=== PATIENT | male | born 1945 | race Caucasian/White ===

== ENCOUNTER → 2016-05-15 | Outpatient (CLI) | payer MEDICARE, BC ==
[2016-05-15 12:28] LABS: Calcium 9.4 mg/dL (8.4-10.2); Potassium 4.3 mmol/L (3.5-5.1); Total Bilirubin 2.6 mg/dL (0.2-1.3); Total Protein 7.4 g/dL (6.3-8.2)
[2016-05-15 12:36] LABS: CHCM 34.7; HCT 44.1 % (39.0-53.0); HDW 2.76; HGB 14.8 gm/dL (13.0-17.5); MCHC 33.6 g/dL (31.0-37.0); MCV 98.5 fL (80.0-100.0); Mean Platelet Volume 7.6; RBC 4.48 m/uL (4.30-5.90); RDW 14.6 % (11.5-15.5); WBC 3.6 k/uL (3.8-10.6)
== END | disposition home or self-care (01) ==
LOC: LABWHC1 11:05
PROVIDERS: ATTEND Internal Medicine Gastroenterology
DX: K74.69 Other cirrhosis of liver (principal)
CPT/HCPCS: 36415; 80053; 82105; 85027

== ENCOUNTER → 2016-08-14 | Outpatient (CLI) | payer MEDICARE, BC ==
[2016-08-14 12:58] LABS: ALT 39 U/L (21-72); AST 49 U/L (17-59); Alkaline Phosphatase 91 U/L (38-126); Anion Gap 9 mmol/L; Blood Urea Nitrogen 24 mg/dL (9-20); Calcium 9.2 mg/dL (8.4-10.2); Carbon Dioxide 24 mmol/L (22-30); Chloride 108 mmol/L (98-107); Glucose 88 mg/dL (74-99); Non-African American GFR(MDRD) >60 (>60 ml/min/1.73 sqM); Potassium 4.3 mmol/L (3.5-5.1); Sodium 141 mmol/L (137-145); Total Bilirubin 2.1 mg/dL (0.2-1.3); Total Protein 6.9 g/dL (6.3-8.2)
[2016-08-14 13:03] LABS: CH 34.9; CHCM 35.2; HCT 39.2 % (39.0-53.0); HDW 2.92; HGB 13.6 gm/dL (13.0-17.5); MCH 34.6 pg (25.0-35.0); MCHC 34.7 g/dL (31.0-37.0); MCV 99.7 fL (80.0-100.0); Macrocytosis Slight; RBC 3.93 m/uL (4.30-5.90); RDW 14.8 % (11.5-15.5); WBC 3.7 k/uL (3.8-10.6)
== END | disposition home or self-care (01) ==
LOC: LABWHC1 12:20
PROVIDERS: ATTEND Internal Medicine Gastroenterology
DX: K74.69 Other cirrhosis of liver (principal)
CPT/HCPCS: 36415; 80053; 82105; 85027

== ENCOUNTER 2016-09-02 09:46 | Day surgery (SDC) | payer MEDICARE, BC ==
[2016-09-01 10:07] VITALS: BMI 36.5
[~2016-09-02 09:46] MED LIST: LACTATED RINGERS 1,000 ML IV SCH; LIDOCAINE 1% 20 ML VIAL (10MG/ML) FOR IV START INTRADERMA PRN
[2016-09-02 11:29] VITALS: TEMP 97.6
[2016-09-02] MEDS ORDERED: PROPOFOL 10 MG/ML 20 ML VIAL IV ONE (12:00)
[2016-09-02] MEDS ORDERED: LIDOCAINE 1% INJ 10MG/ML (20 ML MDV) ONE (12:00)
--- NOTE | 2016-09-02 12:11 | P.PCN ---
Date of Procedure: 09/02/16 Procedure(s) Performed: BRIEF HISTORY: Patient is a 71-year-old, pleasant, white male, scheduled for an upper endoscopy as a part of screening for esophageal varices has patient was diagnosed with liver cirrhosis 6 months ago.. PROCEDURE PERFORMED: Esophagogastroduodenoscopy with biopsy. PREOPERATIVE DIAGNOSIS: History of liver cirrhosis, screening for esophageal varices. IV sedation per anesthesia. PROCEDURE: After informed consent was obtained, the patient was brought into the endoscopy unit. IV sedation was administered by Anesthesia under continuous monitoring. Initially the Olympus GIF-140 video endoscope was inserted into the mouth. Esophagus intubated without any difficulty. It was gradually advanced into the stomach and duodenum and carefully examined. The bulb and the second part of the duodenum appeared normal. The scope at this time was withdrawn to the stomach, adequately insufflated with air, and upon careful examination, mucosa of the antrum, body, cardia and the fundus had diffuse portal hypertensive gastropathy. No gastric varices identified. The scope was then withdrawn into the esophagus. Small hiatal hernia noted. The GE junction was located at 39 cm from the incisors. There were grade 2 distal esophageal varices identified with no active bleeding. There was a long segment of Pickard 's esophagus extending from 30-39 cm from the incisors and multiple biopsies were done from this area. The~ esophagus appeared normal. There were no erosions or ulcerations seen and the patient tolerated the procedure well. IMPRESSION: 1. Long segment Pickard's esophagus. 2. Grade 1/2 distal esophageal varices. 3. Severe portal hypertensive gastropathy RECOMMENDATIONS: The findings of this examination were discussed with the patient as well as his family. He will be started on Inderal 10 mg by mouth 3 times daily for severe portal hypertensive gastropathy as well as esophageal varices to prevent bleeding. He will also be started on Prilosec 20 mg daily for Pickard's esophagus. The biopsies show Pickard's esophagus she will need to have a repeat upper endoscopy in 2 years..
[2016-09-02 12:39] VITALS: BP 127/76; PULSE 60; RESP 18
== END 2016-09-02 13:01 | disposition home or self-care (01) ==
LOC: ORWHC2ENDO 09:46
PROVIDERS: ATTEND Internal Medicine Gastroenterology
DX: K22.70 Barrett's esophagus without dysplasia (principal); I85.00 Esophageal varices without bleeding; K76.6 Portal hypertension; K31.89 Other diseases of stomach and duodenum; K74.60 Unspecified cirrhosis of liver; Z79.899 Other long term (current) drug therapy; I10 Essential (primary) hypertension
CPT/HCPCS: 88305; 43239; J2001; J2704

== ENCOUNTER → 2017-06-29 | Outpatient (CLI) | payer MEDICARE ==
[2017-06-29 13:08] LABS: ALT 30 U/L (21-72); AST 39 U/L (17-59); Albumin 3.2 g/dL (3.5-5.0); Alkaline Phosphatase 86 U/L (38-126); Anion Gap 8 mmol/L; Blood Urea Nitrogen 15 mg/dL (9-20); Calcium 9.1 mg/dL (8.4-10.2); Carbon Dioxide 25 mmol/L (22-30); Chloride 111 mmol/L (98-107); Glucose 92 mg/dL (74-99); Potassium 4.5 mmol/L (3.5-5.1); Sodium 144 mmol/L (137-145); Total Bilirubin 2.7 mg/dL (0.2-1.3); Total Protein 6.6 g/dL (6.3-8.2)
[2017-06-29 13:16] LABS: HCT 39.7 % (39.0-53.0); HGB 13.3 gm/dL (13.0-17.5); MCH 33.2 pg (25.0-35.0); MCHC 33.5 g/dL (31.0-37.0); MCV 98.8 fL (80.0-100.0); Mean Platelet Volume 7.4; RBC 4.02 m/uL (4.30-5.90); RDW 14.8 % (11.5-15.5); WBC 2.8 k/uL (3.8-10.6)
[2017-06-29 13:20] LABS: Platelet Count 40 k/uL (150-450)
== END | disposition home or self-care (01) ==
LOC: LABWHC1 12:15
PROVIDERS: ATTEND Internal Medicine Gastroenterology
DX: K74.69 Other cirrhosis of liver (principal)
CPT/HCPCS: 36415; 80053; 82105; 85027

== ENCOUNTER → 2018-01-31 | Outpatient (CLI) | payer MEDICARE ==
--- NOTE | 2018-01-31 15:36 | US ---
EXAMINATION TYPE: US liver DATE OF EXAM: 01/31/2018 COMPARISON: CT and US CLINICAL HISTORY: K74.69 CIRRHOSIS OF LIVER. Cirrhosis EXAM MEASUREMENTS: Liver Length: 12.7 cm Gallbladder Wall: 0.2 cm Right Kidney: 11.1 x 6.5 x 4.9 cm Extremely limited exam due to large pt body habitus and overlying bowel gas Pancreas: Obscured by bowel gas Liver: Very limited views, coarse echotexture, small in size Gallbladder: Very limited views, wall did not appear thickened Evidence for sonographic Carson's sign: No CBD: Unable to visualize, obscured by overlying bowel gas Right Kidney: wnl IMPRESSION: 1. Fatty hepatic infiltration.
== END | disposition home or self-care (01) ==
LOC: RADUSWWP 14:40
PROVIDERS: ATTEND Internal Medicine Gastroenterology
DX: K76.0 Fatty (change of) liver, not elsewhere classified (principal)
CPT/HCPCS: 76705

== ENCOUNTER 2021-04-10 16:10 | Inpatient (IN) | payer MEDICARE ==
[2021-04-10] MEDS ORDERED: SODIUM CHLORIDE 0.9% 1,000 ML IV STA (16:27)
[2021-04-10] MEDS ORDERED: ATROPINE SULFATE 0.1 MG/ML 10ML SYRINGE IV STA (16:31)
--- NOTE | 2021-04-10 16:31 | ED ---
General Adult HPI - General Chief complaint: Weakness Stated complaint: Low Blood Pressure Time Seen by Provider: 04/10/21 16:15 Source: patient, EMS Mode of arrival: EMS Limitations: no limitations - History of Present Illness Initial comments: Dictation was produced using [employer] dictation software. please excuse any grammatical, word or spelling errors. Chief Complaint: 75-year-old male presents to emergency department for episode of unresponsiveness. History of Present Illness: Patient is 75-year-old male. He is brought in by EMS. EMS reports the patient was brought to the ER for unresponsiveness. En route to the emergency department EMS noted that patient was bradycardic and hypotensive. Patient was lethargic however to verbal stimuli. He is oriented 4. Patient has no complaints. He states the only complaint he has that his mouth is dry. Has no pain complaints does not feel short of breath. Patient reports that he has past medical history of gout fatty liver. EMS was concerned that patient looked icteric. Patient denies any smoking. Denies any drug use. The ROS documented in this emergency department record has been reviewed and confirmed by me. Those systems with pertinent positive or negative responses have been documented in the HPI. All other systems are other negative and/or noncontributory. PHYSICAL EXAM: General Impression: Alert and oriented x3, not in acute distress HEENT: Normocephalic atraumatic, extra-ocular movements intact, pupils equal and reactive to light bilaterally, dry mucous membranes Cardiovascular: Heart regular rate and rhythm Chest: Able to complete full sentences, no retractions, no tachypnea Abdomen: abdomen soft, non-tender, non-distended, no organomegaly Musculoskeletal: Pulses present and equal in all extremities, no peripheral edema Motor: no focal deficits noted Neurological: CN II-XII grossly intact, no focal motor or sensory deficits noted Skin: Intact with no visualized rashes Psych: Normal affect and mood ED course: 75-year-old male presents to the emergency department for lethargy. EMS was concerned of bradycardia and hypotension. Vital signs upon arrival shows heart rate of 52, blood pressure of 79/52. Patient is dry appearing at t he bedside. He is lethargic but alert to verbal stimuli.. Anicteric to me. Patient given 1 L normal saline bolus. Laboratory evaluation obtained. CBC appears to be at baseline. He has baseline low platelets and pancytopenia. Coag panel is unremarkable. Metabolic panel shows elevated renal markers with creatinine 1.47 BUN of 25. Patient does not have any history of kidney issues. He has however had low renal function similar in the past. Rotavirus negative. Patient given fluids. His reevaluated at the bedside. His heart rate still bradycardic though improved that the mid 50s. Blood pressures improved. Patient reevaluated at bedside at 5:50 PM found to be in stable medical condition. Daughter is at the bedside. They're agreeable with admission for medical monitoring. Cardiology consulted for bradycardia. EKG interpretation: Ventricular rate 50, sinus bradycardia,. Interval to 10, QRS 96, QTC 441. No CO prolongation, no QTC prolongation. T-wave inversion in lead 3 and aVF. There does not appear to be any other abnormalities noted. This is compared to EKG from 08/15/2015 - Related Data Home Medications Medication Instructions Recorded Confirmed Furosemide [Lasix] 40 mg PO MOWEFR 09/01/16 09/02/16 Spironolactone [Aldactone] 100 mg PO MOWEFR 09/01/16 09/02/16 Allergies Allergy/AdvReac Type Severity Reaction Status Date / Time No Known Allergies Allergy Verified 04/10/21 16:24 Review of Systems ROS Statement: Those systems with pertinent positive or pertinent negative responses have been documented in the HPI. ROS Other: All systems not noted in ROS Statement are negative. Past Medical History Past Medical History: Osteoarthritis (OA) Additional Past Medical History / Comment(s): GOUT,. FATTY LIVER-50% DAMAGE History of Any Multi-Drug Resistant Organisms: None Reported Past Surgical History: Adenoidectomy, Hernia Repair, Joint Replacement, Orthopedic Surgery Additional Past Surgical History / Comment(s): right knee replacement, right arm surgery, COLONOSCOPY, EGD Past Anesthesia/Blood Transfusion Reactions: No Reported Reaction Past Psychological History: No Psychological Hx Reported Smoking Status: Former smoker Past Alcohol Use History: None Reported Past Drug Use History: None Reported - Past Family History Mother Family Medical History: Cancer General Exam Limitations: no limitations Course Vital Signs 04/10/21 04/10/21 04/10/21 16:13 16:15 16:36 Temperature 97.7 F Pulse Rate 52 L 44 L Pulse Rate [ 44 L Brief Writer ] Respiratory 14 18 Rate Blood Pressure 79/52 93/56 O2 Sat by Pulse 99 98 Oximetry 04/10/21 04/10/21 16:40 17:13 Temperature Pulse Rate 50 L 77 Pulse Rate [ Brief Writer ] Respiratory 18 20 Rate Blood Pressure 99/57 127/69 O2 Sat by Pulse 94 L Oximetry Medical Decision Making - Lab Data Result diagrams: 04/10/21 16:30 04/10/21 16:30 Lab Results 04/10/21 04/10/21 04/10/21 Range/Units 16:30 16:30 16:30 WBC 3.5 L (3.8-10.6) k/uL RBC 3.57 L (4.30-5.90) m/uL Hgb 13.0 (13.0-17.5) gm/dL Hct 38.0 L (39.0-53.0) % MCV 106.6 H (80.0-100.0) fL MCH 36.5 H (25.0-35.0) pg MCHC 34.3 (31.0-37.0) g/dL RDW 14.3 (11.5-15.5) % Plt Count 41 L (150-450) k/uL MPV 8.6 Neutrophils % 59 % Lymphocytes % 30 % Monocytes % 4 % Eosinophils % 5 % Basophils % 0 % Neutrophils # 2.1 (1.3-7.7) k/uL Lymphocytes # 1.0 (1.0-4.8) k/uL Monocytes # 0.1 (0-1.0) k/uL Eosinophils # 0.2 (0-0.7) k/uL Basophils # 0.0 (0-0.2) k/uL Manual Slide Review Performed Macrocytosis Moderate PT 12.9 H (9.0-12.0) sec INR 1.3 H (<1.2) APTT 26.3 (22.0-30.0) sec Sodium 139 (137-145) mmol/L Potassium 4.6 (3.5-5.1) mmol/L Chloride 110 H (98-107) mmol/L Carbon Dioxide 21 L (22-30) mmol/L Anion Gap 8 mmol/L BUN 25 H (9-20) mg/dL Creatinine 1.47 H (0.66-1.25) mg/dL Est GFR (CKD-EPI)AfAm 54 (>60 ml/min/1.73 sqM) Est GFR (CKD-EPI)NonAf 46 (>60 ml/min/1.73 sqM) Glucose 132 H (74-99) mg/dL Plasma Lactic Acid Jarret (0.7-2.0) mmol/L Calcium 8.6 (8.4-10.2) mg/dL Ionized Calcium Tamika 4.9 (4.5-5.3) mg/dL Magnesium 1.8 (1.6-2.3) mg/dL Total Bilirubin 2.4 H (0.2-1.3) mg/dL AST 31 (17-59) U/L ALT 13 (4-49) U/L Alkaline Phosphatase 76 (38-126) U/L Ammonia (<30) umol/L Troponin I (0.000-0.034) ng/mL Total Protein 6.4 (6.3-8.2) g/dL Albumin 2.8 L (3.5-5.0) g/dL Lipase 191 (23-300) U/L Coronavirus (PCR) (Not Detectd) 04/10/21 04/10/21 04/10/21 Range/Units 16:30 16:30 16:44 WBC (3.8-10.6) k/uL RBC (4.30-5.90) m/uL Hgb (13.0-17.5) gm/dL Hct (39.0-53.0) % MCV (80.0-100.0) fL MCH (25.0-35.0) pg MCHC (31.0-37.0) g/dL RDW (11.5-15.5) % Plt Count (150-450) k/uL MPV Neutrophils % % Lymphocytes % % Monocytes % % Eosinophils % % Basophils % % Neutrophils # (1.3-7.7) k/uL Lymphocytes # (1.0-4.8) k/uL Monocytes # (0-1.0) k/uL Eosinophils # (0-0.7) k/uL Basophils # (0-0.2) k/uL Manual Slide Review Macrocytosis PT (9.0-12.0) sec INR (<1.2) APTT (22.0-30.0) sec Sodium (137-145) mmol/L Potassium (3.5-5.1) mmol/L Chloride (98-107) mmol/L Carbon Dioxide (22-30) mmol/L Anion Gap mmol/L BUN (9-20) mg/dL Creatinine (0.66-1.25) mg/dL Est GFR (CKD-EPI)AfAm (>60 ml/min/1.73 sqM) Est GFR (CKD-EPI)NonAf (>60 ml/min/1.73 sqM) Glucose (74-99) mg/dL Plasma Lactic Acid Jarret 1.4 (0.7-2.0) mmol/L Calcium (8.4-10.2) mg/dL Ionized Calcium Tamika (4.5-5.3) mg/dL Magnesium (1.6-2.3) mg/dL Total Bilirubin (0.2-1.3) mg/dL AST (17-59) U/L ALT (4-49) U/L Alkaline Phosphatase (38-126) U/L Ammonia 60 H (<30) umol/L Troponin I <0.012 (0.000-0.034) ng/mL Total Protein (6.3-8.2) g/dL Albumin (3.5-5.0) g/dL Lipase (23-300) U/L Coronavirus (PCR) Not Detected (Not Detectd) Critical Care Time Critical Care Time: Yes Total Critical Care Time: 33 Disposition Clinical Impression: Bradycardia, Dehydration Disposition: ADMITTED IP TO THIS HOSP Condition: Fair Referrals: Mariana Chu MD [Primary Care Provider] - 1-2 days
[2021-04-10 16:46] LABS: Ionized Calcium 4.9 mg/dL (4.5-5.3)
[2021-04-10 16:48] LABS: Basophils % (A) 0 %; Eosinophils # (A) 0.2 k/uL (0-0.7); Eosinophils % (A) 5 %; Lymphocytes % (A) 30 %; MCH 36.5 pg (25.0-35.0); MCHC 34.3 g/dL (31.0-37.0); MCV 106.6 fL (80.0-100.0); Macrocytosis Moderate; Mean Platelet Volume 8.6; Monocytes # (A) 0.1 k/uL (0-1.0); Monocytes % (A) 4 %; Neutrophils # (A) 2.1 k/uL (1.3-7.7); Neutrophils % (A) 59 %; Platelet Count 41 k/uL (150-450); RBC 3.57 m/uL (4.30-5.90); RDW 14.3 % (11.5-15.5); WBC 3.5 k/uL (3.8-10.6)
[2021-04-10 16:52] LABS: Albumin 2.8 g/dL (3.5-5.0); Calcium 8.6 mg/dL (8.4-10.2); Magnesium 1.8 mg/dL (1.6-2.3); Potassium 4.6 mmol/L (3.5-5.1); Total Bilirubin 2.4 mg/dL (0.2-1.3); Total Protein 6.4 g/dL (6.3-8.2)
[2021-04-10 17:03] LABS: INR 1.3 (<1.2); Partial Thromboplastin Time 26.3 sec (22.0-30.0); Prothrombin Time 12.9 sec (9.0-12.0)
[2021-04-10 17:06] LABS: Lactic Acid, Venous 1.4 mmol/L (0.7-2.0)
[2021-04-10] MEDS ORDERED: NALOXONE 0.4 MG/ML 1 ML VIAL IV PRN (17:46)
[2021-04-10] MEDS: SODIUM CHLORIDE 0.9% 1,000 ML IV SCH (19:24)
[2021-04-11] MEDS: SODIUM CHLORIDE 0.9% 1,000 ML IV SCH ×4 (06:29→23:22)
[2021-04-11 09:01] LABS: Calcium 8.5 mg/dL (8.4-10.2); Potassium 4.5 mmol/L (3.5-5.1)
[2021-04-11 09:18] LABS: T4, Free (Free Thyroxine) 1.19 ng/dL (0.78-2.19)
--- NOTE | 2021-04-11 10:44 | P.CRDCN ---
History of Present Illness Consult date: 04/11/21 History of present illness: HISTORY OF PRESENT ILLNESS: This is a 75-year-old male with a past medical history significant for congestive heart failure. Patient does not follow with a travel services professional. He denies any previous cardiac history. We have been asked to see the patient in consultation for bradycardia. Patient examined at the bedside. According to the ER physician note, the patient was brought to the hospital because he was bradycardic, hypotensive, and unresponsive. He was noted to have a heart rate in the 40s. Patient is a poor historian. There is no family at the bedside. Patient states he was sitting at home on the couch when his noticed he was having some slurred speech. He states he went to lay down for a little while and when he got up he states everything was spinning. He denies having any chest pain or pressure. Denies any shortness of breath. Patient does report he has not been drinking much fluids for the past couple days. EKG reveals sinus bradycardia with first-degree AV block. T-wave inversions inferiorly. Patient had T-wave inversions in lead 3 on previous EKG. Laboratory data: WBC 3.5. Hemoglobin 13.0. Platelet count 41. Sodium 137. Potassium 4.5. BUN 27. Creatinine 1.51. Troponin negative 1. Ammonia 60. TSH 2.260. Current home cardiac medications include propanolol 10 mg 3 times a day, spironolactone 100 mg daily, Lasix 40 mg daily REVIEW OF SYSTEMS: At the time of my exam: CONSTITUTIONAL: Denies fever or chills. HEENT: Denies blurred vision, vision changes, or eye pain. Denies hemoptysis CARDIOVASCULAR: Denies chest pain. Denies orthopnea. Denies PND. Denies palpitations RESPIRATORY: Denies shortness of breath. GASTROINTESTINAL: Denies abdominal pain. Denies nausea or vomiting. HEMATOLOGIC: Denies bleeding disorders. GENITOURINARY: Denies any blood in urine. SKIN: Denies pruitis. Denies rash. PHYSICAL EXAM: VITAL SIGNS: Reviewed. GENERAL: Well-developed in no acute distress. HEENT: Head is normocephalic. Pupils are equal, round. Sclerae anicteric. Mucous membranes of the mouth are moist. Neck supple. No JVD or thyromegaly LUNGS: Respirations even and unlabored. Lungs diminished to auscultation bilate rally. HEART: Regular rate and rhythm. S1 and S2 heard. ABDOMEN: Soft. Nondistended. Nontender. EXTREMITIES: Normal range of motion. No clubbing or cyanosis. Peripheral pulses intact. Trace lower extremity edema NEUROLOGIC: Awake and alert. Oriented x 3. ASSESSMENT: Possible unresponsiveness Bradycardia, improving Hypotension, improving with IV fluids Acute kidney injury, may be secondary to decreased oral intake in addition to oral diuretics and hypotension Elevated ammonia levels PLAN: Obtain 2D echo to assess cardiac structure and function Continue to hold diuretics Continue to hold AV luis blocking agents Continue telemetry monitoring TSH within normal limits Monitor kidney function Continue IV hydration Further recommendations pending patient course Nurse practitioner note has been reviewed by physician. Signing provider agrees with the documented findings, assessment, and plan of care. Past Medical History Past Medical History: Osteoarthritis (OA) Additional Past Medical History / Comment(s): GOUT,. FATTY LIVER-50% DAMAGE History of Any Multi-Drug Resistant Organisms: None Reported Past Surgical History: Adenoidectomy, Hernia Repair, Joint Replacement, Orthopedic Surgery Additional Past Surgical History / Comment(s): right knee replacement, right arm surgery, COLONOSCOPY, EGD Past Anesthesia/Blood Transfusion Reactions: No Reported Reaction Past Psychological History: No Psychological Hx Reported Smoking Status: Former smoker Past Alcohol Use History: None Reported Past Drug Use History: None Reported - Past Family History Mother Family Medical History: Cancer Medications and Allergies Home Medications Medication Instructions Recorded Confirmed Type Furosemide [Lasix] 40 mg PO DAILY 09/01/16 04/10/21 History Propranolol HCl 10 mg PO TID 04/10/21 04/10/21 History Spironolactone [Aldactone] 100 mg PO DAILY 04/10/21 04/10/21 History Allergies Allergy/AdvReac Type Severity Reaction Status Date / Time No Known Allergies Allergy Verified 04/10/21 17:55 Physical Exam Vitals: Vital Signs Temp Pulse Pulse Resp BP BP Pulse Ox 04/11/21 08:16 52 L 04/11/21 08:15 98.2 F 52 L 18 104/51 04/11/21 04:00 98.0 F 50 L 18 118/63 99 04/11/21 02:00 47 L 04/11/21 00:00 47 L 18 93/54 99 04/10/21 20:50 97.1 F L 44 L 18 99/56 96 04/10/21 19:53 43 L 18 92/53 99 04/10/21 19:00 48 L 18 100/58 100 04/10/21 16:40 50 L 18 99/57 04/10/21 16:36 44 L 18 93/56 98 04/10/21 16:15 44 L 04/10/21 16:13 97.7 F 52 L 14 79/52 99 Intake and Output 04/10/21 04/11/21 04/11/21 22:59 06:59 14:59 Intake Total 1540 236 Output Total 850 Balance 690 236 Intake: Intake, IV Titration 1300 Amount Sodium Chloride 0.9% 1, 1300 000 ml @ 130 mls/hr IV . Q7H42M [facility] Rx#:[id number] Oral 240 236 Output: Urine 850 Other: Voiding Method Toilet Urinal Weight 113.398 kg 133 kg Results 04/10/21 16:30 04/11/21 08:33 Cardiac Enzymes 04/10/21 04/10/21 Range/Units 16:30 16:30 AST 31 (17-59) U/L Troponin I <0.012 (0.000-0.034) ng/mL Coagulation 04/10/21 Range/Units 16:30 PT 12.9 H (9.0-12.0) sec APTT 26.3 (22.0-30.0) sec CBC 04/10/21 Range/Units 16:30 WBC 3.5 L (3.8-10.6) k/uL RBC 3.57 L (4.30-5.90) m/uL Hgb 13.0 (13.0-17.5) gm/dL Hct 38.0 L (39.0-53.0) % Plt Count 41 L (150-450) k/uL Comprehensive Metabolic Panel 04/10/21 Range/Units 16:30 Sodium 139 (137-145) mmol/L Potassium 4.6 (3.5-5.1) mmol/L Chloride 110 H (98-107) mmol/L Carbon Dioxide 21 L (22-30) mmol/L BUN 25 H (9-20) mg/dL Creatinine 1.47 H (0.66-1.25) mg/dL Glucose 132 H (74-99) mg/dL Calcium 8.6 (8.4-10.2) mg/dL AST 31 (17-59) U/L ALT 13 (4-49) U/L Alkaline Phosphatase 76 (38-126) U/L Total Protein 6.4 (6.3-8.2) g/dL Albumin 2.8 L (3.5-5.0) g/dL Current Medications Generic Name Dose Route Start Last Admin Trade Name Freq PRN Reason Stop Dose Admin Sodium Chloride 1,000 mls @ 130 mls/hr 04/10/21 18:00 04/11/21 06:29 Saline 0.9% IV 130 mls/hr .Q7H42M YAZ Administration Naloxone HCl 0.2 mg 04/10/21 17:46 Naloxone 0.4 Mg/Ml 1 Ml Vial IV Q2M PRN Opioid Reversal Intake and Output 04/10/21 04/11/21 04/11/21 22:59 06:59 14:59 Intake Total 1540 236 Output Total 850 Balance 690 236 Intake: Intake, IV Titration 1300 Amount Sodium Chloride 0.9% 1, 1300 000 ml @ 130 mls/hr IV . Q7H42M [facility] Rx#:[id number] Oral 240 236 Output: Urine 850 Other: Voiding Method Toilet Urinal Weight 113.398 kg 133 kg 04/10/21 16:30 04/10/21 16:30
--- NOTE | 2021-04-11 12:04 | P.HPIM ---
History of Present Illness This is a pleasant 75 years old male with past medical history of osteoarthritis, gout, fatty liver. Patient presents because of feeling dizzy, generally weak and he had to lay down. He was able to get up by himself but he feels very weak. His dizziness is nonspecific, he denies presyncope feeling or room spinning feeling. No syncope or loss of consciousness. He denies chest pain or dyspnea or coughing. No diarrhea or vomiting or abdominal pain. He states that his pain a lot but no burning. No new medication or change of dosage recently. No loss of appetite but he was not drinking much of 40 over the last 2 weeks, patient does not give any specific reason byrnes that. He ate breakfast well this morning. Denies smoking alcohol or illicit drugs. On admission his heart rate is 40s to 50s, blood pressure was 79/52. This morning his heart rate is 50 bpm and blood pressure 118/63. Patient is afebrile but he had a temperature of 97.1 Labs showing bicytopenia with WBC of 3.5, hemoglobin 13 which is normal and low platelet count at 41 Mildly elevated creatinine at 1.4. Risks of BMP is unremarkable. Glucose 132. Troponin is negative less than 0.012. Lipase normal 191. EKG showing sinus bradycardia with first-degree AV block at 50 BPM In the emergency room received 1 L of normal saline and continued at 1 30 mL/h, he received 1 dose of atropine 0.5 mg. Local Hazmat Driver been consulted Review of Systems CONSTITUTIONAL: No fever, no malaise, no fatigue. HEENT: No recent visual problems or hearing problems. Denied any sore throat. CARDIOVASCULAR: No orthopnea, PND, no palpitations, no syncope. PULMONARY: No shortness of breath, no cough, no hemoptysis. GASTROINTESTINAL: No diarrhea, no nausea, no vomiting, no abdominal pain. Normoactive bowel sounds. NEUROLOGICAL: No headaches, no weakness, no numbness. HEMATOLOGICAL: Denies any bleeding or petechiae. GENITOURINARY: Denies any burning micturition, frequency, or urgency. MUSCULOSKELETAL/RHEUMATOLOGICAL: Denies any joint pain, swelling, or any muscle pain. ENDOCRINE: Denies any polyuria or polydipsia. Past Medical History Past Medical History: Osteoarthritis (OA) Additional Past Medical History / Comment(s): GOUT,. FATTY LIVER-50% DAMAGE History of Any Multi-Drug Resistant Organisms: None Reported Past Surgical History: Adenoidectomy, Hernia Repair, Joint Replacement, Orthopedic Surgery Additional Past Surgical History / Comment(s): right knee replacement, right arm surgery, COLONOSCOPY, EGD Past Anesthesia/Blood Transfusion Reactions: No Reported Reaction Past Psychological History: No Psychological Hx Reported Smoking Status: Former smoker Past Alcohol Use History: None Reported Past Drug Use History: None Reported - Past Family History Mother Family Medical History: Cancer Medications and Allergies Home Medications Medication Instructions Recorded Confirmed Type Furosemide [Lasix] 40 mg PO DAILY 09/01/16 04/10/21 History Propranolol HCl 10 mg PO TID 04/10/21 04/10/21 History Spironolactone [Aldactone] 100 mg PO DAILY 04/10/21 04/10/21 History Allergies Allergy/AdvReac Type Severity Reaction Status Date / Time No Known Allergies Allergy Verified 04/10/21 17:55 Physical Exam Vitals: Vital Signs Temp Pulse Pulse Resp BP BP Pulse Ox 04/11/21 04:00 98.0 F 50 L 18 118/63 99 04/11/21 02:00 47 L 04/11/21 00:00 47 L 18 93/54 99 04/10/21 20:50 97.1 F L 44 L 18 99/56 96 04/10/21 19:53 43 L 18 92/53 99 04/10/21 19:00 48 L 18 100/58 100 04/10/21 16:40 50 L 18 99/57 04/10/21 16:36 44 L 18 93/56 98 04/10/21 16:15 44 L 04/10/21 16:13 97.7 F 52 L 14 79/52 99 Intake and Output 04/10/21 04/11/21 04/11/21 22:59 06:59 14:59 Intake Total 1540 Output Total 850 Balance 690 Intake: Intake, IV Titration 1300 Amount Sodium Chloride 0.9% 1, 1300 000 ml @ 130 mls/hr IV . Q7H42M [facility] Rx#:[id number] Oral 240 Output: Urine 850 Other: Weight 113.398 kg 133 kg GENERAL: The patient is alert and oriented x3, not in any acute distress. Well developed, well nourished. HEENT: Pupils are round and equally reacting to light. EOMI. No scleral icterus. No conjunctival pallor. Normocephalic, atraumatic. No pharyngeal erythema. No thyromegaly. CARDIOVASCULAR: S1 and S2 present. No murmurs, rubs, or gallops. PULMONARY: Chest is clear to auscultation, no wheezing or crackles. ABDOMEN: Soft, nontender, nondistended, normoactive bowel sounds. No palpable organomegaly. MUSCULOSKELETAL: No joint swelling or deformity. EXTREMITIES: No cyanosis, clubbing, or pedal edema. NEUROLOGICAL: Gross neurological examination did not reveal any focal deficits. SKIN: No rashes. No petechiae Results CBC & Chem 7: 04/10/21 16:30 04/11/21 08:33 Labs: Abnormal Lab Results - Last 24 Hours (Table) 04/10/21 04/10/21 04/10/21 Range/Units 16:30 16:30 16:30 WBC 3.5 L (3.8-10.6) k/uL RBC 3.57 L (4.30-5.90) m/uL Hct 38.0 L (39.0-53.0) % MCV 106.6 H (80.0-100.0) fL MCH 36.5 H (25.0-35.0) pg Plt Count 41 L (150-450) k/uL PT 12.9 H (9.0-12.0) sec INR 1.3 H (<1.2) Chloride 110 H (98-107) mmol/L Carbon Dioxide 21 L (22-30) mmol/L BUN 25 H (9-20) mg/dL Creatinine 1.47 H (0.66-1.25) mg/dL Glucose 132 H (74-99) mg/dL Total Bilirubin 2.4 H (0.2-1.3) mg/dL Ammonia (<30) umol/L Albumin 2.8 L (3.5-5.0) g/dL 04/10/21 Range/Units 16:44 WBC (3.8-10.6) k/uL RBC (4.30-5.90) m/uL Hct (39.0-53.0) % MCV (80.0-100.0) fL MCH (25.0-35.0) pg Plt Count (150-450) k/uL PT (9.0-12.0) sec INR (<1.2) Chloride (98-107) mmol/L Carbon Dioxide (22-30) mmol/L BUN (9-20) mg/dL Creatinine (0.66-1.25) mg/dL Glucose (74-99) mg/dL Total Bilirubin (0.2-1.3) mg/dL Ammonia 60 H (<30) umol/L Albumin (3.5-5.0) g/dL Thrombosis Risk Factor Assmnt - Choose All That Apply Each Factor Represents 1 point: Obesity (BMI >25) Each Risk Factor Represents 2 Points: Age 61-74 years Thrombosis Risk Factor Assessment Total Risk Factor Score: 3 Thrombosis Risk Factor Assessment Level: Moderate Risk Assessment and Plan Assessment: Hypotension and sinus bradycardia , with first degree AV block. His beta maureen propranolol and Lasix were stopped upon admission Probable Mild acute kidney injury secondary to hypovolemia, versus chronic kidney disease Chronic bicytopenia with leukopenia and thrombocytopenia History of osteoarthritis History of gout History of fatty liver Plan: This is a pleasant 75 years old male who presents with hypotension and bradycardia Check hemoglobin A1c and TSH. Check cortisol level Check vitamin B12 and folate continue with IV fluids and monitor creatinine Hold Aldactone, Lasix and propranolol Labs and medication were reviewed.. Continue same treatment. Continue with symptomatic treatment. Resume home medication. Monitor lytes and vitals. DVT and GI prophylaxis. Further recommendations depends on the clinical course of the patient DVT prophylaxis: no Subcutaneous heparin due to thrombocytopenia. Continue with mechanical and S CD GI Prophylaxis: Pepcid Prognosis is guarded
--- NOTE | 2021-04-11 13:00 | ECHOF ---
Referral Reason:LV function, bradycardia MEASUREMENTS -------- HEIGHT: 182.9 cm WEIGHT: 132.9 kg BP: 104/51 IVSd: 1.2 cm (0.6 - 1.1) LVIDd: 5.8 cm (3.9 - 5.3) LVPWd: 1.1 cm (0.6 - 1.1) EDV(Teich): 167 ml IVSs: 2.0 cm LVIDs: 3.4 cm LVPWs: 1.5 cm %IVS Thck: 70 % ESV(Teich): 46 ml EF(Teich): 72 % %FS: 42 % SV(Teich): 121 ml LA Diam: 4.1 cm (2.7 - 3.8) RVIDd: 3.9 cm (< 3.3) LALs A4C: 6.8 cm LAAs A4C: 29.6 cm LAESV A-L A4C: 109 ml LAESV MOD A4C: 106 ml LALs A2C: 7.3 cm LAAs A2C: 28.4 cm LAESV A-L A2C: 94 ml LAESV MOD A2C: 91 ml LAESV(A-L): 104 ml LAESV Index (A-L): 41.59 ml/m Ao Diam: 3.8 cm (2.0 - 3.7) AV Cusp: 2.4 cm (1.5 - 2.6) EPSS: 0.7 cm MV E [place]: 1.22 m/s MV DecT: 256 ms MV Dec [place]: 4.8 m/s MV A [place]: 0.97 m/s MV E/A Ratio: 1.26 MV PHT: 74 ms AV Vmax: 1.78 m/s AV maxP.61 mmHg TR Vmax: 2.71 m/s TR maxP.32 mmHg RAP: 5.00 mmHg RVSP: 34.32 mmHg MV EF SLOPE: 67.00 mm/s (70 - 150) MV EXCURSION: 9.89 mm (> 18.000) FINDINGS -------- Resting bradycardia (HR<60bpm). This was a technically adequate study. The left ventricular size is normal. There is borderline concentric left ventricular hypertrophy. Overall left ventricular systolic function is normal with, an EF between 60 - 65 %. The right ventricle is moderately enlarged. The left atrium is mildly dilated. The right atrium is normal in size. The aortic valve is trileaflet, and appears structurally normal. No aortic stenosis or regurgitation. The mitral valve is normal. Mild mitral annular calcification present. Mild tricuspid regurgitation present. There is borderline pulmonary hypertension. The right ventr icular systolic pressure, as measured by Doppler, is 34.32mmHg. Trace/mild (physiologic) pulmonic regurgitation. The aortic root is dilated measuring 3.8cm. IVC Not well visulized. There is no pericardial effusion. CONCLUSIONS -------- 1. The left ventricular size is normal. 2. There is borderline concentric left ventricular hypertrophy. 3. Overall left ventricular systolic function is normal with, an EF between 60 - 65 %. 4. The right ventricle is moderately enlarged. 5. The left atrium is mildly dilated. 6. The aortic valve is trileaflet, and appears structurally normal. No aortic stenosis or regurgitati on. 7. Mild mitral annular calcification present. 8. Mild tricuspid regurgitation present. 9. There is borderline pulmonary hypertension. 10. The right ventricular systolic pressure, as measured by Doppler, is 34.32mmHg. 11. Trace/mild (physiologic) pulmonic regurgitation. 12. The aortic root is dilated measuring 3.8cm. 13. There is no pericardial effusion. MUTTON PUNCHER: Rhina Fuller RDCS
[2021-04-12 00:38] VITALS: RESP 18
--- NOTE | 2021-04-12 08:09 | P.PN ---
Subjective Progress Note Date: 04/12/21 Principal diagnosis: Symptomatic bradycardia The patient is a 75-year-old gentleman who requested to see for symptomatic bradycardia. He was receiving beta maureen which was held. He was seen this morning. He continues to be bradycardic but his heart rate is in the 50s. He did not go lower than that since yesterday. The pressure has been within normal limits. He underwent an echocardiogram which revealed normal left ventricular systolic function without significant valvular abnormalities. TSH and free T4 were checked and came in to be unremarkable. Objective - Vital Signs Vital signs: Vital Signs Temp 97.6 F 04/12/21 04:00 Pulse 61 04/12/21 04:00 Resp 18 04/12/21 04:00 BP 128/60 04/12/21 04:00 Pulse Ox 99 04/12/21 04:00 Intake & Output 04/11/21 04/12/21 04/12/21 18:59 06:59 18:59 Intake Total 2296 Output Total 900 425 Balance 1396 -425 Weight 137.5 kg Intake: Intake, IV Titration 1560 Amount Sodium Chloride 0.9% 1, 1560 000 ml @ 130 mls/hr IV . Q7H42M [facility] Rx#:[id number] Oral 736 Output: Urine 900 425 Other: Voiding Method Urinal - Constitutional General appearance: Present: no acute distress - Respiratory Respiratory: bilateral: diminished - Cardiovascular Rhythm: regular - Labs CBC & Chem 7: 04/10/21 16:30 04/11/21 08:33 Labs: Abnormal Lab Results - Last 24 Hours (Table) 04/11/21 Range/Units 08:33 BUN 27 H (9-20) mg/dL Creatinine 1.51 H (0.66-1.25) mg/dL Glucose 117 H (74-99) mg/dL Assessment and Plan Assessment: Assessment #1 symptomatic bradycardia which has improved #2 hypotension which has improved #3 chronic kidney disease #4 multiple comorbid conditions Plan #1 hypothyroidism disease was ruled out #2 continue holding any AV luis maureen agents #3 possible discharge in the next 12-24 hours
[2021-04-12] MEDS: SODIUM CHLORIDE 0.9% 1,000 ML IV SCH (08:48)
[2021-04-12 09:00] LABS: Calcium 8.2 mg/dL (8.4-10.2); Potassium 4.1 mmol/L (3.5-5.1)
[2021-04-12 11:15] VITALS: BP 118/68; PULSE 60; TEMP 98.2
--- NOTE | 2021-04-13 00:24 | P.DS ---
Providers Date of admission: 04/10/21 17:46 Attending physician: Jie eWlch Consults: 04/10/21 17:47 Consult Physician Routine Consulting Provider: Ronald Bill Consult Reason/Comments: bradycardia Do you want consulting provider notified?: Yes Primary care physician: Mariana Chu Hospital Course: Diagnoses: Hypotension and sinus bradycardia , with first degree AV block. His beta maureen propranolol and Lasix were stopped upon admission Probable Mild acute kidney injury secondary to hypovolemia, versus chronic kidney disease Chronic bicytopenia with leukopenia and thrombocytopenia History of osteoarthritis History of gout History of fatty liver Hospital course: This is a pleasant 75 years old male with past medical history of osteoarthritis, gout, fatty liver. Patient presents because of feeling dizzy, generally weak secondary to hypotension and bradycardia. His medication on admission were held including propranolol, Lasix and Aldactone Patient symptoms improved with IV hydration with normal saline with 130 mL/h His blood pressure this morning was 128/60 and 118/68 and heart rate around 60. His elevated creatinine upon admission 1.5 came back to normal at 1.1. Patient symptoms improved and back is his normal and today he was eager to be discharged. He denies chest pain or dyspnea. No change in urine or bowel habits. No fever. he Was cleared for discharge by second chef. Problems and management plan were discussed with the patient and he verbalized understanding and acceptance Patient was found stable and can be discharged home however he needs follow-up as an outpatient. Patient was instructed to follow up with PCP Dr. Chu within one week and patient agrees Patient was instructed to follow up with his second chef Dr. Bill in one week and he agrees to call and make appointment Physical exam Gen: patient is a AAOx3, no distress CVS: S1-S2, RRR, no murmur Lungs: B/L CTA, no wheezing Abdomen: soft, no distention, no tenderness, positive bowel sounds Extremity: no leg edema or induration Time spent more than 35 minutes Patient Condition at Discharge: Fair Plan - Discharge Summary Discharge Rx Participant: Yes New Discharge Prescriptions: Discontinued Furosemide [Lasix] 40 mg PO DAILY Spironolactone [Aldactone] 100 mg PO DAILY Propranolol HCl 10 mg PO TID Follow up Appointment(s)/Referral(s): Ronald Bill MD [STAFF PHYSICIAN] - 04/18/21 11:45 am Mariana Chu MD [Primary Care Provider] - 1-2 days Patient Instructions/Handouts: Bradycardia (DC) Activity/Diet/Wound Care/Special Instructions: Heart healthy diet Activity as tolerated Discharge Disposition: HOME SELF-CARE
== END 2021-04-12 11:34 | disposition home or self-care (01) | DRG 309 ==
LOC: EC 16:10 → 3SCARD 17:46
PROVIDERS: ADMIT Hospitalist; ATTEND Hospitalist
DX: R00.1 Bradycardia, unspecified (principal); D61.818 Other pancytopenia; N17.9 Acute kidney failure, unspecified; Z68.41 Body mass index [BMI] 40.0-44.9, adult; I44.0 Atrioventricular block, first degree; E86.1 Hypovolemia; E86.0 Dehydration; M19.90 Unspecified osteoarthritis, unspecified site; I50.9 Heart failure, unspecified; I95.9 Hypotension, unspecified; K76.0 Fatty (change of) liver, not elsewhere classified; N18.9 Chronic kidney disease, unspecified; Z79.899 Other long term (current) drug therapy; Z87.891 Personal history of nicotine dependence; Z96.651 Presence of right artificial knee joint; E66.9 Obesity, unspecified; Z71.3 Dietary counseling and surveillance; Z20.822 Contact with and (suspected) exposure to COVID-19; M10.9 Gout, unspecified; Z98.890 Other specified postprocedural states; Z80.9 Family history of malignant neoplasm, unspecified
CPT/HCPCS: 36415; 80048; 80053; 82140; 82330; 82533; 82607; 82746; 83036; 83605; 83690; 83735; 84439; 84443; 84484; 85025; 85610; 85730; 87635; 93005; 93306; 96374; 99291

== ENCOUNTER → 2021-06-12 | Outpatient (CLI) | payer MEDICARE ==
[2021-06-12 15:05] LABS: Magnesium 1.8 mg/dL (1.5-2.4)
[2021-06-12 15:10] LABS: African American GFR (CKD) 87.3 (60.0-200.0); Anion Gap 8.4 mmol/L (10.00-18.00); BUN/Creat Ratio 15.77 Ratio (12.00-20.00); Blood Urea Nitrogen 15.5 mg/dL (9.0-27.0); Calcium 8.7 mg/dL (8.7-10.3); Carbon Dioxide 21.7 mmol/L (20.0-27.5); Non-African American GFR(CKD) 75.4 (60.0-200.0); Potassium 4.2 mmol/L (3.5-5.5)
== END | disposition home or self-care (01) ==
LOC: LABWHC1 09:39
PROVIDERS: ATTEND Nurse Practitioner Adult Health
DX: I10 Essential (primary) hypertension (principal)
CPT/HCPCS: 36415; 80048; 83735

== ENCOUNTER → 2021-06-12 | Outpatient (CLI) | payer MEDICARE ==
--- NOTE | 2021-06-12 11:48 | US ---
EXAMINATION TYPE: US liver DATE OF EXAM: 06/12/2021 COMPARISON: 01/31/2018 CLINICAL HISTORY: 75-year-old male K74.69 CIRRHOSIS OF THE LIVER. TECHNIQUE: Multiple sonographic images of the right upper quadrant are obtained. FINDINGS: EXAM MEASUREMENTS: Liver Length: 12.4 cm Gallbladder wall: Unable to assess due to large body habitus CBD: n/a cm Right Kidney: 11.6 x 6.2 x 5.0 cm Restaurant Host notes:Difficult and limited study due to patient body habitus Pancreas: obscured by overlying midline bowel gas Liver: limited views primarily due to patient large size, coarse echotexture and nodular contour, sm all in size. Detailed assessment is very limited Gallbladder: very limited views Evidence for sonographic Carson's sign: no CBD: obscured by overlying bowel gas Right Kidney: Similar mid pole lobulation. No evident hydronephrosis. The lower pole is obscured by bowel gas or rib shadowing. IMPRESSION: 1. Very limited exam due to patient large body habitus. 2. There is cirrhotic morphology of the liver. Detailed assessment of the parenchyma is very limited. Consider MRI follow-up to exclude any focal lesions. 3. Gallbladder, pancreas, and bile duct are largely obscured.
== END | disposition home or self-care (01) ==
LOC: RADUSWWP 09:10
PROVIDERS: ATTEND Internal Medicine Gastroenterology
DX: K74.69 Other cirrhosis of liver (principal)
CPT/HCPCS: 76705

== ENCOUNTER 2023-01-06 10:57 | Inpatient (IN) | payer MEDICARE ==
[2023-01-06] MEDS ORDERED: SODIUM CHLORIDE 0.9% 500 ML 500 ML IV STA (11:10)
--- NOTE | 2023-01-06 11:50 | XR ---
EXAMINATION TYPE: XR chest 2V DATE OF EXAM: 01/06/2023 COMPARISON: 05/22/2011 TECHNIQUE: PA and lateral views submitted. HISTORY: Vomiting FINDINGS: Heart is prominent diffuse osteopenia with AC joint arthropathy. Hypertrophic degenerative changes sp ine. Hyperinflation suggests COPD. Surgical clips are seen in the abdomen and epigastric region. Ther e are subsegmental changes and tiny effusions noted on the lateral lung bases.. Mildly coarsened inte rstitial IMPRESSION: 1. Basilar atelectasis or infiltrate with tiny bilateral pleural effusions. There is be superimposed on a background of COPD. 2. Coarsened interstitium may reflect mild bronchitis or interstitial pneumonitis
[2023-01-06 11:55] LABS: INR 1.5 (<1.2); Partial Thromboplastin Time 27.7 sec (22.0-30.0); Prothrombin Time 14.9 sec (9.0-12.0)
[2023-01-06 11:56] LABS: Basophils % (A) 0 %; Eosinophils % (A) 0 %; HCT 39.7 % (39.0-53.0); HGB 13.7 gm/dL (13.0-17.5); Lymphocytes # (A) 0.4 k/uL (1.0-4.8); Lymphocytes % (A) 10 %; MCH 34.6 pg (25.0-35.0); MCHC 34.4 g/dL (31.0-37.0); MCV 100.5 fL (80.0-100.0); Macrocytosis Slight; Mean Platelet Volume 9.1; Monocytes # (A) 0.3 k/uL (0-1.0); Monocytes % (A) 6 %; Neutrophils # (A) 3.7 k/uL (1.3-7.7); Neutrophils % (A) 83 %; Poikilocytosis Slight; RBC 3.95 m/uL (4.30-5.90); RDW 15.4 % (11.5-15.5); WBC 4.4 k/uL (3.8-10.6)
[2023-01-06 11:58] LABS: ALT 20 U/L (4-49); AST 42 U/L (17-59); African American GFR (CKD) 70 (>60 ml/min/1.73 sqM); Albumin 2.5 g/dL (3.5-5.0); Alkaline Phosphatase 75 U/L (38-126); Anion Gap 7 mmol/L; Blood Urea Nitrogen 16 mg/dL (9-20); Calcium 8.3 mg/dL (8.4-10.2); Carbon Dioxide 18 mmol/L (22-30); Chloride 113 mmol/L (98-107); Glucose 94 mg/dL (74-99); Magnesium 1.5 mg/dL (1.6-2.3); Non-African American GFR(CKD) 60 (>60 ml/min/1.73 sqM); Potassium 4.1 mmol/L (3.5-5.1); Sodium 138 mmol/L (137-145); Total Bilirubin 4.3 mg/dL (0.2-1.3); Total Protein 6.1 g/dL (6.3-8.2)
--- NOTE | 2023-01-06 12:01 | ED ---
General Adult HPI - General Chief complaint: Weakness Stated complaint: weakness Time Seen by Provider: 01/06/23 10:58 Source: patient, EMS, RN notes reviewed, old records reviewed Mode of arrival: EMS Limitations: no limitations - History of Present Illness Initial comments: 77-year-old male presenting for evaluation generalized weakness, difficulty am bulating and 2 minor falls. Patient denies injury from the falls. He was noted to be in atrial fibrillation which she has no prior history of during transport with paramedics. He's had several days of diarrhea. No fever. No chest pain. No abdominal pain. - Related Data Home Medications Medication Instructions Recorded Confirmed No Known Home Medications 01/06/23 01/06/23 Allergies Allergy/AdvReac Type Severity Reaction Status Date / Time No Known Allergies Allergy Verified 01/06/23 12:02 Review of Systems ROS Statement: Those systems with pertinent positive or pertinent negative responses have been documented in the HPI. ROS Other: All systems not noted in ROS Statement are negative. Past Medical History Past Medical History: Osteoarthritis (OA) Additional Past Medical History / Comment(s): GOUT,. FATTY LIVER-50% DAMAGE History of Any Multi-Drug Resistant Organisms: None Reported Past Surgical History: Adenoidectomy, Hernia Repair, Joint Replacement, Orthopedic Surgery Additional Past Surgical History / Comment(s): right knee replacement, right arm surgery, COLONOSCOPY, EGD Past Anesthesia/Blood Transfusion Reactions: No Reported Reaction Past Psychological History: No Psychological Hx Reported Smoking Status: Former smoker Past Alcohol Use History: None Reported Past Drug Use History: None Reported - Past Family History Mother Family Medical History: Cancer General Exam Limitations: no limitations General appearance: alert, in no apparent distress Head exam: Present: atraumatic, normocephalic Eye exam: Present: normal appearance, PERRL ENT exam: Present: mucous membranes dry Neck exam: Present: normal inspection. Absent: tenderness, meningismus Respiratory exam: Present: normal lung sounds bilaterally. Absent: respiratory distress, wheezes Cardiovascular Exam: Present: tachycardia, irregular rhythm GI/Abdominal exam: Present: soft. Absent: distended, tenderness, guarding Extremities exam: Present: pedal edema Neurological exam: Present: alert, oriented X3, CN II-XII intact. Absent: motor sensory deficit Psychiatric exam: Present: normal affect, normal mood Skin exam: Present: warm, dry, intact. Absent: cyanosis, diaphoretic Course Vital Signs 01/06/23 01/06/23 01/06/23 10:58 12:18 13:00 Temperature 98.2 F Pulse Rate 122 H 140 H 135 H Respiratory 18 18 18 Rate Blood Pressure 116/87 103/71 115/73 O2 Sat by Pulse 97 93 L 99 Oximetry 01/06/23 01/06/23 01/06/23 13:47 14:00 14:08 Temperature Pulse Rate 134 H 134 H Respiratory 18 18 Rate Blood Pressure 119/74 99/77 107/77 O2 Sat by Pulse 96 97 Oximetry 01/06/23 14:25 Temperature Pulse Rate 108 H Respiratory Rate Blood Pressure 106/75 O2 Sat by Pulse Oximetry Medical Decision Making - Medical Decision Making Was pt. sent in by a medical professional or institution (VAUGHN Kelley, PHYSICAL GEOGRAPHER, urgent care, hospital, or custodial...) When possible be specific @ -No Did you speak to anyone other than the patient for history (EMS, parent, family, police, friend...)? What history was obtained from this source @ -No Did you review nursing and triage notes (agree or disagree)? Why? @ -I reviewed and agree with nursing and triage notes Were old charts reviewed (outside hosp., previous admission, EMS record, old EKG, old radiological studies, urgent care reports/EKG's, custodial records)? Report findings @ -No old charts were reviewed Differential Diagnosis (chest pain, altered mental status, abdominal pain women, abdominal pain men, vaginal bleeding, weakness, fever, dyspnea, syncope, headache, dizziness, GI bleed, back pain, seizure, CVA, palpatations, mental health, musculoskeletal)? @ -Differential Weakness: Hypoglycemia, shock, sepsis, hyponatremia, anemia, infection, NM, ETOH, adverse medicine reaction, overdose, stroke, this is not meant to be an all-inclusive list.] EKG interpreted by me (3pts min.). @ Atrial fibrillation with RVR rate of 127, QRS duration 93, QTC [address] segment elevation. X-rays interpreted by me (1pt min.). @ X-ray showing infiltrate versus atelectasis CT interpreted by me (1pt min.). @ -None done U/S interpreted by me (1pt. min.). @ -None done What testing was considered but not performed or refused? (CT, X-rays, U/S, labs)? Why? @ -None What meds were considered but not given or refused? Why? @ -None Did you discuss the management of the patient with other professionals (professionals i.e. , PA, PHYSICAL GEOGRAPHER, lab, RT, psych nurse, social work case manager, blast furnace blower, teacher, cavalry officer, case monitor)? Give summary @ -Case discussed with Dr. Oliveira Was smoking cessation discussed for >3mins.? @ -No Was critical care preformed (if so, how long)? @ -35 min Were there social determinants of health that impacted care today? How? (Homelessness, low income, unemployed, alcoholism, drug addiction, transportation, low edu. Level, literacy, decrease access to med. care, long term, rehab)? @ -No Was there de-escalation of care discussed even if they declined (Discuss DNR or withdrawal of care, Hospice)? DNR status @ -No What co-morbidities impacted this encounter? (DM, HTN, Smoking, COPD, CAD, Cancer, CVA, ARF, Chemo, Hep., AIDS, mental health diagnosis, sleep apnea, morbid obesity)? @ -[Atrial fibrillation Was patient admitted / discharged? Hospital course, mention meds given and route, prescriptions, significant lab abnormalities, going to OR and other pertinent info. @ -77-year-old male presenting with increased weakness, fatigue over the past 2 weeks. Found to be in atrial fibrillation with RVR. He has significant lab abnormalities including thrombocytopenia, mild lactic acidosis of 2.8. Hypomagnesemia at 1.5. His albumin is 2.5. He has signs of urinary tract infection. He is initiated on Cardizem for rate control for his new-onset atrial fibrillation. He is a fall risk and has fallen multiple times. Will hold anticoagulation at this time. Patient additionally has signs of UTI and is started on antibiotics in the emergency department. He will be admitted to internal medicine. Undiagnosed new problem with uncertain prognosis? @ -No Drug Therapy requiring intensive monitoring for toxicity (Heparin, Nitro, I nsulin, Cardizem)? @ -No Were any procedures done? @ -No Diagnosis/symptom? @ -New-onset atrial fibrillation with RVR, hypomagnesemia, UTI Acute, or Chronic, or Acute on Chronic? @ -[Acute Uncomplicated (without systemic symptoms) or Complicated (systemic symptoms)? @ -[Complicated Side effects of treatment? @ -No Exacerbation, Progression, or Severe Exacerbation? @ -No Poses a threat to life or bodily function? How? (Chest pain, USA, NM, pneumonia, PE, COPD, DKA, ARF, appy, cholecystitis, CVA, Diverticulitis, Homicidal, Suicidal, threat to staff... and all critical care pts) @ -[Yes, arrhythmia, sepsis - Lab Data Result diagrams: 01/06/23 11:22 01/06/23 11:22 Lab Results 01/06/23 01/06/23 01/06/23 Range/Units 11:22 11:22 11:22 WBC 4.4 (3.8-10.6) k/uL RBC 3.95 L (4.30-5.90) m/uL Hgb 13.7 (13.0-17.5) gm/dL Hct 39.7 (39.0-53.0) % MCV 100.5 H (80.0-100.0) fL MCH 34.6 (25.0-35.0) pg MCHC 34.4 (31.0-37.0) g/dL RDW 15.4 (11.5-15.5) % Plt Count 30 L (150-450) k/uL MPV 9.1 Neutrophils % 83 % Lymphocytes % 10 % Monocytes % 6 % Eosinophils % 0 % Basophils % 0 % Neutrophils # 3.7 (1.3-7.7) k/uL Lymphocytes # 0.4 L (1.0-4.8) k/uL Monocytes # 0.3 (0-1.0) k/uL Eosinophils # 0.0 (0-0.7) k/uL Basophils # 0.0 (0-0.2) k/uL Manual Slide Review Performed Poikilocytosis Slight Macrocytosis Slight PT 14.9 H (9.0-12.0) sec INR 1.5 H (<1.2) APTT 27.7 (22.0-30.0) sec Sodium (137-145) mmol/L Potassium (3.5-5.1) mmol/L Chloride (98-107) mmol/L Carbon Dioxide (22-30) mmol/L Anion Gap mmol/L BUN (9-20) mg/dL Creatinine (0.66-1.25) mg/dL Est GFR (CKD-EPI)AfAm (>60 ml/min/1.73 sqM) Est GFR (CKD-EPI)NonAf (>60 ml/min/1.73 sqM) Glucose (74-99) mg/dL Lactic Ac Sepsis Rflx Plasma Lactic Acid Jarret (0.7-2.0) mmol/L Calcium (8.4-10.2) mg/dL Magnesium (1.6-2.3) mg/dL Total Bilirubin (0.2-1.3) mg/dL AST (17-59) U/L ALT (4-49) U/L Alkaline Phosphatase (38-126) U/L Troponin I (0.000-0.034) ng/mL NT-Pro-B Natriuret Pep pg/mL Total Protein (6.3-8.2) g/dL Albumin (3.5-5.0) g/dL Urine Color Yellow Urine Appearance Cloudy (Clear) Urine pH 5.5 (5.0-8.0) Ur Specific [place] 1.016 (1.001-1.035) Urine Protein Trace H (Negative) Urine Glucose (UA) Negative (Negative) Urine Ketones Negative (Negative) Urine Blood Small H (Negative) Urine Nitrite Positive (Negative) Urine Bilirubin Negative (Negative) Urine Urobilinogen 2.0 (<2.0) mg/dL Ur Leukocyte Esterase Large H (Negative) Urine RBC 8 H (0-5) /hpf Urine WBC >182 H (0-5) /hpf Urine WBC Clumps Few H (None) /hpf Urine Bacteria Occasional H (None) /hpf Urine Mucus Rare H (None) /hpf 01/06/23 01/06/23 01/06/23 Range/Units 11:22 11:22 11:22 WBC (3.8-10.6) k/uL RBC (4.30-5.90) m/uL Hgb (13.0-17.5) gm/dL Hct (39.0-53.0) % MCV (80.0-100.0) fL MCH (25.0-35.0) pg MCHC (31.0-37.0) g/dL RDW (11.5-15.5) % Plt Count (150-450) k/uL MPV Neutrophils % % Lymphocytes % % Monocytes % % Eosinophils % % Basophils % % Neutrophils # (1.3-7.7) k/uL Lymphocytes # (1.0-4.8) k/uL Monocytes # (0-1.0) k/uL Eosinophils # (0-0.7) k/uL Basophils # (0-0.2) k/uL Manual Slide Review Poikilocytosis Macrocytosis PT (9.0-12.0) sec INR (<1.2) APTT (22.0-30.0) sec Sodium 138 (137-145) mmol/L Potassium 4.1 (3.5-5.1) mmol/L Chloride 113 H (98-107) mmol/L Carbon Dioxide 18 L (22-30) mmol/L Anion Gap 7 mmol/L BUN 16 (9-20) mg/dL Creatinine 1.17 (0.66-1.25) mg/dL Est GFR (CKD-EPI)AfAm 70 (>60 ml/min/1.73 sqM) Est GFR (CKD-EPI)NonAf 60 (>60 ml/min/1.73 sqM) Glucose 94 (74-99) mg/dL Lactic Ac Sepsis Rflx Plasma Lactic Acid Jarret 2.8 H* (0.7-2.0) mmol/L Calcium 8.3 L (8.4-10.2) mg/dL Magnesium 1.5 L (1.6-2.3) mg/dL Total Bilirubin 4.3 H (0.2-1.3) mg/dL AST 42 (17-59) U/L ALT 20 (4-49) U/L Alkaline Phosphatase 75 (38-126) U/L Troponin I <0.012 (0.000-0.034) ng/mL NT-Pro-B Natriuret Pep pg/mL Total Protein 6.1 L (6.3-8.2) g/dL Albumin 2.5 L (3.5-5.0) g/dL Urine Color Urine Appearance (Clear) Urine pH (5.0-8.0) Ur Specific [place] (1.001-1.035) Urine Protein (Negative) Urine Glucose (UA) (Negative) Urine Ketones (Negative) Urine Blood (Negative) Urine Nitrite (Negative) Urine Bilirubin (Negative) Urine Urobilinogen (<2.0) mg/dL Ur Leukocyte Esterase (Negative) Urine RBC (0-5) /hpf Urine WBC (0-5) /hpf Urine WBC Clumps (None) /hpf Urine Bacteria (None) /hpf Urine Mucus (None) /hpf 01/06/23 01/06/23 Range/Units 11:22 12:06 WBC (3.8-10.6) k/uL RBC (4.30-5.90) m/uL Hgb (13.0-17.5) gm/dL Hct (39.0-53.0) % MCV (80.0-100.0) fL MCH (25.0-35.0) pg MCHC (31.0-37.0) g/dL RDW (11.5-15.5) % Plt Count (150-450) k/uL MPV Neutrophils % % Lymphocytes % % Monocytes % % Eosinophils % % Basophils % % Neutrophils # (1.3-7.7) k/uL Lymphocytes # (1.0-4.8) k/uL Monocytes # (0-1.0) k/uL Eosinophils # (0-0.7) k/uL Basophils # (0-0.2) k/uL Manual Slide Review Poikilocytosis Macrocytosis PT (9.0-12.0) sec INR (<1.2) APTT (22.0-30.0) sec Sodium (137-145) mmol/L Potassium (3.5-5.1) mmol/L Chloride (98-107) mmol/L Carbon Dioxide (22-30) mmol/L Anion Gap mmol/L BUN (9-20) mg/dL Creatinine (0.66-1.25) mg/dL Est GFR (CKD-EPI)AfAm (>60 ml/min/1.73 sqM) Est GFR (CKD-EPI)NonAf (>60 ml/min/1.73 sqM) Glucose (74-99) mg/dL Lactic Ac Sepsis Rflx Y Plasma Lactic Acid Jarret (0.7-2.0) mmol/L Calcium (8.4-10.2) mg/dL Magnesium (1.6-2.3) mg/dL Total Bilirubin (0.2-1.3) mg/dL AST (17-59) U/L ALT (4-49) U/L Alkaline Phosphatase (38-126) U/L Troponin I (0.000-0.034) ng/mL NT-Pro-B Natriuret Pep 1740 pg/mL Total Protein (6.3-8.2) g/dL Albumin (3.5-5.0) g/dL Urine Color Urine Appearance (Clear) Urine pH (5.0-8.0) Ur Specific [place] (1.001-1.035) Urine Protein (Negative) Urine Glucose (UA) (Negative) Urine Ketones (Negative) Urine Blood (Negative) Urine Nitrite (Negative) Urine Bilirubin (Negative) Urine Urobilinogen (<2.0) mg/dL Ur Leukocyte Esterase (Negative) Urine RBC (0-5) /hpf Urine WBC (0-5) /hpf Urine WBC Clumps (None) /hpf Urine Bacteria (None) /hpf Urine Mucus (None) /hpf Critical Care Time Critical Care Time: Yes Total Critical Care Time: 35 Disposition Clinical Impression: Thrombocytopenia, Atrial fibrillation, UTI (urinary tract infection) Disposition: ADMITTED IP TO THIS [facility] Condition: Stable Is patient prescribed a controlled substance at d/c from ED?: No Referrals: Mariana Chu MD [Primary Care Provider] - 1-2 days Time of Disposition: 14:35
[2023-01-06] MEDS ORDERED: DILTIAZEM DRIP BOLUS FROM BAG 1 MG SOLN IV ONE (13:06)
[2023-01-06] MEDS ORDERED: MAGNESIUM SULFATE-D5W PMX 1 GM in DEXTROSE/WATER 1 100ML.BAG IVPB ONE (13:07)
[2023-01-06] MEDS ORDERED: DILTIAZEM 125 MG in SODIUM CHLORIDE 0.9% 100 ML IV SCH (13:15)
[2023-01-06 13:21] LABS: Appearance,Urine Cloudy (Clear); Bacteria,Urine Occasional /hpf; Bilirubin,Urine Negative (Negative); Blood,Urine Small (Negative); Color,Urine Yellow; Glucose,Urine (UA) Negative (Negative); Ketones,Urine Negative (Negative); Leukocyte Esterase,Urine Large (Negative); Mucus,Urine Rare /hpf; Nitrite,Urine Positive (Negative); PH, Urine 5.5 (5.0-8.0); Protein,Urine Trace (Negative); RBC,Urine 8 /hpf (0-5); Specific Gravity,Urine 1.016 (1.001-1.035); WBC,Urine >182 /hpf (0-5)
[2023-01-06 13:33] LABS: Platelet Count 30 k/uL (150-450)
[2023-01-06] MEDS ORDERED: ACETAMINOPHEN TAB 325 MG TAB PO PRN (14:31)
[2023-01-06] MEDS ORDERED: cefTRIAXone IN SWFI 1,000 MG/10 ML SYRINGE IVP STA (14:31)
[2023-01-06] MEDS ORDERED: NALOXONE 0.4 MG/ML 1 ML VIAL IV PRN (14:31)
--- NOTE | 2023-01-06 18:22 | HP ---
HISTORY AND PHYSICAL CHIEF COMPLAINT: Weakness. HISTORY OF PRESENT ILLNESS: This is a 77-year-old gentleman with a past medical history of gout and history of fatty liver, was complaining of weakness and difficulty walking for the past couple of days. The patient was found to be in atrial fibrillation with fast ventricular rate. The patient came to the ER. The patient was started on Cardizem drip. The patient was admitted for further evaluation and treatment. There is some mild weakness noted. The patient also has some speech issues. Apparently, there is no history of any fever, rigor, or chills. PAST MEDICAL HISTORY: Reviewed includes DJD and history of gout. Rest of the history and rest of the chart are also reviewed. HOME MEDICATIONS: Reviewed. FAMILY HISTORY: No history of heart disease or strokes in the family. SOCIAL HISTORY: No history of smoking or alcohol. REVIEW OF SYSTEMS: Fourteen-point review is negative except as mentioned earlier. PHYSICAL EXAMINATION: VITAL SIGNS: Pulse is 140, irregularly irregular. The blood pressure is 106/75. Respirations noted. HEENT: Conjunctivae are normal. NECK: No jugular venous distention. CARDIOVASCULAR: S1 and S2. Irregularly irregular. RESPIRATORY: Clear to auscultation. ABDOMEN: Soft. LEGS: No edema. NERVOUS SYSTEM: Diffusely weak. SKIN: No ulcers or rashes. JOINTS: No active deforming arthropathy. LABORATORY DATA: Reviewed. ASSESSMENT: 1. Atrial fibrillation with fast ventricular rate. 2. Generalized weakness. Rule out acute stroke. 3. History of degenerative joint disease. 4. History of gout. 5. History of fatty liver. 6. History of hernia repair. RECOMMENDATIONS AND DISCUSSION: In this 77-year-old gentleman presented with multiple complex medical issues, we will monitor the patient closely. Cardizem drip was initiated. I would recommend full cardiac workup including 2D echo with Doppler and Cardiology consultation. Otherwise, I would also recommend workup for stroke, neuro checks, Neurology consultation, and 2D echo and carotid Doppler. Prognosis is guarded because of multiple complex medical issues. Further recommendations to follow. Discussed with the patient. MMODL / IJN: [id number] /
--- NOTE | 2023-01-06 19:53 | CT ---
EXAM: CT Head Without Intravenous Contrast CLINICAL HISTORY: altered, possible stroke. was not called as code stroke. TECHNIQUE: Axial computed tomography images of the head/brain without intravenous contrast. CTDI is 49.1 mGy and DLP is 1190.8 mGy-cm. This CT exam was performed using one or more of the following dose reduction techniques: automated exposure control, adjustment of the mA and/or kV according to patient size, and/or use of iterative reconstruction technique. COMPARISON: None FINDINGS: Brain: No acute infarct or hemorrhage identified. No extra-axial fluid collection. No mass effect or midline shift. Scattered areas of hypoattenuation in the supratentorial white matter likely represent chronic small vessel ischemic changes. Ventricles and sulci: Prominence of the ventricles and sulci is likely secondary to cerebral volume loss. Bones: Normal. No bony lesion or acute fracture. Subcutaneous tissues: Normal. Sinuses: Mild mucosal thickening and polyps versus mucous retention cysts in the left maxillary sinus. Mastoid air cells: Normal. Orbits: Grossly unremarkable. Other: Atherosclerotic calcifications in the intracranial vasculature. IMPRESSION: 1. No acute intracranial abnormality. 2. Mild chronic small vessel ischemic changes and cerebral volume loss.
--- NOTE | 2023-01-06 20:11 | US ---
EXAM: US Duplex Bilateral Extracranial Arteries CLINICAL HISTORY: Hx of Stroke TECHNIQUE: Real-time duplex ultrasound scan of the extracranial arteries integrating B-mode two-dimensional vascular structure, Doppler spectral analysis and color flow Doppler imaging. COMPARISON: None FINDINGS: Right common carotid artery: Unremarkable. No occlusion or significant stenosis on color flow and spectral Doppler imaging. Right internal carotid artery: Peak systolic velocity in the right ICA measures 78.1 cm/s. No occlusion or significant stenosis on color flow and spectral Doppler imaging. Right external carotid artery: Unremarkable. No occlusion or significant stenosis on color flow and spectral Doppler imaging. Right vertebral artery: Unremarkable. Antegrade flow. Right ICA/CCA ratio: Unremarkable. Within normal limits. Left common carotid artery: Unremarkable. No occlusion or significant stenosis on color flow and spectral Doppler imaging. Left internal carotid artery: Peak systolic velocity in the left ICA measures 65.8 cm/s. No occlusion or significant stenosis on color flow and spectral Doppler imaging. Left external carotid artery: Unremarkable. No occlusion or significant stenosis on color flow and spectral Doppler imaging. Left vertebral artery: Unremarkable. Antegrade flow. Left ICA/CCA ratio: Unremarkable. Within normal limits. Lymph nodes: Unremarkable. No lymphadenopathy. Other: Irregular heart rhythm noted. CAROTID STENOSIS REFERENCE USING SRU CRITERIA: Mild - <50% stenosis. ICA PSV is less than 125 cm/second and plaque or intimal thickening is visible. Moderate - 50-69% stenosis. ICA PSV is 125 to 230 cm/second and plaque is visible. Severe - 70-94% stenosis. ICA PSV is more than 230 cm/second and visible plaque with lumen narrowing is seen. Near occlusion - 95-99% stenosis. ICA PSV is variable and significant plaque with luminal narrowing is seen. Occluded - 100% stenosis. No flow identified. IMPRESSION: 1. No hemodynamically significant stenosis in either ICA. 2. Normal antegrade flow in bilateral vertebral arteries. MTDD
[2023-01-07] MEDS ORDERED: METOPROLOL TARTRATE 25 MG TAB PO SCH (09:00)
--- NOTE | 2023-01-07 10:06 | P.CRDCN ---
History of Present Illness History of present illness: HISTORY OF PRESENT ILLNESS: This is a 77-year-old male with a past medical history significant for thrombocytopenia, osteoarthritis, gout, and fatty liver disease. Patient follows in the office with Dr. Bill. We have been asked to see the patient in consultation for new onset atrial fibrillation. Patient examined at the bedside. Patient presented to the hospital with a chief complaint of generalized weakness and difficulty ambulating. The patient also recently suffered 2 minor falls without injury. He denies any syncopal episodes. The patient was found to be in atrial fibrillation with RVR. The patient denies a history of atrial fibrillation. At the time of examination, patient remains in atrial fibrillation with a heart rate ranging between [id number]. He currently denies any chest pain or pressure. Denies SOB. Blood pressure stable. * EKG reveals atrial fibrillation with RVR * Chest xray basilar atelectasis or infiltrate with tiny bilateral pleural e ffusions. This may be superimposed on a background of COPD. Coarsened interstitium may reflect mild bronchitis or interstitial pneumonitis. * Laboratory data: WBC 4.4. Hemoglobin 13.7. Platelet count 30. Sodium 138. Potassium 4.1. BUN 16. Creatinine 1.17. Lactic acid 2.8. Magnesium 1.5. Troponin negative 1. ProBNP 1740. * Current home cardiac medications include none * Most recent echocardiogram obtained in April 2021 revealed ejection fraction 60-65%, borderline pulmonary hypertension, mild tricuspid regurgitation * Patient underwent stress testing in July 2021 which was nondiagnostic secondary to inadequate chronotropic response REVIEW OF SYSTEMS: At the time of my exam: CONSTITUTIONAL: Denies fever or chills. HEENT: Denies blurred vision, vision changes, or eye pain. Denies hemoptysis CARDIOVASCULAR: Denies chest pain. Denies orthopnea. Denies PND. Denies palpitations RESPIRATORY: Denies shortness of breath. GASTROINTESTINAL: Denies abdominal pain. Denies nausea or vomiting. HEMATOLOGIC: Denies bleeding disorders. GENITOURINARY: Denies any blood in urine. SKIN: Denies pruitis. Denies rash. PHYSICAL EXAM: VITAL SIGNS: Reviewed. GENERAL: Well-developed in no acute distress. HEENT: Head is normocephalic. Pupils are equal, round. Sclerae anicteric. Mucous membranes of the mouth are moist. Neck supple. No JVD or thyromegaly LUNGS: Respirations even and unlabored. Lungs essentially clear to auscultation bilaterally. HEART: Irregular rate and rhythm. S1 and S2 heard. ABDOMEN: Soft. Nondistended. Nontender. EXTREMITIES: Normal range of motion. No clubbing or cyanosis. Peripheral pulses intact. No lower extremity edema NEUROLOGIC: Awake and alert. Oriented x 3. ASSESSMENT: Generalized weakness and difficulty ambulating Possible urinary tract infection Elevated lactic acid New-onset atrial fibrillation with RVR Thrombocytopenia, platelet count 30 History of osteoarthritis History of gout History of fatty liver disease PLAN: Obtain 2-D echo to assess cardiac structure and function Discontinue IV Cardizem Add metoprolol tartrate 25 mg twice a day No anticoagulation secondary to thrombocytopenia and recent falls Check TSH Continue telemetry monitoring Further recommendations pending patient course Nurse practitioner note has been reviewed by physician. Signing provider agrees with the documented findings, assessment, and plan of care. Past Medical History Past Medical History: Osteoarthritis (OA) Additional Past Medical History / Comment(s): GOUT,. FATTY LIVER-50% DAMAGE History of Any Multi-Drug Resistant Organisms: None Reported Past Surgical History: Appendectomy, Hernia Repair, Joint Replacement, Orthopedic Surgery Additional Past Surgical History / Comment(s): right knee replacement, right arm surgery, COLONOSCOPY, EGD Past Anesthesia/Blood Transfusion Reactions: No Reported Reaction Past Psychological History: No Psychological Hx Reported Smoking Status: Never smoker Past Alcohol Use History: None Reported Past Drug Use History: None Reported - Past Family History Mother Family Medical History: Cancer Medications and Allergies Home Medications Medication Instructions Recorded Confirmed Type No Known Home Medications 01/06/23 01/06/23 History Allergies Allergy/AdvReac Type Severity Reaction Status Date / Time No Known Allergies Allergy Verified 01/06/23 12:02 Physical Exam Vitals: Vital Signs Temp Pulse Pulse Resp BP BP Pulse Ox 01/07/23 04:00 97.7 F 126 H 18 96/57 97 01/07/23 01:20 92 18 01/07/23 00:00 92 18 109/62 97 01/06/23 20:00 97.8 F 95 18 115/69 99 01/06/23 16:00 97.9 F 113 H 18 113/71 99 01/06/23 15:47 98.3 F 126 H 18 119/88 97 01/06/23 14:59 97.7 F 101 H 15 108/75 97 01/06/23 14:45 96 106 H 01/06/23 14:25 108 H 106/75 01/06/23 14:08 107/77 01/06/23 14:00 134 H 18 99/77 97 01/06/23 13:47 134 H 18 119/74 96 01/06/23 13:00 135 H 18 115/73 99 01/06/23 12:18 140 H 18 103/71 93 L 01/06/23 10:58 98.2 F 122 H 18 116/87 97 Intake and Output 01/06/23 01/07/23 01/07/23 22:59 06:59 14:59 Output Total 100 Balance -100 Output: Urine 100 Other: Voiding Method External Catheter External Catheter # Voids 2 1 Weight 106.594 kg Results 01/06/23 11:22 01/06/23 11:22 Cardiac Enzymes 01/06/23 01/06/23 Range/Units 11:22 11:22 AST 42 (17-59) U/L Troponin I <0.012 (0.000-0.034) ng/mL Coagulation 01/06/23 Range/Units 11:22 PT 14.9 H (9.0-12.0) sec APTT 27.7 (22.0-30.0) sec CBC 01/06/23 Range/Units 11:22 WBC 4.4 (3.8-10.6) k/uL RBC 3.95 L (4.30-5.90) m/uL Hgb 13.7 (13.0-17.5) gm/dL Hct 39.7 (39.0-53.0) % Plt Count 30 L (150-450) k/uL Comprehensive Metabolic Panel 01/06/23 Range/Units 11:22 Sodium 138 (137-145) mmol/L Potassium 4.1 (3.5-5.1) mmol/L Chloride 113 H (98-107) mmol/L Carbon Dioxide 18 L (22-30) mmol/L BUN 16 (9-20) mg/dL Creatinine 1.17 (0.66-1.25) mg/dL Glucose 94 (74-99) mg/dL Calcium 8.3 L (8.4-10.2) mg/dL AST 42 (17-59) U/L ALT 20 (4-49) U/L Alkaline Phosphatase 75 (38-126) U/L Total Protein 6.1 L (6.3-8.2) g/dL Albumin 2.5 L (3.5-5.0) g/dL Current Medications Generic Name Dose Route Start Last Admin Trade Name Freq PRN Reason Stop Dose Admin Acetaminophen 650 mg 01/06/23 14:31 Acetaminophen Tab 325 Mg Tab PO Q6HR PRN Mild Pain or Fever > 100.5 Diltiazem HCl 125 mg/ Sodium 125 mls @ 5 mls/hr 01/06/23 13:15 01/06/23 13:42 Chloride IV 5 mg/hr .Q24H YAZ 5 mls/hr Administration 5 MG/HR Naloxone HCl 0.2 mg 01/06/23 14:31 Naloxone 0.4 Mg/Ml 1 Ml Vial IV Q2M PRN Opioid Reversal Intake and Output 01/06/23 01/07/23 01/07/23 22:59 06:59 14:59 Output Total 100 Balance -100 Output: Urine 100 Other: Voiding Method External Catheter External Catheter # Voids 2 1 Weight 106.594 kg 01/06/23 11:22 01/06/23 11:22
--- NOTE | 2023-01-07 12:13 | PN ---
PROGRESS NOTE DATE OF SERVICE: 01/07/2023 SUBJECTIVE: This is a 77-year-old gentleman who was admitted with atrial fibrillation, fast ventricular rate, also had some weakness. No chest pain, no palpitations, no fever. Neurovascular workup is also underway. The carotid Doppler showed no significant stenosis. OBJECTIVE: VITAL SIGNS: Pulse is 126, irregular; blood pressure 96/50, respirations 18. CHEST: Clear to auscultation. CARDIOVASCULAR: S1, S2 irregular. ABDOMEN: Soft. NERVOUS SYSTEM: No focal deficits. LABORATORY DATA: Reviewed. UA is abnormal. ASSESSMENT: 1. Atrial ablation with fast ventricular rate. 2. Generalized weakness, rule out acute stroke. 3. Rule out acute urinary tract infection. 4. History of DJD. 5. History of gout. 6. History of fatty liver. 7. History of hernia repair. 8. Thrombocytopenia. RECOMMENDATIONS AND DISCUSSION: This 77-year-old gentleman presented with multiple complex medical issues, we will monitor the patient closely, continue the current management, continue symptomatic treatment, otherwise I recommend empiric antibiotics for UTI. Obtain cultures, procalcitonin. Infectious Disease evaluation. Otherwise, prognosis guarded. Further recommendations to follow. See orders for details. Repeat labs in the morning. MMODL / IJN: [id number] /
[2023-01-07] MEDS: FOLIC ACID 1 MG TAB PO SCH (12:25)
[2023-01-07] MEDS: MULTIVITAMINS, THERA 1 EACH TAB PO SCH (12:25)
[2023-01-07 13:14] LABS: Lactic Acid, Venous 1.8 mmol/L (0.7-2.0)
--- NOTE | 2023-01-07 14:04 | P.CNNES ---
History of Present Illness Consult date: 01/07/23 Requesting physician: Jie Welch Reason for Consult: Possible stroke History of Present Illness: Patient is a 77-year-old right-handed male came to the hospital by ambulance yesterday at 10:57 AM came to the hospital because of a fall. Patient says that he went to the bathroom for a bowel movement. He had a mild diarrhea, although once prior, he had a big diarrhea. When he was coming back, his both legs gave out and he fell on the floor. He did not pass out, did not lose consciousness. He was able to get up, sat on the couch. His called the ambulance and he was brought to the hospital. Patient denies any slurred speech, facial droop, any visual symptoms, any paralysis, focal numbness or tingling or any strokelike symptoms. No headache, lightheadedness or dizziness. EMS flow sheet not available in the chart. Vital signs on arrival blood pressure 116/87, pulse rate 122, temperature 98.2. Blood tests with normal CBC with elevated MCV 100.5. INR 1.5, PTT normal, electrolytes are normal, renal functions normal. Lactate 2.8. Hepatic panel is normal, troponin negative. UA shows large amount of leukocyte esterase, more than 182 WBCs and few WBC clumps and occasional bacteria. CT head showed no acute intracranial abnormality. Mild chronic small vessel ischemic changes and cerebral volume loss. I personally reviewed CT head, agree with the findings. EKG shows atrial fibrillation with rapid ventricular rate. Chest x-ray revealed basilar atelectasis or infiltrate with tiny bilateral pleural effusion. There is superimposed on a background of COPD. Coarsened interstitium may reflect mild bronchitis or interstitial pneumonitis. Patient denies diabetes hypertension, is a nonsmoker, does not drink alcohol. No drug use. Patient states that he suffered from a fall out of bed while sleeping about a year ago and broke top of his left foot. 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 Patient lives with his , does not use any cane or walker or any assistive device. Review of Systems Constitutional: Reports chills, Denies fever Eyes: denies blurred vision, denies diplopia, denies pain Ears: deny: decreased hearing, ear discharge Ears, nose, mouth and throat: Denies headache, Denies sore throat, Denies vertigo Cardiovascular: Denies chest pain, Denies lightheadedness, Denies shortness of breath Respiratory: Reports as per HPI, Denies cough, Denies excessive sputum Gastrointestinal: Reports diarrhea, Denies abdominal pain, Denies nausea, Denies vomiting Genitourinary: Denies flank pain, Denies incontinence Musculoskeletal: Reports low back pain, Denies myalgias, Denies neck pain Integumentary: Denies pruritus, Denies rash Neurological: Reports as per HPI, Denies numbness, Denies weakness Psychiatric: Denies anxiety, Denies depression Hematologic/Lymphatic: Reports easy bruising, Denies easy bleeding Past Medical History Past Medical History: Osteoarthritis (OA) Additional Past Medical History / Comment(s): GOUT,. FATTY LIVER-50% DAMAGE History of Any Multi-Drug Resistant Organisms: None Reported Past Surgical History: Appendectomy, Hernia Repair, Joint Replacement, Orthopedic Surgery Additional Past Surgical History / Comment(s): right knee replacement, right arm surgery, COLONOSCOPY, EGD Past Anesthesia/Blood Transfusion Reactions: No Reported Reaction Past Psychological History: No Psychological Hx Reported Smoking Status: Never smoker Past Alcohol Use History: None Reported Past Drug Use History: None Reported - Past Family History Mother Family Medical History: Cancer Medications and Allergies Home Medications Medication Instructions Recorded Confirmed Type No Known Home Medications 01/06/23 01/06/23 History Allergies Allergy/AdvReac Type Severity Reaction Status Date / Time No Known Allergies Allergy Verified 01/06/23 12:02 Physical Examination - Vital Signs Vital Signs: Vital Signs Temp Pulse Pulse Resp BP BP Pulse Ox 01/07/23 04:00 97.7 F 126 H 18 96/57 97 01/07/23 01:20 92 18 01/07/23 00:00 92 18 109/62 97 01/06/23 20:00 97.8 F 95 18 115/69 99 01/06/23 16:00 97.9 F 113 H 18 113/71 99 01/06/23 15:47 98.3 F 126 H 18 119/88 97 01/06/23 14:59 97.7 F 101 H 15 108/75 97 01/06/23 14:45 96 106 H 01/06/23 14:25 108 H 106/75 01/06/23 14:08 107/77 01/06/23 14:00 134 H 18 99/77 97 01/06/23 13:47 134 H 18 119/74 96 01/06/23 13:00 135 H 18 115/73 99 01/06/23 12:18 140 H 18 103/71 93 L 01/06/23 10:58 98.2 F 122 H 18 116/87 97 Intake and Output 01/06/23 01/07/23 01/07/23 22:59 06:59 14:59 Intake Total 180 Output Total 100 Balance -100 180 Intake: Oral 180 Output: Urine 100 Other: Voiding Method External Catheter External Catheter # Voids 2 1 Weight 106.594 kg Patient is an elderly male, in no acute distress. Patient is alert awake. Patient states it is January and the year is 2019. At the end of the interview I asked again and patient said it is generally in the year is 2002. He knows that he is in [facility]. He also knows name of the current president. Speech and language functions are normal. Patient can name and repeat very well. No aphasia or dysarthria. Attention, concentration and fund of knowledge is adequate. On cranial nerve examination, pupils are equal, round and reacting to light, visual vail are full on confrontation, with no neglect on double simultaneous stimulation. Extraocular muscles are intact with no nystagmus. Face is symmetric, tongue protrudes to the midline. Palatal elevation and sensation normal, hearing and shoulder shrug normal, facial sensation normal. On muscle strength testing, there is no pronator drift and the strength is normal in arms and legs distally and proximally. Deep tendon reflexes are symmetric 1 in the upper limbs, trace in the lower extremities plantars are downgoing. Sensory to touch is equal with no neglect on double simultaneous stimulation. Cerebellar function showed no ataxia for [id number] testing. No dysdiadochokinesia. No ataxia for [id number] testing on either side. Tone and bulk of muscles normal. Gait deferred.. On general examination, there is no carotid bruit or murmur, S1-S2 audible. Chest is clear on consultation. Abdomen is soft nontender. No organomegaly, bowel sounds present. Peripheral pulses are present. Patient has moderate peripheral edema. Patient does have bruises on his arms. He had his knee surg marley in the past. Results - Laboratory Findings CBC and BMP: 01/06/23 11:22 01/06/23 11:22 Abnormal Lab Findings: Abnormal Labs 01/06/23 01/06/23 01/06/23 11:22 11:22 11:22 RBC 3.95 L MCV 100.5 H Plt Count 30 L Lymphocytes # 0.4 L PT 14.9 H INR 1.5 H Chloride Carbon Dioxide Plasma Lactic Acid Jarret Calcium Magnesium Total Bilirubin Total Protein Albumin Urine Protein Trace H Urine Blood Small H Ur Leukocyte Esterase Large H Urine RBC 8 H Urine WBC >182 H Urine WBC Clumps Few H Urine Bacteria Occasional H Urine Mucus Rare H 01/06/23 01/06/23 01/07/23 11:22 11:22 08:18 RBC MCV Plt Count Lymphocytes # PT INR Chloride 113 H Carbon Dioxide 18 L Plasma Lactic Acid Jarret 2.8 H* 2.6 H* Calcium 8.3 L Magnesium 1.5 L Total Bilirubin 4.3 H Total Protein 6.1 L Albumin 2.5 L Urine Protein Urine Blood Ur Leukocyte Esterase Urine RBC Urine WBC Urine WBC Clumps Urine Bacteria Urine Mucus Assessment and Plan Assessment: * Status post fall, due to legs giving out, without loss of consciousness. Exact cause is uncertain. Possibly related to arrhythmia versus orthostasis due to reasons mentioned below. * New onset atrial fibrillation * Acute UTI * Thrombocytopenia * Elevated lactate * Macrocytosis Plan: * Patient came with a fall. He denies any focal symptoms otherwise whatsoever. His current neurological examination is normal with NIH stroke scale 0. * Patient has acute UTI, currently being treated with ceftriaxone. * Regarding new onset atrial fibrillation, cardiology on board. Patient not a c andidate for anticoagulation because of thrombocytopenia. * Check orthostasis. * Agree with hematology consultation for evaluation of thrombocytopenia. * Carotid Doppler revealed no hemodynamically significant stenosis in either ICA. Normal antegrade flow in both vertebral arteries. * Patient has macrocytosis. Patient denies alcoholism. We will check B12, folate. * PT OT evaluate gait. * Neurology will follow. Thank you for the consult.
[2023-01-07 15:01] LABS: Bilirubin, Delta 0.5 mg/dL (0.0-0.2); Total Bilirubin 3.5 mg/dL (0.2-1.3)
[2023-01-07] MEDS: LACTULOSE 20 GM/30 ML CUP PO SCH ×2 (17:57→19:55)
[2023-01-07] MEDS: THIAMINE 100 MG TAB PO SCH (17:57)
--- NOTE | 2023-01-07 21:57 | P.CONS ---
History of Present Illness - Reason for Consult Consult date: 01/07/23 - History of Present Illness Patient is a 77-year-old male with a past medical history significant for osteoarthritis without fatty liver presenting to the hospital for evaluation generalized weakness difficulty ambulating and did have 2 falls patient denies any injury to the head or any loss of consciousness patient denies any headache or URI symptoms no chest pain shortness with cough no abdominal pain no diarrhea he did have some difficulty urination considered urine but no suprapubic or flank pain no nausea vomiting on presentation to hospital patient was afebrile and no fever has been recorded subsequently patient did have a normal white count kidney function was normal lactic acid was elevated with sepsis normal did have a positive UA with large leukocyte esterase more than 182 WBC blood cultures obtained currently pending patient did have a chest x-ray there was reported bibasilar atelectasis and infiltrate and tiny effusion CT of the brain negative for any bleed patient was started on Rocephin infectious disease was consulted for further management of antibiotic therapy Past Medical History Past Medical History: Osteoarthritis (OA) Additional Past Medical History / Comment(s): GOUT,. FATTY LIVER-50% DAMAGE History of Any Multi-Drug Resistant Organisms: None Reported Past Surgical History: Appendectomy, Hernia Repair, Joint Replacement, Orthopedic Surgery Additional Past Surgical History / Comment(s): right knee replacement, right arm surgery, COLONOSCOPY, EGD Past Anesthesia/Blood Transfusion Reactions: No Reported Reaction Past Psychological History: No Psychological Hx Reported Smoking Status: Never smoker Past Alcohol Use History: None Reported Past Drug Use History: None Reported - Past Family History Mother Family Medical History: Cancer Medications and Allergies Home Medications Medication Instructions Recorded Confirmed Type No Known Home Medications 01/06/23 01/06/23 History Allergies Allergy/AdvReac Type Severity Reaction Status Date / Time No Known Allergies Allergy Verified 01/06/23 12:02 Physical Exam Vitals: Vital Signs Temp Pulse Pulse Resp BP BP Pulse Ox 01/07/23 04:00 97.7 F 126 H 18 96/57 97 01/07/23 01:20 92 18 01/07/23 00:00 92 18 109/62 97 01/06/23 20:00 97.8 F 95 18 115/69 99 01/06/23 16:00 97.9 F 113 H 18 113/71 99 01/06/23 15:47 98.3 F 126 H 18 119/88 97 01/06/23 14:59 97.7 F 101 H 15 108/75 97 01/06/23 14:45 96 106 H 01/06/23 14:25 108 H 106/75 01/06/23 14:08 107/77 01/06/23 14:00 134 H 18 99/77 97 01/06/23 13:47 134 H 18 119/74 96 01/06/23 13:00 135 H 18 115/73 99 Intake and Output 01/06/23 01/07/23 01/07/23 22:59 06:59 14:59 Intake Total 180 Output Total 100 Balance -100 180 Intake: Oral 180 Output: Urine 100 Other: Voiding Method External Catheter External Catheter # Voids 2 1 Weight 106.594 kg Results CBC & Chem 7: 01/06/23 11:22 01/06/23 11:22 Labs: Abnormal Lab Results - Last 24 Hours (Table) 01/06/23 01/06/23 01/07/23 Range/Units 11:22 11:22 08:18 Plt Count 30 L (150-450) k/uL Lymphocytes # 0.4 L (1.0-4.8) k/uL D-Dimer (<0.60) mg/L FEU Plasma Lactic Acid Jarret 2.6 H* (0.7-2.0) mmol/L Urine Protein Trace H (Negative) Urine Blood Small H (Negative) Ur Leukocyte Esterase Large H (Negative) Urine RBC 8 H (0-5) /hpf Urine WBC >182 H (0-5) /hpf Urine WBC Clumps Few H (None) /hpf Urine Bacteria Occasional H (None) /hpf Urine Mucus Rare H (None) /hpf 01/07/23 Range/Units 10:35 Plt Count (150-450) k/uL Lymphocytes # (1.0-4.8) k/uL D-Dimer 2.94 H (<0.60) mg/L FEU Plasma Lactic Acid Jarret (0.7-2.0) mmol/L Urine Protein (Negative) Urine Blood (Negative) Ur Leukocyte Esterase (Negative) Urine RBC (0-5) /hpf Urine WBC (0-5) /hpf Urine WBC Clumps (None) /hpf Urine Bacteria (None) /hpf Urine Mucus (None) /hpf Assessment and Plan Plan: 1patient presented to hospital with weakness falls which is likely multifactorial patient did have a urinary symptoms but difficult urination dark urine did have a significantly positive UA with concern for a component of UTI- like inflammatory gram-negative pathogen. 2Rocephin 1 g daily continue while waiting for the culture to finalize. We will follow on clinical condition and cultures to further adjust medication if needed Thank you for this consultation we will follow the patient along with you Dictation was produced using Dox[employer]ity dictation software. please excuse any grammatical, word or spelling errors. Time with Patient: Greater than 30
[2023-01-08] MEDS: THIAMINE 100 MG TAB PO SCH ×2 (06:02→17:13)
[2023-01-08] MEDS: LACTULOSE 20 GM/30 ML CUP PO SCH ×3 (08:29→19:10)
[2023-01-08 10:48] LABS: ALT 19 U/L (4-49); AST 40 U/L (17-59); African American GFR (CKD) >90 (>60 ml/min/1.73 sqM); Albumin 2.4 g/dL (3.5-5.0); Alkaline Phosphatase 69 U/L (38-126); Anion Gap 6 mmol/L; Blood Urea Nitrogen 15 mg/dL (9-20); Carbon Dioxide 18 mmol/L (22-30); Chloride 114 mmol/L (98-107); Glucose 76 mg/dL (74-99); Non-African American GFR(CKD) 79 (>60 ml/min/1.73 sqM); Potassium 3.9 mmol/L (3.5-5.1); Sodium 138 mmol/L (137-145); Total Protein 5.9 g/dL (6.3-8.2)
[2023-01-08 11:44] LABS: HCT 36.4 % (39.0-53.0); HGB 12.2 gm/dL (13.0-17.5); MCH 34.3 pg (25.0-35.0); MCHC 33.6 g/dL (31.0-37.0); Macrocytosis Slight; Mean Platelet Volume 8.7; Poikilocytosis Slight; RBC 3.57 m/uL (4.30-5.90); RDW 15.4 % (11.5-15.5); WBC 3.5 k/uL (3.8-10.6)
[2023-01-08] MEDS: FOLIC ACID 1 MG TAB PO SCH (12:25)
[2023-01-08] MEDS: MULTIVITAMINS, THERA 1 EACH TAB PO SCH (12:25)
--- NOTE | 2023-01-08 13:18 | CA ---
Transthoracic Echo Report Name: Juan Phelps Age: 77 Gender: M : 1945 Exam Date: 01/08/2023 08:01 Exam Location: [facility] Ht (in): 72 Wt (lb): 235 Ordering Physician: Maren Mulligan Attending/Referring Phys: [id number], Ese [employer] Giovanna Montemayor [facility] Procedure CPT: Indications: afib,LV function Cardiac Hx: Technical Quality: Fair Contrast 1: Total Dose (mL): Contrast 2: Total Dose (mL): MEASUREMENTS (Male / Female) Normal Values 2D ECHO LV Diastolic Diameter PLAX 4.1 cm 4.2 - 5.9 / 3.9 - 5.3 cm LV Systolic Diameter PLAX 2.7 cm IVS Diastolic Thickness 1.2 cm 0.6 - 1.0 / 0.6 - 0.9 cm LVPW Diastolic Thickness 1.3 cm 0.6 - 1.0 / 0.6 - 0.9 cm LV Relative Wall Thickness 0.6 LVOT Diameter 2.0 cm Ascending Aorta Diameter 3.5 cm M-MODE Aortic Root Diameter MM 3.0 cm LA Systolic Diameter MM 6.3 cm LA Ao Ratio MM 2.1 AV Cusp Separation MM 1.1 cm DOPPLER AV Peak Velocity 183.7 cm/s AV Peak Gradient 13.5 mmHg AV Mean Velocity 126.2 cm/s AV Mean Gradient 7.4 mmHg AV Velocity Time Integral 40.6 cm LVOT Peak Velocity 139.8 cm/s LVOT Peak Gradient 7.8 mmHg LVOT Velocity Time Integral 30.4 cm LVOT Stroke Volume 94.5 cm??? LVOT Stroke Volume Index 41.4 ml/m??? LVOT Cardiac Index 4133.0 cm???/min???m??? AV Area Cont Eq vti 2.3 cm??? AV Area Cont Eq pk 2.4 cm??? Mitral E Point Velocity 118.6 cm/s MV Deceleration Time 221.8 ms LV E' Lateral Velocity 13.0 cm/s Mitral E to LV E' Lateral Ratio 9.1 LV E' Septal Velocity 8.3 cm/s Mitral E to LV E' Septal Ratio 14.3 TR Peak Velocity 225.0 cm/s TR Peak Gradient 20.3 mmHg Right Atrial Pressure 8.0 mmHg Pulmonary Artery Systolic Pressu 28.3 mmHg Right Ventricular Systolic Press 28.3 mmHg FINDINGS Left Ventricle Mild concentric left ventricular hypertrophy. Left ventricular cavity size normal. Normal left ventricular systolic function with no obvious regional wall motion abnormalities. Left ventricular ejection fraction is estimated at 55- 60%. Right Ventricle Mild right ventricular dilatation. Right Atrium Mild right atrial dilatation. Left Atrium Severe left atrial dilatation. Mitral Valve Structurally normal mitral valve. Mitral valve thickened. Aortic Valve Trileaflet aortic valve. Thickening of the aortic valve cusps. Aortic valve sclerosis. Trace-mild aortic regurgitation. Tricuspid Valve Structurally normal tricuspid valve. Mild tricuspid regurgitation. Pulmonic Valve Pulmonic valve not well visualized. No pulmonic regurgitation. Pericardium Minimal pericardial effusion (normal variant). Aorta Normal size aortic root and proximal ascending aorta. CONCLUSIONS Mild concentric left ventricular hypertrophy. Left ventricular ejection fraction is estimated at 55%. Severe left atrial dilatation. Aortic valve sclerosis Previewed by: Dr Joey Lira (Electronically Signed) Final Date: 08 January 2023 13:17
[2023-01-08 13:40] LABS: Eosinophils # (M) 0.14 k/uL (0-0.7); Lymphocytes # (M) 0.77 k/uL (1.0-4.8); Monocytes # (M) 0.32 k/uL (0-1.0); Neutrophils # (M) 2.28 k/uL (1.3-7.7); Neutrophils % (M) 65 %; Nucleated Red Blood Cells 0 /100 WBC (0-0); Platelet Count 33 k/uL (150-450); Total Cells Counted 100
[2023-01-08 13:41] LABS: Toxic Granulation Present
--- NOTE | 2023-01-08 13:44 | P.PN ---
Subjective HISTORY OF PRESENT ILLNESS: This is a 77-year-old male with a past medical history significant for thrombocytopenia, osteoarthritis, gout, and fatty liver disease. Patient follows in the office with Dr. Bill. We have been asked to see the patient in consultation for new onset atrial fibrillation. Patient examined at the bedside. Patient presented to the hospital with a chief complaint of generalized weakness and difficulty ambulating. The patient also recently suffered 2 minor falls without injury. He denies any syncopal episodes. The patient was found to be in atrial fibrillation with RVR. The patient denies a history of atrial fibr illation. At the time of examination, patient remains in atrial fibrillation with a heart rate ranging between [id number]. He currently denies any chest pain or pressure. Denies SOB. Blood pressure stable. * EKG reveals atrial fibrillation with RVR * Chest xray basilar atelectasis or infiltrate with tiny bilateral pleural effusions. This may be superimposed on a background of COPD. Coarsened interstitium may reflect mild bronchitis or interstitial pneumonitis. * Laboratory data: WBC 4.4. Hemoglobin 13.7. Platelet count 30. Sodium 138. Potassium 4.1. BUN 16. Creatinine 1.17. Lactic acid 2.8. Magnesium 1.5. Troponin negative 1. ProBNP 1740. * Current home cardiac medications include none * Most recent echocardiogram obtained in April 2021 revealed ejection fraction 60-65%, borderline pulmonary hypertension, mild tricuspid regurgitation * Patient underwent stress testing in July 2021 which was nondiagnostic secondary to inadequate chronotropic response 01/08 Tinea examined. Patient overall states he feels well. Denies any chest pain or pressure. Remains in A. fib with heart rates mainly in the 80s to 90s. He was given 1 dose of metoprolol yesterday however borderline blood pressures and therefore this has been discontinued PHYSICAL EXAM: VITAL SIGNS: Reviewed. GENERAL: Well-developed in no acute distress. HEENT: Head is normocephalic. Pupils are equal, round. Sclerae anicteric. Mucous membranes of the mouth are moist. Neck supple. No JVD or thyromegaly LUNGS: Respirations even and unlabored. Lungs essentially clear to auscultation bilaterally. HEART: Irregular rate and rhythm. S1 and S2 heard. ABDOMEN: Soft. Nondistended. Nontender. EXTREMITIES: Normal range of motion. No clubbing or cyanosis. Peripheral pulses intact. No lower extremity edema NEUROLOGIC: Awake and alert. Oriented x 3. ASSESSMENT: Generalized weakness and difficulty ambulating Possible urinary tract infection Elevated lactic acid New-onset atrial fibrillation with RVR Thrombocytopenia, platelet count 30 History of osteoarthritis History of gout History of fatty liver disease PLAN: Patient with borderline blood pressures and we will hold the metoprolol for now with heart rates relatively well controlled. No anticoagulation secondary to thrombocytopenia and recent falls Echo showing preserved EF with dilated left atrium. Appears relatively stable from an A. fib standpoint and would continue off of anticoagulation and off of rate controlling medication. Continue with further neurologic workup and increase activity as able. No further recommendations from a cardiology standpoint, please call with any questions. Objective - Vital Signs Vital signs: Vital Signs Temp 98.1 F 01/08/23 08:20 Pulse 63 01/08/23 11:28 Resp 16 01/08/23 11:28 BP 116/72 01/08/23 11:28 Pulse Ox 98 01/08/23 11:28 FiO2 Intake & Output 01/07/23 01/08/23 01/08/23 18:59 06:59 18:59 Intake Total 180 180 Output Total 350 125 Balance -170 55 Intake: Oral 180 180 Output: Urine 350 125 Other: Voiding Method Urinal Urinal # Voids 1 1 # Bowel Movements 1 - Labs CBC & Chem 7: 01/08/23 11:23 01/08/23 09:21 Labs: Abnormal Lab Results - Last 24 Hours (Table) 01/07/23 01/08/23 01/08/23 Range/Units 08:00 09:21 09:21 WBC (3.8-10.6) k/uL RBC (4.30-5.90) m/uL Hgb (13.0-17.5) gm/dL Hct (39.0-53.0) % MCV (80.0-100.0) fL Plt Count (150-450) k/uL Chloride 114 H (98-107) mmol/L Carbon Dioxide 18 L (22-30) mmol/L Calcium 8.0 L (8.4-10.2) mg/dL Total Bilirubin 3.5 H 3.0 H (0.2-1.3) mg/dL Unconjugated Bilirubin 3.0 H (0.0-1.1) mg/dL Delta Bilirubin 0.5 H (0.0-0.2) mg/dL Ammonia 73 H (<30) umol/L Total Protein 5.9 L (6.3-8.2) g/dL Albumin 2.4 L (3.5-5.0) g/dL 01/08/23 Range/Units 11:23 WBC 3.5 L (3.8-10.6) k/uL RBC 3.57 L (4.30-5.90) m/uL Hgb 12.2 L (13.0-17.5) gm/dL Hct 36.4 L (39.0-53.0) % MCV 102.0 H (80.0-100.0) fL Plt Count 33 L (150-450) k/uL Chloride (98-107) mmol/L Carbon Dioxide (22-30) mmol/L Calcium (8.4-10.2) mg/dL Total Bilirubin (0.2-1.3) mg/dL Unconjugated Bilirubin (0.0-1.1) mg/dL Delta Bilirubin (0.0-0.2) mg/dL Ammonia (<30) umol/L Total Protein (6.3-8.2) g/dL Albumin (3.5-5.0) g/dL Microbiology - Last 24 Hours (Table) 01/06/23 14:40 Blood Culture - Preliminary Blood 01/06/23 14:15 Blood Culture - Preliminary Blood
--- NOTE | 2023-01-08 16:15 | PN ---
PROGRESS NOTE DATE OF SERVICE: 01/08/2023 SUBJECTIVE: This is a 77-year-old gentleman, who was admitted with atrial fibrillation with fast ventricular rate and also had generalized weakness and confusion. The patient had hyperammonemia indicating chronic hepatic encephalopathy. The patient is being closely monitored, and multiple consultants are following the patient closely. 2D echo showed significant left atrial dilatation. Empiric antibiotics have been initiated. PAST MEDICAL HISTORY: Reviewed. REVIEW OF SYSTEMS: Fourteen-point review is negative except as mentioned earlier. CURRENT MEDICATIONS: Rocephin. Rest of the medications and doses are noted. PHYSICAL EXAMINATION: VITAL SIGNS: Pulse 80, blood pressure n, respirations 16. CHEST: Clear to auscultation. CARDIOVASCULAR: S1 and S2. ABDOMEN: Soft. NERVOUS SYSTEM: Diffusely weak. LABORATORY DATA: WBC 3.5. Rest of the labs are noted. ASSESSMENT: 1. Atrial fibrillation with fast ventricular rate present on admission. 2. Change in mental status, possible acute hepatic encephalopathy with hyperammonemia. 3. Acute urinary tract infection, possibly. 4. Degenerative joint disease. 5. History of possible alcohol intake. 6. History of gout. 7. History of fatty liver. 8. Thrombocytopenia. 9. History of hernia repair. RECOMMENDATIONS: Recommend to continue current medications. Continue symptomatic treatment. Otherwise, at this time, I recommend to continue the lactulose. Continue the empiric antibiotics. Follow the cultures. Repeat labs. Closely follow with multiple consultants. Prognosis is guarded. Further recommendations to follow. MMODL / IJN: [id number] / MTDD
--- NOTE | 2023-01-08 16:16 | P.PN ---
Subjective Progress Note Date: 01/08/23 Principal diagnosis: Urinary tract infection Patient is a 77-year-old male with a past medical history significant for osteoarthritis without fatty liver presenting to the hospital for evaluation generalized weakness difficulty ambulating and did have 2 falls , patient also have a positive concerning for symptomatic daily. On today's evaluation that is 01/08/2023, the patient denies having any fever or any chills, the patient is breathing comfortably, the patient denies having any chest pain, no nausea no vomiting no abdominal pain and no diarrhea has been reported. Patient did have white count of 3.5 creatinine 0.94, cultures pending Objective - Vital Signs Vital signs: Vital Signs Temp 98.1 F 01/08/23 08:20 Pulse 63 01/08/23 11:28 Resp 16 01/08/23 11:28 BP 116/72 01/08/23 11:28 Pulse Ox 98 01/08/23 11:28 FiO2 Intake & Output 01/07/23 01/08/23 01/08/23 18:59 06:59 18:59 Intake Total 180 180 Output Total 350 125 Balance -170 55 Intake: Oral 180 180 Output: Urine 350 125 Other: Voiding Method Urinal Urinal # Voids 1 1 # Bowel Movements 1 - Exam GENERAL DESCRIPTION: An elderly male lying in bed in no distress RESPIRATORY SYSTEM: Unlabored breathing , decreased breath sounds at bases HEART: S1 S2 regular rate and rhythm , ABDOMEN: Soft , no tenderness EXTREMITIES: No edema feet - Labs CBC & Chem 7: 01/08/23 11:23 01/08/23 09:21 Labs: Abnormal Lab Results - Last 24 Hours (Table) 01/07/23 01/07/23 01/08/23 Range/Units 08:00 12:32 09:21 WBC (3.8-10.6) k/uL RBC (4.30-5.90) m/uL Hgb (13.0-17.5) gm/dL Hct (39.0-53.0) % MCV (80.0-100.0) fL Plt Count (150-450) k/uL Chloride 114 H (98-107) mmol/L Carbon Dioxide 18 L (22-30) mmol/L Calcium 8.0 L (8.4-10.2) mg/dL Total Bilirubin 3.5 H 3.0 H (0.2-1.3) mg/dL Unconjugated Bilirubin 3.0 H (0.0-1.1) mg/dL Delta Bilirubin 0.5 H (0.0-0.2) mg/dL Ammonia 112 H (<30) umol/L Total Protein 5.9 L (6.3-8.2) g/dL Albumin 2.4 L (3.5-5.0) g/dL 01/08/23 01/08/23 Range/Units 09:21 11:23 WBC 3.5 L (3.8-10.6) k/uL RBC 3.57 L (4.30-5.90) m/uL Hgb 12.2 L (13.0-17.5) gm/dL Hct 36.4 L (39.0-53.0) % MCV 102.0 H (80.0-100.0) fL Plt Count 33 L (150-450) k/uL Chloride (98-107) mmol/L Carbon Dioxide (22-30) mmol/L Calcium (8.4-10.2) mg/dL Total Bilirubin (0.2-1.3) mg/dL Unconjugated Bilirubin (0.0-1.1) mg/dL Delta Bilirubin (0.0-0.2) mg/dL Ammonia 73 H (<30) umol/L Total Protein (6.3-8.2) g/dL Albumin (3.5-5.0) g/dL Microbiology - Last 24 Hours (Table) 01/06/23 14:40 Blood Culture - Preliminary Blood 01/06/23 14:15 Blood Culture - Preliminary Blood Assessment and Plan (1) UTI (urinary tract infection) Current Visit: Yes Status: Acute Priority: Medium Code(s): N39.0 - URINARY TRACT INFECTION, SITE NOT SPECIFIED SNOMED Code(s): 70926181 Plan: 1patient presented to hospital with weakness falls which is likely multifactorial patient did have a urinary symptoms but difficult urination dark urine did have a significantly positive UA with concern for a component of UTI- like inflammatory gram-negative pathogen. 2patient to continue with Rocephin 1 g daily while waiting for the culture to finalize. Dictation was produced using [employer] software. please excuse any grammatical, word or spelling errors. Time with Patient: Less than 30
--- NOTE | 2023-01-08 17:07 | P.PN ---
Subjective Progress Note Date: 01/08/23 Patient was seen for a follow-up. Patient is laying comfortably in the bed. Patient's was also present today. She mentions that patient is feeling generalized weak. No focal weakness, no strokelike symptoms. Telemetry monitoring showing atrial fibrillation in controlled rate, occasional 2 second pause. PVCs and couplets. Objective - Vital Signs Vital signs: Vital Signs Temp 98.1 F 01/08/23 08:20 Pulse 63 01/08/23 11:28 Resp 16 01/08/23 11:28 BP 116/72 01/08/23 11:28 Pulse Ox 98 01/08/23 11:28 FiO2 Intake & Output 01/07/23 01/08/23 01/08/23 18:59 06:59 18:59 Intake Total 180 360 Output Total 350 125 Balance -170 235 Intake: Oral 180 360 Output: Urine 350 125 Other: Voiding Method Urinal Urinal # Voids 1 1 # Bowel Movements 1 - Exam Patient's mental status, speech and language pulses are normal. Examination is essentially unchanged. - Labs CBC & Chem 7: 01/08/23 11:23 01/08/23 09:21 Labs: Abnormal Lab Results - Last 24 Hours (Table) 01/08/23 01/08/23 01/08/23 Range/Units 09:21 09:21 11:23 WBC 3.5 L (3.8-10.6) k/uL RBC 3.57 L (4.30-5.90) m/uL Hgb 12.2 L (13.0-17.5) gm/dL Hct 36.4 L (39.0-53.0) % MCV 102.0 H (80.0-100.0) fL Plt Count 33 L (150-450) k/uL Lymphocytes # (Manual) 0.77 L (1.0-4.8) k/uL Fibrinogen (200-500) mg/dL Chloride 114 H (98-107) mmol/L Carbon Dioxide 18 L (22-30) mmol/L Calcium 8.0 L (8.4-10.2) mg/dL Total Bilirubin 3.0 H (0.2-1.3) mg/dL Ammonia 73 H (<30) umol/L Total Protein 5.9 L (6.3-8.2) g/dL Albumin 2.4 L (3.5-5.0) g/dL 01/08/23 Range/Units 12:05 WBC (3.8-10.6) k/uL RBC (4.30-5.90) m/uL Hgb (13.0-17.5) gm/dL Hct (39.0-53.0) % MCV (80.0-100.0) fL Plt Count (150-450) k/uL Lymphocytes # (Manual) (1.0-4.8) k/uL Fibrinogen 110 L (200-500) mg/dL Chloride (98-107) mmol/L Carbon Dioxide (22-30) mmol/L Calcium (8.4-10.2) mg/dL Total Bilirubin (0.2-1.3) mg/dL Ammonia (<30) umol/L Total Protein (6.3-8.2) g/dL Albumin (3.5-5.0) g/dL Microbiology - Last 24 Hours (Table) 01/06/23 14:40 Blood Culture - Preliminary Blood 01/06/23 14:15 Blood Culture - Preliminary Blood Assessment and Plan Assessment: * Status post fall, due to legs giving out, without loss of consciousness. Exact cause is uncertain. Possibly related to arrhythmia versus orthostasis due to reasons mentioned below. * New onset atrial fibrillation * Acute UTI * Thrombocytopenia * Elevated lactate * Macrocytosis Plan: * Patient came with a fall. He denies any focal symptoms otherwise whatsoever. His current neurological examination is normal with NIH stroke scale 0. * Patient has acute UTI, currently being treated with ceftriaxone. * Regarding new onset atrial fibrillation, cardiology on board. Patient not a candidate for anticoagulation because of thrombocytopenia. * Check orthostasis. * Appreciate hematology input for thrombocytopenia. Patient needs anticoagulants for atrial fibrillation. However patient's platelets are running 30 and 33. He does have chronic thrombocytopenia related to chronic liver disease. Worsening of thrombocytopenia likely related to acute UTI. Spoke to Dr. Yates, who preferred holding anticoagulants and antiplatelets. Once the platelets are consistently above 30, then patient can be placed on aspirin. Regarding anticoagulants, preferred to have platelets above 50. Please refer to Dr. Yates note for details. * Internal medicine to follow platelets and start aspirin-medically cleared. * Carotid Doppler revealed no hemodynamically significant stenosis in either ICA. Normal antegrade flow in both vertebral arteries. * Patient has macrocytosis. Patient denies alcoholism. B12 653, folate 7.0. Folic acid is borderline. We'll start folic acid replacement. TSH is normal 2.75. * PT OT evaluate gait. * Neurology will sign off. Please reconsult neurology if any concerns. Dr. Yang covering weekend starting from tomorrow.
--- NOTE | 2023-01-08 20:40 | US ---
EXAMINATION TYPE: US abdomen complete DATE OF EXAM: 01/08/2023 COMPARISON: CLINICAL INDICATION: Male, 77 years old with history of distention, concerns for liver damage, high a mmon; GB removed per patient. Hx liver bx = cirrhosis per patient. TECHNIQUE: Multiple sonographic images of the abdomen are obtained. FINDINGS: EXAM MEASUREMENTS: Liver Length: 11.5 cm Spleen: 15.5 cm. Normal less than 12.5 cm. Right Kidney: 11.7 x 5.1 x 6.8 cm Left Kidney: 12.7 x 4.1 x 5.2 cm MACHINED [employer]AYER NOTES: Extremely limited/suboptimal exam due to patient body habitus and overlying bow el gas Pancreas: Obscured by bowel gas Liver: Limited, unable to visualize left lobe Gallbladder: Surgically absent Evidence for sonographic Carson's sign: neg CBD: Obscured by overlying bowel gas Spleen: Enlarged in size Right Kidney: No prominent hydronephrosis or masses seen, limited Left Kidney: Medial anechoic lesion at hilum - 1.7 x 1.1 cm, may be a cyst Upper IVC: Obscured by overlying bowel gas Abd Aorta: Proximal obscured by overlying bowel gas. No AAA seen at mid or distal. IMPRESSION: 1. Moderate fatty infiltration of the liver. 2. Splenomegaly
[2023-01-09 02:12] LABS: % Iron Saturation 48.81 (15.00-50.00)
[2023-01-09] MEDS: THIAMINE 100 MG TAB PO SCH ×2 (06:10→17:17)
[2023-01-09] MEDS: LACTULOSE 20 GM/30 ML CUP PO SCH ×3 (09:10→19:43)
--- NOTE | 2023-01-09 09:28 | P.CONS ---
History of Present Illness - Reason for Consult Consult date: 01/08/23 THROMBOCYTOPENIA Requesting physician: Jie Welch - Chief Complaint weakness - History of Present Illness Patient is a 77-year-old male with multiple comorbidities. We were consulted for thrombocytopenia. He is a patient of Dr. Yates. However patient has not been seen in clinic since 04/2017. He was first referred to our clinic in 2015 for thrombocytopenia. He was noted to have a platelet count of 54 on routine CBC, with a Hgb of 13.5. His bilirubin at that time was 3.2, with hepatitis profile negative in 06/18. Subsequent CBCs in 06/18, and 08/16 revealed stable plt in the 50-60 range. His workup at that time was overall negative. His US did show a heterogenous liver with ascites. Thus the low plt were felt to be due to CLD. He f/u with Dr Sharri Appiah, and was diagnosed with cirrhosis, apparently due to fatty liver. His labs on 01/17 showed a plt count of 37. He was referred back to our clinic for further evaluation. Workup for other etiologies were negative. This was felt to be due to progression of his CLD. Patient presented to the ER for generalized weakness and falls. Patient denies hitting head and loss of consciousness. Patient also reports associated diarrhea. Patient reports diarrhea was mild with only 2 episodes of loose stools. Upon admission UA revealed likely UTI, patient started on Rocephin. CBC revealed WBC 4.4, hemoglobin 13.7, platelets 30,000. Bilirubin elevated at 3.5. PT/INR elevated. Blood cultures negative thus far. C. difficile studies ordered. CT head negative for acute intracranial abnormalities. Carotid Doppler negative for significant stenosis. At today's visit patient reports generalized weakness. Diarrhea has subsided. Denies any episodes of acute bleeding. Denies petechiae. Denies urinary complaints. Denies shortness of breath and dizziness. Patient does have history of atrial fibrillation but due to previous thrombocytopenia he is not on any anticoagulation. Upon trending labs patient's thrombocytopenia has been noted since 2015 and typically runs in the 40-50K range. Review of Systems 10 point ROS is negative except as stated in the HPI Past Medical History Past Medical History: Osteoarthritis (OA) Additional Past Medical History / Comment(s): GOUT,. FATTY LIVER-50% DAMAGE History of Any Multi-Drug Resistant Organisms: None Reported Past Surgical History: Appendectomy, Hernia Repair, Joint Replacement, Orthopedic Surgery Additional Past Surgical History / Comment(s): right knee replacement, right arm surgery, COLONOSCOPY, EGD Past Anesthesia/Blood Transfusion Reactions: No Reported Reaction Past Psychological History: No Psychological Hx Reported Smoking Status: Never smoker Past Alcohol Use History: None Reported Past Drug Use History: None Reported - Past Family History Mother Family Medical History: Cancer Medications and Allergies Home Medications Medication Instructions Recorded Confirmed Type No Known Home Medications 01/06/23 01/06/23 History Allergies Allergy/AdvReac Type Severity Reaction Status Date / Time No Known Allergies Allergy Verified 01/06/23 12:02 Physical Exam Vitals: Vital Signs Temp Pulse Resp BP Pulse Ox 01/08/23 11:28 63 16 116/72 98 01/08/23 08:20 98.1 F 80 16 121/69 98 01/08/23 03:32 98.4 F 96 18 116/75 97 01/07/23 23:58 98.4 F 95 18 118/70 96 01/07/23 19:44 97.8 F 81 16 118/74 100 01/07/23 16:20 98.2 F 73 16 115/62 99 Intake and Output 01/08/23 01/08/23 01/08/23 06:59 14:59 22:59 Intake Total 360 Output Total 125 Balance 235 Intake: Oral 360 Output: Urine 125 Other: Voiding Method Urinal # Voids 1 - Constitutional General appearance: average body habitus, no acute distress - EENT Eyes: anicteric sclerae, EOMI ENT: hearing grossly normal - Respiratory Respiratory: bilateral: CTA - Cardiovascular Rhythm: irregularly irregular Heart sounds: normal: S1, S2 Abnormal Heart Sounds: no systolic murmur, no diastolic murmur, no rub, no S3 Gallop, no S4 Gallop, no click, no other leg Peripheral Edema: bilateral: 2+ - Gastrointestinal General gastrointestinal: soft, no tenderness - Integumentary bruising to BUE, no petechiae - Musculoskeletal Musculoskeletal: generalized weakness - Psychiatric Psychiatric: A&O x's 3, appropriate affect, intact judgment & insight Results CBC & Chem 7: 01/08/23 11:23 01/08/23 09:21 Labs: Abnormal Lab Results - Last 24 Hours (Table) 01/08/23 01/08/23 01/08/23 Range/Units 09:21 09:21 11:23 WBC 3.5 L (3.8-10.6) k/uL RBC 3.57 L (4.30-5.90) m/uL Hgb 12.2 L (13.0-17.5) gm/dL Hct 36.4 L (39.0-53.0) % MCV 102.0 H (80.0-100.0) fL Plt Count 33 L (150-450) k/uL Lymphocytes # (Manual) 0.77 L (1.0-4.8) k/uL Fibrinogen (200-500) mg/dL Chloride 114 H (98-107) mmol/L Carbon Dioxide 18 L (22-30) mmol/L Calcium 8.0 L (8.4-10.2) mg/dL Total Bilirubin 3.0 H (0.2-1.3) mg/dL Ammonia 73 H (<30) umol/L Total Protein 5.9 L (6.3-8.2) g/dL Albumin 2.4 L (3.5-5.0) g/dL 01/08/23 Range/Units 12:05 WBC (3.8-10.6) k/uL RBC (4.30-5.90) m/uL Hgb (13.0-17.5) gm/dL Hct (39.0-53.0) % MCV (80.0-100.0) fL Plt Count (150-450) k/uL Lymphocytes # (Manual) (1.0-4.8) k/uL Fibrinogen 110 L (200-500) mg/dL Chloride (98-107) mmol/L Carbon Dioxide (22-30) mmol/L Calcium (8.4-10.2) mg/dL Total Bilirubin (0.2-1.3) mg/dL Ammonia (<30) umol/L Total Protein (6.3-8.2) g/dL Albumin (3.5-5.0) g/dL Microbiology - Last 24 Hours (Table) 01/06/23 14:40 Blood Culture - Preliminary Blood 01/06/23 14:15 Blood Culture - Preliminary Blood Comments: carotid doppler reviewed CT Scan - head: report reviewed Assessment and Plan (1) Thrombocytopenia Current Visit: Yes Status: Acute Priority: Medium Code(s): D69.6 - THROMBOCYTOPENIA, UNSPECIFIED SNOMED Code(s): 035034160 (2) UTI (urinary tract infection) Current Visit: Yes Status: Acute Priority: Medium Code(s): N39.0 - URINARY TRACT INFECTION, SITE NOT SPECIFIED SNOMED Code(s): 84331986 (3) Cirrhosis Current Visit: Yes Status: Acute Priority: Medium Code(s): K74.60 - UNSPECIFIED CIRRHOSIS OF LIVER SNOMED Code(s): 40776501 Plan: Thrombocytopenia: -Has been worked up in clinic in 2016 and 2017. Workup for other etiologies were negative. This was felt to be due to progression of his CLD. -Platelets typically in the 40-50K range. Today platelets 33,000. No acute episode of bleeding/petechiae -INR/PT elevated. Fibrinogen ordered, 110. No need for cryoprecipitate unless fibrinogen less than 100 -Anemia workup ordered, no nutritional deficiencies noted -Thrombocyopenia likely r/t CLD superimposed by acute infection and use of cephalosporin antibiotics -Neuro following for possible stroke. Spoke with team in regards to anticoagulation/antiplatelet tx. ASA can typically be started safely in the 30k- 50K range, but use of other therapies would require platelets to be greater than 50K. If this is urgent platelets can be given. Would expect counts to recover to normal baseline once patient acutely recovers, and at that time can be rechecked so patient can be started on antithrombotic therapy Chronic liver disease: -Known CLD. Has f/u with GI in the past. Diagnosed with cirrhosis, apparently due to fatty liver. -Bilirubin elevated at 3.5. LFTs normal. Ammonia 73 -IM managing Dr. Haiderests: I have seen and examined pt, performed H&P, developed impression and plan of care. Discussed with dictator. Agree with documentation, dictated as a scribe
[2023-01-09 10:11] LABS: HCT 37.5 % (39.0-53.0); HGB 12.4 gm/dL (13.0-17.5); MCH 33.8 pg (25.0-35.0); MCV 102.4 fL (80.0-100.0); Macrocytosis Moderate; Mean Platelet Volume 9.2; Poikilocytosis Slight; RBC 3.67 m/uL (4.30-5.90); WBC 2.8 k/uL (3.8-10.6)
[2023-01-09 10:45] LABS: ALT 18 U/L (4-49); AST 38 U/L (17-59); African American GFR (CKD) >90 (>60 ml/min/1.73 sqM); Alkaline Phosphatase 62 U/L (38-126); Anion Gap 5 mmol/L; Blood Urea Nitrogen 15 mg/dL (9-20); Calcium 7.8 mg/dL (8.4-10.2); Carbon Dioxide 20 mmol/L (22-30); Chloride 113 mmol/L (98-107); Glucose 131 mg/dL (74-99); Non-African American GFR(CKD) 79 (>60 ml/min/1.73 sqM); Potassium 3.7 mmol/L (3.5-5.1); Sodium 138 mmol/L (137-145); Total Bilirubin 2.8 mg/dL (0.2-1.3); Total Protein 5.3 g/dL (6.3-8.2)
[2023-01-09 11:29] LABS: Platelet Count 30 k/uL (150-450)
[2023-01-09] MEDS: MULTIVITAMINS, THERA 1 EACH TAB PO SCH (12:22)
[2023-01-09] MEDS: FOLIC ACID 1 MG TAB PO SCH (12:22)
[2023-01-09 15:22] LABS: Eosinophils # (M) 0.03 k/uL (0-0.7); Neutrophils # (M) 1.68 k/uL (1.3-7.7); Neutrophils % (M) 60 %; Nucleated Red Blood Cells 0 /100 WBC (0-0); Total Cells Counted 100
--- NOTE | 2023-01-09 15:33 | PN ---
PROGRESS NOTE DATE OF SERVICE: 01/09/2023 SUBJECTIVE: This 77-year-old gentleman admitted with atrial fibrillation, also had possible hepatic encephalopathy, and the patient also has multiple hematologic abnormalities. The patient continues to be confused. Ultrasound of abdomen showed fatty infiltration and splenomegaly. PHYSICAL EXAMINATION: VITAL SIGNS: Pulse is 70, blood pressure is 115/80, respirations 18. CHEST: Clear to auscultation. CARDIOVASCULAR: S1 and S2, normal. ABDOMEN: Soft. LABORATORY DATA: WBC 2.8. Rest of the labs are noted. ASSESSMENT: 1. Atrial fibrillation with fast ventricular rate present on admission. 2. Change in mental status, possible acute hepatic encephalopathy with hyperammonemia. 3. Splenomegaly 4. Acute urinary tract infection, possibly present on admission. 5. Degenerative joint disease. 6. History of possible alcohol intake. 7. History of gout. 8. History of fatty liver. 9. Thrombocytopenia. 10.History of hernia repair. RECOMMENDATIONS: Recommend to continue current medications. Continue symptomatic treatment. Otherwise, recommend repeat labs. Ammonia is 127. The patient has refused lactulose. Prognosis is guarded. Further recommendations to follow. MMODL / IJN: [id number] / MTDTiffanie
--- NOTE | 2023-01-09 17:28 | P.PN ---
Subjective Progress Note Date: 01/09/23 Principal diagnosis: Urinary tract infection Patient is a 77-year-old male with a past medical history significant for osteoarthritis without fatty liver presenting to the hospital for evaluation generalized weakness difficulty ambulating and did have 2 falls , patient also have a positive concerning for symptomatic daily. On today's evaluation that is 01/09/2023, the patient remains to be afebrile, the patient is breathing comfortably, the patient denies chest pain, no cough, no nausea no vomiting no abdominal pain and no diarrhea has been reported. Patient did have white count of 2.8 creatinine 0.94, blood cultures pending, urine culture not done Objective - Vital Signs Vital signs: Vital Signs Temp 98 F 01/09/23 12:00 Pulse 70 01/09/23 12:00 Resp 18 01/09/23 12:00 BP 115/84 01/09/23 12:00 Pulse Ox 98 01/09/23 12:00 FiO2 Intake & Output 01/08/23 01/09/23 01/09/23 18:59 06:59 18:59 Intake Total 360 Output Total 600 700 250 Balance -240 -700 -250 Intake: Oral 360 Output: Urine 600 700 250 Other: Voiding Method Urinal # Voids 1 - Exam GENERAL DESCRIPTION: An elderly male lying in bed in no distress RESPIRATORY SYSTEM: Unlabored breathing , decreased breath sounds at bases HEART: S1 S2 regular rate and rhythm , ABDOMEN: Soft , no tenderness EXTREMITIES: No edema feet - Labs CBC & Chem 7: 01/09/23 09:51 01/09/23 09:51 Labs: Abnormal Lab Results - Last 24 Hours (Table) 01/08/23 01/09/23 01/09/23 Range/Units 16:48 09:51 09:51 WBC 2.8 L (3.8-10.6) k/uL RBC 3.67 L (4.30-5.90) m/uL Hgb 12.4 L (13.0-17.5) gm/dL Hct 37.5 L (39.0-53.0) % MCV 102.4 H (80.0-100.0) fL RDW 16.0 H (11.5-15.5) % Plt Count 30 L (150-450) k/uL Chloride 113 H (98-107) mmol/L Carbon Dioxide 20 L (22-30) mmol/L Glucose 131 H (74-99) mg/dL Calcium 7.8 L (8.4-10.2) mg/dL TIBC 168 L (228-460) UG/DL Transferrin 120.0 L (204.0-354.0) mg/dL Total Bilirubin 2.8 H (0.2-1.3) mg/dL Ammonia (<30) umol/L Total Protein 5.3 L (6.3-8.2) g/dL Albumin 2.0 L (3.5-5.0) g/dL 01/09/23 Range/Units 09:51 WBC (3.8-10.6) k/uL RBC (4.30-5.90) m/uL Hgb (13.0-17.5) gm/dL Hct (39.0-53.0) % MCV (80.0-100.0) fL RDW (11.5-15.5) % Plt Count (150-450) k/uL Chloride (98-107) mmol/L Carbon Dioxide (22-30) mmol/L Glucose (74-99) mg/dL Calcium (8.4-10.2) mg/dL TIBC (228-460) UG/DL Transferrin (204.0-354.0) mg/dL Total Bilirubin (0.2-1.3) mg/dL Ammonia 127 H (<30) umol/L Total Protein (6.3-8.2) g/dL Albumin (3.5-5.0) g/dL Microbiology - Last 24 Hours (Table) 01/06/23 14:40 Blood Culture - Preliminary Blood 01/06/23 14:15 Blood Culture - Preliminary Blood Assessment and Plan (1) UTI (urinary tract infection) Current Visit: Yes Status: Acute Priority: Medium Code(s): N39.0 - URINARY TRACT INFECTION, SITE NOT SPECIFIED SNOMED Code(s): 27961214 Plan: 1patient presented to hospital with weakness falls which is likely multifactorial patient did have a urinary symptoms but difficult urination dark urine did have a significantly positive UA with concern for a component of UTI-like inflammatory gram-negative pathogen. 2patient seemed to have shown clinical improvement and will continue with Rocephin 1 g daily and monitor glucose closely Dictation was produced using dragon dictation software. please excuse any grammatical, word or spelling errors. Time with Patient: Less than 30
[2023-01-10 06:01] LABS: HCT 37.6 % (39.0-53.0); HGB 12.7 gm/dL (13.0-17.5); MCHC 33.8 g/dL (31.0-37.0); MCV 100.4 fL (80.0-100.0); Macrocytosis Slight; Mean Platelet Volume 9.5; Poikilocytosis Slight; RBC 3.74 m/uL (4.30-5.90); RDW 15.9 % (11.5-15.5); WBC 3.4 k/uL (3.8-10.6)
[2023-01-10 06:20] LABS: Platelet Count 36 k/uL (150-450)
[2023-01-10 06:22] LABS: INR 1.5 (<1.2); Partial Thromboplastin Time 30.5 sec (22.0-30.0); Prothrombin Time 15.3 sec (9.0-12.0)
[2023-01-10 06:25] LABS: ALT 18 U/L (4-49); AST 40 U/L (17-59); African American GFR (CKD) >90 (>60 ml/min/1.73 sqM); Albumin 2.2 g/dL (3.5-5.0); Alkaline Phosphatase 64 U/L (38-126); Anion Gap 3 mmol/L; Blood Urea Nitrogen 15 mg/dL (9-20); Calcium 7.9 mg/dL (8.4-10.2); Carbon Dioxide 19 mmol/L (22-30); Chloride 115 mmol/L (98-107); Glucose 79 mg/dL (74-99); Non-African American GFR(CKD) 86 (>60 ml/min/1.73 sqM); Potassium 4.2 mmol/L (3.5-5.1); Sodium 137 mmol/L (137-145); Total Bilirubin 3.1 mg/dL (0.2-1.3); Total Protein 5.5 g/dL (6.3-8.2)
[2023-01-10] MEDS: THIAMINE 100 MG TAB PO SCH ×2 (06:27→17:13)
[2023-01-10 06:35] LABS: Eosinophils # (M) 0.27 k/uL (0-0.7); Lymphocytes # (M) 0.88 k/uL (1.0-4.8); Monocytes # (M) 0.37 k/uL (0-1.0); Neutrophils # (M) 1.87 k/uL (1.3-7.7); Neutrophils % (M) 55 %; Nucleated Red Blood Cells 0 /100 WBC (0-0); Total Cells Counted 100
[2023-01-10] MEDS: LACTULOSE 20 GM/30 ML CUP PO SCH ×3 (08:45→23:51)
[2023-01-10] MEDS: MULTIVITAMINS, THERA 1 EACH TAB PO SCH (13:04)
[2023-01-10] MEDS: FOLIC ACID 1 MG TAB PO SCH (13:04)
--- NOTE | 2023-01-10 16:45 | P.PN ---
Subjective Progress Note Date: 01/10/23 Principal diagnosis: Urinary tract infection Patient is a 77-year-old male with a past medical history significant for osteoarthritis without fatty liver presenting to the hospital for evaluation generalized weakness difficulty ambulating and did have 2 falls , patient also have a positive concerning for symptomatic daily. On today's evaluation that is 01/10/2023, the patient continues to be afebrile, the patient is breathing comfortably and denies any shortness of breath no chest pain or cough, the patient denies having any nausea and vomiting no abdominal pain and no diarrhea Patient did have white count of 3.4 creatinine 0.83, blood cultures pending, urine culture not done Objective - Vital Signs Vital signs: Vital Signs Temp 97.6 F 01/10/23 08:00 Pulse 80 01/10/23 12:00 Resp 18 01/10/23 08:00 BP 93/70 01/10/23 08:00 Pulse Ox 94 L 01/10/23 08:00 FiO2 Intake & Output 01/09/23 01/10/23 01/10/23 18:59 06:59 18:59 Intake Total 50 Output Total 800 750 550 Balance -800 -750 -500 Intake: Intake, IV Titration 50 Amount cefTRIAXone 1 gm In 50 Sodium Chloride 0.9% 50 ml @ 100 mls/hr IVPB Q24HR [facility] Rx#:[id number] Oral 0 Output: Urine 800 750 550 Other: Voiding Method Urinal Urinal - Exam GENERAL DESCRIPTION: An elderly male lying in bed in no distress RESPIRATORY SYSTEM: Unlabored breathing , decreased breath sounds at bases HEART: S1 S2 regular rate and rhythm , ABDOMEN: Soft , no tenderness EXTREMITIES: No edema feet - Labs CBC & Chem 7: 01/10/23 05:27 01/10/23 05:27 Labs: Abnormal Lab Results - Last 24 Hours (Table) 01/10/23 01/10/23 01/10/23 Range/Units 05:27 05:27 05:27 WBC 3.4 L (3.8-10.6) k/uL RBC 3.74 L (4.30-5.90) m/uL Hgb 12.7 L (13.0-17.5) gm/dL Hct 37.6 L (39.0-53.0) % MCV 100.4 H (80.0-100.0) fL RDW 15.9 H (11.5-15.5) % Plt Count 36 L (150-450) k/uL Lymphocytes # (Manual) 0.88 L (1.0-4.8) k/uL PT 15.3 H (9.0-12.0) sec INR 1.5 H (<1.2) APTT 30.5 H (22.0-30.0) sec Fibrinogen 107 L (200-500) mg/dL Chloride 115 H (98-107) mmol/L Carbon Dioxide 19 L (22-30) mmol/L Calcium 7.9 L (8.4-10.2) mg/dL Total Bilirubin 3.1 H (0.2-1.3) mg/dL Ammonia (<30) umol/L Total Protein 5.5 L (6.3-8.2) g/dL Albumin 2.2 L (3.5-5.0) g/dL 01/10/23 Range/Units 05:27 WBC (3.8-10.6) k/uL RBC (4.30-5.90) m/uL Hgb (13.0-17.5) gm/dL Hct (39.0-53.0) % MCV (80.0-100.0) fL RDW (11.5-15.5) % Plt Count (150-450) k/uL Lymphocytes # (Manual) (1.0-4.8) k/uL PT (9.0-12.0) sec INR (<1.2) APTT (22.0-30.0) sec Fibrinogen (200-500) mg/dL Chloride (98-107) mmol/L Carbon Dioxide (22-30) mmol/L Calcium (8.4-10.2) mg/dL Total Bilirubin (0.2-1.3) mg/dL Ammonia 67 H (<30) umol/L Total Protein (6.3-8.2) g/dL Albumin (3.5-5.0) g/dL Microbiology - Last 24 Hours (Table) 01/06/23 14:40 Blood Culture - Preliminary Blood 01/06/23 14:15 Blood Culture - Preliminary Blood Assessment and Plan (1) UTI (urinary tract infection) Current Visit: Yes Status: Acute Priority: Medium Code(s): N39.0 - URINARY TRACT INFECTION, SITE NOT SPECIFIED SNOMED Code(s): 63379705 Plan: 1patient presented to hospital with weakness falls which is likely multifactorial patient did have a urinary symptoms but difficult urination dark urine did have a significantly positive UA with concern for a component of UTI-like inflammatory gram-negative pathogen. 2patient seemed to have shown clinical improvement and will continue with Rocephin 1 g daily which can be discontinued on discharge Dictation was produced using [employer] dictation software. please excuse any grammatical, word or spelling errors. Time with Patient: Less than 30
--- NOTE | 2023-01-11 04:04 | PN ---
PROGRESS NOTE DATE OF SERVICE: 01/10/2023 SUBJECTIVE: This is a 77-year-old gentleman, who was admitted after atrial fibrillation, also had change in mental status, possible hepatic encephalopathy. No chest pain. No palpitations. No fever. PHYSICAL EXAMINATION: VITAL SIGNS: Pulse 98, blood pressure 93/70, respirations 18. CHEST: Clear to auscultation. ABDOMEN: Soft. NERVOUS SYSTEM: Nonfocal. LABORATORY DATA: Reviewed. ASSESSMENT: 1. Atrial fibrillation with fast ventricular rate present on admission. 2. Change in mental status, acute hepatic encephalopathy and hyperammonemia. 3. Splenomegaly. 4. Possibly cirrhosis liver. 5. Acute urinary tract infection, present on admission. 6. Degenerative joint disease. 7. History of gout. 8. Multiple complex medical issues. RECOMMENDATIONS: I recommend to continue current management and treatment otherwise at this time I would recommend continue the current medications and symptomatic treatment. Prognosis guarded. Further recommendations to follow. MMODL / LOUISEN: [id number] /
[2023-01-11] MEDS: THIAMINE 100 MG TAB PO SCH ×2 (06:17→17:41)
[2023-01-11 09:01] LABS: ALT 18 U/L (4-49); AST 36 U/L (17-59); African American GFR (CKD) >90 (>60 ml/min/1.73 sqM); Albumin 2.3 g/dL (3.5-5.0); Alkaline Phosphatase 66 U/L (38-126); Anion Gap 3 mmol/L; Blood Urea Nitrogen 13 mg/dL (9-20); Calcium 8.1 mg/dL (8.4-10.2); Carbon Dioxide 21 mmol/L (22-30); Chloride 113 mmol/L (98-107); Glucose 76 mg/dL (74-99); Non-African American GFR(CKD) 85 (>60 ml/min/1.73 sqM); Sodium 137 mmol/L (137-145); Total Bilirubin 3.1 mg/dL (0.2-1.3); Total Protein 5.6 g/dL (6.3-8.2)
[2023-01-11] MEDS: FOLIC ACID 1 MG TAB PO SCH (09:33)
[2023-01-11] MEDS: LACTULOSE 20 GM/30 ML CUP PO SCH ×4 (09:33→20:32)
[2023-01-11] MEDS: MULTIVITAMINS, THERA 1 EACH TAB PO SCH (09:33)
--- NOTE | 2023-01-11 13:53 | P.PN ---
Subjective Progress Note Date: 01/11/23 Principal diagnosis: Thrombocytopenia, anemia In follow-up patient reports increase in bruising. Denies overt bleeding. Fibrinogen continues to be monitored as well as CBC. Ultrasound of the abdomen showed fatty liver and splenomegaly. Objective - Vital Signs Vital signs: Vital Signs Temp 97.9 F 01/11/23 08:00 Pulse 68 01/11/23 08:00 Resp 18 01/11/23 08:00 BP 115/60 01/11/23 08:00 Pulse Ox 97 01/11/23 08:00 FiO2 Intake & Output 01/10/23 01/11/23 01/11/23 18:59 06:59 18:59 Intake Total 170 0 Output Total 850 800 350 Balance -680 -800 -350 Intake: Intake, IV Titration 50 Amount cefTRIAXone 1 gm In 50 Sodium Chloride 0.9% 50 ml @ 100 mls/hr IVPB Q24HR [facility] Rx#:[id number] Oral 120 0 Output: Urine 850 800 350 Other: Voiding Method Urinal Urinal Urinal # Bowel Movements 1 - Constitutional General appearance: Present: cooperative, no acute distress, obese - EENT Eyes: Present: anicteric sclerae, EOMI ENT: Present: hearing grossly normal - Respiratory Respiratory: bilateral: CTA - Cardiovascular Rhythm: irregularly irregular - Peripheral edema leg Peripheral Edema: bilateral: None - Gastrointestinal General gastrointestinal: Present: normal bowel sounds - Integumentary Integumentary Comment(s): Ecchymoses on the forearms - Neurologic Neurologic: Present: CNII-XII intact (Grossly) - Psychiatric Psychiatric: Present: A&O x's 3, appropriate affect, intact judgment & insight - Labs CBC & Chem 7: 01/10/23 05:27 01/11/23 07:10 Labs: Abnormal Lab Results - Last 24 Hours (Table) 01/11/23 Range/Units 07:10 Chloride 113 H (98-107) mmol/L Carbon Dioxide 21 L (22-30) mmol/L Calcium 8.1 L (8.4-10.2) mg/dL Total Bilirubin 3.1 H (0.2-1.3) mg/dL Total Protein 5.6 L (6.3-8.2) g/dL Albumin 2.3 L (3.5-5.0) g/dL - Imaging and Cardiology US - abdomen: report reviewed Assessment and Plan (1) Atrial fibrillation Current Visit: Yes Status: Acute Priority: High Code(s): I48.91 - UNSPECIFIED ATRIAL FIBRILLATION SNOMED Code(s): 90252293 (2) Thrombocytopenia Current Visit: Yes Status: Chronic Priority: Medium Code(s): D69.6 - THROMBOCYTOPENIA, UNSPECIFIED SNOMED Code(s): 400752042 (3) Anemia Current Visit: Yes Status: Chronic Priority: Medium Code(s): D64.9 - ANEMIA, UNSPECIFIED SNOMED Code(s): 611082696 Plan: Thrombocytopenia: -Secondary to chronic liver disease and platelet destruction from splenic sequestration. -Platelets typically in the 40-50K range. Further decrease in platelets from baseline from additional stress on the body and infection. Anticipate platelet counts to recover to baseline as he recovers from acute infection. -Neuro Has signed off, no evidence of stroke. No anticoagulation or antiplatelet recommendations from Neurology -From a Hematology standpoint, aspirin can be used when platelets are in the 30-50,000 range. Anticoagulation recommendations for platelets be greater than 50,000. -Reviewed bleeding precautions with pt. -Cardiology will be following with the patient and making the final determi nation as to if pt needs to be on anticoagulation for arrhythmia or if arrhythmia can be medically managed. Coagulopathy -INR/PT chronically elevated, secondary to liver disease. Slightly worse during this admission. Most likely related to infection. Continue to monitor. -Fibrinogen was 107 yesterday. Decreased in part because of chronic liver disease. Fibrinogen ordered for the a.m. Recommend cryoprecipitate if fibrinogen less than 100 -Reviewed with patient bleeding precautions. Mild anemia -Anemia workup ordered, no nutritional deficiencies noted Chronic liver disease: -Known cirrhosis, fatty liver. Confirmed on ultrasound of the abdomen. Underlying cause of thrombocytopenia and coagulopathy -IM mgmt
[2023-01-11] MEDS ORDERED: RX INFO: IV CONTRAST WAS GIVEN 1 EACH MISC MISCELLANE PRN (13:57)
[2023-01-11] MEDS: SODIUM CHLORIDE 0.9% 1,000 ML IV SCH (17:20)
--- NOTE | 2023-01-11 17:25 | CT ---
EXAMINATION TYPE: CT angio chest CT DLP: 842.6 mGycm, Automated exposure control for dose reduction was used. DATE OF EXAM: 01/11/2023 5:06 PM COMPARISON: 06/27/2010 CLINICAL INDICATION:Male, 77 years old with history of r/o PE; chest pain r/o P E TECHNIQUE/CONTRAST: CTA scan of the thorax is performed with IV Contrast, patient injected with 95ml mL of Isovue 370, [place] P images are created and reviewed these are created on a separate workstation.. FINDINGS: Pulmonary Artery: There is no evidence for a filling defect within the pulmonary vasculature to sugge st acute pulmonary embolism. The pulmonary artery is of normal size. Lungs/Pleura: Small bilateral pleural effusions with associated atelectasis. No airspace consolidatio n or pneumothorax. Airway: Large airways are patent. Heart: Heart is within normal limits for size. Vasculature: No evidence of aortic aneurysm. Mediastinum: No gross evidence of adenopathy. Musculoskeletal: No acute osseous abnormalities Soft Tissues: Bilateral gynecomastia changes are present. Lower neck: No significant findings. Upper Abdomen: Spleen is enlarged measuring up to 17.1 cm. Nodular contour to liver compatible with c irrhosis. Moderate hiatal hernia. IMPRESSION: 1. No evidence of pulmonary embolism. 2. Small bilateral pleural effusions with associated atelectasis. There is pulmonary vascular conges tion also present correlate with serum BNP. 3. Moderate hiatal hernia. 4. Hepatic cirrhosis with evidence of portal hypertension including paraesophageal varices and splen omegaly.
--- NOTE | 2023-01-11 17:36 | P.PN ---
Subjective Progress Note Date: 01/11/23 Principal diagnosis: Urinary tract infection Patient is a 77-year-old male with a past medical history significant for osteoarthritis without fatty liver presenting to the hospital for evaluation generalized weakness difficulty ambulating and did have 2 falls , patient also have a positive concerning for symptomatic daily. On today's evaluation that is 01/11/2023, the patient remains to be afebrile, the patient is breathing comfortably , the patient denies having any chest pain or cough, the patient denies nausea and vomiting no abdominal pain and no diarrhea Patient did have white count of 3.4 as of yesterday no CBC was done today creatinine 0.85, blood cultures so far negative, urine culture not done Objective - Vital Signs Vital signs: Vital Signs Temp 97.9 F 01/11/23 08:00 Pulse 68 01/11/23 08:00 Resp 18 01/11/23 08:00 BP 115/60 01/11/23 08:00 Pulse Ox 97 01/11/23 08:00 FiO2 Intake & Output 01/10/23 01/11/23 01/11/23 18:59 06:59 18:59 Intake Total 170 0 Output Total 850 800 350 Balance -680 -800 -350 Intake: Intake, IV Titration 50 Amount cefTRIAXone 1 gm In 50 Sodium Chloride 0.9% 50 ml @ 100 mls/hr IVPB Q24HR [facility] Rx#:[id number] Oral 120 0 Output: Urine 850 800 350 Other: Voiding Method Urinal Urinal Urinal # Bowel Movements 1 - Exam GENERAL DESCRIPTION: An elderly male lying in bed in no distress RESPIRATORY SYSTEM: Unlabored breathing , decreased breath sounds at bases HEART: S1 S2 regular rate and rhythm , ABDOMEN: Soft , no tenderness EXTREMITIES: No edema feet - Labs CBC & Chem 7: 01/10/23 05:27 01/11/23 07:10 Labs: Abnormal Lab Results - Last 24 Hours (Table) 01/11/23 Range/Units 07:10 Chloride 113 H (98-107) mmol/L Carbon Dioxide 21 L (22-30) mmol/L Calcium 8.1 L (8.4-10.2) mg/dL Total Bilirubin 3.1 H (0.2-1.3) mg/dL Total Protein 5.6 L (6.3-8.2) g/dL Albumin 2.3 L (3.5-5.0) g/dL Assessment and Plan (1) UTI (urinary tract infection) Current Visit: Yes Status: Acute Priority: Medium Code(s): N39.0 - URINARY TRACT INFECTION, SITE NOT SPECIFIED SNOMED Code(s): 36417023 Plan: 1patient presented to hospital with weakness falls which is likely multifactorial patient did have a urinary symptoms but difficult urination dark urine did have a significantly positive UA with concern for a component of UTI- like inflammatory gram-negative pathogen. 2patient has shown clinical improvement and received adequate antibiotic therapy we'll go ahead and discontinue Rocephin and monitor the patient closely off antibiotic therapy Dictation was produced using [employer] dictation software. please excuse any grammatical, word or spelling errors. Time with Patient: Less than 30
[2023-01-12] MEDS: SODIUM CHLORIDE 0.9% 1,000 ML IV SCH (02:14)
[2023-01-12] MEDS: THIAMINE 100 MG TAB PO SCH (06:34)
[2023-01-12 07:27] VITALS: BMI 31.8
[2023-01-12 07:50] LABS: Basophils % (A) 0 %; Eosinophils # (A) 0.1 k/uL (0-0.7); Eosinophils % (A) 4 %; HCT 38.2 % (39.0-53.0); HGB 12.8 gm/dL (13.0-17.5); Lymphocytes # (A) 0.9 k/uL (1.0-4.8); Lymphocytes % (A) 31 %; MCHC 33.7 g/dL (31.0-37.0); MCV 100.9 fL (80.0-100.0); Macrocytosis Slight; Mean Platelet Volume 8.2; Monocytes # (A) 0.2 k/uL (0-1.0); Monocytes % (A) 8 %; Neutrophils # (A) 1.6 k/uL (1.3-7.7); Neutrophils % (A) 53 %; Poikilocytosis Slight; RBC 3.78 m/uL (4.30-5.90); RDW 15.5 % (11.5-15.5); WBC 2.9 k/uL (3.8-10.6)
[2023-01-12 08:00] LABS: INR 1.6 (<1.2); Partial Thromboplastin Time 32.1 sec (22.0-30.0); Prothrombin Time 16.1 sec (9.0-12.0)
[2023-01-12 08:09] LABS: Platelet Count 40 k/uL (150-450)
[2023-01-12 08:13] LABS: African American GFR (CKD) >90 (>60 ml/min/1.73 sqM); Anion Gap 3 mmol/L; Blood Urea Nitrogen 12 mg/dL (9-20); Carbon Dioxide 21 mmol/L (22-30); Chloride 114 mmol/L (98-107); Glucose 80 mg/dL (74-99); Non-African American GFR(CKD) 86 (>60 ml/min/1.73 sqM); Potassium 3.9 mmol/L (3.5-5.1); Sodium 138 mmol/L (137-145)
[2023-01-12 09:30] VITALS: RESP 18
[2023-01-12] MEDS: LACTULOSE 20 GM/30 ML CUP PO SCH (09:35)
[2023-01-12 10:06] LABS: Methylmalonic Acid 0.15 umol/L (<0.40)
--- NOTE | 2023-01-12 10:23 | P.PN ---
Subjective Progress Note Date: 01/11/23 Patient is a 77-year-old male was admitted to the hospital due to atrial fibrillation with controlled heart rate. Patient had altered mental status due to hepatic encephalopathy which is improving. No complaints of chest pain or shortness of breath. No fever no chills. 01/11/2023 Patient is currently resting in bed. Awake alert and oriented 3. Patient is slightly tachycardic. Not hypoxic.. No complaints of chest pain or shortness of breath. Patient is currently underway. No nausea vomiting abdominal pain or diarrhea. Denied any complaints of abdominal pain. Platelet count is improving to 36,000 today. Other laboratory data showed WBC 3.4 hemoglobin 12.7 and MCV 100.4, INR 1.5 and fibrinogen level is 107. D-dimer was 2.94. CTA chest was ordered to rule out PE. Sodium 137 potassium 4.0 chloride 113 bicarb is 21 BUN 13 and creatinine 0.85 and total bilirubin is 3.1., Albumin 2.3. Current medications reviewed. Objective - Vital Signs Vital signs: Vital Signs Temp 97.9 F 01/11/23 08:00 Pulse 68 01/11/23 08:00 Resp 18 01/11/23 08:00 BP 115/60 01/11/23 08:00 Pulse Ox 97 01/11/23 08:00 FiO2 Intake & Output 01/10/23 01/11/23 01/11/23 18:59 06:59 18:59 Intake Total 170 0 Output Total 850 800 350 Balance -680 -800 -350 Intake: Intake, IV Titration 50 Amount cefTRIAXone 1 gm In 50 Sodium Chloride 0.9% 50 ml @ 100 mls/hr IVPB Q24HR [facility] Rx#:[id number] Oral 120 0 Output: Urine 850 800 350 Other: Voiding Method Urinal Urinal Urinal # Bowel Movements 1 - Exam PHYSICAL EXAMINATION: Patient is lying in the bed comfortably, no acute distress, awake alert and oriented.. HEENT: Normocephalic. Neck is supple. Pupils reactive. Nostrils clear. Oral cavity is moist. Neck reveals no JVD, carotid bruits, or thyromegaly. CHEST EXAMINATION: Trachea is central. Symmetrical expansion. Bibasilar diminished sounds. No wheezing or rhonchi.. CARDIAC: Normal S1, S2 with no gallops. No murmurs ABDOMEN: Soft. Bowel sounds normal. No organomegaly. No abdominal bruits. Extremities: reveal no edema. No clubbing or cyanosis Neurologically awake, alert, oriented x3 with well-coordinated movements. No focal deficits noted Skin: No rash or skin lesions. Psychiatric: Coperative. Nonsuicidal Musculoskeletal: No joint swelling or deformity. Normal range of motion. - Labs CBC & Chem 7: 01/12/23 07:22 01/12/23 07:22 Labs: Abnormal Lab Results - Last 24 Hours (Table) 01/11/23 Range/Units 07:10 Chloride 113 H (98-107) mmol/L Carbon Dioxide 21 L (22-30) mmol/L Calcium 8.1 L (8.4-10.2) mg/dL Total Bilirubin 3.1 H (0.2-1.3) mg/dL Total Protein 5.6 L (6.3-8.2) g/dL Albumin 2.3 L (3.5-5.0) g/dL Assessment and Plan Assessment: Atrial fibrillation with controlled ventricular response. Abdomen his status secondary to hepatic encephalopathy and hyperammonemia. Improving now. Elevated d-dimer level. Rule out PE Chronic thrombocytopenia likely due to liver disease. Chronic liver disease Coagulopathy due to chronic liver disease. INR 1.5 Splenomegaly Acute urinary tract infection present on admission History of gout Degenerate joint disease Plan: Patient will be continued on telemetry monitoring. Currently heart rate is fairly controlled. Not on anticoagulation due to recent fall, history of EtOH and also patient is also coagulopathy due to chronic liver disease. Cardiology has seen the patient. Hematology and ID is on board. Currently being monitored off antibiotics. Ceftriaxone has been discontinued today. Anticipate discharge next 24 hours with marked clinical improvement. Time with Patient: Greater than 30
[2023-01-12 13:16] VITALS: TEMP 98.1
[2023-01-12] MEDS: FOLIC ACID 1 MG TAB PO SCH (13:17)
[2023-01-12] MEDS: MULTIVITAMINS, THERA 1 EACH TAB PO SCH (13:17)
[2023-01-12 16:20] VITALS: BP 101/68; PULSE 98
--- NOTE | 2023-01-12 16:39 | P.PN ---
Subjective Progress Note Date: 01/12/23 Principal diagnosis: Urinary tract infection Patient is a 77-year-old male with a past medical history significant for osteoarthritis without fatty liver presenting to the hospital for evaluation generalized weakness difficulty ambulating and did have 2 falls , patient also have a positive concerning for symptomatic daily. On today's evaluation that is 01/12/2023, the patient denies any fever or any chills, the patient is breathing comfortably , the patient denies chest pain or cough, the patient denies nausea and vomiting no abdominal pain and no diarrhea has been reported Patient did have white count of 2.9, the patient creatinine 0.82, blood cultures so far negative, urine culture not done Objective - Vital Signs Vital signs: Vital Signs Temp 98.1 F 01/12/23 12:00 Pulse 111 H 01/12/23 12:00 Resp 18 01/12/23 12:00 BP 109/66 01/12/23 12:00 Pulse Ox 97 01/12/23 12:00 FiO2 Intake & Output 01/11/23 01/12/23 01/12/23 18:59 06:59 18:59 Intake Total 240 308 Output Total 350 800 200 Balance -110 -800 108 Weight 106.594 kg Intake: IV 10 Invasive Line 2 10 Oral 240 298 Output: Urine 350 800 200 Other: Voiding Method Urinal Urinal Urinal - Exam GENERAL DESCRIPTION: An elderly male lying in bed in no distress RESPIRATORY SYSTEM: Unlabored breathing , decreased breath sounds at bases HEART: S1 S2 regular rate and rhythm , ABDOMEN: Soft , no tenderness EXTREMITIES: No edema feet - Labs CBC & Chem 7: 01/12/23 07:22 01/12/23 07:22 Labs: Abnormal Lab Results - Last 24 Hours (Table) 01/12/23 01/12/23 01/12/23 Range/Units 07:22 07:22 07:22 WBC 2.9 L (3.8-10.6) k/uL RBC 3.78 L (4.30-5.90) m/uL Hgb 12.8 L (13.0-17.5) gm/dL Hct 38.2 L (39.0-53.0) % MCV 100.9 H (80.0-100.0) fL Plt Count 40 L (150-450) k/uL Lymphocytes # 0.9 L (1.0-4.8) k/uL PT 16.1 H (9.0-12.0) sec INR 1.6 H (<1.2) APTT 32.1 H (22.0-30.0) sec Chloride 114 H (98-107) mmol/L Carbon Dioxide 21 L (22-30) mmol/L Calcium 8.0 L (8.4-10.2) mg/dL Microbiology - Last 24 Hours (Table) 01/06/23 14:40 Blood Culture - Final Blood 01/06/23 14:15 Blood Culture - Final Blood Assessment and Plan (1) UTI (urinary tract infection) Status: Acute Priority: Medium Code(s): N39.0 - URINARY TRACT INFECTION, SITE NOT SPECIFIED SNOMED Code(s): 79468704 Plan: 1patient presented to hospital with weakness falls which is likely multifac torial patient did have a urinary symptoms but difficult urination dark urine did have a significantly positive UA with concern for a component of UTI-like inflammatory gram-negative pathogen. 2patient has shown clinical improvement and received adequate antibiotic therapy, currently being monitor closely off antibiotic Dictation was produced using [employer] dictation software. please excuse any gr ammatical, word or spelling errors. Time with Patient: Less than 30
== END 2023-01-12 16:19 | disposition home health service (06) | DRG 690 ==
LOC: EC 10:57 → 3SCARD 14:31
PROVIDERS: ADMIT Hospitalist; ATTEND Hospitalist
DX: N39.0 Urinary tract infection, site not specified (principal); D68.4 Acquired coagulation factor deficiency; E87.20 Acidosis, unspecified; R18.8 Other ascites; I48.91 Unspecified atrial fibrillation; K76.82 Hepatic encephalopathy; D69.6 Thrombocytopenia, unspecified; K74.69 Other cirrhosis of liver; K76.0 Fatty (change of) liver, not elsewhere classified; I11.9 Hypertensive heart disease without heart failure; M19.90 Unspecified osteoarthritis, unspecified site; M10.9 Gout, unspecified; F10.90 Alcohol use, unspecified, uncomplicated; D75.89 Other specified diseases of blood and blood-forming organs; I49.3 Ventricular premature depolarization; B96.89 Other specified bacterial agents as the cause of diseases classified elsewhere; E83.42 Hypomagnesemia; R16.1 Splenomegaly, not elsewhere classified; R79.89 Other specified abnormal findings of blood chemistry; R29.6 Repeated falls; Z96.651 Presence of right artificial knee joint; Z87.891 Personal history of nicotine dependence; Z91.81 History of falling
CPT/HCPCS: 36415; 70450; 71046; 71275; 76700; 80048; 80053; 81001; 82140; 82248; 82525; 82607; 82728; 82746; 83540; 83550; 83605; 83735; 83880; 83921; 84443; 84484; 85025; 85379; 85384; 85610; 85730; 87040; 93005; 93306; 93880; 94760; 96365; 96366; 96368; 96375; 99291

== ENCOUNTER 2023-06-02 01:39 | Inpatient (IN) | payer MEDICARE ==
--- NOTE | 2023-06-02 02:24 | ED ---
Fall HPI - General Chief Complaint: Fall Stated Complaint: Fall,Weakness Time Seen by Provider: 06/02/23 01:56 Source: EMS Mode of arrival: EMS - History of Present Illness Initial Comments: 77-year-old male with history of atrial fibrillation, chronic liver disease, CHF presenting for evaluation post fall. Patient states that he was walking from the bathroom to the bedroom when he felt so weak that he could not keep himself up and fell. He denies any head injury. It is unclear if patient is on anticoagulation at this time. Patient states that he is having pain in the ri ght fifth toe that ascends up the foot. This pain has been ongoing for a week, today the pain got so bad that he could not put weight on it causing him to fall. He denies any other extremity pain, chest pain, difficulty breathing, abdominal pain, headache, neck pain, vision or hearing changes, numbness, tingling, dizziness. - Related Data Home Medications Medication Instructions Recorded Confirmed Furosemide [Lasix] 20 mg PO W/SUPPER 06/02/23 06/02/23 Furosemide [Lasix] 40 mg PO DAILY 06/02/23 06/02/23 Lactulose [Cephulac] 20 gm PO DAILY 06/02/23 06/02/23 Metoprolol Tartrate 25 mg PO BID 06/02/23 06/02/23 Potassium Chloride ER [K-Dur 20] 20 meq PO DAILY 06/02/23 06/02/23 Allergies Allergy/AdvReac Type Severity Reaction Status Date / Time No Known Allergies Allergy Verified 06/02/23 07:25 Review of Systems ROS Statement: Those systems with pertinent positive or pertinent negative responses have been documented in the HPI. ROS Other: All systems not noted in ROS Statement are negative. Past Medical History Past Medical History: Atrial Fibrillation, Osteoarthritis (OA) Additional Past Medical History / Comment(s): GOUT,. FATTY LIVER-50% DAMAGE History of Any Multi-Drug Resistant Organisms: None Reported Past Surgical History: Appendectomy, Hernia Repair, Joint Replacement, Orthopedic Surgery Additional Past Surgical History / Comment(s): right knee replacement, right arm surgery, COLONOSCOPY, EGD Past Anesthesia/Blood Transfusion Reactions: No Reported Reaction Past Psychological History: No Psychological Hx Reported Smoking Status: Never smoker Past Alcohol Use History: None Reported Past Drug Use History: None Reported - Past Family History Mother Family Medical History: Cancer General Exam General appearance: alert, in no apparent distress Head exam: Present: atraumatic, normocephalic Eye exam: Present: PERRL, EOMI, scleral icterus Neck exam: Present: normal inspection Respiratory exam: Present: normal lung sounds bilaterally. Absent: respiratory distress, wheezes, rales, rhonchi, stridor Cardiovascular Exam: Present: normal rhythm, tachycardia, normal heart sounds. Absent: systolic murmur, diastolic murmur, rubs, gallop, clicks Right Foot/Toe exam: Present: tenderness, swelling, erythema (Erythema that starts at the fifth digit and ascends up the foot). Absent: normal inspection, full ROM Neurological exam: Present: alert, oriented X3 Psychiatric exam: Present: normal affect, normal mood Skin exam: Present: warm Course Vital Signs 06/02/23 06/02/23 06/02/23 01:46 03:34 04:00 Temperature 98.3 F 98.2 F Pulse Rate 118 H 117 H Respiratory 20 16 Rate Blood Pressure 118/85 94/52 O2 Sat by Pulse 97 98 Oximetry 06/02/23 06/02/23 06/02/23 04:33 06:30 07:59 Temperature 97.6 F Pulse Rate 106 H 101 H 81 Respiratory 16 16 22 Rate Blood Pressure 105/84 113/75 106/57 O2 Sat by Pulse 100 98 95 Oximetry 06/02/23 06/02/23 06/02/23 08:03 13:14 15:04 Temperature Pulse Rate 77 85 91 Respiratory 22 22 20 Rate Blood Pressure 94/57 101/73 97/48 O2 Sat by Pulse 99 97 97 Oximetry 06/02/23 19:16 Temperature 97.6 F Pulse Rate 110 H Respiratory 16 Rate Blood Pressure 99/78 O2 Sat by Pulse 97 Oximetry Medical Decision Making - Medical Decision Making 77-year-old male presenting for evaluation post fall. Patient states that he could not bear weight on his right foot any longer. On physical exam there is significant erythema and swelling to the fifth digit which extends up the foot. There was copious debris removed from the crease of the fifth digit which exposed moist tissue. Notable cellulitis of the right foot. Patient has history of A-fib, he is found to be in A-fib RVR. According to previous documentation he has not been started on anticoagulation due to recurrent falls and chronic liver disease resulting in coagulopathies. He is started on Cardizem drip at 5 mg an hour and fluid resuscitation BUN 43 and creatinine 1.74, this is a significant increase from the patient's baseline. It is likely this may be due to dehydration. He is started on fluid resuscitation, will consult nephrology. Negative CT of the brain and cervical spine. Foot x-ray shows acute displaced comminuted intra-articular fracture through the distal portion of the fifth proximal phalanx. It is difficult to determine if this is due to the patient's fall or may be a pathologic fracture in the setting of osteomyelitis. Patient is started on vancomycin and Zosyn. Was pt. sent in by a medical professional or institution (, PA, ARRANGER ASSEMBLER, urgent care, hospital, or intermediate...) When possible be specific @ -No Did you speak to anyone other than the patient for history (EMS, parent, family, police, friend...)? What history was obtained from this source @ -No Did you review nursing and triage notes (agree or disagree)? Why? @ -I reviewed and agree with nursing and triage notes Were old charts reviewed (outside hosp., previous admission, EMS record, old EKG, old radiological studies, urgent care reports/EKG's, intermediate records)? Report findings @ -Previous admissions reviewed for further medical history Differential Diagnosis (chest pain, altered mental status, abdominal pain women, abdominal pain men, vaginal bleeding, weakness, fever, dyspnea, syncope, headache, dizziness, GI bleed, back pain, seizure, CVA, palpatations, mental health, musculoskeletal)? @ -[facility] Differential Weakness: Hypoglycemia, shock, sepsis, hyponatremia, anemia, infection, LA, ETOH, adverse medicine reaction, overdose, stroke. ... This is not meant to be an all- inclusive list EKG interpreted by me (3pts min.). @ -EKG shows atrial fibrillation with rapid ventricular response ventricular rate 127. CT interval indeterminable. QRS 91. QT 315. QTc 390. X-rays interpreted by me (1pt min.). @ -X-ray shows acute displaced comminuted intra-articular fracture through the distal portion of the fifth proximal phalanx. CT interpreted by me (1pt min.). @ -CT shows no acute fracture or dislocation evident in the cervical spine. No acute intracranial hemorrhage or midline shift is seen. U/S interpreted by me (1pt. min.). @ -None done What testing was considered but not performed or refused? (CT, X-rays, U/S, labs)? Why? @ -None What meds were considered but not given or refused? Why? @ -None Did you discuss the management of the patient with other professionals (professionals i.e. Dr., PA, ARRANGER ASSEMBLER, lab, RT, psych nurse, social media assistant, steward/stewardess tourist class, teacher, sustainability officer, welfare case worker)? Give summary @ -My attending spoke with the [facility] provider on-call who accepted admission Was smoking cessation discussed for >3mins.? @ -No Was critical care preformed (if so, how long)? @ -No Were there social determinants of health that impacted care today? How? (Homelessness, low income, unemployed, alcoholism, drug addiction, transportation, low edu. Level, literacy, decrease access to med. care, long-term, rehab)? @ -No Was there de-escalation of care discussed even if they declined (Discuss DNR or withdrawal of care, Hospice)? DNR status @ -No What co-morbidities impacted this encounter? (DM, HTN, Smoking, COPD, CAD, Cancer, CVA, ARF, Chemo, Hep., AIDS, mental health diagnosis, sleep apnea, morbid obesity)? @ -Atrial fibrillation, hypertension, chronic liver disease Was patient admitted / discharged? Hospital course, mention meds given and route, prescriptions, significant lab abnormalities, going to OR and other pertinent info. @ -Admitted, see above for details Undiagnosed new problem with uncertain prognosis? @ -No Drug Therapy requiring intensive monitoring for toxicity (Heparin, Nitro, Ins ulin, Cardizem)? @ -No Were any procedures done? @ -No Diagnosis/symptom? @ -Cellulitis, acute kidney injury, dehydration Acute, or Chronic, or Acute on Chronic? @ -Acute Uncomplicated (without systemic symptoms) or Complicated (systemic symptoms)? @ -Complicated Side effects of treatment? @ -No Exacerbation, Progression, or Severe Exacerbation? @ -No Poses a threat to life or bodily function? How? (Chest pain, USA, LA, pneumonia, PE, COPD, DKA, ARF, appy, cholecystitis, CVA, Diverticulitis, Homicidal, Suicidal, threat to staff... and all critical care pts) @ -Yes Diagnosis/symptom? @A-fib with RVR Acute, or Chronic, or Acute on Chronic? @Acute on chronic Uncomplicated (without systemic symptoms) or Complicated (systemic symptoms)? @Complicated Side effects of treatment? @None Exacerbation, Progression, or Severe Exacerbation] @No Poses a threat to life or bodily function? @Yes - Lab Data Result diagrams: 06/02/23 02:20 06/02/23 11:30 Lab Results 06/02/23 06/02/23 06/02/23 Range/Units 02:20 02:20 02:20 WBC 8.9 (3.8-10.6) k/uL RBC 3.93 L (4.30-5.90) m/uL Hgb 14.0 (13.0-17.5) gm/dL Hct 40.2 (39.0-53.0) % MCV 102.3 H (80.0-100.0) fL MCH 35.5 H (25.0-35.0) pg MCHC 34.7 (31.0-37.0) g/dL RDW 16.5 H (11.5-15.5) % Plt Count 51 L (150-450) k/uL MPV 9.5 Neutrophils % 79 % Lymphocytes % 7 % Monocytes % 9 % Eosinophils % 1 % Basophils % 0 % Neutrophils # 7.1 (1.3-7.7) k/uL Lymphocytes # 0.7 L (1.0-4.8) k/uL Monocytes # 0.8 (0-1.0) k/uL Eosinophils # 0.1 (0-0.7) k/uL Basophils # 0.0 (0-0.2) k/uL Manual Slide Review Performed Anisocytosis Slight Macrocytosis Moderate ESR 10 (0-20) mm/Hr Sodium 140 (137-145) mmol/L Potassium 4.2 (3.5-5.1) mmol/L Chloride 106 (98-107) mmol/L Carbon Dioxide 28 (22-30) mmol/L Anion Gap 6 mmol/L BUN 43 H (9-20) mg/dL Creatinine 1.74 H (0.66-1.25) mg/dL Est GFR (CKD-EPI)AfAm 43 (>60 ml/min/1.73 sqM) Est GFR (CKD-EPI)NonAf 37 (>60 ml/min/1.73 sqM) Glucose 105 H (74-99) mg/dL Lactic Ac Sepsis Rflx Plasma Lactic Acid Jarret 2.2 H* (0.7-2.0) mmol/L Calcium 8.4 (8.4-10.2) mg/dL Total Bilirubin 5.3 H (0.2-1.3) mg/dL AST 53 (17-59) U/L ALT 20 (4-49) U/L Alkaline Phosphatase 102 (38-126) U/L Ammonia (<30) umol/L C-Reactive Protein 6.9 H (<1.0) mg/dL Total Protein 6.3 (6.3-8.2) g/dL Albumin 2.7 L (3.5-5.0) g/dL Urine Color Urine Appearance (Clear) Urine pH (5.0-8.0) Ur Specific [place] (1.001-1.035) Urine Protein (Negative) Urine Glucose (UA) (Negative) Urine Ketones (Negative) Urine Blood (Negative) Urine Nitrite (Negative) Urine Bilirubin (Negative) Urine Urobilinogen (<2.0) mg/dL Ur Leukocyte Esterase (Negative) 06/02/23 06/02/23 06/02/23 Range/Units 02:48 03:15 04:33 WBC (3.8-10.6) k/uL RBC (4.30-5.90) m/uL Hgb (13.0-17.5) gm/dL Hct (39.0-53.0) % MCV (80.0-100.0) fL MCH (25.0-35.0) pg MCHC (31.0-37.0) g/dL RDW (11.5-15.5) % Plt Count (150-450) k/uL MPV Neutrophils % % Lymphocytes % % Monocytes % % Eosinophils % % Basophils % % Neutrophils # (1.3-7.7) k/uL Lymphocytes # (1.0-4.8) k/uL Monocytes # (0-1.0) k/uL Eosinophils # (0-0.7) k/uL Basophils # (0-0.2) k/uL Manual Slide Review Anisocytosis Macrocytosis ESR (0-20) mm/Hr Sodium (137-145) mmol/L Potassium (3.5-5.1) mmol/L Chloride (98-107) mmol/L Carbon Dioxide (22-30) mmol/L Anion Gap mmol/L BUN (9-20) mg/dL Creatinine (0.66-1.25) mg/dL Est GFR (CKD-EPI)AfAm (>60 ml/min/1.73 sqM) Est GFR (CKD-EPI)NonAf (>60 ml/min/1.73 sqM) Glucose (74-99) mg/dL Lactic Ac Sepsis Rflx Y Plasma Lactic Acid Jarret (0.7-2.0) mmol/L Calcium (8.4-10.2) mg/dL Total Bilirubin (0.2-1.3) mg/dL AST (17-59) U/L ALT (4-49) U/L Alkaline Phosphatase (38-126) U/L Ammonia 18 (<30) umol/L C-Reactive Protein (<1.0) mg/dL Total Protein (6.3-8.2) g/dL Albumin (3.5-5.0) g/dL Urine Color Yellow Urine Appearance Clear (Clear) Urine pH 5.0 (5.0-8.0) Ur Specific [place] 1.011 (1.001-1.035) Urine Protein Negative (Negative) Urine Glucose (UA) Negative (Negative) Urine Ketones Negative (Negative) Urine Blood Negative (Negative) Urine Nitrite Negative (Negative) Urine Bilirubin Negative (Negative) Urine Urobilinogen 4.0 (<2.0) mg/dL Ur Leukocyte Esterase Negative (Negative) Disposition Clinical Impression: Cellulitis, Atrial fibrillation with RVR, CHASE (acute kidney injury), Dehydration Disposition: ADMITTED IP TO THIS HOSP Condition: Poor Time of Disposition: 04:51
[2023-06-02 02:53] LABS: ALT 20 U/L (4-49); AST 53 U/L (17-59); African American GFR (CKD) 43 (>60 ml/min/1.73 sqM); Albumin 2.7 g/dL (3.5-5.0); Alkaline Phosphatase 102 U/L (38-126); Anion Gap 6 mmol/L; Blood Urea Nitrogen 43 mg/dL (9-20); Calcium 8.4 mg/dL (8.4-10.2); Carbon Dioxide 28 mmol/L (22-30); Chloride 106 mmol/L (98-107); Glucose 105 mg/dL (74-99); Non-African American GFR(CKD) 37 (>60 ml/min/1.73 sqM); Potassium 4.2 mmol/L (3.5-5.1); Sodium 140 mmol/L (137-145); Total Bilirubin 5.3 mg/dL (0.2-1.3); Total Protein 6.3 g/dL (6.3-8.2)
[2023-06-02] MEDS: MORPHINE SULFATE 2 MG/ML SYRINGE IVP STA (03:10)
[2023-06-02] MEDS: SODIUM CHLORIDE 0.9% 500 ML 500 ML IV ONE (03:10)
[2023-06-02 03:26] LABS: C Reactive Protein 6.9 mg/dL (<1.0)
[2023-06-02] MEDS ORDERED: VANCOMYCIN IV PER PHARMACY 1 EACH MISC MISCELLANE PRN (03:30)
--- NOTE | 2023-06-02 03:37 | XR ---
EXAMINATION TYPE: XR foot limited RT DATE OF EXAM: 06/02/2023 CLINICAL HISTORY: Infection. Digit TECHNIQUE: Frontal and lateral images of the right foot are obtained. COMPARISON: Prior right foot x-ray June 29, 2010 FINDINGS: There is acute displaced comminuted intra-articular fracture through the distal one fourth of the fifth proximal phalanx. No additional acute displaced fracture. Mild to moderate diffuse subcu taneous edema is seen. Mild to moderate spurring dorsal midfoot is noted. IMPRESSION: There is acute displaced comminuted intra-articular fracture through the distal portion of the fifth proximal phalanx.
--- NOTE | 2023-06-02 03:42 | CT ---
EXAMINATION TYPE: CT brain julee adair DATE OF EXAM: 06/02/2023 COMPARISON: CT brain January 06, 2023 HISTORY: Patient is brought to facility after a fall. Patient denies hitting his head. Patients only complaint is left leg and toe pain. Patient was recently treated at [facility] and diagnosed with CHF . poor historian. CT DLP: 1719.7 mGycm. Automated Exposure Control for Dose Reduction was Utilized. TECHNIQUE: CT scan of the head and cervical spine are performed without contrast. FINDINGS: There is no acute intracranial hemorrhage or midline shift identified. Mild to moderate v entricular and sulcal prominence is redemonstrated. Mild low-attenuation in the periventricular white matter is redemonstrated. The calvarium is intact. Some cerumen in the deep left extra auditory little l is redemonstrated. Nasal septum is deviated to the left of midline. The globes are intact and the v isualized sinuses are clear. Cervical spine is visualized in its entirety from C1 through upper thoracic levels and demonstrates s coliotic curvature or positioning without evidence of acute fracture or dislocation. Evaluation sligh tly suboptimal due to artifact from metallic chain. Prevertebral soft tissue appears within normal limits. The C1-C2 articulation is within normal limit s on the coronal images. Vertebral body heights are maintained. There is moderate disc space narrowi ng at C5-C6 and C6-C7 levels noted. Review of axial images shows partial visualization of at least mo derate size right-sided pleural effusion. Correlate clinically. IMPRESSION: 1. There is no acute fracture or dislocation evident in the cervical spine. 2. No acute intracranial hemorrhage or midline shift is seen.
[2023-06-02 04:01] LABS: Anisocytosis Slight; Basophils % (A) 0 %; Eosinophils # (A) 0.1 k/uL (0-0.7); Eosinophils % (A) 1 %; HCT 40.2 % (39.0-53.0); Lymphocytes # (A) 0.7 k/uL (1.0-4.8); Lymphocytes % (A) 7 %; MCH 35.5 pg (25.0-35.0); MCHC 34.7 g/dL (31.0-37.0); MCV 102.3 fL (80.0-100.0); Macrocytosis Moderate; Mean Platelet Volume 9.5; Monocytes # (A) 0.8 k/uL (0-1.0); Monocytes % (A) 9 %; Neutrophils # (A) 7.1 k/uL (1.3-7.7); Neutrophils % (A) 79 %; RBC 3.93 m/uL (4.30-5.90); RDW 16.5 % (11.5-15.5); WBC 8.9 k/uL (3.8-10.6)
[2023-06-02] MEDS: VANCOMYCIN 2,000 MG in SODIUM CHLORIDE 0.9% 500 ML 500 ML IVPB ONE (04:06)
[2023-06-02] MEDS: SODIUM CHLORIDE 0.9% 1,000 ML IV SCH (04:07)
[2023-06-02 04:26] LABS: Platelet Count 51 k/uL (150-450)
[2023-06-02] MEDS ORDERED: NALOXONE 0.4 MG/ML 1 ML VIAL IV PRN (04:48)
[2023-06-02 04:49] LABS: Appearance,Urine Clear (Clear); Bilirubin,Urine Negative (Negative); Blood,Urine Negative (Negative); Color,Urine Yellow; Glucose,Urine (UA) Negative (Negative); Ketones,Urine Negative (Negative); Leukocyte Esterase,Urine Negative (Negative); Nitrite,Urine Negative (Negative); Protein,Urine Negative (Negative); Specific Gravity,Urine 1.011 (1.001-1.035)
[2023-06-02] MEDS: DILTIAZEM 125 MG in SODIUM CHLORIDE 0.9% 100 ML IV SCH (04:56)
[2023-06-02] MEDS: PIPERACILLIN-TAZOBACTAM 3.375 GM in SODIUM CHLORIDE 0.9% 100 ML IVPB STA (05:02)
[2023-06-02] MEDS: PIPERACILLIN-TAZOBACTAM 3.375 GM in SODIUM CHLORIDE 0.9% 100 ML IVPB ONE (05:38)
[2023-06-02] MEDS: METOPROLOL TARTRATE 25 MG TAB PO SCH (08:00)
[2023-06-02 08:55] LABS: Erythrocyte Sedimentation Rate 10 mm/Hr (0-20)
--- NOTE | 2023-06-02 09:05 | P.HPIM ---
History of Present Illness This is a pleasant 77 years old male with past medical history of osteoarthritis, gout, fatty liver. 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 He denies chest pain or dyspnea. No change in urine or bowel habits. No fever. He denies smoking alcohol or illicit drugs History of fatty liver. Baseline blood pressure systolic BP 110-120. Currently blood pressure is 94/57, his mildly tachycardic at 77-110 but afebrile. WBC, hemoglobin are within the reference range. Platelet count is 51k (baseline is 30-40 K) Creatinine is elevated 1.7, compared to baseline 0.8-1.1. LFT, urinalysis were unremarkable CT of the brain and the cervical spine is negative for acute process Right foot x-rays show a displaced and comminuted fracture of the fifth proximal phalanx EKG showing atrial fibrillation with a rate of 127 Echocardiogram from 01/2023 showing ejection fraction of 55-60% Patient was started on Cardizem drip, IV vancomycin normal saline with 30 mL/h he was admitted with nephrology and cardiology consult Review of Systems Review of systems CONSTITUTIONAL: No fever, no malaise, no fatigue. HEENT: No recent visual problems or hearing problems. Denied any sore throat. CARDIOVASCULAR: No orthopnea, PND, no palpitations, no syncope. PULMONARY: No shortness of breath, no cough, no hemoptysis. GASTROINTESTINAL: No diarrhea, no nausea, no vomiting, no abdominal pain. Normoactive bowel sounds. NEUROLOGICAL: No headaches, no weakness, no numbness. HEMATOLOGICAL: Denies any bleeding or petechiae. GENITOURINARY: Denies any burning micturition, frequency, or urgency. MUSCULOSKELETAL/RHEUMATOLOGICAL: Denies any joint pain, swelling, or any muscle pain. ENDOCRINE: Denies any polyuria or polydipsia. Past Medical History Past Medical History: Atrial Fibrillation, Osteoarthritis (OA) Additional Past Medical History / Comment(s): GOUT,. FATTY LIVER-50% DAMAGE History of Any Multi-Drug Resistant Organisms: None Reported Past Surgical History: Appendectomy, Hernia Repair, Joint Replacement, Orthoped ic Surgery Additional Past Surgical History / Comment(s): right knee replacement, right arm surgery, COLONOSCOPY, EGD Past Anesthesia/Blood Transfusion Reactions: No Reported Reaction Past Psychological History: No Psychological Hx Reported Smoking Status: Never smoker Past Alcohol Use History: None Reported Past Drug Use History: None Reported - Past Family History Mother Family Medical History: Cancer Medications and Allergies Home Medications Medication Instructions Recorded Confirmed Type Furosemide [Lasix] 20 mg PO W/SUPPER 06/02/23 06/02/23 History Furosemide [Lasix] 40 mg PO DAILY 06/02/23 06/02/23 History Lactulose [Cephulac] 20 gm PO DAILY 06/02/23 06/02/23 History Metoprolol Tartrate 25 mg PO BID 06/02/23 06/02/23 History Potassium Chloride ER [K-Dur 20] 20 meq PO DAILY 06/02/23 06/02/23 History Allergies Allergy/AdvReac Type Severity Reaction Status Date / Time No Known Allergies Allergy Verified 06/02/23 07:25 Physical Exam Vitals: Vital Signs Temp Pulse Resp BP Pulse Ox 06/02/23 08:03 77 22 94/57 99 06/02/23 07:59 97.6 F 81 22 106/57 95 06/02/23 06:30 101 H 16 113/75 98 06/02/23 04:33 106 H 16 105/84 100 06/02/23 04:00 98.2 F 06/02/23 03:34 117 H 16 94/52 98 06/02/23 01:46 98.3 F 118 H 20 118/85 97 Intake and Output 06/01/23 06/02/23 06/02/23 22:59 06:59 14:59 Intake Total 17.417 Output Total 300 Balance -300 17.417 Intake: Intake, IV Titration 17.417 Amount Diltiazem 125 mg In 17.417 Sodium Chloride 0.9% 100 ml @ 5 MG/HR 5 mls/hr IV .Q24H [facility] Rx#:[id number] Output: Urine 300 Straight 300 Other: Weight 134.717 kg GENERAL: The patient is alert and oriented x3, not in any acute distress. Well developed, well nourished. HEENT: Pupils are round and equally reacting to light. EOMI. No scleral icterus. No conjunctival pallor. Normocephalic, atraumatic. No pharyngeal erythema. No thyromegaly. CARDIOVASCULAR: S1 and S2 present. No murmurs, rubs, or gallops. PULMONARY: Chest is clear to auscultation, no wheezing , no crackles. ABDOMEN: Soft, nontender, nondistended, normoactive bowel sounds. No palpable organomegaly. MUSCULOSKELETAL: No joint swelling or deformity. -EXTREMITIES: No cyanosis, clubbing, or pedal edema. Right foot and leg swelling right and tender, more tenderness in the right small to especially with movemente. right proximal forearm NEUROLOGICAL: Gross neurological examination did not reveal any focal deficits. SKIN: No rashes. no petechiae. Results CBC & Chem 7: 06/02/23 02:20 06/02/23 02:20 Labs: Abnormal Lab Results - Last 24 Hours (Table) 06/02/23 06/02/23 06/02/23 Range/Units 02:20 02:20 02:20 RBC 3.93 L (4.30-5.90) m/uL MCV 102.3 H (80.0-100.0) fL MCH 35.5 H (25.0-35.0) pg RDW 16.5 H (11.5-15.5) % Plt Count 51 L (150-450) k/uL Lymphocytes # 0.7 L (1.0-4.8) k/uL BUN 43 H (9-20) mg/dL Creatinine 1.74 H (0.66-1.25) mg/dL Glucose 105 H (74-99) mg/dL Plasma Lactic Acid Jarret 2.2 H* (0.7-2.0) mmol/L Total Bilirubin 5.3 H (0.2-1.3) mg/dL C-Reactive Protein 6.9 H (<1.0) mg/dL Albumin 2.7 L (3.5-5.0) g/dL Assessment and Plan Assessment: right foot cellulitis Bilateral leg swelling Atrial fibrillation and RVR. 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 fib and other cardiac problems Check ultrasound of the leg Labs and medication were reviewed.. Continue same treatment. Continue with symptomatic treatment. Resume home medication. Monitor labs and vitals. DVT and GI prophylaxis. Further recommendations as per clinical course of the patient DVT prophylaxis:no Subcutaneous heparin for thrombocytopenia GI Prophylaxis: Pepcid PT/OT: Pending Prognosis is guarded
--- NOTE | 2023-06-02 10:32 | US ---
EXAMINATION TYPE: US venous doppler duplex LE DATE OF EXAM: 06/02/2023 9:26 AM COMPARISON: NONE CLINICAL INDICATION: Male, 77 years old with history of leg swelling; bilateral leg swelling, CHF SIDE PERFORMED: Bilateral TECHNIQUE: The lower extremity deep venous system is examined utilizing real time linear array sonog miguel ángel with graded compression, doppler sonography and color-flow sonography. VESSELS IMAGED: Common Femoral Vein Deep Femoral Vein Greater Saphenous Vein * Femoral Vein Popliteal Vein Small Saphenous Vein * Proximal Calf Veins (* superficial vessels) Right Leg: No evidence of DVT Left Leg: No evidence of DVT IMPRESSION: No evidence for DVT within the bilateral lower extremities imaged from the groin to the upper calves.
--- NOTE | 2023-06-02 11:43 | P.NPCON ---
History of Present Illness - Reason for Consult acute renal failure - History of Present Illness Reason for consultation: Acute kidney injury History of present illness: Patient is a 77-year-old male seen in renal consultation for acute kidney injury. Patient's baseline creatinine is near 0.8 from January 2023. This admission it was elevated at 1.74. Patient came to the hospital after he sustained a fall at home. Patient states he is felt weak and fell. States he uses a walker. He denies losing consciousness. He denies tripping. Patient noted to be in A-fib with RVR and was started on Cardizem drip but is is currently maintained on Lopressor. He is receiving IV fluids. Echocardiogram f rom January 2023 showed preserved ejection fraction. He denies chest pain or shortness of breath. No vomiting or diarrhea. No fever or chills. No gross hematuria or dysuria. Denies use of nonsteroidals. Denies history of diabetes. Denies history of coronary artery disease. Vital signs are stable. General: No acute distress. HEENT: Head exam is unremarkable. LUNGS: No audible rhonchi or wheezes. HEART: Rate and Rhythm are regular. ABDOMEN: Nontender, obese. EXTREMITITES: 1+ edema. Past Medical History Past Medical History: Atrial Fibrillation, Osteoarthritis (OA) Additional Past Medical History / Comment(s): GOUT,. FATTY LIVER-50% DAMAGE History of Any Multi-Drug Resistant Organisms: None Reported Past Surgical History: Appendectomy, Hernia Repair, Joint Replacement, Orthopedic Surgery Additional Past Surgical History / Comment(s): right knee replacement, right arm surgery, COLONOSCOPY, EGD Past Anesthesia/Blood Transfusion Reactions: No Reported Reaction Past Psychological History: No Psychological Hx Reported Smoking Status: Never smoker Past Alcohol Use History: None Reported Past Drug Use History: None Reported - Past Family History Mother Family Medical History: Cancer Medications and Allergies Home Medications Medication Instructions Recorded Confirmed Type Furosemide [Lasix] 20 mg PO W/SUPPER 06/02/23 06/02/23 History Furosemide [Lasix] 40 mg PO DAILY 06/02/23 06/02/23 History Potassium Chloride ER [K-Dur 20] 20 meq PO DAILY 06/02/23 06/02/23 History RX: Lactulose [Cephulac] 20 gm PO DAILY 06/02/23 06/02/23 History RX: Metoprolol Tartrate 25 mg PO BID 06/02/23 06/02/23 History Allergies Allergy/AdvReac Type Severity Reaction Status Date / Time No Known Allergies Allergy Verified 06/02/23 07:25 Physical Exam Vitals: Vital Signs Temp Pulse Resp BP Pulse Ox 06/02/23 08:03 77 22 94/57 99 06/02/23 07:59 97.6 F 81 22 106/57 95 06/02/23 06:30 101 H 16 113/75 98 06/02/23 04:33 106 H 16 105/84 100 06/02/23 04:00 98.2 F 06/02/23 03:34 117 H 16 94/52 98 06/02/23 01:46 98.3 F 118 H 20 118/85 97 Intake and Output 06/01/23 06/02/23 06/02/23 22:59 06:59 14:59 Intake Total 17.417 Output Total 300 Balance -300 17.417 Intake: Intake, IV Titration 17.417 Amount Diltiazem 125 mg In 17.417 Sodium Chloride 0.9% 100 ml @ 5 MG/HR 5 mls/hr IV .Q24H [facility] Rx#:[id number] Output: Urine 300 Straight 300 Other: Weight 134.717 kg Results - Lab Results Most recent lab results Calcium 8.4 mg/dL (8.4-10.2) 06/02/23 02:20 06/02/23 02:20 06/02/23 02:20 Assessment and Plan Plan: Assessment: 1. Acute kidney injury secondary to ATN secondary to hemodynamic instability/hypotension. Creatinine 1.74 on admission. Baseline creatinine is 0.8 from January 2023. UA benign. 2. A-fib with RVR maintained on Lopressor. Status post Cardizem drip. 3. Right foot cellulitis on antibiotics. No evidence of DVT. 4. Lactic acidosis. Improved with IV fluids. Plan: Decrease due to normal saline to 75 cc an hour. Check renal ultrasound. Monitor vancomycin levels. Dose to be adjusted for renal function. Check bladder scan to rule out urinary retention. Avoid nephrotoxins. Thank you for the consultation. I will continue to follow the patient with you during his hospital stay.
[2023-06-02 12:14] LABS: African American GFR (CKD) 53 (>60 ml/min/1.73 sqM); Anion Gap 3 mmol/L; Blood Urea Nitrogen 41 mg/dL (9-20); Calcium 8.1 mg/dL (8.4-10.2); Carbon Dioxide 28 mmol/L (22-30); Chloride 109 mmol/L (98-107); Glucose 104 mg/dL (74-99); Non-African American GFR(CKD) 45 (>60 ml/min/1.73 sqM); Sodium 140 mmol/L (137-145)
[2023-06-02] MEDS ORDERED: AMPICILLIN-SULBACTAM 3 GM in SODIUM CHLORIDE 0.9% 100 ML IVPB SCH (13:00)
[2023-06-02] MEDS: AMPICILLIN-SULBACTAM 3 GM in SODIUM CHLORIDE 0.9% 100 ML IVPB SCH (13:11)
--- NOTE | 2023-06-02 13:23 | P.CRDCN ---
History of Present Illness Consult date: 06/02/23 Consult reason: atrial fibrillation (With RVR) History of present illness: History of present illness: This is a 77-year-old male patient of Dr. Bill with past medical history significant for thrombocytopenia, osteoarthritis, gout, fatty liver disease, paroxysmal atrial fibrillation not on anticoagulation due to thrombocytopenia and falls. We have been asked to evaluate the patient for A-fib. Patient is seen today in the emergency center waiting for bed on the cardiac stepdown unit. Patient states that he presented to hospital because he fell down in his house walking to the bathroom. He states weakness started all of a sudden. He was using his walker at the time. Patient saw his PCP yesterday and lab work was done but no new medications at that time. Patient has lower extremity edema off and on. He states he is eating okay with no loss of appetite. He has increased lower extremity edema to the right leg and also redness to the right lower extremity. Patient required straight cath this morning. He denies having any fever or chills. He was most recently hospitalized in January 2023 and seen by cardiology at that time for new onset of A-fib with RVR. Patient has not had a follow-up appointment with Dr. Bill. EKG atrial fibrillation with RVR at 127 bpm Ultrasound bilateral lower extremities negative for DVT CT of the brain and cervical spine showed no acute fracture or dislocation. No acute intracranial hemorrhage or midline shift. WBC 8.9, hemoglobin 14, platelet count 51. Sodium 140, potassium 4, chloride 109, CO2 28, BUN 41 creatinine 1.48. Liver function test within normal limits except for total bilirubin of 5.3. C-reactive protein 6.9. proBNP 3000. TSH 1.78. Urinalysis negative. Home cardiac medications: Lasix 40 mg in the morning and 20 mg with supper, metoprolol 25 mg twice daily, potassium chloride 20 mEq daily. Echocardiogram performed 01/07/2023 revealed EF of 55 to 60%, severe left atrial dilatation, aortic valve sclerosis, mild concentric left hypertrophy. Patient underwent stress testing in July 2021 which was nondiagnostic secondary to inadequate chronotropic response. Review Of Systems: At the time of my evaluation: Constitutional: No fever, no chills. + weakness, + fatigue . EENT: No headache. No dizziness. Lungs: No shortness of breath, cough, no sputum production. No wheezing. Cardiovascular: No chest pain, + lower extremity edema. No palpitations. No paroxysmal nocturnal dyspnea. No orthopnea. No lightheadedness or dizziness. No syncopal episodes. Abdominal: No abdominal pain. No nausea, vomiting. No diarrhea. No constipati on. No bloody or tarry stools. Genitourinary: No dysuria.. No urinary retention. Musculoskeletal: No myalgias. No muscle weakness, no frequent falls. Integumentary: + Erythema right lower extremity/wounds. No rash. No unusual bruising. Neurologic: No aphasia. No facial droop. No change in mentation. Physical examination: Gen: This is a 77-year-old male appears to be in no acute distress VS: reviewed HEENT: Head is atraumatic, normocephalic. Pupils equal, round. Sclerae is anicteric. NECK: Supple. No JVD. LUNGS: Clear to auscultation. No wheezes or rhonchi. No intercostal retractio ns. HEART: irregular rate and rhythm. ABDOMEN: Soft No tenderness. EXTREMITIES: 1+ lower extremity edema, erythema to the right lower extremity. NEUROLOGICAL: Patient is awake, alert and oriented x3. Assessment: Atrial fibrillation with RVR Acute kidney injury Lactic acidosis Cellulitis Chronic thrombocytopenia History of gout History of fatty liver disease Plan: Continue treatment for cellulitis Discontinue Cardizem drip Patient was started on Lopressor 25 mg twice daily No need to repeat echocardiogram Patient is not on anticoagulation due to thrombocytopenia and falls Further recommendations to follow based upon clinical course Thank you kindly for this consultation. Nurse practitioner note has been reviewed, I agree with documented findings and plan of care. Patient was seen and examined. Past Medical History Past Medical History: Atrial Fibrillation, Osteoarthritis (OA) Additional Past Medical History / Comment(s): GOUT,. FATTY LIVER-50% DAMAGE History of Any Multi-Drug Resistant Organisms: None Reported Past Surgical History: Appendectomy, Hernia Repair, Joint Replacement, Orthopedic Surgery Additional Past Surgical History / Comment(s): right knee replacement, right arm surgery, COLONOSCOPY, EGD Past Anesthesia/Blood Transfusion Reactions: No Reported Reaction Past Psychological History: No Psychological Hx Reported Smoking Status: Never smoker Past Alcohol Use History: None Reported Past Drug Use History: None Reported - Past Family History Mother Family Medical History: Cancer Medications and Allergies Home Medications Medication Instructions Recorded Confirmed Type Furosemide [Lasix] 20 mg PO W/SUPPER 06/02/23 06/02/23 History Furosemide [Lasix] 40 mg PO DAILY 06/02/23 06/02/23 History Lactulose [Cephulac] 20 gm PO DAILY 06/02/23 06/02/23 History Metoprolol Tartrate 25 mg PO BID 06/02/23 06/02/23 History Potassium Chloride ER [K-Dur 20] 20 meq PO DAILY 06/02/23 06/02/23 History Allergies Allergy/AdvReac Type Severity Reaction Status Date / Time No Known Allergies Allergy Verified 06/02/23 07:25 Physical Exam Vitals: Vital Signs Temp Pulse Resp BP Pulse Ox 06/02/23 08:03 77 22 94/57 99 06/02/23 07:59 97.6 F 81 22 106/57 95 06/02/23 06:30 101 H 16 113/75 98 06/02/23 04:33 106 H 16 105/84 100 06/02/23 04:00 98.2 F 06/02/23 03:34 117 H 16 94/52 98 06/02/23 01:46 98.3 F 118 H 20 118/85 97 Intake and Output 06/01/23 06/02/23 06/02/23 22:59 06:59 14:59 Output Total 300 Balance -300 Output: Urine 300 Straight 300 Other: Weight 134.717 kg Results 06/02/23 02:20 06/02/23 11:30 Cardiac Enzymes 06/02/23 Range/Units 02:20 AST 53 (17-59) U/L CBC 06/02/23 Range/Units 02:20 WBC 8.9 (3.8-10.6) k/uL RBC 3.93 L (4.30-5.90) m/uL Hgb 14.0 (13.0-17.5) gm/dL Hct 40.2 (39.0-53.0) % Plt Count 51 L (150-450) k/uL Comprehensive Metabolic Panel 06/02/23 Range/Units 02:20 Sodium 140 (137-145) mmol/L Potassium 4.2 (3.5-5.1) mmol/L Chloride 106 (98-107) mmol/L Carbon Dioxide 28 (22-30) mmol/L BUN 43 H (9-20) mg/dL Creatinine 1.74 H (0.66-1.25) mg/dL Glucose 105 H (74-99) mg/dL Calcium 8.4 (8.4-10.2) mg/dL AST 53 (17-59) U/L ALT 20 (4-49) U/L Alkaline Phosphatase 102 (38-126) U/L Total Protein 6.3 (6.3-8.2) g/dL Albumin 2.7 L (3.5-5.0) g/dL Current Medications Generic Name Dose Route Start Last Admin Trade Name Freq PRN Reason Stop Dose Admin Sodium Chloride 1,000 mls @ 130 mls/hr 06/02/23 03:30 06/02/23 04:07 Saline 0.9% IV 130 mls/hr .[id number] AYZ Administration Diltiazem HCl 125 mg/ Sodium 125 mls @ 5 mls/hr 06/02/23 05:00 06/02/23 04:56 Chloride IV 5 mg/hr .Q24H YAZ 5 mls/hr Administration 5 MG/HR Vancomycin HCl 2,000 mg/ 500 mls @ 167 mls/hr 06/03/23 04:00 Sodium Chloride IVPB Q24H YAZ Metoprolol Tartrate 25 mg 06/02/23 07:07 06/02/23 08:00 Metoprolol Tartrate 25 Mg Tab PO Not Given BID YAZ Miscellaneous Information 1 each 06/02/23 03:30 Vancomycin Iv Per Pharmacy 1 Each Misc MISCELLANE DIRECTED PRN Per Protocol Protocol Naloxone HCl 0.2 mg 06/02/23 04:48 Naloxone 0.4 Mg/Ml 1 Ml Vial IV Q2M PRN Opioid Reversal Intake and Output 06/01/23 06/02/23 06/02/23 22:59 06:59 14:59 Output Total 300 Balance -300 Output: Urine 300 Straight 300 Other: Weight 134.717 kg 06/02/23 02:20 06/02/23 02:20
--- NOTE | 2023-06-02 18:38 | US ---
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 Right Kidney: No hydronephrosis or masses seen Left Kidney: *Prominent vessels seen adjacent to upper pole left kidney. This seems to correspond to large collateral vessels relating to underlying cirrhosis when correlated with CT of 01/11/2023. Suspe ct a nonobstructive 5 mm upper pole renal stone. A small 2 cm centrally located parapelvic cyst sugge sted. Bladder: Partial distention limits evaluation. Bilateral Jets seen: Yes IMPRESSION: 1. No hydronephrosis. 2. There may be a nonobstructive 5 mm left renal calculus. 3. Large intra-abdominal varices/collateral vessels located above the left kidney suggesting underlyi ng portal venous hypertension. Clinically correlate.
[2023-06-02] MEDS: ACETAMINOPHEN TAB 325 MG TAB PO STA (20:09)
[2023-06-03] MEDS ORDERED: VANCOMYCIN 2,000 MG in SODIUM CHLORIDE 0.9% 500 ML 500 ML IVPB SCH (04:00)
--- NOTE | 2023-06-03 10:24 | P.CONS ---
History of Present Illness - Reason for Consult Consult date: 06/02/23 - History of Present Illness Patient is a 77-year-old male with a past medical history significant for atrial fibrillation osteoarthritis, chronic liver disease and CHF patient presenting to the hospital after the patient did have a fall patient was walking from the bathroom to the bedroom when he felt so weak that he could not keep himself up and fell patient denies passing out or any injury to the head patient mention he may have hit his right foot but did not remember patient subsequently was brought into the ER for further evaluation patient denies having any headache or URI symptoms no chest pain shortness of breath or cough no abdominal pain patient noticed to having swelling and redness to the right foot with an ulceration between the fourth and fifth toe patient did have some dull aching pain mild to moderate intensity without radiation and no drainage on presentation to the hospital the patient was afebrile and no fever has been called subsequently patient was not tachycardic hypotensive or hypoxic and no need for supplemental oxygen patient did have a white count of 8.9 BUN/creatinine has been mildly elevated at 1.74 lactic acid was 2.2 elevated liver enzymes are normal urine has been negative patient did have a foot x-ray acute displaced intra-articular fracture through the distal portion of the fifth proximal phalanx with concern for cellulitis the patient was started on vancomy elis infectious disease was consulted for further management of antibiotic therapy lower extremity Doppler was negative for DVT Past Medical History Past Medical History: Atrial Fibrillation, Osteoarthritis (OA) Additional Past Medical History / Comment(s): GOUT,. FATTY LIVER-50% DAMAGE History of Any Multi-Drug Resistant Organisms: None Reported Past Surgical History: Appendectomy, Hernia Repair, Joint Replacement, Orthopedic Surgery Additional Past Surgical History / Comment(s): right knee replacement, right arm surgery, COLONOSCOPY, EGD Past Anesthesia/Blood Transfusion Reactions: No Reported Reaction Past Psychological History: No Psychological Hx Reported Smoking Status: Never smoker Past Alcohol Use History: None Reported Past Drug Use History: None Reported - Past Family History Mother Family Medical History: Cancer Medications and Allergies Home Medications Medication Instructions Recorded Confirmed Type Furosemide [Lasix] 20 mg PO W/SUPPER 06/02/23 06/02/23 History Furosemide [Lasix] 40 mg PO DAILY 06/02/23 06/02/23 History Lactulose [Cephulac] 20 gm PO DAILY 06/02/23 06/02/23 History Metoprolol Tartrate 25 mg PO BID 06/02/23 06/02/23 History Potassium Chloride ER [K-Dur 20] 20 meq PO DAILY 06/02/23 06/02/23 History Allergies Allergy/AdvReac Type Severity Reaction Status Date / Time No Known Allergies Allergy Verified 06/02/23 07:25 Physical Exam Vitals: Vital Signs Temp Pulse Resp BP Pulse Ox 06/02/23 08:03 77 22 94/57 99 06/02/23 07:59 97.6 F 81 22 106/57 95 06/02/23 06:30 101 H 16 113/75 98 06/02/23 04:33 106 H 16 105/84 100 06/02/23 04:00 98.2 F 06/02/23 03:34 117 H 16 94/52 98 06/02/23 01:46 98.3 F 118 H 20 118/85 97 Intake and Output 06/01/23 06/02/23 06/02/23 22:59 06:59 14:59 Intake Total 17.417 Output Total 300 Balance -300 17.417 Intake: Intake, IV Titration 17.417 Amount Diltiazem 125 mg In 17.417 Sodium Chloride 0.9% 100 ml @ 5 MG/HR 5 mls/hr IV .Q24H [facility] Rx#:[id number] Output: Urine 300 Straight 300 Other: Weight 134.717 kg Results CBC & Chem 7: 06/03/23 09:35 06/03/23 09:30 Labs: Abnormal Lab Results - Last 24 Hours (Table) 06/02/23 06/02/23 06/02/23 Range/Units 02:20 02:20 02:20 RBC 3.93 L (4.30-5.90) m/uL MCV 102.3 H (80.0-100.0) fL MCH 35.5 H (25.0-35.0) pg RDW 16.5 H (11.5-15.5) % Plt Count 51 L (150-450) k/uL Lymphocytes # 0.7 L (1.0-4.8) k/uL BUN 43 H (9-20) mg/dL Creatinine 1.74 H (0.66-1.25) mg/dL Glucose 105 H (74-99) mg/dL Plasma Lactic Acid Jarret 2.2 H* (0.7-2.0) mmol/L Total Bilirubin 5.3 H (0.2-1.3) mg/dL C-Reactive Protein 6.9 H (<1.0) mg/dL Albumin 2.7 L (3.5-5.0) g/dL Assessment and Plan Plan: 1patient presented to hospital with a fall patient did have injury to the right fifth finger with evidence of fracture on the x-ray and evidence of cellulitis involving the dorsum aspect of the right foot which is warm and tender to touch likely from gram-positive skin ethan, patient has not been on antibiotic in the recent past less risk for MRSA infection 2patient with renal insufficiency and high risk of nephrotoxicity from vancomycin 3local culture to guide further antibiotic therapy 4we will start patient on Unasyn We will follow on clinical condition and cultures to further adjust medication if needed Thank you for this consultation we will follow the patient along with you Dictation was produced using [email or web address] dictation software. please excuse any grammatical, word or spelling errors. Time with Patient: Greater than 30
[2023-06-03 10:57] LABS: Anisocytosis Slight; HCT 36.8 % (39.0-53.0); HGB 12.7 gm/dL (13.0-17.5); MCHC 34.4 g/dL (31.0-37.0); MCV 104.8 fL (80.0-100.0); Macrocytosis Moderate; Mean Platelet Volume 9.7; RBC 3.51 m/uL (4.30-5.90); RDW 16.3 % (11.5-15.5); WBC 6.3 k/uL (3.8-10.6)
[2023-06-03 11:06] LABS: African American GFR (CKD) 65 (>60 ml/min/1.73 sqM); Anion Gap 3 mmol/L; Blood Urea Nitrogen 33 mg/dL (9-20); Carbon Dioxide 30 mmol/L (22-30); Chloride 107 mmol/L (98-107); Glucose 98 mg/dL (74-99); Magnesium 1.8 mg/dL (1.6-2.3); Non-African American GFR(CKD) 57 (>60 ml/min/1.73 sqM); Potassium 4.1 mmol/L (3.5-5.1); Sodium 140 mmol/L (137-145)
[2023-06-03 11:07] LABS: NT-Pro-B-Type Natriuretic Pept 3260 pg/mL
--- NOTE | 2023-06-03 11:35 | P.PN ---
Subjective Patient is seen in follow-up for acute kidney injury. Renal function improving. On IV fluids. Denies chest pain or shortness of breath. Vital signs are stable. General: No acute distress. HEENT: Head exam is unremarkable. LUNGS: No audible rhonchi or wheezes. HEART: Rate and Rhythm are regular. ABDOMEN: Obese, nontender. EXTREMITITES: 1+ edema. Chronic changes noted. Objective - Vital Signs Vital signs: Vital Signs Temp 98.3 F 06/03/23 08:20 Pulse 67 06/03/23 08:20 Resp 18 06/03/23 08:20 BP 112/55 06/03/23 08:20 Pulse Ox 95 06/03/23 08:20 FiO2 Intake & Output 06/02/23 06/03/23 06/03/23 18:59 06:59 18:59 Intake Total 17.417 0 Output Total 1120 Balance 17.417 -1120 0 Weight 133 kg Intake: Intake, IV Titration 17.417 Amount Diltiazem 125 mg In 17.417 Sodium Chloride 0.9% 100 ml @ 5 MG/HR 5 mls/hr IV .Q24H [facility] Rx#:[id number] Oral 0 Output: Urine 1120 Other: Voiding Method Indwelling Catheter Indwelling Catheter - Labs CBC & Chem 7: 06/03/23 09:35 06/03/23 09:30 Labs: Abnormal Lab Results - Last 24 Hours (Table) 06/02/23 06/02/23 06/03/23 Range/Units 02:20 11:30 09:30 RBC (4.30-5.90) m/uL Hgb (13.0-17.5) gm/dL Hct (39.0-53.0) % MCV (80.0-100.0) fL MCH (25.0-35.0) pg RDW (11.5-15.5) % Plt Count (150-450) k/uL Chloride 109 H (98-107) mmol/L BUN 41 H 33 H (9-20) mg/dL Creatinine 1.48 H (0.66-1.25) mg/dL Glucose 104 H (74-99) mg/dL Calcium 8.1 L 8.0 L (8.4-10.2) mg/dL Procalcitonin 0.40 H (0.02-0.09) ng/mL 02/01/24 Range/Units 09:35 RBC 3.51 L (4.30-5.90) m/uL Hgb 12.7 L (13.0-17.5) gm/dL Hct 36.8 L (39.0-53.0) % MCV 104.8 H (80.0-100.0) fL MCH 36.0 H (25.0-35.0) pg RDW 16.3 H (11.5-15.5) % Plt Count 39 L (150-450) k/uL Chloride (98-107) mmol/L BUN (9-20) mg/dL Creatinine (0.66-1.25) mg/dL Glucose (74-99) mg/dL Calcium (8.4-10.2) mg/dL Procalcitonin (0.02-0.09) ng/mL Microbiology - Last 24 Hours (Table) 06/02/23 13:20 Gram Stain - Preliminary Toe - Right First Wound Culture - Preliminary Presumptive Staph aureus Assessment and Plan Plan: Assessment: 1. Acute kidney injury secondary to ATN secondary to hemodynamic instability/hypotension. Creatinine 1.74 on admission -1.24 today. Baseline creatinine is 0.8 from January 2023. UA benign. No hydronephrosis noted on kidney ultrasound. Nonobstructive left renal stone noted. 2. A-fib with RVR maintained on Lopressor. Status post Cardizem drip. 3. Right foot cellulitis on antibiotics. No evidence of DVT. Wound culture positive for Staph aureus. 4. Lactic acidosis. Improved with IV fluids. Plan: Maintain normal saline - decrease rate to 50 cc an hour. Avoid nephrotoxins. Encouraged oral intake.
[2023-06-03 12:59] LABS: Eosinophils # (M) 0.19 k/uL (0-0.7); Lymphocytes # (M) 0.95 k/uL (1.0-4.8); Monocytes # (M) 0.88 k/uL (0-1.0); Neutrophils # (M) 4.28 k/uL (1.3-7.7); Neutrophils % (M) 68 %; Nucleated Red Blood Cells 0 /100 WBC (0-0); Total Cells Counted 100
[2023-06-03 13:02] LABS: Platelet Count 39 k/uL (150-450)
--- NOTE | 2023-06-03 15:13 | P.PN ---
Subjective Progress Note Date: 06/03/23 Principal diagnosis: Reason for follow-up is right foot cellulitis Patient is a 77-year-old male with a past medical history significant for atrial fibrillation osteoarthritis, chronic liver disease and CHF patient presenting to the hospital after the patient did have a fall Patient noticed to have a fracture to the right fifth toe and did have evidence of right foot cellulitis. On today's evaluation that is 06/03/2023, patient remains to be afebrile, the patient is breathing comfortably on room air denies any chest pain shortness of breath or cough no nausea vomiting no abdominal pain no diarrhea has been reported denies any worsening pain to the right foot area. Patient white count is 6.3, creatinine is 1.24 local culture growing presumptive Staph aureus Objective - Vital Signs Vital signs: Vital Signs Temp 97.5 F L 06/03/23 04:00 Pulse 81 06/03/23 04:00 Resp 20 06/03/23 04:00 BP 108/78 06/03/23 04:00 Pulse Ox 94 L 06/03/23 04:00 FiO2 Intake & Output 06/02/23 06/03/23 06/03/23 18:59 06:59 18:59 Intake Total 17.417 0 Output Total 1120 Balance 17.417 -1120 0 Weight 133 kg Intake: Intake, IV Titration 17.417 Amount Diltiazem 125 mg In 17.417 Sodium Chloride 0.9% 100 ml @ 5 MG/HR 5 mls/hr IV .Q24H [facility] Rx#:[id number] Oral 0 Output: Urine 1120 Other: Voiding Method Indwelling Catheter - Exam GENERAL DESCRIPTION: An elderly male lying in bed in no distress RESPIRATORY SYSTEM: Unlabored breathing , decreased breath sounds at bases HEART: S1 S2 regular rate and rhythm , ABDOMEN: Soft , no tenderness EXTREMITIES: Right foot swelling redness slightly decreased no drainage - Labs CBC & Chem 7: 06/03/23 09:35 06/03/23 09:30 Labs: Abnormal Lab Results - Last 24 Hours (Table) 06/02/23 06/02/23 Range/Units 02:20 11:30 Chloride 109 H (98-107) mmol/L BUN 41 H (9-20) mg/dL Creatinine 1.48 H (0.66-1.25) mg/dL Glucose 104 H (74-99) mg/dL Calcium 8.1 L (8.4-10.2) mg/dL Procalcitonin 0.40 H (0.02-0.09) ng/mL Microbiology - Last 24 Hours (Table) 06/02/23 13:20 Gram Stain - Preliminary Toe - Right First Assessment and Plan (1) Cellulitis of right foot Current Visit: Yes Status: Acute Code(s): L03.115 - CELLULITIS OF RIGHT LOWER LIMB SNOMED Code(s): 22023002167094722 Plan: 1patient presented to hospital with a fall patient did have injury to the right fifth finger with evidence of fracture on the x-ray and evidence of cellulitis involving the dorsum aspect of the right foot which is warm and tender to touch likely from gram-positive skin ethan, patient has not been on antibiotic in the recent past less risk for MRSA infection 2patient with renal insufficiency and high risk of nephrotoxicity from vancomycin 3local culture growing presumptive Staph aureus possible MSSA 4patient to continue with Unasyn in view of clinical improvement while waiting for the culture Dictation was produced using [employer] dictation software. please excuse any grammatical, word or spelling errors. Time with Patient: Less than 30
--- NOTE | 2023-06-03 15:48 | P.PN ---
Subjective This is a pleasant 77 years old male with past medical history of osteoarthritis, gout, fatty liver. 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 He denies chest pain or dyspnea. No change in urine or bowel habits. No fever. He denies smoking alcohol or illicit drugs History of fatty liver. Baseline blood pressure systolic BP 110-120. Currently blood pressure is 94/57, his mildly tachycardic at 77-110 but afebrile. WBC, hemoglobin are within the reference range. Platelet count is 51k (baseline is 30-40 K) Creatinine is elevated 1.7, compared to baseline 0.8-1.1. LFT, urinalysis were unremarkable CT of the brain and the cervical spine is negative for acute process Right foot x-rays show a displaced and comminuted fracture of the fifth proximal phalanx EKG showing atrial fibrillation with a rate of 127 Echocardiogram from 01/2023 showing ejection fraction of 55-60% Patient was started on Cardizem drip, IV vancomycin normal saline with 30 mL/h he was admitted with nephrology and cardiology consult to 06/03/2023 Patient with known new complaints He is awake and alert His right foot cellulitis is only minimally better Isabel culture is growing presumptive staph. Antibiotics currently is on Unasyn. Patients with no signs or symptoms of sepsis. Creatinine trended down to 1.2, platelet significantly low at 39K, patient currently not on aspirin on anticoagulation or subcu heparin Patient is a known case of liver cirrhosis and renal ultrasound was negative for acute process and there is small nonobstructing renal calculus but there is evidence of dilated veins from portal hypertension which is expected and liver cirrhosis patient. Discontinue IV normal saline at 50 mL and resume home dose of Lasix His heart rate controlled for his A. fib and currently ranging between 60-90 Objective - Vital Signs Vital signs: Vital Signs Temp 97.3 F L 06/03/23 12:59 Pulse 95 06/03/23 12:59 Resp 16 06/03/23 12:59 BP 109/56 06/03/23 12:59 Pulse Ox 96 06/03/23 12:59 FiO2 Intake & Output 06/02/23 06/03/23 06/03/23 18:59 06:59 18:59 Intake Total 17.417 500 Output Total 1120 Balance 17.417 -1120 500 Weight 133 kg Intake: Intake, IV Titration 17.417 500 Amount Ampicillin-Sulbactam 3 gm 100 In Sodium Chloride 0.9% 100 ml @ 200 mls/hr IVPB Q8H YAZ Rx#:[id number] Diltiazem 125 mg In 17.417 Sodium Chloride 0.9% 100 ml @ 5 MG/HR 5 mls/hr IV .Q24H YAZ Rx#:[id number] Sodium Chloride 0.9% 1, 400 000 ml @ 50 mls/hr IV . Q20H YAZ Rx#:[id number] Oral 0 Output: Urine 1120 Other: Voiding Method Indwelling Catheter Indwelling Catheter - Exam GENERAL: The patient is alert and oriented x3, not in any acute distress. Well developed, well nourished. HEENT: Pupils are round and equally reacting to light. EOMI. No scleral icterus. No conjunctival pallor. Normocephalic, atraumatic. No pharyngeal erythema. No t hyromegaly. CARDIOVASCULAR: S1 and S2 present. No murmurs, rubs, or gallops. PULMONARY: Chest is clear to auscultation, no wheezing , no crackles. ABDOMEN: Soft, nontender, nondistended, normoactive bowel sounds. No palpable organomegaly. MUSCULOSKELETAL: No joint swelling or deformity. -EXTREMITIES: No cyanosis, clubbing, or pedal edema. Right foot and leg swelling right and tender, more tenderness in the right small to especially with movemente. right proximal forearm NEUROLOGICAL: Gross neurological examination did not reveal any focal deficits. SKIN: No rashes. no petechiae. - Labs CBC & Chem 7: 06/03/23 09:35 06/03/23 09:30 Labs: Abnormal Lab Results - Last 24 Hours (Table) 06/02/23 06/03/23 06/03/23 Range/Units 02:20 09:30 09:35 RBC 3.51 L (4.30-5.90) m/uL Hgb 12.7 L (13.0-17.5) gm/dL Hct 36.8 L (39.0-53.0) % MCV 104.8 H (80.0-100.0) fL MCH 36.0 H (25.0-35.0) pg RDW 16.3 H (11.5-15.5) % Plt Count 39 L (150-450) k/uL Lymphocytes # (Manual) 0.95 L (1.0-4.8) k/uL BUN 33 H (9-20) mg/dL Calcium 8.0 L (8.4-10.2) mg/dL Procalcitonin 0.40 H (0.02-0.09) ng/mL Microbiology - Last 24 Hours (Table) 06/02/23 02:45 Blood Culture - Preliminary Blood 06/02/23 02:30 Blood Culture - Preliminary Blood 06/02/23 13:20 Gram Stain - Preliminary Toe - Right First Wound Culture - Preliminary Presumptive Staph aureus Assessment and Plan Assessment: right foot cellulitis Bilateral leg swelling Atrial fibrillation and RVR. 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 Continue same treatment. Continue with symptomatic treatment. Resume home medication. Monitor labs and vitals. DVT and GI prophylaxis. Further recommendations as per clinical course of the patient DVT prophylaxis:no Subcutaneous heparin for thrombocytopenia GI Prophylaxis: Pepcid PT/OT: Pending Prognosis is guarded
[2023-06-03] MEDS: FUROSEMIDE 20 MG TAB PO SCH (16:59)
--- NOTE | 2023-06-03 19:44 | P.PN ---
Subjective Progress Note Date: 06/03/23 History of present illness: This is a 77-year-old male patient of Dr. Bill with past medical history signi ficant for thrombocytopenia, osteoarthritis, gout, fatty liver disease, paroxysmal atrial fibrillation not on anticoagulation due to thrombocytopenia and falls. We have been asked to evaluate the patient for A-fib. Patient is seen today in the emergency center waiting for bed on the cardiac stepdown unit. Patient states that he presented to hospital because he fell down in his house walking to the bathroom. He states weakness started all of a sudden. He was using his walker at the time. Patient saw his PCP yesterday and lab work was done but no new medications at that time. Patient has lower extremity edema off and on. He states he is eating okay with no loss of appetite. He has increased lower extremity edema to the right leg and also redness to the right lower extremity. Patient required straight cath this morning. He denies having any fever or chills. He was most recently hospitalized in January 2023 and seen by cardiology at that time for new onset of A-fib with RVR. Patient has not had a follow-up appointment with Dr. Bill. EKG atrial fibrillation with RVR at 127 bpm Ultrasound bilateral lower extremities negative for DVT CT of the brain and cervical spine showed no acute fracture or dislocation. No acute intracranial hemorrhage or midline shift. WBC 8.9, hemoglobin 14, platelet count 51. Sodium 140, potassium 4, chloride 109, CO2 28, BUN 41 creatinine 1.48. Liver function test within normal limits except for total bilirubin of 5.3. C-reactive protein 6.9. proBNP 3000. TSH 1.78. Urinalysis negative. Home cardiac medications: Lasix 40 mg in the morning and 20 mg with supper, metoprolol 25 mg twice daily, potassium chloride 20 mEq daily. Echocardiogram performed 01/07/2023 revealed EF of 55 to 60%, severe left atrial dilatation, aortic valve sclerosis, mild concentric left hypertrophy. Patient underwent stress testing in July 2021 which was nondiagnostic secondary to inadequate chronotropic response. 06/03/2023 Patient reports feeling tired. Her heart rate is better in the 80's. No chest pain or pressure. Creat is stable. Nephro following. Physical examination: Gen: This is a 77-year-old male appears to be in no acute distress VS: reviewed HEENT: Head is atraumatic, normocephalic. Pupils equal, round. Sclerae is anicteric. NECK: Supple. No JVD. LUNGS: Clear to auscultation. No wheezes or rhonchi. No intercostal retractions. HEART: irregular rate and rhythm. ABDOMEN: Soft No tenderness. EXTREMITIES: 1+ lower extremity edema, erythema to the right lower extremity. NEUROLOGICAL: Patient is awake, alert and oriented x3. Assessment: Atrial fibrillation, paroxsymal Acute kidney injury Lactic acidosis Cellulitis Chronic thrombocytopenia History of gout History of fatty liver disease Plan: Continue treatment for cellulitis Continue current regimen Patient is not on anticoagulation due to thrombocytopenia and falls No further work up from cardiac standpoint Cardiology to sign off, please call with any questions or concerns. Follow up in 1 week. Nurse practitioner note has been reviewed, I agree with documented findings and plan of care. Patient was seen and examined. Objective - Vital Signs Vital signs: Vital Signs Temp 97.9 F 06/03/23 19:30 Pulse 94 06/03/23 19:30 Resp 20 06/03/23 19:30 BP 128/90 06/03/23 19:30 Pulse Ox 98 06/03/23 19:30 FiO2 Intake & Output 06/03/23 06/03/23 06/04/23 06:59 18:59 06:59 Intake Total 944 Output Total 1120 Balance -1120 944 Weight 133 kg Intake: Intake, IV Titration 500 Amount Ampicillin-Sulbactam 3 gm 100 In Sodium Chloride 0.9% 100 ml @ 200 mls/hr IVPB Q8H YAZ Rx#:[id number] Sodium Chloride 0.9% 1, 400 000 ml @ 50 mls/hr IV . Q20H YAZ Rx#:[id number] Oral 444 Output: Urine 1120 Other: Voiding Method Indwelling Catheter Indwelling Catheter - Labs CBC & Chem 7: 06/03/23 09:35 06/03/23 09:30 Labs: Abnormal Lab Results - Last 24 Hours (Table) 06/02/23 06/03/23 06/03/23 Range/Units 02:20 09:30 09:35 RBC 3.51 L (4.30-5.90) m/uL Hgb 12.7 L (13.0-17.5) gm/dL Hct 36.8 L (39.0-53.0) % MCV 104.8 H (80.0-100.0) fL MCH 36.0 H (25.0-35.0) pg RDW 16.3 H (11.5-15.5) % Plt Count 39 L (150-450) k/uL Lymphocytes # (Manual) 0.95 L (1.0-4.8) k/uL BUN 33 H (9-20) mg/dL Calcium 8.0 L (8.4-10.2) mg/dL Procalcitonin 0.40 H (0.02-0.09) ng/mL Microbiology - Last 24 Hours (Table) 06/02/23 02:45 Blood Culture - Preliminary Blood 06/02/23 02:30 Blood Culture - Preliminary Blood 06/02/23 13:20 Gram Stain - Preliminary Toe - Right First Wound Culture - Preliminary Presumptive Staph aureus
[2023-06-04] MEDS: FUROSEMIDE 40 MG TAB PO SCH (08:52)
[2023-06-04] MEDS: LACTULOSE 20 GM/30 ML CUP PO SCH (08:52)
[2023-06-04 09:35] LABS: African American GFR (CKD) 74 (>60 ml/min/1.73 sqM); Anion Gap 1 mmol/L; Blood Urea Nitrogen 28 mg/dL (9-20); Calcium 7.7 mg/dL (8.4-10.2); Carbon Dioxide 28 mmol/L (22-30); Chloride 109 mmol/L (98-107); Glucose 118 mg/dL (74-99); Magnesium 1.7 mg/dL (1.6-2.3); Non-African American GFR(CKD) 64 (>60 ml/min/1.73 sqM); Potassium 3.8 mmol/L (3.5-5.1); Sodium 138 mmol/L (137-145)
--- NOTE | 2023-06-04 10:09 | P.PN ---
Subjective Patient is seen in follow-up for acute kidney injury. Renal function improving. Denies chest pain or shortness of breath. Nonoliguric. On oral Lasix. Vital signs are stable. General: No acute distress. HEENT: Head exam is unremarkable. LUNGS: No audible rhonchi or wheezes. HEART: Rate and Rhythm are regular. ABDOMEN: Obese, nontender. EXTREMITITES: 1+ edema. Chronic changes noted. Objective - Vital Signs Vital signs: Vital Signs Temp 97.9 F 06/04/23 08:00 Pulse 87 06/04/23 08:00 Resp 18 06/04/23 08:00 BP 113/77 06/04/23 08:00 Pulse Ox 97 06/04/23 08:00 FiO2 Intake & Output 06/03/23 06/04/23 06/04/23 18:59 06:59 18:59 Intake Total 944 222 Output Total 1400 Balance 944 -1400 222 Intake: Intake, IV Titration 500 Amount Ampicillin-Sulbactam 3 gm 100 In Sodium Chloride 0.9% 100 ml @ 200 mls/hr IVPB Q8H YAZ Rx#:[id number] Sodium Chloride 0.9% 1, 400 000 ml @ 50 mls/hr IV . Q20H YAZ Rx#:[id number] Oral 444 222 Output: Urine 1400 Other: Voiding Method Indwelling Catheter Indwelling Catheter Indwelling Catheter - Labs CBC & Chem 7: 06/03/23 09:35 06/04/23 08:21 Labs: Abnormal Lab Results - Last 24 Hours (Table) 06/03/23 06/03/23 06/04/23 Range/Units 09:30 09:35 08:21 RBC 3.51 L (4.30-5.90) m/uL Hgb 12.7 L (13.0-17.5) gm/dL Hct 36.8 L (39.0-53.0) % MCV 104.8 H (80.0-100.0) fL MCH 36.0 H (25.0-35.0) pg RDW 16.3 H (11.5-15.5) % Plt Count 39 L (150-450) k/uL Lymphocytes # (Manual) 0.95 L (1.0-4.8) k/uL Chloride 109 H (98-107) mmol/L BUN 33 H 28 H (9-20) mg/dL Glucose 118 H (74-99) mg/dL Calcium 8.0 L 7.7 L (8.4-10.2) mg/dL Microbiology - Last 24 Hours (Table) 06/02/23 13:20 Gram Stain - Preliminary Toe - Right First Wound Culture - Preliminary Staphylococcus aureus Gram Neg Bacilli 06/02/23 02:45 Blood Culture - Preliminary Blood 06/02/23 02:30 Blood Culture - Preliminary Blood Assessment and Plan Plan: Assessment: 1. Acute kidney injury secondary to ATN secondary to hemodynamic instability/hypotension. Creatinine 1.74 on admission -1.11 today. Baseline creatinine is 0.8 from January 2023. UA benign. No hydronephrosis noted on kidney ultrasound. Nonobstructive left renal stone noted. 2. A-fib with RVR maintained on Lopressor. Status post Cardizem drip. 3. Right foot cellulitis on antibiotics. No evidence of DVT. Wound culture positive for Staph aureus. 4. Lactic acidosis. Improved with IV fluids. 5. Lower extremity edema. Plan: Maintain oral Lasix. Avoid nephrotoxins. Encouraged oral intake. Add oral magnesium oxide. Also replace potassium. DC Siegel catheter and monitor bladder scan to make sure no retention.
[2023-06-04] MEDS: POTASSIUM CHLORIDE ER 20 MEQ TAB.ER PO STA (11:30)
[2023-06-04] MEDS: MAGNESIUM OXIDE 400 MG TAB PO SCH (11:30)
--- NOTE | 2023-06-04 15:18 | P.PN ---
Subjective Progress Note Date: 06/04/23 Principal diagnosis: Reason for follow-up is right foot cellulitis Patient is a 77-year-old male with a past medical history significant for atrial fibrillation osteoarthritis, chronic liver disease and CHF patient presenting to the hospital after the patient did have a fall Patient noticed to have a fracture to the right fifth toe and did have evidence of right foot cellulitis. On today's evaluation that is 06/04/2023, the patient continues to be afebrile patient is currently breathing comfortably on room air not requiring any oxygen, the patient denies having any chest pain shortness of breath did have occasional dry r cough, the patient denies nausea vomiting no abdominal pain no diarrhea. Denies pain to the right foot wound mention there was some drainage. Patient white count of 6.3, creatinine is 1.11 local culture growing MSSA and gram-negative bacilli blood culture negative so far Objective - Vital Signs Vital signs: Vital Signs Temp 97.9 F 06/04/23 08:00 Pulse 87 06/04/23 08:00 Resp 18 06/04/23 08:00 BP 113/77 06/04/23 08:00 Pulse Ox 97 06/04/23 08:00 FiO2 Intake & Output 06/03/23 06/04/23 06/04/23 18:59 06:59 18:59 Intake Total 944 222 Output Total 1400 Balance 944 -1400 222 Intake: Intake, IV Titration 500 Amount Ampicillin-Sulbactam 3 gm 100 In Sodium Chloride 0.9% 100 ml @ 200 mls/hr IVPB Q8H YAZ Rx#:[id number] Sodium Chloride 0.9% 1, 400 000 ml @ 50 mls/hr IV . Q20H YAZ Rx#:[id number] Oral 444 222 Output: Urine 1400 Other: Voiding Method Indwelling Catheter Indwelling Catheter Indwelling Catheter - Exam GENERAL DESCRIPTION: An elderly male lying in bed in no distress RESPIRATORY SYSTEM: Unlabored breathing , decreased breath sounds at bases HEART: S1 S2 regular rate and rhythm , ABDOMEN: Soft , no tenderness EXTREMITIES: Right foot currently dressed no drainage on the dressing - Labs CBC & Chem 7: 06/03/23 09:35 06/04/23 08:21 Labs: Abnormal Lab Results - Last 24 Hours (Table) 06/03/23 06/03/23 06/04/23 Range/Units 09:30 09:35 08:21 RBC 3.51 L (4.30-5.90) m/uL Hgb 12.7 L (13.0-17.5) gm/dL Hct 36.8 L (39.0-53.0) % MCV 104.8 H (80.0-100.0) fL MCH 36.0 H (25.0-35.0) pg RDW 16.3 H (11.5-15.5) % Plt Count 39 L (150-450) k/uL Lymphocytes # (Manual) 0.95 L (1.0-4.8) k/uL Chloride 109 H (98-107) mmol/L BUN 33 H 28 H (9-20) mg/dL Glucose 118 H (74-99) mg/dL Calcium 8.0 L 7.7 L (8.4-10.2) mg/dL Microbiology - Last 24 Hours (Table) 06/02/23 13:20 Gram Stain - Preliminary Toe - Right First Wound Culture - Preliminary Staphylococcus aureus Gram Neg Bacilli 06/02/23 02:45 Blood Culture - Preliminary Blood 06/02/23 02:30 Blood Culture - Preliminary Blood Assessment and Plan (1) Cellulitis of right foot Current Visit: Yes Status: Acute Code(s): L03.115 - CELLULITIS OF RIGHT LOWER LIMB SNOMED Code(s): 54087191954047692 Plan: 1patient presented to hospital with a fall patient did have injury to the right fifth finger with evidence of fracture on the x-ray and evidence of cellulitis involving the dorsum aspect of the right foot which is warm and tender to touch likely from gram-positive skin ethan, patient has not been on antibiotic in the recent past less risk for MRSA infection 2patient with renal insufficiency and high risk of nephrotoxicity from vancomycin 3local culture growing MSSA and gram-negative bacilli with ID sensitivities pending 4patient to continue with Unasyn while waiting for the culture and monitor clinical course closely Dictation was produced using [employer] dictation software. please excuse any grammatical, word or spelling errors. Time with Patient: Less than 30
[2023-06-05 09:32] LABS: African American GFR (CKD) 80 (>60 ml/min/1.73 sqM); Anion Gap 4 mmol/L; Blood Urea Nitrogen 24 mg/dL (9-20); Calcium 7.9 mg/dL (8.4-10.2); Carbon Dioxide 27 mmol/L (22-30); Chloride 107 mmol/L (98-107); Glucose 101 mg/dL (74-99); Magnesium 1.8 mg/dL (1.6-2.3); Non-African American GFR(CKD) 69 (>60 ml/min/1.73 sqM); Potassium 3.8 mmol/L (3.5-5.1); Sodium 138 mmol/L (137-145)
--- NOTE | 2023-06-05 10:23 | P.PN ---
Subjective Progress Note Date: 06/05/23 Patient is seen in follow-up for acute kidney injury. Renal function improving and denies any new complaints. Hoping to go home in next few days. Vital signs are stable. General: No acute distress. HEENT: Head exam is unremarkable. LUNGS: No audible rhonchi or wheezes. HEART: Rate and Rhythm are regular. ABDOMEN: Obese, nontender. EXTREMITITES: 1+ edema. Chronic changes noted. Objective - Vital Signs Vital signs: Vital Signs Temp 98.3 F 06/05/23 08:30 Pulse 100 06/05/23 08:30 Resp 22 06/05/23 08:30 BP 115/63 06/05/23 08:30 Pulse Ox 98 06/05/23 08:30 FiO2 Intake & Output 06/04/23 06/05/23 06/05/23 18:59 06:59 18:59 Intake Total 222 118 Output Total 500 1400 Balance -278 -1400 118 Intake: Oral 222 118 Output: Urine 500 1400 Other: Voiding Method Indwelling Catheter Indwelling Catheter - Labs CBC & Chem 7: 06/03/23 09:35 06/05/23 07:27 Labs: Abnormal Lab Results - Last 24 Hours (Table) 06/05/23 Range/Units 07:27 BUN 24 H (9-20) mg/dL Glucose 101 H (74-99) mg/dL Calcium 7.9 L (8.4-10.2) mg/dL Microbiology - Last 24 Hours (Table) 06/02/23 02:45 Blood Culture - Preliminary Blood 06/02/23 02:30 Blood Culture - Preliminary Blood 06/02/23 13:20 Gram Stain - Preliminary Toe - Right First Wound Culture - Preliminary Staphylococcus aureus Gram Neg Bacilli Assessment and Plan Plan: Assessment: 1. Acute kidney injury secondary to ATN secondary to hemodynamic instability/hypotension. Creatinine 1.74 on admission -1.0 today. Baseline creatinine is 0.8 from January 2023. UA benign. No hydronephrosis noted on kidney ultrasound. Nonobstructive left renal stone noted. 2. A-fib with RVR maintained on Lopressor. Status post Cardizem drip. 3. Right foot cellulitis on antibiotics. No evidence of DVT. Wound culture positive for Staph aureus. 4. Lactic acidosis. Improved with IV fluids. Plan: Maintain normal saline rate to 50 cc an hour. Avoid nephrotoxins. Encouraged oral intake. Renal function back to baseline. Clear for discharge from nephrology standpoint
[2023-06-05] MEDS: CEFEPIME 2 GM in SODIUM CHLORIDE 0.9% 100 ML IVPB SCH (16:49)
[2023-06-05] MEDS ORDERED: IPRATROPIUM-ALBUTEROL 3 ML NEB INHALATION PRN (17:03)
--- NOTE | 2023-06-05 17:08 | P.PN ---
Subjective Progress Note Date: 06/04/23 77 years old male with past medical history of osteoarthritis, gout, fatty liver. 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 He denies chest pain or dyspnea. No change in urine or bowel habits. No fever. He denies smoking alcohol or illicit drugs History of fatty liver. Baseline blood pressure systolic BP 110-120. Currently blood pressure is 94/57, his mildly tachycardic at 77-110 but afebrile. WBC, hemoglobin are within the reference range. Platelet count is 51k (baseline is 30-40 K) Creatinine is elevated 1.7, compared to baseline 0.8-1.1. LFT, urinalysis were unremarkable CT of the brain and the cervical spine is negative for acute process Right foot x-rays show a displaced and comminuted fracture of the fifth proximal phalanx EKG showing atrial fibrillation with a rate of 127 Echocardiogram from 01/2023 showing ejection fraction of 55-60% Patient was started on Cardizem drip, IV vancomycin normal saline with 30 mL/h he was admitted with nephrology and cardiology consult Objective - Vital Signs Vital signs: Vital Signs Temp 97.9 F 06/04/23 08:00 Pulse 87 06/04/23 08:00 Resp 18 06/04/23 08:00 BP 113/77 06/04/23 08:00 Pulse Ox 97 06/04/23 08:00 FiO2 Intake & Output 06/03/23 06/04/23 06/04/23 18:59 06:59 18:59 Intake Total 944 222 Output Total 1400 Balance 944 -1400 222 Intake: Intake, IV Titration 500 Amount Ampicillin-Sulbactam 3 gm 100 In Sodium Chloride 0.9% 100 ml @ 200 mls/hr IVPB Q8H YAZ Rx#:[id number] Sodium Chloride 0.9% 1, 400 000 ml @ 50 mls/hr IV . Q20H YAZ Rx#:[id number] Oral 444 222 Output: Urine 1400 Other: Voiding Method Indwelling Catheter Indwelling Catheter Indwelling Catheter - Exam GENERAL: The patient is alert and oriented x3, not in any acute distress. Well d eveloped, well nourished. HEENT: Pupils are round and equally reacting to light. EOMI. No scleral icterus. No conjunctival pallor. Normocephalic, atraumatic. No pharyngeal erythema. No thyromegaly. CARDIOVASCULAR: S1 and S2 present. No murmurs, rubs, or gallops. PULMONARY: Chest is clear to auscultation, no wheezing , no crackles. ABDOMEN: Soft, nontender, nondistended, normoactive bowel sounds. No palpable organomegaly. MUSCULOSKELETAL: No joint swelling or deformity. -EXTREMITIES: No cyanosis, clubbing, or pedal edema. Right foot and leg swelling right and tender, more tenderness in the right small to especially with movemente. right proximal forearm NEUROLOGICAL: Gross neurological examination did not reveal any focal deficits. SKIN: No rashes. no petechiae. - Labs CBC & Chem 7: 06/03/23 09:35 06/05/23 07:27 Labs: Abnormal Lab Results - Last 24 Hours (Table) 06/03/23 06/03/23 06/04/23 Range/Units 09:30 09:35 08:21 RBC 3.51 L (4.30-5.90) m/uL Hgb 12.7 L (13.0-17.5) gm/dL Hct 36.8 L (39.0-53.0) % MCV 104.8 H (80.0-100.0) fL MCH 36.0 H (25.0-35.0) pg RDW 16.3 H (11.5-15.5) % Plt Count 39 L (150-450) k/uL Lymphocytes # (Manual) 0.95 L (1.0-4.8) k/uL Chloride 109 H (98-107) mmol/L BUN 33 H 28 H (9-20) mg/dL Glucose 118 H (74-99) mg/dL Calcium 8.0 L 7.7 L (8.4-10.2) mg/dL Microbiology - Last 24 Hours (Table) 06/02/23 13:20 Gram Stain - Preliminary Toe - Right First Wound Culture - Preliminary Staphylococcus aureus Gram Neg Bacilli 06/02/23 02:45 Blood Culture - Preliminary Blood 06/02/23 02:30 Blood Culture - Preliminary Blood Assessment and Plan Assessment: right foot cellulitis Bilateral leg swelling Atrial fibrillation and RVR. 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 Continue same treatment. Continue with symptomatic treatment. Resume home medication. Monitor labs and vitals. DVT and GI prophylaxis. Further recommendations as per clinical course of the patient DVT prophylaxis:no Subcutaneous heparin for thrombocytopenia GI Prophylaxis: Pepcid PT/OT: Pending Prognosis is guarded
--- NOTE | 2023-06-05 17:11 | P.PN ---
Subjective Progress Note Date: 06/05/23 77 years old male with past medical history of osteoarthritis, gout, fatty liver. 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 He denies chest pain or dyspnea. No change in urine or bowel habits. No fever. He denies smoking alcohol or illicit drugs History of fatty liver. Baseline blood pressure systolic BP 110-120. Currently blood pressure is 94/57, his mildly tachycardic at 77-110 but afebrile. WBC, hemoglobin are within the reference range. Platelet count is 51k (baseline is 30-40 K) Creatinine is elevated 1.7, compared to baseline 0.8-1.1. LFT, urinalysis were unremarkable CT of the brain and the cervical spine is negative for acute process Right foot x-rays show a displaced and comminuted fracture of the fifth proximal phalanx EKG showing atrial fibrillation with a rate of 127 Echocardiogram from 01/2023 showing ejection fraction of 55-60% Patient was started on Cardizem drip, IV vancomycin normal saline with 30 mL/h he was admitted with nephrology and cardiology consult 06/05/2023 patient presented to hospital with a fall patient did have injury to the right fifth finger with evidence of fracture on the x-ray and evidence of cellulitis involving the dorsum aspect of the right foot which is warm and tender to touch likely from gram-positive skin ethan, patient has not been on antibiotic in the recent past less risk for MRSA infection patient with renal insufficiency and high risk of nephrotoxicity from v ancomycin local culture growing MSSA and gram-negative bacilli with ID sensitivities pending patient to continue with Unasyn while waiting for the culture and monitor clinical course closely Objective - Vital Signs Vital signs: Vital Signs Temp 98.3 F 06/05/23 08:30 Pulse 100 06/05/23 08:30 Resp 22 06/05/23 08:30 BP 115/63 06/05/23 08:30 Pulse Ox 98 06/05/23 08:30 FiO2 Intake & Output 06/04/23 06/05/23 06/05/23 18:59 06:59 18:59 Intake Total 222 Output Total 500 1400 Balance -278 -1400 Intake: Oral 222 Output: Urine 500 1400 Other: Voiding Method Indwelling Catheter Indwelling Catheter - Exam GENERAL: The patient is alert and oriented x3, not in any acute distress. Well developed, well nourished. HEENT: Pupils are round and equally reacting to light. EOMI. No scleral icterus. No conjunctival pallor. Normocephalic, atraumatic. No pharyngeal erythema. No thyromegaly. CARDIOVASCULAR: S1 and S2 present. No murmurs, rubs, or gallops. PULMONARY: Chest is clear to auscultation, no wheezing , no crackles. ABDOMEN: Soft, nontender, nondistended, normoactive bowel sounds. No palpable organomegaly. MUSCULOSKELETAL: No joint swelling or deformity. -EXTREMITIES: No cyanosis, clubbing, or pedal edema. Right foot and leg swelling right and tender, more tenderness in the right small to especially with movemente. right proximal forearm NEUROLOGICAL: Gross neurological examination did not reveal any focal deficits. SKIN: No rashes. no petechiae. - Labs CBC & Chem 7: 06/03/23 09:35 06/05/23 07:27 Labs: Abnormal Lab Results - Last 24 Hours (Table) 06/05/23 Range/Units 07:27 BUN 24 H (9-20) mg/dL Glucose 101 H (74-99) mg/dL Calcium 7.9 L (8.4-10.2) mg/dL Microbiology - Last 24 Hours (Table) 06/02/23 02:45 Blood Culture - Preliminary Blood 06/02/23 02:30 Blood Culture - Preliminary Blood 06/02/23 13:20 Gram Stain - Preliminary Toe - Right First Wound Culture - Preliminary Staphylococcus aureus Gram Neg Bacilli Assessment and Plan Assessment: right foot cellulitis Bilateral leg swelling Atrial fibrillation and RVR. 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 Continue same treatment. Continue with symptomatic treatment. Resume home medication. Monitor labs and vitals. DVT and GI prophylaxis. Further recommendations as per clinical course of the patient DVT prophylaxis:no Subcutaneous heparin for thrombocytopenia GI Prophylaxis: Pepcid PT/OT: Pending Prognosis is guarded
--- NOTE | 2023-06-05 17:40 | XR ---
EXAMINATION TYPE: XR chest 1V portable DATE OF EXAM: 06/05/2023 COMPARISON: 01/06/2023 HISTORY: Shortness of breath TECHNIQUE: Single frontal view of the chest is obtained. FINDINGS: There is an ill-defined partially consolidative opacity in the left lung base/retrocardiac region trinity picious for pneumonia. The heart is normal in size for this technique and the pulmonary vasculature is not congested. There is a suggestion of a small effusion on the right. There is no pneumothorax. The osseous structures are intact. IMPRESSION: 1. Left retrocardiac opacity suspicious for pneumonia. 2. Probable small right pleural effusion.
[2023-06-05] MEDS: IPRATROPIUM-ALBUTEROL 3 ML NEB INHALATION SCH (21:03)
--- NOTE | 2023-06-05 23:01 | P.PN ---
Subjective Progress Note Date: 06/05/23 Principal diagnosis: Reason for follow-up is right foot cellulitis Patient is a 77-year-old male with a past medical history significant for atrial fibrillation osteoarthritis, chronic liver disease and CHF patient presenting to the hospital after the patient did have a fall Patient noticed to have a fracture to the right fifth toe and did have evidence of right foot cellulitis. On today's evaluation that is 06/05/2023, the patient denies having any fever or any chills, patient is breathing comfortably on room air, the patient denies having any chest pain shortness of breath did have occasional cough patient denies having any nausea vomiting diarrhea and abdominal pain. Patient denies any pain to the right foot. Patient did have a creatinine 1.05 no CBC was done today cultures have been finalized with MSSA and Proteus with intermediate sensitivity to Unasyn Objective - Vital Signs Vital signs: Vital Signs Temp 98.3 F 06/05/23 08:30 Pulse 100 06/05/23 08:30 Resp 22 06/05/23 08:30 BP 115/63 06/05/23 08:30 Pulse Ox 98 06/05/23 08:30 FiO2 Intake & Output 06/04/23 06/05/23 06/05/23 18:59 06:59 18:59 Intake Total 222 118 Output Total 500 1400 Balance -278 -1400 118 Intake: Oral 222 118 Output: Urine 500 1400 Other: Voiding Method Indwelling Catheter Indwelling Catheter - Exam GENERAL DESCRIPTION: An elderly male lying in bed in no distress RESPIRATORY SYSTEM: Unlabored breathing , decreased breath sounds at bases HEART: S1 S2 regular rate and rhythm , ABDOMEN: Soft , no tenderness EXTREMITIES: Right foot currently dressed no drainage on the dressing - Labs CBC & Chem 7: 06/03/23 09:35 06/05/23 07:27 Labs: Abnormal Lab Results - Last 24 Hours (Table) 06/05/23 Range/Units 07:27 BUN 24 H (9-20) mg/dL Glucose 101 H (74-99) mg/dL Calcium 7.9 L (8.4-10.2) mg/dL Microbiology - Last 24 Hours (Table) 06/02/23 13:20 Gram Stain - Final Toe - Right First Wound Culture - Final Proteus vulgaris Staphylococcus aureus 06/02/23 02:45 Blood Culture - Preliminary Blood 06/02/23 02:30 Blood Culture - Preliminary Blood Assessment and Plan (1) Cellulitis of right foot Current Visit: Yes Status: Acute Code(s): L03.115 - CELLULITIS OF RIGHT LOWER LIMB SNOMED Code(s): 65820584583653371 Plan: 1patient presented to hospital with a fall patient did have injury to the right fifth finger with evidence of fracture on the x-ray and evidence of cellulitis involving the dorsum aspect of the right foot which is warm and tender to touch likely from gram-positive skin ethan, patient has not been on antibiotic in the recent past less risk for MRSA infection 2patient with renal insufficiency and high risk of nephrotoxicity from vancomycin 3local culture growing MSSA and Proteus with intermediate sensitivities to Unasyn 4we will discontinue the Unasyn and start the patient cefepime hopefully transition to oral antibiotics on discharge Dictation was produced using [employer] dictation software. please excuse any grammatical, word or spelling errors. Time with Patient: Less than 30
--- NOTE | 2023-06-06 09:02 | P.PN ---
Subjective Progress Note Date: 06/06/23 Patient is seen in follow-up for acute kidney injury. No new complaints, wants to go home. Vital signs are stable. General: No acute distress. HEENT: Head exam is unremarkable. LUNGS: No audible rhonchi or wheezes. HEART: Rate and Rhythm are regular. ABDOMEN: Obese, nontender. EXTREMITITES: 1+ edema. Chronic changes noted. Objective - Vital Signs Vital signs: Vital Signs Temp 97.4 F L 06/05/23 20:00 Pulse 126 H 06/06/23 03:51 Resp 20 06/06/23 03:51 BP 119/62 06/06/23 03:51 Pulse Ox 96 06/06/23 03:51 FiO2 Intake & Output 06/05/23 06/06/23 06/06/23 18:59 06:59 18:59 Intake Total 898 240 118 Output Total 1000 850 100 Balance -102 -610 18 Intake: Oral 898 240 118 Output: Urine 1000 850 100 Other: Voiding Method Indwelling Catheter Toilet Incontinent # Voids 1 - Labs CBC & Chem 7: 06/03/23 09:35 06/05/23 07:27 Labs: Abnormal Lab Results - Last 24 Hours (Table) 06/05/23 Range/Units 07:27 BUN 24 H (9-20) mg/dL Glucose 101 H (74-99) mg/dL Calcium 7.9 L (8.4-10.2) mg/dL Microbiology - Last 24 Hours (Table) 06/02/23 02:45 Blood Culture - Preliminary Blood 06/02/23 02:30 Blood Culture - Preliminary Blood 06/02/23 13:20 Gram Stain - Final Toe - Right First Wound Culture - Final Proteus vulgaris Staphylococcus aureus Assessment and Plan Plan: Assessment: 1. Acute kidney injury secondary to ATN secondary to hemodynamic instability/hypotension. Creatinine 1.74 on admission -now 1.0 Baseline creatinine is 0.8 from January 2023. UA benign. No hydronephrosis noted on kidney ultrasound. Nonobstructive left renal stone noted. 2. A-fib with RVR maintained on Lopressor. Status post Cardizem drip. 3. Right foot cellulitis on antibiotics. No evidence of DVT. Wound culture positive for Staph aureus. 4. Lactic acidosis. Improved with IV fluids. Plan: Maintain normal saline rate to 50 cc an hour. Avoid nephrotoxins. Encouraged oral intake. Renal function back to baseline. Clear for discharge from nephrology standpoint
[2023-06-06 11:13] LABS: African American GFR (CKD) 84 (>60 ml/min/1.73 sqM); Anion Gap 1 mmol/L; Blood Urea Nitrogen 24 mg/dL (9-20); Calcium 7.8 mg/dL (8.4-10.2); Carbon Dioxide 28 mmol/L (22-30); Chloride 108 mmol/L (98-107); Glucose 102 mg/dL (74-99); Non-African American GFR(CKD) 73 (>60 ml/min/1.73 sqM); Sodium 137 mmol/L (137-145)
[2023-06-06 11:35] LABS: Anisocytosis Slight; Basophils % (A) 1 %; Eosinophils # (A) 0.2 k/uL (0-0.7); Eosinophils % (A) 5 %; HCT 37.5 % (39.0-53.0); HGB 12.8 gm/dL (13.0-17.5); Lymphocytes # (A) 0.9 k/uL (1.0-4.8); Lymphocytes % (A) 22 %; MCH 35.8 pg (25.0-35.0); MCHC 34.1 g/dL (31.0-37.0); MCV 105.1 fL (80.0-100.0); Macrocytosis Moderate; Monocytes # (A) 0.5 k/uL (0-1.0); Monocytes % (A) 12 %; Neutrophils # (A) 2.4 k/uL (1.3-7.7); Neutrophils % (A) 58 %; RBC 3.57 m/uL (4.30-5.90); WBC 4.2 k/uL (3.8-10.6)
[2023-06-06 11:37] LABS: Platelet Count 56 k/uL (150-450)
[2023-06-06 12:24] LABS: C Reactive Protein 5.2 mg/dL (<1.0)
--- NOTE | 2023-06-06 15:27 | P.PN ---
Subjective Progress Note Date: 06/06/23 77 years old male with past medical history of osteoarthritis, gout, fatty liver. 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 He denies chest pain or dyspnea. No change in urine or bowel habits. No fever. He denies smoking alcohol or illicit drugs History of fatty liver. Baseline blood pressure systolic BP 110-120. Currently blood pressure is 94/57, his mildly tachycardic at 77-110 but afebrile. WBC, hemoglobin are within the reference range. Platelet count is 51k (baseline is 30-40 K) Creatinine is elevated 1.7, compared to baseline 0.8-1.1. LFT, urinalysis were unremarkable CT of the brain and the cervical spine is negative for acute process Right foot x-rays show a displaced and comminuted fracture of the fifth proximal phalanx EKG showing atrial fibrillation with a rate of 127 Echocardiogram from 01/2023 showing ejection fraction of 55-60% Patient was started on Cardizem drip, IV vancomycin normal saline with 30 mL/h he was admitted with nephrology and cardiology consult 06/05/2023 patient presented to hospital with a fall patient did have injury to the right fifth finger with evidence of fracture on the x-ray and evidence of cellulitis involving the dorsum aspect of the right foot which is warm and tender to touch likely from gram-positive skin ethan, patient has not been on antibiotic in the recent past less risk for MRSA infection patient with renal insufficiency and high risk of nephrotoxicity from v ancomycin local culture growing MSSA and gram-negative bacilli with ID sensitivities pending patient to continue with Unasyn while waiting for the culture and monitor clinical course closely 06/06/2023 --patient seen and evaluated in room at bedside; denies having any fever or any chills, patient is breathing comfortably on room air, the patient denies having any chest pain shortness of breath did have occasional cough patient denies having any nausea vomiting diarrhea and abdominal pain. Patient denies any pain to the right foot. Labs reviewed reveal a WBC of 4.2, hemoglobin of 12.8 and platelet count of 56, sodium 137, potassium 4.2, BUN/creatinine of 24/1.0; D-dimer is elevated at 6.03; patient is saturating 98% on room air; reports no trouble breathing; we will order Doppler both lower extremities; further recommendations pending clinical course local culture growing MSSA and Proteus with intermediate sensitivities to Unasyn we will discontinue the Unasyn and start the patient cefepime hopefully transition to oral antibiotics on discharge Objective - Vital Signs Vital signs: Vital Signs Temp 97.7 F 06/06/23 08:45 Pulse 116 H 06/06/23 08:45 Resp 22 06/06/23 08:45 BP 91/60 06/06/23 08:45 Pulse Ox 95 06/06/23 08:45 FiO2 Intake & Output 06/05/23 06/06/23 06/06/23 18:59 06:59 18:59 Intake Total 898 240 118 Output Total 1000 850 100 Balance -102 -610 18 Intake: Oral 898 240 118 Output: Urine 1000 850 100 Other: Voiding Method Indwelling Catheter Toilet Incontinent # Voids 1 - Exam GENERAL: The patient is alert and oriented x3, not in any acute distress. Well d eveloped, well nourished. HEENT: Pupils are round and equally reacting to light. EOMI. No scleral icterus. No conjunctival pallor. Normocephalic, atraumatic. No pharyngeal erythema. No thyromegaly. CARDIOVASCULAR: S1 and S2 present. No murmurs, rubs, or gallops. PULMONARY: Chest is clear to auscultation, no wheezing , no crackles. ABDOMEN: Soft, nontender, nondistended, normoactive bowel sounds. No palpable organomegaly. MUSCULOSKELETAL: No joint swelling or deformity. -EXTREMITIES: No cyanosis, clubbing, or pedal edema. Right foot and leg swelling right and tender, more tenderness in the right small to especially with movemente. right proximal forearm NEUROLOGICAL: Gross neurological examination did not reveal any focal deficits. SKIN: No rashes. no petechiae. - Labs CBC & Chem 7: 06/06/23 09:12 06/06/23 09:48 Labs: Microbiology - Last 24 Hours (Table) 06/02/23 02:45 Blood Culture - Preliminary Blood 06/02/23 02:30 Blood Culture - Preliminary Blood 06/02/23 13:20 Gram Stain - Final Toe - Right First Wound Culture - Final Proteus vulgaris Staphylococcus aureus Assessment and Plan Assessment: right foot cellulitis Bilateral leg swelling Atrial fibrillation and RVR. 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 Continue same treatment. Continue with symptomatic treatment. Resume home medication. Monitor labs and vitals. DVT and GI prophylaxis. Further recommendations as per clinical course of the gavin hussein DVT prophylaxis:no Subcutaneous heparin for thrombocytopenia GI Prophylaxis: Pepcid PT/OT: Pending Prognosis is guarded
--- NOTE | 2023-06-06 15:44 | P.PN ---
Subjective Progress Note Date: 06/06/23 Principal diagnosis: Reason for follow-up is right foot cellulitis Patient is a 77-year-old male with a past medical history significant for atrial fibrillation osteoarthritis, chronic liver disease and CHF patient presenting to the hospital after the patient did have a fall Patient noticed to have a fracture to the right fifth toe and did have evidence of right foot cellulitis. On today's evaluation that is 06/06/2023, the patient remains to be afebrile, patient is breathing comfortably on room air and no need for supplemental oxygen, the patient denies chest pain shortness of breath or cough, patient denies abdominal pain and no nausea vomiting or diarrhea, denies any worsening pain to the right foot. Patient white count of 4.2, creatinine is 1.0 Objective - Vital Signs Vital signs: Vital Signs Temp 97.7 F 06/06/23 08:45 Pulse 100 06/06/23 11:30 Resp 20 06/06/23 11:30 BP 131/84 06/06/23 11:30 Pulse Ox 98 06/06/23 11:30 FiO2 Intake & Output 06/05/23 06/06/23 06/06/23 18:59 06:59 18:59 Intake Total 898 240 118 Output Total 1000 850 101 Balance -102 -610 17 Intake: Oral 898 240 118 Output: Urine 1000 850 101 Other: Voiding Method Indwelling Catheter Toilet Toilet Incontinent Incontinent # Voids 1 - Exam GENERAL DESCRIPTION: An elderly male lying in bed in no distress RESPIRATORY SYSTEM: Unlabored breathing , decreased breath sounds at bases HEART: S1 S2 regular rate and rhythm , ABDOMEN: Soft , no tenderness EXTREMITIES: Right foot currently dressed no drainage on the dressing - Labs CBC & Chem 7: 06/06/23 09:12 06/06/23 09:48 Labs: Abnormal Lab Results - Last 24 Hours (Table) 06/06/23 06/06/23 06/06/23 Range/Units 09:12 09:48 09:57 RBC 3.57 L (4.30-5.90) m/uL Hgb 12.8 L (13.0-17.5) gm/dL Hct 37.5 L (39.0-53.0) % MCV 105.1 H (80.0-100.0) fL MCH 35.8 H (25.0-35.0) pg RDW 16.0 H (11.5-15.5) % Plt Count 56 L (150-450) k/uL Lymphocytes # 0.9 L (1.0-4.8) k/uL D-Dimer 6.03 H (<0.60) mg/L FEU Chloride 108 H (98-107) mmol/L BUN 24 H (9-20) mg/dL Glucose 102 H (74-99) mg/dL Calcium 7.8 L (8.4-10.2) mg/dL C-Reactive Protein 5.2 H (<1.0) mg/dL Microbiology - Last 24 Hours (Table) 06/02/23 02:45 Blood Culture - Preliminary Blood 06/02/23 02:30 Blood Culture - Preliminary Blood Assessment and Plan (1) Cellulitis of right foot Current Visit: Yes Status: Acute Code(s): L03.115 - CELLULITIS OF RIGHT LOWER LIMB SNOMED Code(s): 95784227045235667 Plan: 1patient presented to hospital with a fall patient did have injury to the right fifth finger with evidence of fracture on the x-ray and evidence of cellulitis involving the dorsum aspect of the right foot which is warm and tender to touch likely from gram-positive skin ethan, patient has not been on antibiotic in the recent past less risk for MRSA infection 2patient with renal insufficiency and high risk of nephrotoxicity from vancomycin 3local culture growing MSSA and Proteus with intermediate sensitivities to Unasyn 4patient to continue with cefepime while inpatient hopefully transition to oral antibiotics on discharge Dictation was produced using [employer] dictation software. please excuse any grammatical, word or spelling errors. Time with Patient: Less than 30
[2023-06-07 07:34] LABS: Anisocytosis Slight; Basophils % (A) 1 %; Eosinophils # (A) 0.2 k/uL (0-0.7); Eosinophils % (A) 6 %; HCT 39.7 % (39.0-53.0); HGB 13.4 gm/dL (13.0-17.5); Lymphocytes # (A) 0.9 k/uL (1.0-4.8); Lymphocytes % (A) 24 %; MCH 35.2 pg (25.0-35.0); MCHC 33.6 g/dL (31.0-37.0); MCV 104.7 fL (80.0-100.0); Macrocytosis Moderate; Mean Platelet Volume 9.2; Monocytes # (A) 0.4 k/uL (0-1.0); Monocytes % (A) 10 %; Neutrophils # (A) 2.2 k/uL (1.3-7.7); Neutrophils % (A) 57 %; RBC 3.79 m/uL (4.30-5.90); RDW 16.1 % (11.5-15.5); WBC 3.8 k/uL (3.8-10.6)
[2023-06-07 07:57] LABS: Platelet Count 51 k/uL (150-450)
[2023-06-07 08:22] LABS: African American GFR (CKD) 84 (>60 ml/min/1.73 sqM); Anion Gap 2 mmol/L; Blood Urea Nitrogen 23 mg/dL (9-20); Calcium 8.1 mg/dL (8.4-10.2); Carbon Dioxide 28 mmol/L (22-30); Chloride 108 mmol/L (98-107); Glucose 88 mg/dL (74-99); Non-African American GFR(CKD) 73 (>60 ml/min/1.73 sqM); Potassium 4.5 mmol/L (3.5-5.1); Sodium 138 mmol/L (137-145)
--- NOTE | 2023-06-07 08:45 | P.PN ---
Subjective This is a pleasant 77 years old male with past medical history of osteoarthritis, gout, fatty liver. 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 He denies chest pain or dyspnea. No change in urine or bowel habits. No fever. He denies smoking alcohol or illicit drugs History of fatty liver. Baseline blood pressure systolic BP 110-120. Currently blood pressure is 94/57, his mildly tachycardic at 77-110 but afebrile. WBC, hemoglobin are within the reference range. Platelet count is 51k (baseline is 30-40 K) Creatinine is elevated 1.7, compared to baseline 0.8-1.1. LFT, urinalysis were unremarkable CT of the brain and the cervical spine is negative for acute process Right foot x-rays show a displaced and comminuted fracture of the fifth proximal phalanx EKG showing atrial fibrillation with a rate of 127 Echocardiogram from 01/2023 showing ejection fraction of 55-60% Patient was started on Cardizem drip, IV vancomycin normal saline with 30 mL/h he was admitted with nephrology and cardiology consult to 06/03/2023 Patient with known new complaints He is awake and alert His right foot cellulitis is only minimally better Isabel culture is growing presumptive staph. Antibiotics currently is on Unasyn. Patients with no signs or symptoms of sepsis. Creatinine trended down to 1.2, platelet significantly low at 39K, patient currently not on aspirin on anticoagulation or subcu heparin Patient is a known case of liver cirrhosis and renal ultrasound was negative for acute process and there is small nonobstructing renal calculus but there is evidence of dilated veins from portal hypertension which is expected and liver cirrhosis patient. Discontinue IV normal saline at 50 mL and resume home dose of Lasix His heart rate controlled for his A. fib and currently ranging between 60-90 06/07/2023 Patient still being treated for right foot cellulitis, now with also some purulent discharge. Once culture is growing MSSA and Proteus both sensitive to cephalosporin Patient is currently covered with cefepime per ID team Patient is still moderately tachycardic and tachypneic most likely secondary to his infection and sepsis However d-dimer is elevated, we need to rule out PE/DVT. Ultrasound of the leg is pending I discussed with the patient risks and benefits of PE and the test. Patient declines CTA of the chest for risk of nephrotoxicity but agrees to the barrel stave inspector scan which is ordered Creatinine is back to reference range 1.0. Platelet count still on the low side 51 therefore patient not on anticoagulation as risk is more than benefits. No subcutaneous heparin if her patient does not need. PT/OT recommended subacute rehab but patient declined Review of systems CONSTITUTIONAL: No fever, no malaise, no fatigue. HEENT: No recent visual problems or hearing problems. Denied any sore throat. CARDIOVASCULAR: No orthopnea, PND, no palpitations, no syncope. PULMONARY: No shortness of breath, no cough, no hemoptysis. Active Medications Generic Name Dose Route Start Last Admin Trade Name Freq PRN Reason Stop Dose Admin Albuterol/Ipratropium 3 ml 06/05/23 17:03 Ipratropium-Albuterol 3 Ml Neb INHALATION RT-QID PRN Shortness Of Breath Or Wheezing Albuterol/Ipratropium 3 ml 06/05/23 17:03 06/07/23 07:56 Ipratropium-Albuterol 3 Ml Neb INHALATION Not Given RT-QID YAZ Furosemide 20 mg 06/03/23 17:30 06/06/23 15:46 Furosemide 20 Mg Tab PO 20 mg W/SUPPER YAZ Administration Furosemide 40 mg 06/04/23 09:00 06/07/23 08:04 Furosemide 40 Mg Tab PO 40 mg DAILY YAZ Administration Cefepime HCl 2 gm/ Sodium 100 mls @ 25 mls/hr 06/05/23 16:00 06/07/23 08:04 Chloride IVPB 25 mls/hr Q8HR YAZ Administration Protocol Lactulose 20 gm 06/04/23 09:00 06/07/23 08:03 Lactulose 20 Gm/30 Ml Cup PO 20 gm DAILY YAZ Administration Magnesium Oxide 400 mg 06/04/23 10:15 06/07/23 08:04 Magnesium Oxide 400 Mg Tab PO 400 mg DAILY YAZ Administration Metoprolol Tartrate 25 mg 06/02/23 07:07 06/07/23 08:04 Metoprolol Tartrate 25 Mg Tab PO 25 mg BID YAZ Administration Naloxone HCl 0.2 mg 06/02/23 04:48 Naloxone 0.4 Mg/Ml 1 Ml Vial IV Q2M PRN Opioid Reversal Objective - Vital Signs Vital signs: Vital Signs Temp 98.1 F 06/07/23 08:00 Pulse 101 H 06/07/23 08:00 Resp 20 06/07/23 08:00 BP 101/64 06/07/23 08:00 Pulse Ox 99 06/07/23 08:00 FiO2 Intake & Output 06/06/23 06/07/23 06/07/23 18:59 06:59 18:59 Intake Total 236 Output Total 101 1000 Balance 135 -1000 Intake: Oral 236 Output: Urine 101 1000 Other: Voiding Method Toilet External Catheter Incontinent # Voids 1 # Bowel Movements 1 - Exam GENERAL: The patient is alert and oriented x3, not in any acute distress. Well d eveloped, well nourished. HEENT: Pupils are round and equally reacting to light. EOMI. No scleral icterus. No conjunctival pallor. Normocephalic, atraumatic. No pharyngeal erythema. No thyromegaly. CARDIOVASCULAR: S1 and S2 present. No murmurs, rubs, or gallops. PULMONARY: Chest is clear to auscultation, no wheezing , no crackles. ABDOMEN: Soft, nontender, nondistended, normoactive bowel sounds. No palpable organomegaly. MUSCULOSKELETAL: No joint swelling or deformity. -EXTREMITIES: No cyanosis, clubbing, or pedal edema. Right foot and leg swelling right and tender, more tenderness in the right small to especially with movemente. right proximal forearm NEUROLOGICAL: Gross neurological examination did not reveal any focal deficits. SKIN: No rashes. no petechiae. - Labs CBC & Chem 7: 06/07/23 07:09 06/07/23 07:09 Labs: Abnormal Lab Results - Last 24 Hours (Table) 06/06/23 06/06/23 06/06/23 Range/Units 09:12 09:48 09:57 RBC 3.57 L (4.30-5.90) m/uL Hgb 12.8 L (13.0-17.5) gm/dL Hct 37.5 L (39.0-53.0) % MCV 105.1 H (80.0-100.0) fL MCH 35.8 H (25.0-35.0) pg RDW 16.0 H (11.5-15.5) % Plt Count 56 L (150-450) k/uL Lymphocytes # 0.9 L (1.0-4.8) k/uL D-Dimer 6.03 H (<0.60) mg/L FEU Chloride 108 H (98-107) mmol/L BUN 24 H (9-20) mg/dL Glucose 102 H (74-99) mg/dL Calcium 7.8 L (8.4-10.2) mg/dL C-Reactive Protein 5.2 H (<1.0) mg/dL Procalcitonin (0.02-0.09) ng/mL 06/06/23 06/07/23 06/07/23 Range/Units 10:01 07:09 07:09 RBC 3.79 L (4.30-5.90) m/uL Hgb (13.0-17.5) gm/dL Hct (39.0-53.0) % MCV 104.7 H (80.0-100.0) fL MCH 35.2 H (25.0-35.0) pg RDW 16.1 H (11.5-15.5) % Plt Count 51 L (150-450) k/uL Lymphocytes # 0.9 L (1.0-4.8) k/uL D-Dimer (<0.60) mg/L FEU Chloride 108 H (98-107) mmol/L BUN 23 H (9-20) mg/dL Glucose (74-99) mg/dL Calcium 8.1 L (8.4-10.2) mg/dL C-Reactive Protein (<1.0) mg/dL Procalcitonin 0.15 H (0.02-0.09) ng/mL Assessment and Plan Assessment: right foot cellulitis Bilateral leg swelling mild tachycardia and tachypnea, most likely secondary to sepsis from cellulitis. Rule out clotting disease Atrial fibrillation and RVR. 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 Continue same treatment. Continue with symptomatic treatment. Resume home medication. Monitor labs and vitals. DVT and GI prophylaxis. Further recommendations as per clinical course of the patient DVT prophylaxis:no Subcutaneous heparin for thrombocytopenia GI Prophylaxis: Pepcid PT/OT: Pending Prognosis is guarded
--- NOTE | 2023-06-07 11:25 | P.PN ---
Subjective Patient is seen for follow-up for acute kidney injury. Renal function has improved. Serum creatinine staying at 1.0. No significant complaints. Objective - Vital Signs Vital signs: Vital Signs Temp 98.1 F 06/07/23 08:00 Pulse 120 H 06/07/23 08:00 Resp 20 06/07/23 08:00 BP 101/64 06/07/23 08:00 Pulse Ox 99 06/07/23 08:00 FiO2 Intake & Output 06/06/23 06/07/23 06/07/23 18:59 06:59 18:59 Intake Total 236 118 Output Total 101 1000 Balance 135 -1000 118 Intake: Oral 236 118 Output: Urine 101 1000 Other: Voiding Method Toilet External Catheter External Catheter Incontinent # Voids 1 # Bowel Movements 1 - Exam Patient is awake, comfortable, no acute distress Examination of the heart Examination of the lungs bilateral breath sounds are heard Abdomen is soft nontender Examination of lower extremity shows edema 2+ bilaterally with chronic skin changes 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 exam grossly intact - Labs CBC & Chem 7: 06/07/23 07:09 06/07/23 07:09 Labs: Abnormal Lab Results - Last 24 Hours (Table) 06/06/23 06/06/23 06/06/23 Range/Units 09:12 09:48 10:01 RBC 3.57 L (4.30-5.90) m/uL Hgb 12.8 L (13.0-17.5) gm/dL Hct 37.5 L (39.0-53.0) % MCV 105.1 H (80.0-100.0) fL MCH 35.8 H (25.0-35.0) pg RDW 16.0 H (11.5-15.5) % Plt Count 56 L (150-450) k/uL Lymphocytes # 0.9 L (1.0-4.8) k/uL Chloride (98-107) mmol/L BUN (9-20) mg/dL Calcium (8.4-10.2) mg/dL C-Reactive Protein 5.2 H (<1.0) mg/dL Procalcitonin 0.15 H (0.02-0.09) ng/mL 06/07/23 06/07/23 Range/Units 07:09 07:09 RBC 3.79 L (4.30-5.90) m/uL Hgb (13.0-17.5) gm/dL Hct (39.0-53.0) % MCV 104.7 H (80.0-100.0) fL MCH 35.2 H (25.0-35.0) pg RDW 16.1 H (11.5-15.5) % Plt Count 51 L (150-450) k/uL Lymphocytes # 0.9 L (1.0-4.8) k/uL Chloride 108 H (98-107) mmol/L BUN 23 H (9-20) mg/dL Calcium 8.1 L (8.4-10.2) mg/dL C-Reactive Protein (<1.0) mg/dL Procalcitonin (0.02-0.09) ng/mL Assessment and Plan Assessment: 1. Acute kidney injury secondary to ATN secondary to hemodynamic instability/hypotension. Creatinine 1.74 on admission -now 1.0 Baseline creatinine is 0.8 from January 2023. UA benign. No hydronephrosis noted on kidney ultrasound. Nonobstructive left renal stone noted. 2. A-fib with RVR maintained on Lopressor. Status post Cardizem drip. 3. Right foot cellulitis on antibiotics. No evidence of DVT. Wound culture positive for Staph aureus. 4. Lactic acidosis. Improved with IV fluids. Plan: Increase Lasix to 40 mg twice daily
--- NOTE | 2023-06-07 15:45 | US ---
EXAMINATION TYPE: US venous doppler duplex LE BI DATE OF EXAM: 06/07/2023 3:35 PM COMPARISON: 06/02/2019 CLINICAL INDICATION: Male, 77 years old with history of Elevated D-dimer; Elevated D Dimer. No hx of DVT. SIDE PERFORMED: Bilateral TECHNIQUE: The lower extremity deep venous system is examined utilizing real time linear array sonog miguel ángel with graded compression, doppler sonography and color-flow sonography. VESSELS IMAGED: Common Femoral Vein Deep Femoral Vein Greater Saphenous Vein * Femoral Vein Popliteal Vein Small Saphenous Vein * Proximal Calf Veins (* superficial vessels) Exam is limited due to patient body habitus and edema. Right Leg: No evidence of DVT. Left Leg: No evidence of DVT. Incidental note made of a right inguinal adenopathy IMPRESSION:
--- NOTE | 2023-06-07 17:33 | NM ---
EXAMINATION TYPE: NM pul vent and perfuse DATE OF EXAM: 06/07/2023 CLINICAL INDICATION: Male, 77 years old with history of high ddimer; Comparisons: 06/05/2023. TECHNIQUE: Utilizing inhalation of 68.8 mCi Tc 99m DTPA aerosol and intravenous injection of 5.3 mCi of Tc 99m MAA, ventilation and perfusion images are acquired post injection in multiple projections. FINDINGS: Normal radiotracer distribution is noted in the lungs. There is no evidence of mismatched defects. Cl umping of radiotracer. No wedge-shaped mismatched defects identified. Pulmonary hilum bilaterally possibly secondary to mixing technique. IMPRESSION: No evidence for pulmonary embolus.
[2023-06-07] MEDS: FUROSEMIDE 40 MG TAB PO SCH (18:19)
[2023-06-08 08:36] VITALS: BMI 39.7
[2023-06-08 09:37] VITALS: TEMP 97.4
--- NOTE | 2023-06-08 11:07 | P.PN ---
Subjective Patient is seen for follow-up for acute kidney injury. Renal function has improved. Serum creatinine staying at 1.0. No significant complaints. Objective - Vital Signs Vital signs: Vital Signs Temp 97.4 F L 06/08/23 08:00 Pulse 110 H 06/08/23 08:00 Resp 20 06/08/23 08:00 BP 104/69 06/08/23 08:00 Pulse Ox 95 06/08/23 08:00 FiO2 Intake & Output 06/07/23 06/08/23 06/08/23 18:59 06:59 18:59 Intake Total 476 360 Output Total 1000 250 Balance 476 -1000 110 Weight 133 kg Intake: Oral 476 360 Output: Urine 1000 250 Other: Voiding Method External Catheter External Catheter External Catheter # Voids 1 - Exam Patient is sleeping comfortable, no acute distress Examination of lower extremity shows edema 2+ bilaterally with chronic skin changes - Labs CBC & Chem 7: 06/07/23 07:09 06/07/23 07:09 Labs: Microbiology - Last 24 Hours (Table) 06/02/23 02:45 Blood Culture - Final Blood 06/02/23 02:30 Blood Culture - Final Blood Assessment and Plan Assessment: 1. Acute kidney injury secondary to ATN secondary to hemodynamic instability/h ypotension. Creatinine 1.74 on admission -now 1.0 Baseline creatinine is 0.8 from January 2023. UA benign. No hydronephrosis noted on kidney ultrasound. Nonobstructive left renal stone noted. 2. A-fib with RVR maintained on Lopressor. Status post Cardizem drip. 3. Right foot cellulitis on antibiotics. No evidence of DVT. Wound culture positive for Staph aureus. 4. Lactic acidosis. Improved with IV fluids. Plan: Continue with increased dose of Lasix.
[2023-06-08 12:05] VITALS: BP 106/63; PULSE 91; RESP 18
--- NOTE | 2023-06-08 13:13 | P.PN ---
Subjective Progress Note Date: 06/07/23 Principal diagnosis: Reason for follow-up is right foot cellulitis Patient is a 77-year-old male with a past medical history significant for atrial fibrillation osteoarthritis, chronic liver disease and CHF patient presenting to the hospital after the patient did have a fall Patient noticed to have a fracture to the right fifth toe and did have evidence of right foot cellulitis. On today's evaluation that is 06/07/2023, the patient continues to be afebrile, patient is breathing comfortably on room air, the patient denies chest pain shortness of breath and no significant cough, patient denies nausea no vomiting, no abdominal pain and no diarrhea. Denies pain to the right foot. The patient did have a white count of 3.8 and a creatinine 1.0 Objective - Vital Signs Vital signs: Vital Signs Temp 98.1 F 06/07/23 08:00 Pulse 120 H 06/07/23 08:00 Resp 20 06/07/23 08:00 BP 101/64 06/07/23 08:00 Pulse Ox 99 06/07/23 08:00 FiO2 Intake & Output 06/06/23 06/07/23 06/07/23 18:59 06:59 18:59 Intake Total 236 118 Output Total 101 1000 Balance 135 -1000 118 Intake: Oral 236 118 Output: Urine 101 1000 Other: Voiding Method Toilet External Catheter External Catheter Incontinent # Voids 1 # Bowel Movements 1 - Exam GENERAL DESCRIPTION: An elderly male lying in bed in no distress RESPIRATORY SYSTEM: Unlabored breathing , decreased breath sounds at bases HEART: S1 S2 regular rate and rhythm , ABDOMEN: Soft , no tenderness EXTREMITIES: Right foot currently dressed no drainage on the dressing - Labs CBC & Chem 7: 06/07/23 07:09 06/07/23 07:09 Labs: Abnormal Lab Results - Last 24 Hours (Table) 06/06/23 06/06/23 06/07/23 Range/Units 09:48 10:01 07:09 RBC 3.79 L (4.30-5.90) m/uL MCV 104.7 H (80.0-100.0) fL MCH 35.2 H (25.0-35.0) pg RDW 16.1 H (11.5-15.5) % Plt Count 51 L (150-450) k/uL Lymphocytes # 0.9 L (1.0-4.8) k/uL Chloride (98-107) mmol/L BUN (9-20) mg/dL Calcium (8.4-10.2) mg/dL C-Reactive Protein 5.2 H (<1.0) mg/dL Procalcitonin 0.15 H (0.02-0.09) ng/mL 06/07/23 Range/Units 07:09 RBC (4.30-5.90) m/uL MCV (80.0-100.0) fL MCH (25.0-35.0) pg RDW (11.5-15.5) % Plt Count (150-450) k/uL Lymphocytes # (1.0-4.8) k/uL Chloride 108 H (98-107) mmol/L BUN 23 H (9-20) mg/dL Calcium 8.1 L (8.4-10.2) mg/dL C-Reactive Protein (<1.0) mg/dL Procalcitonin (0.02-0.09) ng/mL Assessment and Plan (1) Cellulitis of right foot Current Visit: Yes Status: Acute Code(s): L03.115 - CELLULITIS OF RIGHT LOWER LIMB SNOMED Code(s): 48243232684781112 Plan: 1patient presented to hospital with a fall patient did have injury to the right fifth finger with evidence of fracture on the x-ray and evidence of cellulitis involving the dorsum aspect of the right foot which is warm and tender to touch likely from gram-positive skin ethan, patient has not been on antibiotic in the recent past less risk for MRSA infection 2patient with renal insufficiency and high risk of nephrotoxicity from vancomycin 3local culture growing MSSA and Proteus with intermediate sensitivities to Unasyn 4patient seem to have shown clinical improvement as far as right foot cellulitis is concerned and we will continue with cefepime while inpatient hopefully transition to oral antibiotics on discharge Dictation was produced using [employer] dictation software. please excuse any grammatical, word or spelling errors. Time with Patient: Less than 30
--- NOTE | 2023-06-08 13:14 | P.PN ---
Subjective Progress Note Date: 06/08/23 Principal diagnosis: Reason for follow-up is right foot cellulitis Patient is a 77-year-old male with a past medical history significant for atrial fibrillation osteoarthritis, chronic liver disease and CHF patient presenting to the hospital after the patient did have a fall Patient noticed to have a fracture to the right fifth toe and did have evidence of right foot cellulitis. On today's evaluation that is 06/08/2023, the patient remains to be afebrile, patient is currently breathing comfortably on room air, the patient denies chest pain or cough, patient denies abdominal pain, no nausea no vomiting or any diarrhea.Patient mention feeling better and insisting on going home. No lab draw today Objective - Vital Signs Vital signs: Vital Signs Temp 97.4 F L 06/08/23 08:00 Pulse 91 06/08/23 11:41 Resp 18 06/08/23 11:41 BP 106/63 06/08/23 11:41 Pulse Ox 94 L 06/08/23 11:41 FiO2 Intake & Output 06/07/23 06/08/23 06/08/23 18:59 06:59 18:59 Intake Total 476 360 Output Total 1000 250 Balance 476 -1000 110 Weight 133 kg Intake: Oral 476 360 Output: Urine 1000 250 Other: Voiding Method External Catheter External Catheter External Catheter # Voids 1 - Exam GENERAL DESCRIPTION: An elderly male lying in bed in no distress RESPIRATORY SYSTEM: Unlabored breathing , decreased breath sounds at bases HEART: S1 S2 regular rate and rhythm , ABDOMEN: Soft , no tenderness EXTREMITIES: Right foot swelling has significantly improved no drainage - Labs CBC & Chem 7: 06/07/23 07:09 06/07/23 07:09 Labs: Microbiology - Last 24 Hours (Table) 06/02/23 02:45 Blood Culture - Final Blood 06/02/23 02:30 Blood Culture - Final Blood Assessment and Plan (1) Cellulitis of right foot Current Visit: Yes Status: Acute Code(s): L03.115 - CELLULITIS OF RIGHT LOWER LIMB SNOMED Code(s): 06441339856833538 Plan: 1patient presented to hospital with a fall patient did have injury to the right fifth finger with evidence of fracture on the x-ray and evidence of cellulitis involving the dorsum aspect of the right foot which is warm and tender to touch likely from gram-positive skin ethan, patient has not been on antibiotic in the recent past less risk for MRSA infection 2patient with renal insufficiency and high risk of nephrotoxicity from vancomycin 3local culture growing MSSA and Proteus with intermediate sensitivities to Unasyn 4patient seem to have shown clinical improvement as far as right foot cellulitis is concerned 5-we will continue with cefepime while inpatient hopefully transition to oral oral Cipro and Keflex x 7 days on discharge Dictation was produced using [employer] dictation software. please excuse any grammatical, word or spelling errors. Time with Patient: Less than 30
--- NOTE | 2023-06-08 19:27 | P.DS ---
Providers Date of admission: 06/02/23 04:50 Attending physician: Jie Welch Consults: 06/02/23 04:48 Consult Physician Urgent Consulting Provider: Marco A Ascencio Consult Reason/Comments: CHASE Do you want consulting provider notified?: Yes, Notify in am 06/02/23 09:00 Consult Physician Routine Consulting Provider: Maura Jacinto Consult Reason/Comments: Right foot cellulitis Do you want consulting provider notified?: Yes Primary care physician: Mariana Chu Hospital Course: Diagnoses: right foot cellulitis, improved Bilateral leg swelling, improved mild tachycardia and tachypnea, most likely secondary to sepsis from cellulitis. clotting disease DVT/PE has been ruled out Atrial fibrillation and RVR. 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 Patient presents to the hospital because he fell on his way to the bathroom without feeling dizzy or lose consciousness. Patient was found to have sepsis secondary to right foot cellulitis and he was treated with IV antibiotic, infectious diseases disease steam hammer operator and mobility developer evaluated the patient for acute kidney injury with creatinine back to reference range upon discharge at 1.0. Patient also with A. fib and RVR, rate controlled, steam hammer operator has cleared the patient for discharge. Patient is chronic thrombocytopenia with platelet counts an average at 51k On the day of discharge patient denies chest pain or dyspnea. Denies any new symptom. Patient feels ready to be discharged today. Physical therapist recommended subacute rehab, patient was adamant to go home, risks benefits and alternatives are explained. Patient is high-risk for more infection and/or fall and complications. Patient will be discharged with home health care but patient declined. Patient was cleared for discharge by all consultants including steam hammer operator, mobility developer, infectious disease teams. Patient will be discharged on oral Keflex and Cipro 7 days per ID team recommendation and oral Lasix 40 mg twice daily Problems and management plan were discussed with the patient and he verbalized understanding and acceptance Patient was found stable and can be discharged home in guarded prognosis however he needs follow-up as an outpatient. Patient was instructed to follow up with PCP Dr. Chu within one week and patient agrees Patient was instructed to follow up with IV clinic in 1 week after discharge and steam hammer operator in 2 weeks after discharge and mobility developer in 2 weeks after discharge Physical exam Gen: patient is a AAOx3, no distress CVS: S1-S2, RRR, no murmur Lungs: B/L CTA, no wheezing Abdomen: soft, no distention, no tenderness, positive bowel sounds -Extremity: no leg edema or induration. Right foot cellulitis significantly improved with Time spent more than 35 minutes Patient Condition at Discharge: Poor Plan - Discharge Summary Discharge Rx Participant: No New Discharge Prescriptions: New Furosemide [Lasix] 40 mg PO BID@0900,1600 #60 tab Magnesium Oxide [Mag-Ox] 400 mg PO DAILY 10 Days #10 tab Cephalexin [Keflex] 500 mg PO Q8HR 7 Days #21 cap Ciprofloxacin HCl [Cipro] 500 mg PO Q12HR 7 Days #14 tab Continue Metoprolol Tartrate 25 mg PO BID Potassium Chloride ER [K-Dur 20] 20 meq PO DAILY Lactulose [Cephulac] 20 gm PO DAILY Discontinued Furosemide [Lasix] 40 mg PO DAILY Furosemide [Lasix] 20 mg PO W/SUPPER Discharge Medication List Lactulose [Cephulac] 20 gm PO DAILY 06/02/23 [History] Metoprolol Tartrate 25 mg PO BID 06/02/23 [History] Potassium Chloride ER [K-Dur 20] 20 meq PO DAILY 06/02/23 [History] Cephalexin [Keflex] 500 mg PO Q8HR 7 Days #21 cap 06/08/23 [Rx] Ciprofloxacin HCl [Cipro] 500 mg PO Q12HR 7 Days #14 tab 06/08/23 [Rx] Furosemide [Lasix] 40 mg PO BID@0900,1600 #60 tab 06/08/23 [Rx] Magnesium Oxide [Mag-Ox] 400 mg PO DAILY 10 Days #10 tab 06/08/23 [Rx] Follow up Appointment(s)/Referral(s): Mariana Chu MD [Primary Care Provider] - 1-2 days (Call and make daniel) Maura Jacinto MD [STAFF PHYSICIAN] - 1 Week (Call and make daniel) [facility] Visiting Nurse, [NON-STAFF] - (Visiting nurse, will follow up with you) Patient Instructions/Handouts: A-fib (Atrial Fibrillation) (DC), Acute Kidney Injury (DC), Cellulitis (GEN) Activity/Diet/Wound Care/Special Instructions: heart healthy diet activity is restricted till you see your doctor Discharge Disposition: HOME WITH HOME HEALTH SERVICES
== END 2023-06-08 14:45 | disposition home health service (06) | DRG 871 ==
LOC: EC 01:39 → 3SCARD 04:50
PROVIDERS: ADMIT Hospitalist; ATTEND Hospitalist
DX: A41.59 Other Gram-negative sepsis (principal); N17.0 Acute kidney failure with tubular necrosis; L03.115 Cellulitis of right lower limb; E87.20 Acidosis, unspecified; D68.9 Coagulation defect, unspecified; A41.01 Sepsis due to Methicillin susceptible Staphylococcus aureus; B95.61 Methicillin susceptible Staphylococcus aureus infection as the cause of diseases classified elsewhere; Z28.21 Immunization not carried out because of patient refusal; K74.60 Unspecified cirrhosis of liver; I50.9 Heart failure, unspecified; E86.1 Hypovolemia; D72.819 Decreased white blood cell count, unspecified; D69.6 Thrombocytopenia, unspecified; K76.0 Fatty (change of) liver, not elsewhere classified; R65.20 Severe sepsis without septic shock; M10.9 Gout, unspecified; S92.531A Displaced fracture of distal phalanx of right lesser toe(s), initial encounter for closed fracture; W19.XXXA Unspecified fall, initial encounter; M19.90 Unspecified osteoarthritis, unspecified site; R29.6 Repeated falls; I95.9 Hypotension, unspecified; I44.0 Atrioventricular block, first degree; I48.91 Unspecified atrial fibrillation; Z79.899 Other long term (current) drug therapy
CPT/HCPCS: 36415; 51702; 70450; 71045; 72125; 76770; 78582; 80048; 80053; 81003; 82140; 83605; 83735; 83880; 84145; 84443; 85025; 85379; 85652; 86140; 87040; 87070; 87077; 87186; 87205; 93005; 93970; 96361; 96365; 96366; 96367; 96368; 96375; 99285

== ENCOUNTER 2023-07-03 02:59 | Inpatient (IN) | payer MEDICARE ==
[2023-07-03 03:25] LABS: Glucose,Whole Blood 86 mg/dL (70-110)
[2023-07-03 03:42] LABS: INR 1.9 (<1.2); Partial Thromboplastin Time 36.7 sec (22.0-30.0); Prothrombin Time 18.9 sec (10.0-12.5)
[2023-07-03 03:45] LABS: ALT 23 U/L (4-49); AST 55 U/L (17-59); African American GFR (CKD) 26 (>60 ml/min/1.73 sqM); Albumin 2.5 g/dL (3.5-5.0); Alcohol <10 mg/dL; Alkaline Phosphatase 144 U/L (38-126); Anion Gap 4 mmol/L; Blood Urea Nitrogen 66 mg/dL (9-20); Calcium 8.8 mg/dL (8.4-10.2); Carbon Dioxide 26 mmol/L (22-30); Chloride 114 mmol/L (98-107); Glucose 100 mg/dL (74-99); HCT 42.7 % (39.0-53.0); HGB 13.9 gm/dL (13.0-17.5); Hypochromasia Slight; MCH 34.6 pg (25.0-35.0); MCHC 32.5 g/dL (31.0-37.0); MCV 106.7 fL (80.0-100.0); Macrocytosis Marked; Magnesium 2.1 mg/dL (1.6-2.3); Mean Platelet Volume 10.3; Non-African American GFR(CKD) 22 (>60 ml/min/1.73 sqM); Potassium 4.4 mmol/L (3.5-5.1); RDW 15.3 % (11.5-15.5); Sodium 144 mmol/L (137-145); Total Bilirubin 4.5 mg/dL (0.2-1.3); Total Protein 6.5 g/dL (6.3-8.2); WBC 4.4 k/uL (3.8-10.6)
[2023-07-03 03:54] LABS: NT-Pro-B-Type Natriuretic Pept 4270 pg/mL
[2023-07-03 04:02] LABS: Lactic Acid, Venous 2.1 mmol/L (0.7-2.0)
[2023-07-03 04:03] LABS: Eosinophils # (M) 0.13 k/uL (0-0.7); Lymphocytes # (M) 1.14 k/uL (1.0-4.8); Monocytes # (M) 0.75 k/uL (0-1.0); Neutrophils # (M) 2.38 k/uL (1.3-7.7); Neutrophils % (M) 54 %; Nucleated Red Blood Cells 0 /100 WBC (0-0); Total Cells Counted 100
[2023-07-03 04:04] LABS: Platelet Count 29 k/uL (150-450)
[2023-07-03 04:40] LABS: Appearance,Urine Clear (Clear); Bilirubin,Urine Negative (Negative); Blood,Urine Moderate (Negative); Color,Urine Yellow; Glucose,Urine (UA) Negative (Negative); Hyaline Casts,Urine 17 /lpf (0-2); Ketones,Urine Negative (Negative); Leukocyte Esterase,Urine Negative (Negative); Mucus,Urine Rare /hpf; Nitrite,Urine Negative (Negative); Protein,Urine Negative (Negative); RBC,Urine 30 /hpf (0-5); Specific Gravity,Urine 1.009 (1.001-1.035); Squamous Epithelial Cell,Urine <1 /hpf (0-4); Urobilinogen,Urine <2.0 mg/dL (<2.0); WBC,Urine 1 /hpf (0-5)
[2023-07-03] MEDS: SODIUM CHLORIDE 0.9% 500 ML 500 ML IV STA (04:58)
--- NOTE | 2023-07-03 05:32 | XR ---
EXAMINATION TYPE: XR chest 1V portable DATE OF EXAM: 07/03/2023 COMPARISON: Chest x-ray June 05, 2023 HISTORY: Weakness TECHNIQUE: Single frontal view of the chest is obtained. FINDINGS: Increased opacity throughout the right lung is seen. And there is central vascular congest ion and worsening left basilar opacity. Silhouetting of both hemidiaphragms now seen. Cardiac silhou ette size remains within normal limits. The osseous structures are intact. Surgical clips near and ju st below diaphragm are partially imaged. IMPRESSION: More prominent at least small bilateral pleural effusions and [id number] central v ascular congestion. Findings consistent with fluid overload state. Areas of underlying acute infiltra te cannot be excluded.
--- NOTE | 2023-07-03 05:33 | CT ---
EXAMINATION TYPE: CT brain wo con DATE OF EXAM: 07/03/2023 HISTORY: Increased weakness x24 hours CT DLP: 1242.4 mGycm. Automated Exposure Control for Dose Reduction was Utilized. TECHNIQUE: CT scan of the head is performed without contrast. COMPARISON: CT brain June 02, 2023. FINDINGS: There is no acute intracranial hemorrhage or midline shift identified. There is mild to m oderate diffuse ventricular and sulcal prominence redemonstrated. There is moderate low-attenuation in the deep and periventricular white matter redemonstrated. The globes are intact and the visualize d sinuses are clear. Nasal septum remains deviated to left of midline. IMPRESSION: No acute intracranial hemorrhage or midline shift. There is mild to moderate diffuse ag e-related cerebral atrophy and moderate chronic small vessel ischemic change redemonstrated. No sign ificant change from prior.
[2023-07-03] MEDS: FUROSEMIDE 10 MG/ML 10 ML VIAL IV STA (05:36)
[2023-07-03] MEDS: LACTULOSE 20 GM/30 ML CUP PO SCH (05:40)
[2023-07-03] MEDS ORDERED: NALOXONE 0.4 MG/ML 1 ML VIAL IV PRN (05:44)
--- NOTE | 2023-07-03 05:59 | ED ---
General Adult HPI - General Chief complaint: Weakness Stated complaint: Weakness Time Seen by Provider: 07/03/23 03:20 Source: patient, EMS, RN notes reviewed, old records reviewed Mode of arrival: EMS - History of Present Illness Initial comments: Patient presents for altered mental status as well as weakness. Has been ongoing for few days. Apparently patient also fell. Is currently alert and oriented x 2. Denies any acute complaints at this time. Unknown if he is takin g his medications. Is chronically on lactulose as well as Lasix. Appears volume overloaded. Presents for further evaluation. Denies fevers, chills, cough, chest pain, shortness of breath, abdominal pain, nausea, vomiting, extremity pain. - Related Data Home Medications Medication Instructions Recorded Confirmed Lactulose [Cephulac] 20 gm PO DAILY 06/02/23 06/02/23 Metoprolol Tartrate 25 mg PO BID 06/02/23 06/02/23 Potassium Chloride ER [K-Dur 20] 20 meq PO DAILY 06/02/23 06/02/23 Previous Rx's Medication Instructions Recorded Cephalexin [Keflex] 500 mg PO Q8HR 7 Days #21 cap 06/08/23 Ciprofloxacin HCl [Cipro] 500 mg PO Q12HR 7 Days #14 tab 06/08/23 Furosemide [Lasix] 40 mg PO BID@0900,1600 #60 tab 06/08/23 Magnesium Oxide [Mag-Ox] 400 mg PO DAILY 10 Days #10 tab 06/08/23 Allergies Allergy/AdvReac Type Severity Reaction Status Date / Time No Known Allergies Allergy Verified 06/02/23 07:25 Review of Systems ROS Statement: Those systems with pertinent positive or pertinent negative responses have been documented in the HPI. Review of Systems: CONST: Denies fever EYES: Denies blurry vision ENT: Denies nasal congestion C/V: Denies Chest pain RESP: Denies shortness of breath GI: Denies abdominal pain : Denies dysuria SKIN: Denies rash. MSK: Denies joint pain. NEURO: Denies headache ROS Other: All systems not noted in ROS Statement are negative. Past Medical History Past Medical History: Atrial Fibrillation, Osteoarthritis (OA) Additional Past Medical History / Comment(s): GOUT,. FATTY LIVER-50% DAMAGE History of Any Multi-Drug Resistant Organisms: None Reported Past Surgical History: Appendectomy, Hernia Repair, Joint Replacement, Orthopedic Surgery Additional Past Surgical History / Comment(s): right knee replacement, right arm surgery, COLONOSCOPY, EGD Past Anesthesia/Blood Transfusion Reactions: No Reported Reaction Past Psychological History: No Psychological Hx Reported Smoking Status: Never smoker Past Alcohol Use History: None Reported Past Drug Use History: None Reported - Past Family History Mother Family Medical History: Cancer General Exam - General Exam Comments Initial Comments: General: Appears in no acute distress. HEAD: Normal with no signs of head trauma. EYES: PERRLA, EOMI, conjunctiva normal, no discharge. ENT: Hearing grossly intact, normal oropharynx. RESPIRATORY: Mildly coarse breath sounds bilaterally with no significant wheeze or rhonchi. No hypoxia. C/V: Regular rate and rhythm. S1 and S2 auscultated, significant bilateral lower extremity edema veronika, peripheral pulses 2+ and intact throughout ABD: Abd is soft, nontender, nondistended EXT: Normal range of motion, no obvious deformity SKIN: No rashes or lesions observed on exposed skin. NEURO: Alert and oriented x 2. No obvious focal deficits. Course Vital Signs 07/03/23 07/03/23 07/03/23 03:00 03:56 04:59 Temperature 97.1 F L Pulse Rate 111 H 109 H 120 H Respiratory 20 17 20 Rate Blood Pressure 118/87 95/78 123/90 O2 Sat by Pulse 95 95 94 L Oximetry 07/03/23 07/03/23 05:00 06:00 Temperature Pulse Rate 128 H 114 H Respiratory 19 20 Rate Blood Pressure 114/94 111/81 O2 Sat by Pulse 95 95 Oximetry Medical Decision Making - Medical Decision Making Was pt. sent in by a medical professional or institution (, PA, REST RO[employer], urgent care, hospital, or detention...) When possible be specific @ -No Did you speak to anyone other than the patient for history (EMS, parent, family, police, friend...)? What history was obtained from this source @ -No Did you review nursing and triage notes (agree or disagree)? Why? @ -I reviewed and agree with nursing and triage notes Were old charts reviewed (outside hosp., previous admission, EMS record, old EKG, old radiological studies, urgent care reports/EKG's, detention records)? Report findings @ -Old charts reviewed Differential Diagnosis (chest pain, altered mental status, abdominal pain women, abdominal pain men, vaginal bleeding, weakness, fever, dyspnea, syncope, headache, dizziness, GI bleed, back pain, seizure, CVA, palpatations, mental health, musculoskeletal)? @ -Differential Weakness: Hypoglycemia, shock, sepsis, hyponatremia, anemia, infection, SD, ETOH, adverse medicine reaction, overdose, stroke, this is not meant to be an all-inclusive list. EKG interpreted by me (3pts min.). @ -As above X-rays interpreted by me (1pt min.). @ -Chest x-ray reveals pleural effusions and bilateral pulmonary vascular congestion CT interpreted by me (1pt min.). @ -CT brain reveals no obvious acute intracranial process. U/S interpreted by me (1pt. min.). @ -None done What testing was considered but not performed or refused? (CT, X-rays, U/S, labs)? Why? @ -None What meds were considered but not given or refused? Why? @ -None Did you discuss the management of the patient with other professionals (professionals i.e. , PA, [employer], lab, RT, psych nurse, outreach and education social worker, netezza developer, teacher, project control officer, horse stud manager)? Give summary @ -Discussed with admitting physician, Dr. Jasso who accepted the admission. Was smoking cessation discussed for >3mins.? @ -No Was critical care preformed (if so, how long)? @ -No Were there social determinants of health that impacted care today? How? (Homelessness, low income, unemployed, alcoholism, drug addiction, transportation, low edu. Level, literacy, decrease access to med. care, care home, rehab)? @ -No Was there de-escalation of care discussed even if they declined (Discuss DNR or withdrawal of care, Hospice)? DNR status @ -No What co-morbidities impacted this encounter? (DM, HTN, Smoking, COPD, CAD, Cancer, CVA, ARF, Chemo, Hep., AIDS, mental health diagnosis, sleep apnea, morbid obesity)? @ -CHF, chronic elevated ammonia Was patient admitted / discharged? Hospital course, mention meds given and route, prescriptions, significant lab abnormalities, going to OR and other pertinent info. @ -Based on patient's presentation and physical exam, we will obtain altered mental status and weakness with workup. Vital signs are currently within acceptable limits. EKG showed no signs of acute ischemia. Imaging remarkable for findings consistent with CHF exacerbation. Patient's laboratory studies remarkable for a slightly elevated troponin of 0.068. BNP is also elevated to 4200. Ammonia is elevated to 146. Lactic acid slightly elevated to 2.1. Patient also has an CHASE with a creatinine of 2.68. I do suspect possible cardiorenal syndrome. On reevaluation, I discussed results with the patient. Exam is unchanged. I do have my suspicions as to whether or not he is actually taking his home medications of lactulose as well as Lasix. We will start the patient on IV Lasix as well as start 4 times daily dosing of lactulose. Patient in agreement with this plan. Will continue to monitor his current presentation and symptoms. He will be admitted for cardiology evaluation. Troponin elevation that is slight is likely secondary to CHF. He will be given a dose of aspirin. I spoke with the admitting team, Dr. Jasso of [facility] who accepted the admission. Patient's A-fib intermittently will become elevated. Unknown if he was compliant with his medications. I will give him an early dose of his metoprolol at this time. At rest, patient's heart rate is typically around 100 bpm. Undiagnosed new problem with uncertain prognosis? @ -No Drug Therapy requiring intensive monitoring for toxicity (Heparin, Nitro, Insulin, Cardizem)? @ -No Were any procedures done? @ -No Diagnosis/symptom? @ -Weakness, confusion, hyperammonemia, CHF exacerbation, elevated troponin Acute, or Chronic, or Acute on Chronic? @ -Acute Uncomplicated (without systemic symptoms) or Complicated (systemic symptoms)? @ -Comp Side effects of treatment? @ -No Exacerbation, Progression, or Severe Exacerbation? @ -No Poses a threat to life or bodily function? How? (Chest pain, USA, SD, pneumonia, PE, COPD, DKA, ARF, appy, cholecystitis, CVA, Diverticulitis, Homicidal, Suicidal, threat to staff... and all critical care pts) @ -Yes - Lab Data Result diagrams: 07/03/23 03:26 07/03/23 03:26 Lab Results 07/03/23 07/03/23 07/03/23 Range/Units 03:23 03:26 03:26 WBC 4.4 (3.8-10.6) k/uL RBC 4.00 L (4.30-5.90) m/uL Hgb 13.9 (13.0-17.5) gm/dL Hct 42.7 (39.0-53.0) % MCV 106.7 H (80.0-100.0) fL MCH 34.6 (25.0-35.0) pg MCHC 32.5 (31.0-37.0) g/dL RDW 15.3 (11.5-15.5) % Plt Count 29 L (150-450) k/uL MPV 10.3 Neutrophils % (Manual) 54 % Lymphocytes % (Manual) 26 % Monocytes % (Manual) 17 % Eosinophils % (Manual) 3 % Neutrophils # (Manual) 2.38 (1.3-7.7) k/uL Lymphocytes # (Manual) 1.14 (1.0-4.8) k/uL Monocytes # (Manual) 0.75 (0-1.0) k/uL Eosinophils # (Manual) 0.13 (0-0.7) k/uL Nucleated RBCs 0 (0-0) /100 WBC Manual Slide Review Performed Hypochromasia Slight Macrocytosis Marked A PT 18.9 H (10.0-12.5) sec INR 1.9 H (<1.2) APTT 36.7 H (22.0-30.0) sec Sodium (137-145) mmol/L Potassium (3.5-5.1) mmol/L Chloride (98-107) mmol/L Carbon Dioxide (22-30) mmol/L Anion Gap mmol/L BUN (9-20) mg/dL Creatinine (0.66-1.25) mg/dL Est GFR (CKD-EPI)AfAm (>60 ml/min/1.73 sqM) Est GFR (CKD-EPI)NonAf (>60 ml/min/1.73 sqM) Glucose (74-99) mg/dL POC Glucose (mg/dL) 86 (70-110) mg/dL POC Glu Oral Hygienist ID Osmel Silva Lactic Ac Sepsis Rflx Plasma Lactic Acid Jarret (0.7-2.0) mmol/L Calcium (8.4-10.2) mg/dL Magnesium (1.6-2.3) mg/dL Total Bilirubin (0.2-1.3) mg/dL AST (17-59) U/L ALT (4-49) U/L Alkaline Phosphatase (38-126) U/L Ammonia (<30) umol/L Troponin I (0.000-0.034) ng/mL NT-Pro-B Natriuret Pep pg/mL Total Protein (6.3-8.2) g/dL Albumin (3.5-5.0) g/dL Urine Color Urine Appearance (Clear) Urine pH (5.0-8.0) Ur Specific Kimball (1.001-1.035) Urine Protein (Negative) Urine Glucose (UA) (Negative) Urine Ketones (Negative) Urine Blood (Negative) Urine Nitrite (Negative) Urine Bilirubin (Negative) Urine Urobilinogen (<2.0) mg/dL Ur Leukocyte Esterase (Negative) Urine RBC (0-5) /hpf Urine WBC (0-5) /hpf Ur Squamous Epith Cells (0-4) /hpf Hyaline Casts (0-2) /lpf Urine Mucus (None) /hpf Serum Alcohol mg/dL Influenza Type A (PCR) (Not Detectd) Influenza Type B (PCR) (Not Detectd) RSV (PCR) (Not Detectd) SARS-CoV-2 (PCR) (Not Detectd) 07/03/23 07/03/23 07/03/23 Range/Units 03:26 03:26 03:26 WBC (3.8-10.6) k/uL RBC (4.30-5.90) m/uL Hgb (13.0-17.5) gm/dL Hct (39.0-53.0) % MCV (80.0-100.0) fL MCH (25.0-35.0) pg MCHC (31.0-37.0) g/dL RDW (11.5-15.5) % Plt Count (150-450) k/uL MPV Neutrophils % (Manual) % Lymphocytes % (Manual) % Monocytes % (Manual) % Eosinophils % (Manual) % Neutrophils # (Manual) (1.3-7.7) k/uL Lymphocytes # (Manual) (1.0-4.8) k/uL Monocytes # (Manual) (0-1.0) k/uL Eosinophils # (Manual) (0-0.7) k/uL Nucleated RBCs (0-0) /100 WBC Manual Slide Review Hypochromasia Macrocytosis PT (10.0-12.5) sec INR (<1.2) APTT (22.0-30.0) sec Sodium 144 (137-145) mmol/L Potassium 4.4 (3.5-5.1) mmol/L Chloride 114 H (98-107) mmol/L Carbon Dioxide 26 (22-30) mmol/L Anion Gap 4 mmol/L BUN 66 H (9-20) mg/dL Creatinine 2.68 H (0.66-1.25) mg/dL Est GFR (CKD-EPI)AfAm 26 (>60 ml/min/1.73 sqM) Est GFR (CKD-EPI)NonAf 22 (>60 ml/min/1.73 sqM) Glucose 100 H (74-99) mg/dL POC Glucose (mg/dL) (70-110) mg/dL POC Glu Oral Hygienist ID Lactic Ac Sepsis Rflx Plasma Lactic Acid Jarret 2.1 H* (0.7-2.0) mmol/L Calcium 8.8 (8.4-10.2) mg/dL Magnesium 2.1 (1.6-2.3) mg/dL Total Bilirubin 4.5 H (0.2-1.3) mg/dL AST 55 (17-59) U/L ALT 23 (4-49) U/L Alkaline Phosphatase 144 H (38-126) U/L Ammonia 162 H (<30) umol/L Troponin I 0.068 H* (0.000-0.034) ng/mL NT-Pro-B Natriuret Pep 4270 pg/mL Total Protein 6.5 (6.3-8.2) g/dL Albumin 2.5 L (3.5-5.0) g/dL Urine Color Urine Appearance (Clear) Urine pH (5.0-8.0) Ur Specific Kimball (1.001-1.035) Urine Protein (Negative) Urine Glucose (UA) (Negative) Urine Ketones (Negative) Urine Blood (Negative) Urine Nitrite (Negative) Urine Bilirubin (Negative) Urine Urobilinogen (<2.0) mg/dL Ur Leukocyte Esterase (Negative) Urine RBC (0-5) /hpf Urine WBC (0-5) /hpf Ur Squamous Epith Cells (0-4) /hpf Hyaline Casts (0-2) /lpf Urine Mucus (None) /hpf Serum Alcohol <10 mg/dL Influenza Type A (PCR) (Not Detectd) Influenza Type B (PCR) (Not Detectd) RSV (PCR) (Not Detectd) SARS-CoV-2 (PCR) (Not Detectd) 07/03/23 07/03/23 07/03/23 Range/Units 03:26 04:03 04:31 WBC (3.8-10.6) k/uL RBC (4.30-5.90) m/uL Hgb (13.0-17.5) gm/dL Hct (39.0-53.0) % MCV (80.0-100.0) fL MCH (25.0-35.0) pg MCHC (31.0-37.0) g/dL RDW (11.5-15.5) % Plt Count (150-450) k/uL MPV Neutrophils % (Manual) % Lymphocytes % (Manual) % Monocytes % (Manual) % Eosinophils % (Manual) % Neutrophils # (Manual) (1.3-7.7) k/uL Lymphocytes # (Manual) (1.0-4.8) k/uL Monocytes # (Manual) (0-1.0) k/uL Eosinophils # (Manual) (0-0.7) k/uL Nucleated RBCs (0-0) /100 WBC Manual Slide Review Hypochromasia Macrocytosis PT (10.0-12.5) sec INR (<1.2) APTT (22.0-30.0) sec Sodium (137-145) mmol/L Potassium (3.5-5.1) mmol/L Chloride (98-107) mmol/L Carbon Dioxide (22-30) mmol/L Anion Gap mmol/L BUN (9-20) mg/dL Creatinine (0.66-1.25) mg/dL Est GFR (CKD-EPI)AfAm (>60 ml/min/1.73 sqM) Est GFR (CKD-EPI)NonAf (>60 ml/min/1.73 sqM) Glucose (74-99) mg/dL POC Glucose (mg/dL) (70-110) mg/dL POC Glu Oral Hygienist ID Lactic Ac Sepsis Rflx Y Plasma Lactic Acid Jarret (0.7-2.0) mmol/L Calcium (8.4-10.2) mg/dL Magnesium (1.6-2.3) mg/dL Total Bilirubin (0.2-1.3) mg/dL AST (17-59) U/L ALT (4-49) U/L Alkaline Phosphatase (38-126) U/L Ammonia (<30) umol/L Troponin I (0.000-0.034) ng/mL NT-Pro-B Natriuret Pep pg/mL Total Protein (6.3-8.2) g/dL Albumin (3.5-5.0) g/dL Urine Color Yellow Urine Appearance Clear (Clear) Urine pH 5.0 (5.0-8.0) Ur Specific Kimball 1.009 (1.001-1.035) Urine Protein Negative (Negative) Urine Glucose (UA) Negative (Negative) Urine Ketones Negative (Negative) Urine Blood Moderate H (Negative) Urine Nitrite Negative (Negative) Urine Bilirubin Negative (Negative) Urine Urobilinogen <2.0 (<2.0) mg/dL Ur Leukocyte Esterase Negative (Negative) Urine RBC 30 H (0-5) /hpf Urine WBC 1 (0-5) /hpf Ur Squamous Epith Cells <1 (0-4) /hpf Hyaline Casts 17 H (0-2) /lpf Urine Mucus Rare H (None) /hpf Serum Alcohol mg/dL Influenza Type A (PCR) Not Detected (Not Detectd) Influenza Type B (PCR) Not Detected (Not Detectd) RSV (PCR) Not Detected (Not Detectd) SARS-CoV-2 (PCR) Not Detected (Not Detectd) 07/03/23 Range/Units 04:57 WBC (3.8-10.6) k/uL RBC (4.30-5.90) m/uL Hgb (13.0-17.5) gm/dL Hct (39.0-53.0) % MCV (80.0-100.0) fL MCH (25.0-35.0) pg MCHC (31.0-37.0) g/dL RDW (11.5-15.5) % Plt Count (150-450) k/uL MPV Neutrophils % (Manual) % Lymphocytes % (Manual) % Monocytes % (Manual) % Eosinophils % (Manual) % Neutrophils # (Manual) (1.3-7.7) k/uL Lymphocytes # (Manual) (1.0-4.8) k/uL Monocytes # (Manual) (0-1.0) k/uL Eosinophils # (Manual) (0-0.7) k/uL Nucleated RBCs (0-0) /100 WBC Manual Slide Review Hypochromasia Macrocytosis PT (10.0-12.5) sec INR (<1.2) APTT (22.0-30.0) sec Sodium (137-145) mmol/L Potassium (3.5-5.1) mmol/L Chloride (98-107) mmol/L Carbon Dioxide (22-30) mmol/L Anion Gap mmol/L BUN (9-20) mg/dL Creatinine (0.66-1.25) mg/dL Est GFR (CKD-EPI)AfAm (>60 ml/min/1.73 sqM) Est GFR (CKD-EPI)NonAf (>60 ml/min/1.73 sqM) Glucose (74-99) mg/dL POC Glucose (mg/dL) (70-110) mg/dL POC Glu Oral Hygienist ID Lactic Ac Sepsis Rflx Plasma Lactic Acid Jarret (0.7-2.0) mmol/L Calcium (8.4-10.2) mg/dL Magnesium (1.6-2.3) mg/dL Total Bilirubin (0.2-1.3) mg/dL AST (17-59) U/L ALT (4-49) U/L Alkaline Phosphatase (38-126) U/L Ammonia 146 H (<30) umol/L Troponin I (0.000-0.034) ng/mL NT-Pro-B Natriuret Pep pg/mL Total Protein (6.3-8.2) g/dL Albumin (3.5-5.0) g/dL Urine Color Urine Appearance (Clear) Urine pH (5.0-8.0) Ur Specific Kimball (1.001-1.035) Urine Protein (Negative) Urine Glucose (UA) (Negative) Urine Ketones (Negative) Urine Blood (Negative) Urine Nitrite (Negative) Urine Bilirubin (Negative) Urine Urobilinogen (<2.0) mg/dL Ur Leukocyte Esterase (Negative) Urine RBC (0-5) /hpf Urine WBC (0-5) /hpf Ur Squamous Epith Cells (0-4) /hpf Hyaline Casts (0-2) /lpf Urine Mucus (None) /hpf Serum Alcohol mg/dL Influenza Type A (PCR) (Not Detectd) Influenza Type B (PCR) (Not Detectd) RSV (PCR) (Not Detectd) SARS-CoV-2 (PCR) (Not Detectd) - EKG Data -: EKG Interpreted by Me EKG Comments: 12-lead Electrocardiogram Interpretation Note EKG was reviewed and interpreted by myself. 12-lead ECG performed at 0306 is interpreted by me as revealing A-fib with RVR at a rate of 111 beats per minute. Aiken is normal. QRS duration is 86, QTc is 400.. There were no ST or T wave abnormalities to suggest myocardial ischemia or injury. R wave progression across the precordium was delayed. By my interpretation this EKG is non- diagnostic for acute ischemia. Disposition Clinical Impression: Confusion, Hyperammonemia, Volume overload, CHF (congestive heart failure), Elevated troponin Disposition: ADMITTED IP TO THIS HOSP Condition: Stable Referrals: Mariana Chu MD [Primary Care Provider] - 1-2 days Time of Disposition: 05:55
[2023-07-03] MEDS: METOPROLOL TARTRATE 25 MG TAB PO STA (06:20)
[2023-07-03] MEDS: ASPIRIN 81 MG PO STA (06:21)
[2023-07-03] MEDS ORDERED: FUROSEMIDE 10 MG/ML 4 ML VIAL IV SCH (09:00)
[2023-07-03] MEDS ORDERED: METOPROLOL TARTRATE 25 MG TAB PO SCH (09:00)
[2023-07-03] MEDS: HEPARIN SODIUM,PORCINE 5,000 UNIT/ML 1 ML VIAL SQ SCH (10:35)
--- NOTE | 2023-07-03 14:50 | P.CRDCN ---
History of Present Illness Consult date: 07/03/23 Chief complaint: Generalized weakness and fatigue History of present illness: This is a 77-year-old gentleman with a past medical history significant for atrial fibrillation as well as history of chronic liver disease who was brought to the emergency department because of weakness and frequent falling at home. The patient is extremely poor historian and the history was taken from the chart as well as from the nurse taking care of the patient. No family member available to provide any more details. Apparently the patient has been falling at home and there was significant change in mental status. No indication that he was experiencing any symptoms of chest pain or chest discomfort or shortness of breath or any feeling of heart racing or fluttering. He underwent further workup including BMP and that showed acute renal failure and his ammonia level also was elevated. Beside that he underwent CBC and that showed thrombocytopenia which has been chronic. The patient does have history of atrial fibrillation and he was not receiving any anticoagulation likely because of frequent falling and possible bleeding and also because of thrombocytopenia. The EKG showed atrial fibrillation with diffuse nonspecific ST and T wave abnormality rate and echocardiogram from 2022 showed a preserved LV systolic function with no significant valvular abnormalities. The patient is extremely confused with lethargy. The troponin is mildly elevated. The examination revealed irregular rhythm with clear breathing sounds bilaterally and bilateral lower extremities edema Assessment Change in mental status likely to be metabolic Acute renal failure Atrial fibrillation with controlled heart rate Thrombocytopenia Chronic liver disease Multiple comorbid conditions Plan Consider medical treatment for the mildly abnormal troponin Obtain an echocardiogram for further risk stratification The patient cannot take any oral medication at this point The patient cannot be on heparin IV given the severe thrombocytopenia and possible bleeding Follow-up with the patient Past Medical History Past Medical History: Atrial Fibrillation, Osteoarthritis (OA) Additional Past Medical History / Comment(s): GOUT,. FATTY LIVER-50% DAMAGE History of Any Multi-Drug Resistant Organisms: None Reported Past Surgical History: Appendectomy, Hernia Repair, Joint Replacement, Orthopedic Surgery Additional Past Surgical History / Comment(s): right knee replacement, right arm surgery, COLONOSCOPY, EGD Past Anesthesia/Blood Transfusion Reactions: No Reported Reaction Past Psychological History: No Psychological Hx Reported Smoking Status: Never smoker Past Alcohol Use History: None Reported Past Drug Use History: None Reported - Past Family History Mother Family Medical History: Cancer Medications and Allergies Home Medications Medication Instructions Recorded Confirmed Type Lactulose [Cephulac] 20 gm PO DAILY 06/02/23 07/03/23 History Metoprolol Tartrate 25 mg PO BID 06/02/23 07/03/23 History Potassium Chloride ER [K-Dur 20] 20 meq PO DAILY 06/02/23 07/03/23 History Furosemide [Lasix] 40 mg PO BID@0900,1600 #60 tab 06/08/23 07/03/23 Rx Allergies Allergy/AdvReac Type Severity Reaction Status Date / Time No Known Allergies Allergy Verified 07/03/23 12:22 Physical Exam Vitals: Vital Signs Temp Pulse Resp BP Pulse Ox 07/03/23 12:59 110 H 18 114/102 95 07/03/23 10:00 110 H 20 109/98 94 L 07/03/23 07:49 99 20 105/74 95 07/03/23 06:00 114 H 20 111/81 95 07/03/23 05:00 128 H 19 114/94 95 07/03/23 04:59 120 H 20 123/90 94 L 07/03/23 03:56 109 H 17 95/78 95 07/03/23 03:00 97.1 F L 111 H 20 118/87 95 Intake and Output 07/02/23 07/03/23 07/03/23 22:59 06:59 14:59 Output Total 300 Balance -300 Output: Urine 300 Straight 300 Other: Weight 136.078 kg Results 07/03/23 03:26 07/03/23 03:26 Cardiac Enzymes 07/03/23 07/03/23 07/03/23 Range/Units 03:26 03:26 07:11 AST 55 (17-59) U/L Troponin I 0.068 H* 0.069 H* (0.000-0.034) ng/mL 07/03/23 Range/Units 10:26 AST (17-59) U/L Troponin I 0.068 H* (0.000-0.034) ng/mL Coagulation 07/03/23 Range/Units 03:26 PT 18.9 H (10.0-12.5) sec APTT 36.7 H (22.0-30.0) sec CBC 07/03/23 Range/Units 03:26 WBC 4.4 (3.8-10.6) k/uL RBC 4.00 L (4.30-5.90) m/uL Hgb 13.9 (13.0-17.5) gm/dL Hct 42.7 (39.0-53.0) % Plt Count 29 L (150-450) k/uL Comprehensive Metabolic Panel 07/03/23 Range/Units 03:26 Sodium 144 (137-145) mmol/L Potassium 4.4 (3.5-5.1) mmol/L Chloride 114 H (98-107) mmol/L Carbon Dioxide 26 (22-30) mmol/L BUN 66 H (9-20) mg/dL Creatinine 2.68 H (0.66-1.25) mg/dL Glucose 100 H (74-99) mg/dL Calcium 8.8 (8.4-10.2) mg/dL AST 55 (17-59) U/L ALT 23 (4-49) U/L Alkaline Phosphatase 144 H (38-126) U/L Total Protein 6.5 (6.3-8.2) g/dL Albumin 2.5 L (3.5-5.0) g/dL Current Medications Generic Name Dose Route Start Last Admin Trade Name Freq PRN Reason Stop Dose Admin Furosemide 40 mg 07/03/23 21:00 Furosemide 10 Mg/Ml 4 Ml Vial IV Q12HR [facility] Heparin Sodium (Porcine) 5,000 unit 07/03/23 09:00 07/03/23 10:35 Heparin Sodium,Porcine 5,000 Unit/Ml 1 Ml Vial SQ Not Given Q12HR [facility] Lactulose 20 gm 07/03/23 05:30 07/03/23 13:03 Lactulose 20 Gm/30 Ml Cup PO 20 gm QID [facility] Administration Magnesium Oxide 400 mg 07/04/23 09:00 Magnesium Oxide 400 Mg Tab PO DAILY YAZ Metoprolol Tartrate 25 mg 07/03/23 21:00 Metoprolol Tartrate 25 Mg Tab PO BID YAZ Naloxone HCl 0.2 mg 07/03/23 05:44 Naloxone 0.4 Mg/Ml 1 Ml Vial IV Q2M PRN Opioid Reversal Ondansetron HCl 4 mg 07/03/23 05:51 Ondansetron 4 Mg/2 Ml Vial IVP Q8HR PRN Nausea And Vomiting Potassium Chloride 20 meq 07/04/23 09:00 Potassium Chloride Er 20 Meq Tab.Er PO DAILY YAZ Intake and Output 07/02/23 07/03/23 07/03/23 22:59 06:59 14:59 Output Total 300 Balance -300 Output: Urine 300 Straight 300 Other: Weight 136.078 kg 07/03/23 03:26 07/03/23 03:26
--- NOTE | 2023-07-03 15:21 | P.HPIM ---
History of Present Illness H&P Date: 07/03/23 Chief Complaint: Altered mental status 77-year-old male patient with history of atrial fibrillation, osteoarthritis, hypertension, gout and fatty liver presents to the ED for altered mental status as well as weakness. Has been ongoing for few days. Apparently patient also fell. Is currently alert and oriented x 2. Denies any acute complaints at this time. Unknown if he is taking his medications. Is chronically on lactulose as well as Lasix. Appears volume overloaded. Presents for further evaluation. Denies fevers, chills, cough, chest pain, shortness of breath, abdominal pain, nausea, vomiting, extremity pain. Patient remains alert but confused; history of the history is obtained from ER records Blood work completed in ED reveals a WBC of 4.4, hemoglobin of 13.9 and platelet count of 29, sodium 144, potassium 4.4, BUNs/creatinine of 66/2.68 and blood glu cose of 100, PT 18.9 with INR of 1.9, lactic acid level of 2.1, ammonia of 162, troponin elevated at 0.068 with a BNP of 4270 UA is unremarkable Review of Systems ROS unobtainable: due to mental status Past Medical History Past Medical History: Atrial Fibrillation, Osteoarthritis (OA) Additional Past Medical History / Comment(s): GOUT,. FATTY LIVER-50% DAMAGE History of Any Multi-Drug Resistant Organisms: None Reported Past Surgical History: Appendectomy, Hernia Repair, Joint Replacement, Orthopedic Surgery Additional Past Surgical History / Comment(s): right knee replacement, right arm surgery, COLONOSCOPY, EGD Past Anesthesia/Blood Transfusion Reactions: No Reported Reaction Past Psychological History: No Psychological Hx Reported Smoking Status: Never smoker Past Alcohol Use History: None Reported Past Drug Use History: None Reported - Past Family History Mother Family Medical History: Cancer Medications and Allergies Home Medications Medication Instructions Recorded Confirmed Type Lactulose [Cephulac] 20 gm PO DAILY 06/02/23 07/03/23 History Metoprolol Tartrate 25 mg PO BID 06/02/23 07/03/23 History Potassium Chloride ER [K-Dur 20] 20 meq PO DAILY 06/02/23 07/03/23 History Furosemide [Lasix] 40 mg PO BID@0900,1600 #60 tab 06/08/23 07/03/23 Rx Allergies Allergy/AdvReac Type Severity Reaction Status Date / Time No Known Allergies Allergy Verified 07/03/23 12:22 Physical Exam Vitals: Vital Signs Temp Pulse Resp BP Pulse Ox 07/03/23 10:00 110 H 20 109/98 94 L 07/03/23 07:49 99 20 105/74 95 07/03/23 06:00 114 H 20 111/81 95 07/03/23 05:00 128 H 19 114/94 95 07/03/23 04:59 120 H 20 123/90 94 L 07/03/23 03:56 109 H 17 95/78 95 07/03/23 03:00 97.1 F L 111 H 20 118/87 95 Intake and Output 07/02/23 07/03/23 07/03/23 22:59 06:59 14:59 Output Total 300 Balance -300 Output: Urine 300 Straight 300 Other: Weight 136.078 kg General: Appears in no acute distress. HEAD: Normal with no signs of head trauma. EYES: PERRLA, EOMI, conjunctiva normal, no discharge. ENT: Hearing grossly intact, normal oropharynx. RESPIRATORY: Mildly coarse breath sounds bilaterally with no significant wheeze or rhonchi. No hypoxia. C/V: Regular rate and rhythm. S1 and S2 auscultated, significant bilateral lower extremity edema veronika, peripheral pulses 2+ and intact throughout ABD: Abd is soft, nontender, nondistended EXT: Normal range of motion, no obvious deformity SKIN: No rashes or lesions observed on exposed skin. NEURO: Alert and oriented x 2. No obvious focal deficits. Results CBC & Chem 7: 07/03/23 03:26 07/03/23 03:26 Labs: Abnormal Lab Results - Last 24 Hours (Table) 07/03/23 07/03/23 07/03/23 Range/Units 03:26 03:26 03:26 RBC 4.00 L (4.30-5.90) m/uL MCV 106.7 H (80.0-100.0) fL Plt Count 29 L (150-450) k/uL Macrocytosis Marked A PT 18.9 H (10.0-12.5) sec INR 1.9 H (<1.2) APTT 36.7 H (22.0-30.0) sec Chloride 114 H (98-107) mmol/L BUN 66 H (9-20) mg/dL Creatinine 2.68 H (0.66-1.25) mg/dL Glucose 100 H (74-99) mg/dL Plasma Lactic Acid Jarret (0.7-2.0) mmol/L Total Bilirubin 4.5 H (0.2-1.3) mg/dL Alkaline Phosphatase 144 H (38-126) U/L Ammonia (<30) umol/L Troponin I (0.000-0.034) ng/mL Albumin 2.5 L (3.5-5.0) g/dL Urine Blood (Negative) Urine RBC (0-5) /hpf Hyaline Casts (0-2) /lpf Urine Mucus (None) /hpf 07/03/23 07/03/23 07/03/23 Range/Units 03:26 03:26 04:31 RBC (4.30-5.90) m/uL MCV (80.0-100.0) fL Plt Count (150-450) k/uL Macrocytosis PT (10.0-12.5) sec INR (<1.2) APTT (22.0-30.0) sec Chloride (98-107) mmol/L BUN (9-20) mg/dL Creatinine (0.66-1.25) mg/dL Glucose (74-99) mg/dL Plasma Lactic Acid Jarret 2.1 H* (0.7-2.0) mmol/L Total Bilirubin (0.2-1.3) mg/dL Alkaline Phosphatase (38-126) U/L Ammonia 162 H (<30) umol/L Troponin I 0.068 H* (0.000-0.034) ng/mL Albumin (3.5-5.0) g/dL Urine Blood Moderate H (Negative) Urine RBC 30 H (0-5) /hpf Hyaline Casts 17 H (0-2) /lpf Urine Mucus Rare H (None) /hpf 07/03/23 07/03/23 07/03/23 Range/Units 04:57 07:11 10:26 RBC (4.30-5.90) m/uL MCV (80.0-100.0) fL Plt Count (150-450) k/uL Macrocytosis PT (10.0-12.5) sec INR (<1.2) APTT (22.0-30.0) sec Chloride (98-107) mmol/L BUN (9-20) mg/dL Creatinine (0.66-1.25) mg/dL Glucose (74-99) mg/dL Plasma Lactic Acid Jarret (0.7-2.0) mmol/L Total Bilirubin (0.2-1.3) mg/dL Alkaline Phosphatase (38-126) U/L Ammonia 146 H (<30) umol/L Troponin I 0.069 H* 0.068 H* (0.000-0.034) ng/mL Albumin (3.5-5.0) g/dL Urine Blood (Negative) Urine RBC (0-5) /hpf Hyaline Casts (0-2) /lpf Urine Mucus (None) /hpf Assessment and Plan Assessment: 1. Elevated troponin; likely type II ischemia related to tachycardia and CHASE -- Initial troponin is elevated at 0.068; no complaint of chest pain at this time -- Patient will be admitted to telemetry; we will monitor EKG and trend troponin -Cardiology is consulted; appreciate recommendations 2. Acute exacerbation CHF -- Patient has been placed on Lasix 40 mg IV every 12 hours; we will monitor strict OCTAVIO's, daily weights; low-salt and fluid restricted diet -- Cardiology is consulted for further evaluation 3. Atrial fibrillation with RVR; patient received metoprolol 25 mg p.o. x 1 in ED and has been placed on home dose of metoprolol 25 mg twice daily -Patient remains on telemetry with plans for close monitoring, further recommendations pending clinical course 4. Hyperammonemia; related to liver cirrhosis; ammonia level at 146 upon admission; patient is currently on lactulose 20 mg daily; not clear if patient is actually compliant with the medication -- We will start patient on lactulose 20 mg p.o. 4 times daily; monitor ammonia levels closely -- CT of the head completed in ED is unremarkable 5. Liver cirrhosis with thrombocytopenia; platelet count at 29; we will monitor with plans to transfuse if platelet count is less than 10 or any signs of bleeding -- INR is chronically elevated; at 1.9 this morning 6. Acute renal injury; patient has a baseline creatinine of 0.8-1.0 -- Likely hepatorenal syndrome'; we will hold off on IV fluid hydration -- Consult nephrology 7. Hypertension; continue home dose of metoprolol 25 mg twice daily DVT prophylaxis; SCDs only given thrombocytopenia CODE STATUS; full code
--- NOTE | 2023-07-03 15:52 | CA ---
Transthoracic Echo Report Name: Juan Phelps Age: 77 Gender: M : 1945 Exam Date: 07/03/2023 09:59 Exam Location: [facility] Ht (in): 71 Wt (lb): 300 Ordering Physician: Chris Leyva MD Attending/Referring Phys: Scale Attendant Henri Lira RDCS Procedure CPT: Indications: chf Cardiac Hx: Technical Quality: Contrast 1: Definity Total Dose (mL): 2 Contrast 2: Total Dose (mL): MEASUREMENTS (Male / Female) Normal Values 2D ECHO LV Diastolic Diameter PLAX 4.3 cm 4.2 - 5.9 / 3.9 - 5.3 cm LV Systolic Diameter PLAX 3.2 cm IVS Diastolic Thickness 1.4 cm 0.6 - 1.0 / 0.6 - 0.9 cm LVPW Diastolic Thickness 1.1 cm 0.6 - 1.0 / 0.6 - 0.9 cm LV Relative Wall Thickness 0.6 LVOT Diameter 2.0 cm Aortic Root Diameter 3.4 cm LA Systolic Diameter LX 5.3 cm 3.0 - 4.0 / 2.7 - 3.8 cm LV Diastolic Volume MOD BP 67.4 cm??? 67 - 155 / 56 - 104 cm??? LV Systolic Volume MOD BP 27.5 cm??? 22 - 58 / 19 - 49 cm??? LV Ejection Fraction MOD BP 59.2 % >= 55 % LV Diastolic Volume MOD 4C 60.0 cm??? LV Systolic Volume MOD 4C 20.3 cm??? LV Ejection Fraction MOD 4C 66.2 % LV Diastolic Length 4C 6.9 cm LV Systolic Length 4C 5.0 cm LV Diastolic Volume MOD 2C 69.3 cm??? LV Systolic Volume MOD 2C 33.2 cm??? LV Ejection Fraction MOD 2C 52.1 % LV Diastolic Length 2C 7.8 cm LV Systolic Length 2C 5.8 cm DOPPLER AV Peak Velocity 118.5 cm/s AV Peak Gradient 5.6 mmHg AV Mean Velocity 93.4 cm/s AV Mean Gradient 3.7 mmHg AV Velocity Time Integral 23.7 cm LVOT Peak Velocity 98.4 cm/s LVOT Peak Gradient 3.9 mmHg LVOT Velocity Time Integral 19.7 cm LVOT Stroke Volume 59.8 cm??? LVOT Stroke Volume Index 23.9 ml/m??? AV Area Cont Eq vti 2.5 cm??? AV Area Cont Eq pk 2.5 cm??? Mitral E Point Velocity 116.5 cm/s Mitral A Point Velocity 28.9 cm/s Mitral E to A Ratio 4.0 MV Deceleration Time 170.2 ms TR Peak Velocity 192.7 cm/s TR Peak Gradient 14.8 mmHg PV Peak Velocity 73.2 cm/s PV Peak Gradient 2.1 mmHg FINDINGS Left Ventricle Mildly increased septal wall thickness. Left ventricular ejection fraction is estimated at 50-55 %. Mild concentric left ventricular hypertrophy. Right Ventricle Right ventricular dilatation. Unable to estimate the right ventricular systolic pressure. Right Atrium Right atrial dilatation. Left Atrium Severely increased left atrial diameter. Mitral Valve Trace to mild mitral regurgitation. Aortic Valve Aortic valve not well visualized. Tricuspid Valve Trace to mild tricuspid regurgitation. Pulmonic Valve Pulmonic valve not well visualized. Pericardium No pericardial effusion. Aorta Normal size aortic root and proximal ascending aorta. CONCLUSIONS Technically difficult study for interpretation Normal LV systolic function Poorly visualized intracardiac valves Previewed by: Dr. Ronald Bill MD (Electronically Signed) Final Date: 03 July 2023 15:51
[2023-07-03] MEDS: LACTULOSE 20 GM/30 ML CUP PO ONE (16:41)
[2023-07-03] MEDS: METOPROLOL TARTRATE 25 MG TAB PO SCH (19:44)
[2023-07-03] MEDS: FUROSEMIDE 10 MG/ML 4 ML VIAL IV SCH (19:46)
[2023-07-03] MEDS: LACTULOSE 200 GM/300 ML (FROM 1/2 GAL JUG) RECTAL SCH (23:41)
[2023-07-04] MEDS: LACTULOSE 20 GM/30 ML CUP NG-TUBE SCH (00:54)
[2023-07-04] MEDS: MAGNESIUM OXIDE 400 MG TAB PO SCH (10:02)
[2023-07-04] MEDS: POTASSIUM CHLORIDE ER 20 MEQ TAB.ER PO SCH (10:02)
--- NOTE | 2023-07-04 10:42 | P.PN ---
Subjective Progress Note Date: 07/04/23 Principal diagnosis: Atrial fibrillation This is a 77-year-old gentleman with a past medical history significant for atrial fibrillation as well as history of chronic liver disease who was brought to the emergency department because of weakness and frequent falling at home. The patient is extremely poor historian and the history was taken from the chart as well as from the nurse taking care of the patient. No family member available to provide any more details. Apparently the patient has been falling at home and there was significant change in mental status. No indication that he was experiencing any symptoms of chest pain or chest discomfort or shortness of breath or any feeling of heart racing or fluttering. He underwent further workup including BMP and that showed acute renal failure and his ammonia level also was elevated. Beside that he underwent CBC and that showed thrombocytopenia which has been chronic. The patient does have history of atrial fibrillation and he was not receiving any anticoagulation likely because of frequent falling and possible bleeding and also because of thrombocytopenia. The EKG showed atrial fibrillation with diffuse nonspecific ST and T wave abnormality rate and echocardiogram from 2022 showed a preserved LV systolic fu nction with no significant valvular abnormalities. The patient is extremely confused with lethargy. The troponin is mildly elevated. The examination revealed irregular rhythm with clear breathing sounds bilaterally and bilateral lower extremities edema July 04, 2023 The patient was seen and evaluated this morning. He continues to have severe/significant change in mental status. Hemodynamically he is stable. He continues to be in atrial fibrillation with controlled heart rate with no oral AV luis maureen agents because he cannot take any oral medications. Also he cannot be on any anticoagulation because of severe thrombocytopenia. CT scan of the brain showed no acute abnormalities. He underwent an echo which revealed normal LV systolic function. On examination he does have severe change in mental status with severe bilateral lower extremities edema noted. He is on Lasix IV at this point. CBC and BMP are scheduled but still pending now. Assessment Change in mental status likely to be metabolic Acute renal failure Atrial fibrillation with controlled heart rate Thrombocytopenia Chronic liver disease Fluid overload with bilateral lower extremities edema Plan Continue the current medical regimen Consider starting the patient on Cardizem IV if he becomes tachycardic and continues to be unable to take oral medication Avoid any anticoagulation in the light of thrombocytopenia Workup regarding the etiology of change in mental status which could be all metabolic Continue Lasix IV and follow-up on the blood work to make sure the kidney function and creatinine are stable Follow-up with the patient Objective - Vital Signs Vital signs: Vital Signs Temp 97.0 F L 07/04/23 09:02 Pulse 90 07/04/23 10:23 Resp 18 07/04/23 10:23 BP 100/69 07/04/23 09:02 Pulse Ox 96 07/04/23 09:02 FiO2 Intake & Output 07/03/23 07/04/23 07/04/23 18:59 06:59 18:59 Intake Total 0 Output Total 950 Balance -950 0 Weight 136.078 kg Intake: Oral 0 Output: Urine 950 Male - External 475 Straight 275 Other: Voiding Method External Catheter External Catheter # Voids 1 # Bowel Movements 1 - Labs CBC & Chem 7: 07/03/23 03:26 07/03/23 03:26 Labs: Abnormal Lab Results - Last 24 Hours (Table) 07/03/23 Range/Units 10:26 Troponin I 0.068 H* (0.000-0.034) ng/mL
--- NOTE | 2023-07-04 11:10 | P.NPCON ---
History of Present Illness - Reason for Consult acute renal failure - History of Present Illness Patient is a 77-year-old male with history of A. fib, hypertension and fatty liver who was admitted to the hospital with mental status changes. History of fall prior to admission. Serum ammonia was elevated at 162. Serum creatinine 2.68 on admission with previous creatinine of 1.0 on 06/07/2023. Patient has an external catheter. He did have a straight catheterization for about 275 mL yesterday. Blood pressure has been low with systolic in the 90s recently. No EBER inhibitor's/angiotensin receptor blockers or NSAIDs noted on home med list. Chest x-ray showed evidence of pulmonary vascular congestion and patient is currently maintained on IV Lasix. Patient remains lethargic. Currently not requiring oxygen supplementation. Nursing staff is trying to administer lactulose. NG tube was attempted yes terday but unsuccessful. Rectal administration was also unsuccessful. An NG tube will be reattempted today. Review of Systems As per HPI Past Medical History Past Medical History: Atrial Fibrillation, Osteoarthritis (OA) Additional Past Medical History / Comment(s): GOUT,. FATTY LIVER-50% DAMAGE History of Any Multi-Drug Resistant Organisms: None Reported Past Surgical History: Appendectomy, Hernia Repair, Joint Replacement, Orthopedic Surgery Additional Past Surgical History / Comment(s): right knee replacement, right arm surgery, COLONOSCOPY, EGD Past Anesthesia/Blood Transfusion Reactions: No Reported Reaction Past Psychological History: No Psychological Hx Reported Smoking Status: Never smoker Past Alcohol Use History: None Reported Past Drug Use History: None Reported - Past Family History Mother Family Medical History: Cancer Medications and Allergies Home Medications Medication Instructions Recorded Confirmed Type Lactulose [Cephulac] 20 gm PO DAILY 06/02/23 07/03/23 History Metoprolol Tartrate 25 mg PO BID 06/02/23 07/03/23 History Potassium Chloride ER [K-Dur 20] 20 meq PO DAILY 06/02/23 07/03/23 History Furosemide [Lasix] 40 mg PO BID@0900,1600 #60 tab 06/08/23 07/03/23 Rx Allergies Allergy/AdvReac Type Severity Reaction Status Date / Time No Known Allergies Allergy Verified 07/03/23 12:22 Physical Exam Vitals: Vital Signs Temp Pulse Pulse Resp BP BP Pulse Ox 07/04/23 10:23 90 18 07/04/23 09:02 97.0 F L 90 18 100/69 96 07/04/23 03:59 110 H 18 94/71 100 07/04/23 00:00 84 18 105/73 96 07/03/23 20:00 97.5 F L 124 H 18 120/77 97 07/03/23 15:28 117 H 18 146/96 98 07/03/23 12:59 110 H 18 114/102 95 Intake and Output 07/03/23 07/04/23 07/04/23 22:59 06:59 14:59 Intake Total 0 Output Total 275 675 Balance -275 -675 0 Intake: Oral 0 Output: Urine 275 675 Male - External 475 Straight 275 Other: Voiding Method External Catheter External Catheter External Catheter # Voids 1 # Bowel Movements 1 Weight 136.078 kg Patient is arousable but does not communicate Examination of the heart S1 and S2 Examination of the lungs decreased breath sounds at the bases Abdomen is soft distended obese, nontender Examination of lower extremity shows edema 1+ bilaterally Results - Lab Results Most recent lab results Calcium 8.8 mg/dL (8.4-10.2) 07/03/23 03:26 Magnesium 2.1 mg/dL (1.6-2.3) 07/03/23 03:26 07/03/23 03:26 07/03/23 03:26 Assessment and Plan Assessment: 1. Acute kidney injury, ATN currently nonoliguric. Patient has been hypotensive. UA shows RBCs 30 with moderate blood. No protein noted. Consider hepatorenal syndrome if renal function continues to worsen. 2. Encephalopathy mostly hepatic encephalopathy maintained on lactulose 3. Chronic A. fib with controlled ventricular response 4. Chronic liver disease with history of fatty liver 5. CHF, acute, diastolic dysfunction with ejection fraction 50-55% Plan: Decrease Lasix Add midodrine Continue accurate I's and O's DC potassium Check labs today Check ultrasound of the kidneys Repeat labs in a.m. next Thank you for the consultation. We will continue to follow the patient with you during his hospitalization.
[2023-07-04] MEDS: LACTULOSE 200 GM/300 ML (FROM 1/2 GAL JUG) RECTAL SCH ×2 (11:44→23:51)
[2023-07-04] MEDS: ALBUMIN HUMAN 25% 50 ML in EMPTY BAG 1 BAG IVPB ONE (11:51)
[2023-07-04] MEDS: MIDODRINE 5 MG TAB PO SCH (12:01)
[2023-07-04 12:49] LABS: African American GFR (CKD) 28 (>60 ml/min/1.73 sqM); Anion Gap 12 mmol/L; Blood Urea Nitrogen 66 mg/dL (9-20); Calcium 9.3 mg/dL (8.4-10.2); Carbon Dioxide 19 mmol/L (22-30); Chloride 116 mmol/L (98-107); Glucose 90 mg/dL (74-99); Non-African American GFR(CKD) 24 (>60 ml/min/1.73 sqM); Sodium 147 mmol/L (137-145)
[2023-07-04 12:51] LABS: Potassium 4.9 mmol/L (3.5-5.1)
--- NOTE | 2023-07-04 14:00 | US ---
EXAMINATION TYPE: US kidneys/renal and bladder DATE OF EXAM: 07/04/2023 COMPARISON: CLINICAL INDICATION: Male, 77 years old with history of canelo; Abnormal labs. Patient was unresponsive during the exam and unable to move. External espinal. EXAM MEASUREMENTS: Right Kidney: 9.1 x 5.6 x 6.1 cm Estimated Left Kidney: Unable to visualize Very limited due to bowel gas, body habitus and patient position Right Kidney: Limited due to overlying bowel gas, not well seen Left Kidney: Obscured by overlying bowel gas Bladder: distended, anechoic Bilateral Jets not seen Incidental finding: right pleural effusion about 13.0 cm scanned lateral abdomen IMPRESSION: 1. No evidence for right obstructive uropathy. The left kidney is poorly visualized due to bowel gas . 2. Right pleural effusion.
--- NOTE | 2023-07-04 14:40 | CT ---
EXAMINATION TYPE: CT brain wo con CT DLP: 2391.4 mGycm, Automated exposure control for dose reduction was used. DATE OF EXAM: 07/04/2023 2:34 PM COMPARISON: CT brain 07/03/2023. CLINICAL INDICATION:Male, 77 years old with history of Altered mental status. TECHNIQUE: Brain: Axial CT images of the brain were obtained with coronal and sagittal reformats created and rev iewed. Contrast used: None. Oral contrast used: None. FINDINGS: Brain: Extra-axial spaces: No abnormal extra-axial fluid collections. Ventricular system: Within normal limits Cerebral parenchyma: No acute intraparenchymal hemorrhage or mass effect. The durán-white junction is well differentiated. Scattered hypoattenuating areas are seen within the white matter. Cerebellum: Unremarkable. Mass effect: No evidence of midline shift. Intracranial vasculature: Atherosclerotic calcifications of the intracranial vessels. Soft tissues: Normal. Calvarium/osseous structures: No depressed skull fracture. Paranasal sinuses and mastoid air cells: Mild scattered paranasal sinus disease. Visualized orbits: Orbital contents are intact. IMPRESSION: 1. No acute intracranial process. 2. Nonspecific white matter changes, likely secondary to chronic small vessel ischemic disease.
[2023-07-04] MEDS: LACTULOSE 20 GM/30 ML CUP PO ONE (15:41)
--- NOTE | 2023-07-04 15:43 | XR ---
EXAMINATION TYPE: XR chest 1V DATE OF EXAM: 07/04/2023 3:36 PM CLINICAL INDICATION:Male, 77 years old with history of NG tube insertion; [facility] COMPARISON: Chest radiographs from 07/03/2023 TECHNIQUE: XR chest 1V Frontal view of the chest. FINDINGS: Lungs/Pleura: Redemonstrated trace bilateral pleural effusions. Interval improved aeration of the rig ht lung. No evidence of pneumothorax. Pulmonary vascularity: Improved pulmonary vascular congestion Heart/mediastinum: Cardiomediastinal silhouette is unremarkable. Atherosclerotic calcifications are seen in the aorta. Musculoskeletal: No acute osseous pathology. Other findings: Postsurgical clips present in the left upper abdomen Lines/Tubes: Enteric tube can be seen coursing below the diaphragm and terminating in the region of the stomach. IMPRESSION: 1. Persistent trace pleural effusions with improved right lung aeration. 2. Appropriately positioned enteric tube.
--- NOTE | 2023-07-04 15:44 | P.PN ---
Subjective Progress Note Date: 07/04/23 77-year-old male patient with history of atrial fibrillation, osteoarthritis, hypertension, gout and fatty liver presents to the ED for altered mental status as well as weakness. Has been ongoing for few days. Apparently patient also fell. Is currently alert and oriented x 2. Denies any acute complaints at this time. Unknown if he is taking his medications. Is chronically on lactulose as well as Lasix. Appears volume overloaded. Presents for further evaluation. Denies fevers, chills, cough, chest pain, shortness of breath, abdominal pain, nausea, vomiting, extremity pain. Patient remains alert but confused; history of the history is obtained from ER records Blood work completed in ED reveals a WBC of 4.4, hemoglobin of 13.9 and platelet count of 29, sodium 144, potassium 4.4, BUNs/creatinine of 66/2.68 and blood glucose of 100, PT 18.9 with INR of 1.9, lactic acid level of 2.1, ammonia of 162, troponin elevated at 0.068 with a BNP of 4270 UA is unremarkable -- Patient remains altered with mental function declining; currently only responding to painful stimuli -- Patient has received some doses of lactulose with ammonia level trending down and is currently at 52 -- Given worsening mental status, stat CT of the chest, ABG is ordered -- Patient discussed with intensive care team, Dr. Bethea who will evaluate patient at bedside and make recommendations; appreciate input Objective - Vital Signs Vital signs: Vital Signs Temp 97.0 F L 07/04/23 09:02 Pulse 90 07/04/23 10:23 Resp 18 07/04/23 10:23 BP 100/69 07/04/23 09:02 Pulse Ox 96 07/04/23 09:02 FiO2 Intake & Output 07/03/23 07/04/23 07/04/23 18:59 06:59 18:59 Intake Total 0 Output Total 950 Balance -950 0 Weight 136.078 kg Intake: Oral 0 Output: Urine 950 Male - External 475 Straight 275 Other: Voiding Method External Catheter External Catheter # Voids 1 # Bowel Movements 1 - Exam General: Appears in no acute distress. HEAD: Normal with no signs of head trauma. EYES: PERRLA, EOMI, conjunctiva normal, no discharge. ENT: Hearing grossly intact, normal oropharynx. RESPIRATORY: Mildly coarse breath sounds bilaterally with no significant wheeze or rhonchi. No hypoxia. C/V: Regular rate and rhythm. S1 and S2 auscultated, significant bilateral lower extremity edema veronika, peripheral pulses 2+ and intact throughout ABD: Abd is soft, nontender, nondistended EXT: Normal range of motion, no obvious deformity SKIN: No rashes or lesions observed on exposed skin. NEURO: Alert and oriented x 0. - Labs CBC & Chem 7: 07/03/23 03:26 07/04/23 11:29 Assessment and Plan Assessment: 1. Elevated troponin; likely type II ischemia related to tachycardia and CHASE -- Initial troponin is elevated at 0.068; no complaint of chest pain at this time -- Patient will be admitted to telemetry; we will monitor EKG and trend troponin -Cardiology is consulted; appreciate recommendations 2. Acute exacerbation CHF -- Patient has been placed on Lasix 40 mg IV every 12 hours; we will monitor strict OCTAVIO's, daily weights; low-salt and fluid restricted diet -- Cardiology is consulted for further evaluation 3. Atrial fibrillation with RVR; patient received metoprolol 25 mg p.o. x 1 in ED and has been placed on home dose of metoprolol 25 mg twice daily -Patient remains on telemetry with plans for close monitoring, further recommen dations pending clinical course 4. Hyperammonemia; related to liver cirrhosis; ammonia level at 146 upon admission; patient is currently on lactulose 20 mg daily; not clear if patient is actually compliant with the medication -- We will start patient on lactulose 20 mg p.o. 4 times daily; monitor ammonia levels closely -- CT of the head completed in ED is unremarkable 5. Liver cirrhosis with thrombocytopenia; platelet count at 29; we will monitor with plans to transfuse if platelet count is less than 10 or any signs of bleeding -- INR is chronically elevated; at 1.9 this morning 6. Acute renal injury; patient has a baseline creatinine of 0.8-1.0 -- Likely hepatorenal syndrome'; we will hold off on IV fluid hydration -- Consult nephrology 7. Hypertension; continue home dose of metoprolol 25 mg twice daily DVT prophylaxis; SCDs only given thrombocytopenia CODE STATUS; full code
--- NOTE | 2023-07-04 16:55 | P.CNPUL ---
History of Present Illness Consult date: 07/04/23 Chief complaint: Altered mental status History of present illness: I was asked to evaluate this patient for ICU transfer. The patient is 77 and the patient is known to have liver cirrhosis. It was noted that the patient's mentation has been progressively declining and the patient has not been able to take his oral lactulose. As such, the patient has been coming progressively more encephalopathic. 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 He has hypertension and chronic atrial fibrillation has comorbid conditions. During this current admission, the patient presented with generalized weakness and falling at home. He is a very poor historian. Family is at the bedside. Apparently his condition has been progressively getting worse over this past several months. No recent GI bleeding. He has had remote history of ascites that was drained. He is known to have chronic A-fib. He has not been receiving any form of anticoagulation due to concerns of bleeding as the patient has issues with chronic thrombocytopenia. During this current hospital admission, the patient also developed an acute kidney injury the creatinine currently is at the rise and is up to 2.68, troponin was 0.06 respectively x 2, UA was showing 1 WBC and few RBCs. The patient is afebrile. Pulse ox is 91 to 96% room air oxygen. Chest x-ray is showing a right-sided pleural effusion. Most recent blood pressure is 100/61. No reported aspiration. Remains on Lasix IV and is also on midodrine. In terms of his hepa tic encephalopathy, repeated ammonia levels showed some improvement on today's blood work and ammonia level is down to 52 as the patient has received serial doses of lactulose enema. Cardiology has been consulted and nephrology has also been consulted. Potassium supplements have been discontinued. Midodrine was added. Ultrasound of the kidneys showed no evidence of any hydronephrosis and the CAT scan of the brain showed no acute intracranial process and there is evidence of chronic small vessel ischemic changes. Review of Systems ROS unobtainable: due to mental status Past Medical History Past Medical History: Atrial Fibrillation, Osteoarthritis (OA) Additional Past Medical History / Comment(s): GOUT,. FATTY LIVER-50% Liver cirrhosis History of Any Multi-Drug Resistant Organisms: None Reported Past Surgical History: Appendectomy, Hernia Repair, Joint Replacement, Orthopedic Surgery Additional Past Surgical History / Comment(s): right knee replacement, right arm surgery, COLONOSCOPY, EGD Past Anesthesia/Blood Transfusion Reactions: No Reported Reaction Past Psychological History: No Psychological Hx Reported Smoking Status: Never smoker Past Alcohol Use History: None Reported Past Drug Use History: None Reported - Past Family History Mother Family Medical History: Cancer Medications and Allergies Home Medications Medication Instructions Recorded Confirmed Type Lactulose [Cephulac] 20 gm PO DAILY 06/02/23 07/03/23 History Metoprolol Tartrate 25 mg PO BID 06/02/23 07/03/23 History Potassium Chloride ER [K-Dur 20] 20 meq PO DAILY 06/02/23 07/03/23 History Furosemide [Lasix] 40 mg PO BID@0900,1600 #60 tab 06/08/23 07/03/23 Rx Allergies Allergy/AdvReac Type Severity Reaction Status Date / Time No Known Allergies Allergy Verified 07/03/23 12:22 Physical Exam Vitals: Vital Signs Temp Pulse Resp BP Pulse Ox 07/04/23 12:00 138 H 19 100/51 91 L 07/04/23 10:23 90 18 07/04/23 09:02 97.0 F L 90 18 100/69 96 07/04/23 03:59 110 H 18 94/71 100 07/04/23 00:00 84 18 105/73 96 07/03/23 20:00 97.5 F L 124 H 18 120/77 97 Intake and Output 07/04/23 07/04/23 07/04/23 06:59 14:59 22:59 Intake Total 0 Output Total 675 Balance -675 0 Intake: Oral 0 Output: Urine 675 Male - External 475 Other: Voiding Method External Catheter External Catheter # Voids 1 # Bowel Movements 1 General: Appears in no acute distress. Lethargic, encephalopathic and arousable. Able to protect airways. Currently on room air oxygen. HEAD: Normal with no signs of head trauma. EYES: PERRLA, EOMI, conjunctiva normal, no discharge. ENT: Hearing grossly intact, normal oropharynx. RESPIRATORY: Mildly coarse breath sounds bilaterally with no significant wheeze or rhonchi. No hypoxia. C/V: iregular rate and rhythm. Irregular S1 and S2 auscultated, significant bilateral lower extremity edema veronika, peripheral pulses 2+ and intact throughout ABD: Abd is soft, nontender, nondistended EXT: Normal range of motion, no obvious deformity SKIN: No rashes or lesions observed on exposed skin. NEURO: Alert and oriented x 0. Lethargic, mumbled speech, states few sentences/words, moving all 4 extremities without limitation. No focal neurological deficit. Results - Laboratory Findings CBC and BMP: 07/03/23 03:26 07/04/23 11:29 PT/INR, D-dimer PT 18.9 sec (10.0-12.5) H 07/03/23 03: INR 1.9 (<1.2) H 07/03/23 03:26 Abnormal lab findings: Abnormal Labs 07/03/23 07/03/23 07/03/23 03:26 03:26 03:26 RBC 4.00 L MCV 106.7 H Plt Count 29 L Macrocytosis Marked A PT 18.9 H INR 1.9 H APTT 36.7 H Sodium Chloride 114 H Carbon Dioxide BUN 66 H Creatinine 2.68 H Glucose 100 H Plasma Lactic Acid Jarret Total Bilirubin 4.5 H Alkaline Phosphatase 144 H Ammonia Troponin I Albumin 2.5 L Urine Blood Urine RBC Hyaline Casts Urine Mucus 07/03/23 07/03/23 07/03/23 03:26 03:26 04:31 RBC MCV Plt Count Macrocytosis PT INR APTT Sodium Chloride Carbon Dioxide BUN Creatinine Glucose Plasma Lactic Acid Jarret 2.1 H* Total Bilirubin Alkaline Phosphatase Ammonia 162 H Troponin I 0.068 H* Albumin Urine Blood Moderate H Urine RBC 30 H Hyaline Casts 17 H Urine Mucus Rare H 07/03/23 07/03/23 07/03/23 04:57 07:11 10:26 RBC MCV Plt Count Macrocytosis PT INR APTT Sodium Chloride Carbon Dioxide BUN Creatinine Glucose Plasma Lactic Acid Jarret Total Bilirubin Alkaline Phosphatase Ammonia 146 H Troponin I 0.069 H* 0.068 H* Albumin Urine Blood Urine RBC Hyaline Casts Urine Mucus 07/04/23 07/04/23 11:29 11:29 RBC MCV Plt Count Macrocytosis PT INR APTT Sodium 147 H Chloride 116 H Carbon Dioxide 19 L BUN 66 H Creatinine 2.49 H Glucose Plasma Lactic Acid Jarret Total Bilirubin Alkaline Phosphatase Ammonia 52 H Troponin I Albumin Urine Blood Urine RBC Hyaline Casts Urine Mucus - Diagnostic Findings Chest x-ray: image reviewed Assessment and Plan Plan: Encephalopathy, likely hepatic in nature. The patient has been able to take his lactulose on a regular basis. Despite a drop in the lactulose level, the patient remains obtunded and lethargic. He is able to protect his airways at this point in time. CAT scan of the brain is not showing any acute abnormalities and the patient has no focal neurological deficits. Liver cirrhosis with stigmata of chronic liver failure Obesity with a BMI of 39 Chronic atrial fibrillation, not receiving any form of anticoagulants at this point in time Acute kidney injury probably related to intravascular volume depletion and dehydration. Underlying hepatorenal syndrome cannot be completely excluded. Chronic thrombocytopenia related to liver cirrhosis Right-sided pleural effusion likely secondary liver cirrhosis/hepatic hydrothor ax. Not affecting overall respiration and the patient is currently on room air oxygen Plan I took the initiative to insert an NG tube on this patient. Chest x-ray confirmed the position of the tube and the patient is going to be started on lactulose 20 g 4 times daily. Will monitor the ammonia level and will monitor also the stool output. Nephrology on the case regarding the acute kidney injury. The patient was started on Lasix 40 mg IV every 24 hours. Midodrine for blood pressure support No need for ICU transfer at this point in time. Patient is able to protect his airway. Pulse ox is above 90% room air oxygen. Will continue to monitor. Case was discussed with the family.
[2023-07-04 17:17] LABS: Prothrombin Time 19.6 sec (10.0-12.5)
[2023-07-04] MEDS: LACTULOSE 20 GM/30 ML CUP PO SCH (17:32)
[2023-07-04 17:49] LABS: Basophils % (A) 0 %; Eosinophils # (A) 0.1 k/uL (0-0.7); Eosinophils % (A) 1 %; HCT 43.8 % (39.0-53.0); Hypochromasia Slight; Lymphocytes # (A) 0.7 k/uL (1.0-4.8); Lymphocytes % (A) 7 %; MCH 34.3 pg (25.0-35.0); MCHC 31.9 g/dL (31.0-37.0); MCV 107.4 fL (80.0-100.0); Macrocytosis Marked; Mean Platelet Volume 9.4; Monocytes # (A) 0.5 k/uL (0-1.0); Monocytes % (A) 5 %; Neutrophils # (A) 8.8 k/uL (1.3-7.7); Neutrophils % (A) 87 %; RBC 4.07 m/uL (4.30-5.90); RDW 15.3 % (11.5-15.5); WBC 10.1 k/uL (3.8-10.6)
[2023-07-04 18:13] LABS: Platelet Count 36 k/uL (150-450); Polychromasia Present
[2023-07-04] MEDS: METOPROLOL TARTRATE 5 MG/5 ML VIAL IVP SCH (21:59)
[2023-07-05 02:39] LABS: Glucose,Whole Blood 79 mg/dL (70-110)
--- NOTE | 2023-07-05 03:24 | XR ---
EXAM: XR Chest, 1 View CLINICAL HISTORY: Resp distress TECHNIQUE: Frontal view of the chest. COMPARISON: June 05, 2023 FINDINGS: There is infiltration and/or atelectasis in the right lung, predominantly in the lung base. There is also abnormal consolidation in the retrocardiac region of the left lung base which may represent infiltration and/or atelectasis. There is likely a small left pleural effusion. No evidence of pneumothorax. IMPRESSION: Bibasal areas of infiltration and/or atelectasis with probable small left pleural effusion.
[2023-07-05 03:41] LABS: INR 1.9 (<1.2)
[2023-07-05 03:47] LABS: African American GFR (CKD) 27 (>60 ml/min/1.73 sqM); Anion Gap 7 mmol/L; Blood Urea Nitrogen 73 mg/dL (9-20); Calcium 9.1 mg/dL (8.4-10.2); Carbon Dioxide 25 mmol/L (22-30); Chloride 115 mmol/L (98-107); Glucose 105 mg/dL (74-99); Non-African American GFR(CKD) 23 (>60 ml/min/1.73 sqM); Potassium 4.6 mmol/L (3.5-5.1); Sodium 147 mmol/L (137-145)
[2023-07-05 03:48] LABS: HCT 41.4 % (39.0-53.0); HGB 13.6 gm/dL (13.0-17.5); Hypochromasia Moderate; MCH 35.3 pg (25.0-35.0); MCHC 32.8 g/dL (31.0-37.0); Macrocytosis Marked; Mean Platelet Volume 10.4; RBC 3.84 m/uL (4.30-5.90); RDW 15.7 % (11.5-15.5); WBC 7.4 k/uL (3.8-10.6)
[2023-07-05 03:52] LABS: MCV 107.8 fL (80.0-100.0); Platelet Count 28 k/uL (150-450)
[2023-07-05 04:09] LABS: Band Neutrophils % 1 %; Eosinophils # (M) 0.22 k/uL (0-0.7); Lymphocytes # (M) 0.67 k/uL (1.0-4.8); Monocytes # (M) 0.52 k/uL (0-1.0); Neutrophils % (M) 80 %; Nucleated Red Blood Cells 0 /100 WBC (0-0); Total Cells Counted 100
[2023-07-05 04:11] LABS: Tear Drop Cells Present
[2023-07-05] MEDS: FUROSEMIDE 10 MG/ML 4 ML VIAL IV SCH (09:36)
--- NOTE | 2023-07-05 11:22 | P.PN ---
Subjective Patient is seen for follow-up for acute kidney injury. He was admitted to the hospital with mental status changes. Underlying history of chronic liver disease from fatty liver. Patient received lactulose rectally. Ammonia has decreased. Mentation has not improved. Patient remains on BiPAP. Nursing staff reports 3 bowel movements yesterday. No bowel movement yet today. 24 hour urine output documented at 950 ML. Maintained on IV Lasix for volume overload. Objective - Vital Signs Vital signs: Vital Signs Temp 97.6 F 07/05/23 08:00 Pulse 120 H 07/05/23 08:00 Resp 12 07/05/23 08:00 BP 130/75 07/05/23 08:00 Pulse Ox 98 07/05/23 08:00 FiO2 30 07/05/23 09:29 Intake & Output 07/04/23 07/05/23 07/05/23 18:59 06:59 18:59 Intake Total 0 Output Total 200 Balance 0 -200 Weight 130 kg Intake: Oral 0 Output: Urine 200 Other: Voiding Method External Catheter External Catheter External Catheter # Voids 1 # Bowel Movements 1 - Exam Patient is arousable but does not communicate. Currently on BiPAP Examination of the heart S1 and S2 Examination of the lungs decreased breath sounds at the bases Abdomen is soft distended obese, nontender Examination of lower extremity shows edema 1+ bilaterally - Labs CBC & Chem 7: 07/05/23 03:22 07/05/23 03:22 Labs: Abnormal Lab Results - Last 24 Hours (Table) 07/04/23 07/04/23 07/04/23 Range/Units 11:29 11:29 16:54 RBC 4.07 L (4.30-5.90) m/uL MCV 107.4 H (80.0-100.0) fL MCH (25.0-35.0) pg RDW (11.5-15.5) % Plt Count 36 L (150-450) k/uL Neutrophils # 8.8 H (1.3-7.7) k/uL Lymphocytes # 0.7 L (1.0-4.8) k/uL Lymphocytes # (Manual) (1.0-4.8) k/uL Macrocytosis Marked A PT (10.0-12.5) sec INR (<1.2) Sodium 147 H (137-145) mmol/L Chloride 116 H (98-107) mmol/L Carbon Dioxide 19 L (22-30) mmol/L BUN 66 H (9-20) mg/dL Creatinine 2.49 H (0.66-1.25) mg/dL Glucose (74-99) mg/dL Ammonia 52 H (<30) umol/L 07/04/23 07/05/23 07/05/23 Range/Units 16:54 03:22 03:22 RBC 3.84 L (4.30-5.90) m/uL MCV 107.8 H (80.0-100.0) fL MCH 35.3 H (25.0-35.0) pg RDW 15.7 H (11.5-15.5) % Plt Count 28 L (150-450) k/uL Neutrophils # (1.3-7.7) k/uL Lymphocytes # (1.0-4.8) k/uL Lymphocytes # (Manual) 0.67 L (1.0-4.8) k/uL Macrocytosis Marked A PT 19.6 H 19.0 H (10.0-12.5) sec INR 2.0 H 1.9 H (<1.2) Sodium (137-145) mmol/L Chloride (98-107) mmol/L Carbon Dioxide (22-30) mmol/L BUN (9-20) mg/dL Creatinine (0.66-1.25) mg/dL Glucose (74-99) mg/dL Ammonia (<30) umol/L 07/05/23 Range/Units 03:22 RBC (4.30-5.90) m/uL MCV (80.0-100.0) fL MCH (25.0-35.0) pg RDW (11.5-15.5) % Plt Count (150-450) k/uL Neutrophils # (1.3-7.7) k/uL Lymphocytes # (1.0-4.8) k/uL Lymphocytes # (Manual) (1.0-4.8) k/uL Macrocytosis PT (10.0-12.5) sec INR (<1.2) Sodium 147 H (137-145) mmol/L Chloride 115 H (98-107) mmol/L Carbon Dioxide (22-30) mmol/L BUN 73 H (9-20) mg/dL Creatinine 2.59 H (0.66-1.25) mg/dL Glucose 105 H (74-99) mg/dL Ammonia (<30) umol/L Assessment and Plan Assessment: 1. Acute kidney injury, ATN currently nonoliguric. Patient has been hypotensive. Ultrasound shows no obstruction in the right kidney. Left kidney could not be visualized due to bowel gas. UA shows moderate blood no protein. UA shows RBCs 30 with moderate blood. No protein noted. Possible hepatorenal syndrome if renal function continues to worsen. Maintained on midodrine. Lasix dose has been decreased. 2. Encephalopathy mostly hepatic encephalopathy maintained on lactulose 3. Chronic A. fib with controlled ventricular response 4. Chronic liver disease with history of fatty liver 5. CHF, acute, diastolic dysfunction with ejection fraction 50-55% 6. Mild hyper natremia associated with free water deficit Plan: Continue Lasix 40 mg daily Continue with midodrine and hold for systolic blood pressure more than 1 10 mmHg Continue accurate I's and O's Check ultrasound of the kidneys Repeat labs in a.m. next
--- NOTE | 2023-07-05 14:44 | P.PN ---
Subjective HISTORY OF PRESENT ILLNESS: This is a 77-year-old gentleman with a past medical history significant for atrial fibrillation as well as history of chronic liver disease who was brought to the emergency department because of weakness and frequent falling at home. The patient is extremely poor historian and the history was taken from the chart as well as from the nurse taking care of the patient. No family member available to provide any more details. Apparently the patient has been falling at home and there was significant change in mental status. No indication that he was experiencing any symptoms of chest pain or chest discomfort or shortness of breath or any feeling of heart racing or fluttering. He underwent further workup including BMP and that showed acute renal failure and his ammonia level also was elevated. Beside that he underwent CBC and that showed thrombocytopenia which has been chronic. The patient does have history of atrial fibrillation and he was not receiving any anticoagulation likely because of frequent falling and possible bleeding and also because of thrombocytopenia. The EKG showed atrial fibrillation with diffuse nonspecific ST and T wave abnormality rate and echocardiogram from 2022 showed a preserved LV systolic function with no significant valvular abnormalities. The patient is extremely confused with lethargy. The troponin is mildly elevated. The examination revealed irregular rhythm with clear breathing sounds bilaterally and bilateral lower extremities edema July 04, 2023 The patient was seen and evaluated this morning. He continues to have severe/significant change in mental status. Hemodynamically he is stable. He continues to be in atrial fibrillation with controlled heart rate with no oral AV luis maureen agents because he cannot take any oral medications. Also he ca nnot be on any anticoagulation because of severe thrombocytopenia. CT scan of the brain showed no acute abnormalities. He underwent an echo which revealed normal LV systolic function. On examination he does have severe change in mental status with severe bilateral lower extremities edema noted. He is on Lasix IV at this point. CBC and BMP are scheduled but still pending now. 07/05/2023 Patient examined this morning at the bedside. Patient remains lethargic and is unable to converse with provider at the time of examination. Apparently patient had an NG tube which he pulled out overnight. An A-team was also called overnight due to increasing respiratory difficulty. Patient is currently on BiPAP. PHYSICAL EXAM: VITAL SIGNS: Reviewed. GENERAL: Well-developed in no acute distress. NECK: Supple. No JVD or thyromegaly LUNGS: Respirations even and unlabored. Lungs essentially clear to auscultation bilaterally. HEART: Regular rate and rhythm. S1 and S2 heard. EXTREMITIES: Normal range of motion. No clubbing or cyanosis. Peripheral pulses intact. 1+ bilateral lower extremity edema ASSESSMENT: Altered mental status Acute hypoxic respiratory failure, currently on BiPAP Persistent atrial fibrillation, not on anticoagulation due to severe thrombocytopenia Thrombocytopenia, platelet count 28 Chronic liver disease Acute renal failure Elevated ammonia levels PLAN: Patient is currently n.p.o. and unable to take oral medications due to altered mental status Patient is currently on IV push metoprolol 5 mg every 12 hours. Increased to every 6 hours for to optimal heart rate control Patient not anticoagulated due to severe thrombocytopenia When patient is able to tolerate oral medications, recommend initiating Coreg and Aldactone Continue telemetry monitoring Further recommendations pending patient course Nurse practitioner note has been reviewed by physician. Signing provider agrees with the documented findings, assessment, and plan of care documented by [employer] as a scribe. Objective - Vital Signs Vital signs: Vital Signs Temp 97.6 F 07/05/23 08:00 Pulse 120 H 07/05/23 08:00 Resp 12 07/05/23 08:00 BP 130/75 07/05/23 08:00 Pulse Ox 98 07/05/23 08:00 FiO2 30 07/05/23 12:23 Intake & Output 07/04/23 07/05/23 07/05/23 18:59 06:59 18:59 Intake Total 0 Output Total 200 Balance 0 -200 Weight 130 kg Intake: Oral 0 Output: Urine 200 Other: Voiding Method External Catheter External Catheter External Catheter # Voids 1 # Bowel Movements 1 - Labs CBC & Chem 7: 07/05/23 03:22 07/05/23 03:22 Labs: Abnormal Lab Results - Last 24 Hours (Table) 07/04/23 07/04/23 07/05/23 Range/Units 16:54 16:54 03:22 RBC 4.07 L (4.30-5.90) m/uL MCV 107.4 H (80.0-100.0) fL MCH (25.0-35.0) pg RDW (11.5-15.5) % Plt Count 36 L (150-450) k/uL Neutrophils # 8.8 H (1.3-7.7) k/uL Lymphocytes # 0.7 L (1.0-4.8) k/uL Lymphocytes # (Manual) (1.0-4.8) k/uL Macrocytosis Marked A PT 19.6 H 19.0 H (10.0-12.5) sec INR 2.0 H 1.9 H (<1.2) Sodium (137-145) mmol/L Chloride (98-107) mmol/L BUN (9-20) mg/dL Creatinine (0.66-1.25) mg/dL Glucose (74-99) mg/dL 07/05/23 07/05/23 Range/Units 03:22 03:22 RBC 3.84 L (4.30-5.90) m/uL MCV 107.8 H (80.0-100.0) fL MCH 35.3 H (25.0-35.0) pg RDW 15.7 H (11.5-15.5) % Plt Count 28 L (150-450) k/uL Neutrophils # (1.3-7.7) k/uL Lymphocytes # (1.0-4.8) k/uL Lymphocytes # (Manual) 0.67 L (1.0-4.8) k/uL Macrocytosis Marked A PT (10.0-12.5) sec INR (<1.2) Sodium 147 H (137-145) mmol/L Chloride 115 H (98-107) mmol/L BUN 73 H (9-20) mg/dL Creatinine 2.59 H (0.66-1.25) mg/dL Glucose 105 H (74-99) mg/dL
--- NOTE | 2023-07-05 15:04 | P.CNNES ---
History of Present Illness Consult date: 07/05/23 Requesting physician: Julian Jasso Reason for Consult: Altered mental status History of Present Illness: Patient is a 77-year-old male came to the hospital by ambulance 2 days ago on 07/03/2023 tiler at 2:59 AM. For altered mental status. Patient not able to provide much history, due to encephalopathy, slow mentation. According to the nursing report, patient has been very obtunded last night through this mo rning. However later during the day he is woken up and has improved. He has been on BiPAP all night. Patient does take lactulose, but he does not takes it regularly. Patient states he lives with his . EMS flowsheet not available in the chart. Vital signs on arrival blood pressure 118/87, pulse rate 111, temperature 97.1. Blood test shows WBC 4.4, hemoglobin 13.9, with elevated MCV 106.7, platelets are low 29. INR 1.9, PTT 36.7. Electrolytes are normal, BUN 66, creatinine 2.68. Lactate 2.1. Ammonia is elevated 162, hepatic panel normal. Troponin mildly elevated 0.068. UA is neg ative. Blood alcohol level negative. Influenza, RSV and coronavirus PCR negative. Most recent BUN 73, creatinine 2.59. CT head revealed no acute intracranial process. Nonspecific white matter changes, likely secondary to chronic small vessel ischemic disease. I personally reviewed CT head, agree with the findings. Chest x-ray revealed bibasilar areas of infiltration and/or atelectasis with possible small left pleural effusion. Ultrasound kidneys and bladder revealed no evidence for right obstructive uropathy. Left kidney is poorly visualized due to bowel gas. Right pleural effusion. EKG shows atrial fibrillation with rapid ventricular response. 2D echo revealed technically limited study for interpretation. Normal left ventricular systolic function. EF is 50 to 55%. Mild concentric LVH. Poorly visualized intracardiac valves. Left atrium is severely increased in diameter. Patient has been seen by myself on 01/06/2023 for a fall due to legs giving out without loss of consciousness. It was felt to be possibly related to arrhythmia versus orthostasis due to multiple other factors including new onset atrial fibrillation, acute UTI, thrombocytopenia, elevated lactate and macrocytosis. Review of Systems Constitutional: Denies chills, Denies fever Eyes: denies blurred vision, denies diplopia, denies pain Ears: deny: decreased hearing, ear discharge Ears, nose, mouth and throat: Denies headache, Denies sore throat, Denies vertigo Cardiovascular: Denies chest pain, Denies lightheadedness, Denies shortness of breath Respiratory: Reports cough, Reports excessive sputum Gastrointestinal: Denies abdominal pain, Denies diarrhea, Denies nausea, Denies vomiting Genitourinary: Denies dysuria, Denies incontinence Musculoskeletal: Denies low back pain, Denies myalgias, Denies neck pain Integumentary: Reports color changes, Reports darkening of skin, Denies wounds Neurological: Reports as per HPI Psychiatric: Denies anxiety, Denies depression Past Medical History Past Medical History: Atrial Fibrillation, Osteoarthritis (OA) Additional Past Medical History / Comment(s): GOUT,. FATTY LIVER-50% Liver cirrhosis History of Any Multi-Drug Resistant Organisms: None Reported Past Surgical History: Appendectomy, Hernia Repair, Joint Replacement, Orthopedic Surgery Additional Past Surgical History / Comment(s): right knee replacement, right arm surgery, COLONOSCOPY, EGD Past Anesthesia/Blood Transfusion Reactions: No Reported Reaction Past Psychological History: No Psychological Hx Reported Smoking Status: Never smoker Past Alcohol Use History: None Reported Past Drug Use History: None Reported - Past Family History Mother Family Medical History: Cancer Medications and Allergies Home Medications Medication Instructions Recorded Confirmed Type Lactulose [Cephulac] 20 gm PO DAILY 06/02/23 07/03/23 History Metoprolol Tartrate 25 mg PO BID 06/02/23 07/03/23 History Potassium Chloride ER [K-Dur 20] 20 meq PO DAILY 06/02/23 07/03/23 History Furosemide [Lasix] 40 mg PO BID@0900,1600 #60 tab 06/08/23 07/03/23 Rx Allergies Allergy/AdvReac Type Severity Reaction Status Date / Time No Known Allergies Allergy Verified 07/03/23 12:22 Physical Examination - Vital Signs Vital Signs: Vital Signs Temp Pulse Resp BP Pulse Ox FiO2 07/05/23 12:23 30 07/05/23 09:29 30 07/05/23 08:00 97.6 F 120 H 12 130/75 98 30 07/05/23 04:55 30 07/05/23 04:00 125 H 12 118/76 96 30 07/05/23 03:10 30 07/05/23 02:00 105 H 12 07/05/23 00:00 105 H 12 126/92 98 07/04/23 20:00 97.9 F 115 H 16 125/87 96 07/04/23 17:26 106 H 19 98/72 96 07/04/23 16:04 138 H 19 Intake and Output 07/04/23 07/05/23 07/05/23 22:59 06:59 14:59 Output Total 200 Balance -200 Output: Urine 200 Other: Voiding Method External Catheter External Catheter External Catheter # Bowel Movements 1 Weight 130 kg Patient is an elderly male, who is laying in the bed, in no acute distress. Patient is encephalopathic, slightly lethargic, but does wake up and tries to answer. He has prolonged latency time to answer questions. Patient states it is May and the year is 2001. He knows that he is in [facility] in [facility]. He states Mr. Saleem is the current president. Speech is mildly slurred due to mentation and language functions are normal. Patient can name all objects presented and repeat very well. No aphasia or dysarthria. Attention, concentration is significantly impaired due to encephalopathy and fund of knowledge is also limited. On cranial nerve examination, pupils are equal, round and reacting to light, visual vail are full on confrontation, however patient was not able to check for neglect because of his mentation. He has inconsistent response. Extraocular muscles are intact with no nystagmus. Patient is slightly icteric. Face is symmetric, tongue protrudes to the midline. Palatal elevation and sensation normal, hearing is mildly decreased and shoulder shrug normal, facial sensation normal. On muscle strength testing, there is no pronator drift and the strength is normal in arms and legs distally and proximally, except hip flexion which are 4- bilaterally. Patient has asterixis of the outstretched hand. Deep tendon reflexes are symmetric 2 at the biceps, 1 brachioradialis, 2 at the knees, 1+ ankles. Patient has right knee arthroplasty in the past. Therefore right knee reflex is decreased. Plantars are upgoing bilaterally. Sensory to touch is equal with no neglect on double simultaneous stimulation. Cerebellar function showed no ataxia for [id number] testing. Patient not able to cooperate for [id number] testing on either side. Tone and bulk of muscles normal. Gait deferred.. On general examination, there is no carotid bruit or murmur, S1-S2 audible. Chest is clear on consultation. Abdomen is soft nontender. No organomegaly, bowel sounds present. Patient has mild to moderate peripheral edema. Patient has a lot of bruises over his forearms and extensor hand region. Results - Laboratory Findings CBC and BMP: 07/07/23 08:15 07/07/23 08:15 Abnormal Lab Findings: Abnormal Labs 07/03/23 07/03/23 07/03/23 03:26 03:26 03:26 RBC 4.00 L MCV 106.7 H MCH RDW Plt Count 29 L Neutrophils # Lymphocytes # Lymphocytes # (Manual) Macrocytosis Marked A PT 18.9 H INR 1.9 H APTT 36.7 H Sodium Chloride 114 H Carbon Dioxide BUN 66 H Creatinine 2.68 H Glucose 100 H Plasma Lactic Acid Jarret Total Bilirubin 4.5 H Alkaline Phosphatase 144 H Ammonia Troponin I Albumin 2.5 L Urine Blood Urine RBC Hyaline Casts Urine Mucus 07/03/23 07/03/23 07/03/23 03:26 03:26 04:31 RBC MCV MCH RDW Plt Count Neutrophils # Lymphocytes # Lymphocytes # (Manual) Macrocytosis PT INR APTT Sodium Chloride Carbon Dioxide BUN Creatinine Glucose Plasma Lactic Acid Jarret 2.1 H* Total Bilirubin Alkaline Phosphatase Ammonia 162 H Troponin I 0.068 H* Albumin Urine Blood Moderate H Urine RBC 30 H Hyaline Casts 17 H Urine Mucus Rare H 07/03/23 07/03/23 07/03/23 04:57 07:11 10:26 RBC MCV MCH RDW Plt Count Neutrophils # Lymphocytes # Lymphocytes # (Manual) Macrocytosis PT INR APTT Sodium Chloride Carbon Dioxide BUN Creatinine Glucose Plasma Lactic Acid Jarret Total Bilirubin Alkaline Phosphatase Ammonia 146 H Troponin I 0.069 H* 0.068 H* Albumin Urine Blood Urine RBC Hyaline Casts Urine Mucus 07/04/23 07/04/23 07/04/23 11:29 11:29 16:54 RBC 4.07 L MCV 107.4 H MCH RDW Plt Count 36 L Neutrophils # 8.8 H Lymphocytes # 0.7 L Lymphocytes # (Manual) Macrocytosis Marked A PT INR APTT Sodium 147 H Chloride 116 H Carbon Dioxide 19 L BUN 66 H Creatinine 2.49 H Glucose Plasma Lactic Acid Jarret Total Bilirubin Alkaline Phosphatase Ammonia 52 H Troponin I Albumin Urine Blood Urine RBC Hyaline Casts Urine Mucus 07/04/23 07/05/23 07/05/23 16:54 03:22 03:22 RBC 3.84 L MCV 107.8 H MCH 35.3 H RDW 15.7 H Plt Count 28 L Neutrophils # Lymphocytes # Lymphocytes # (Manual) 0.67 L Macrocytosis Marked A PT 19.6 H 19.0 H INR 2.0 H 1.9 H APTT Sodium Chloride Carbon Dioxide BUN Creatinine Glucose Plasma Lactic Acid Jarret Total Bilirubin Alkaline Phosphatase Ammonia Troponin I Albumin Urine Blood Urine RBC Hyaline Casts Urine Mucus 07/05/23 03:22 RBC MCV MCH RDW Plt Count Neutrophils # Lymphocytes # Lymphocytes # (Manual) Macrocytosis PT INR APTT Sodium 147 H Chloride 115 H Carbon Dioxide BUN 73 H Creatinine 2.59 H Glucose 105 H Plasma Lactic Acid Jarret Total Bilirubin Alkaline Phosphatase Ammonia Troponin I Albumin Urine Blood Urine RBC Hyaline Casts Urine Mucus Assessment and Plan Assessment: * Altered mental status, probably due to hepatic encephalopathy on top of other causes of metabolic encephalopathy as mentioned below. * Chronic renal failure * Hepatic encephalopathy with ammonia 162. * Chronic liver disease, with probable cirrhosis * Thrombocytopenia due to above. * Atrial fibrillation, not on anticoagulation or antiplatelets because of thrombocytopenia. * Macrocytosis * Pleural effusion * Obesity Plan: * Patient most likely has hepatic encephalopathy on top of toxic metabolic encephalopathy from other factors as well. * Neurologically, no workup indicated. * Patient had carotid Doppler performed last admission on 01/08/2023, which revealed no hemodynamically significant stenosis in either ICA. Antegrade flow in both vertebral arteries. * Patient's previous B12 was 653, folate 7.0 and TSH normal. Patient on folate replacement. * Treatment of hepatic encephalopathy and other causes of metabolic encephalopathy as per IM and other specialties on board. * Neurology will follow clinically. Thank you for the consult.
--- NOTE | 2023-07-05 15:57 | P.PN ---
Subjective Progress Note Date: 07/05/23 I was asked to evaluate this patient for ICU transfer. The patient is 77 and the patient is known to have liver cirrhosis. It was noted that the patient's mentation has been progressively declining and the patient has not been able to take his oral lactulose. As such, the patient has been coming progressively more encephalopathic. 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 He has hypertension and chronic atrial fibrillation has comorbid conditions. During this current admission, the patient presented with generalized weakness and falling at home. He is a very poor historian. Family is at the bedside. Apparently his condition has been progressively gett ing worse over this past several months. No recent GI bleeding. He has had remote history of ascites that was drained. He is known to have chronic A-fib. He has not been receiving any form of anticoagulation due to concerns of bleeding as the patient has issues with chronic thrombocytopenia. During this current hospital admission, the patient also developed an acute kidney injury the creatinine currently is at the rise and is up to 2.68, troponin was 0.06 respectively x 2, UA was showing 1 WBC and few RBCs. The patient is afebrile. Pulse ox is 91 to 96% room air oxygen. Chest x-ray is showing a right-sided pleural effusion. Most recent blood pressure is 100/61. No reported aspirati on. Remains on Lasix IV and is also on midodrine. In terms of his hepatic encephalopathy, repeated ammonia levels showed some improvement on today's blood work and ammonia level is down to 52 as the patient has received serial doses of lactulose enema. Cardiology has been consulted and nephrology has also been consulted. Potassium supplements have been discontinued. Midodrine was added. Ultrasound of the kidneys showed no evidence of any hydronephrosis and the CAT scan of the brain showed no acute intracranial process and there is evidence of chronic small vessel ischemic changes. The patient is seen today more July 05, 2023 in follow-up on the selective care unit. He is currently resting in bed. He is on BiPAP 12/6 and 30% FiO2. He continues to receive IV diuretics. He continues to receive rectal lactulose. His ammonia level has improved from 146 down to 23. Chest x-ray reveals bibasilar infiltrates and/or atelectasis with a small left pleural effusion. White count 7.4. Hemoglobin 13.6. Platelets 28,000. Sodium 147. Potassium 4.6. Bicarb 25. BUN 73. Creatinine 2.59. INR 1.9. Objective - Vital Signs Vital signs: Vital Signs Temp 97.3 F L 07/05/23 15:39 Pulse 79 07/05/23 15:39 Resp 18 07/05/23 15:39 BP 94/59 07/05/23 15:39 Pulse Ox 99 07/05/23 15:39 FiO2 30 07/05/23 12:23 Intake & Output 07/04/23 07/05/23 07/05/23 18:59 06:59 18:59 Intake Total 0 Output Total 200 Balance 0 -200 Weight 130 kg Intake: Oral 0 Output: Urine 200 Other: Voiding Method External Catheter External Catheter External Catheter # Voids 1 # Bowel Movements 1 - Exam GENERAL EXAM: Arousable, 77-year-old male, on BiPAP 12/6 and 30% FiO2, comfortable in no apparent distress. HEAD: Normocephalic. EYES: Normal reaction of pupils, equal size. NOSE: Clear with pink turbinates. THROAT: No erythema or exudates. NECK: No masses, no JVD. CHEST: No chest wall deformity. LUNGS: Equal air entry with crackles in the bilateral bases. CVS: S1 and S2 normal with no audible murmur, irregular rhythm. ABDOMEN: Distended, normal bowel sounds, no guarding or rigidity. SPINE: No scoliosis or deformity SKIN: No rashes CENTRAL NERVOUS SYSTEM: No focal deficits, tone is normal in all 4 extremities. EXTREMITIES: There is 1-2+ peripheral edema. No clubbing, no cyanosis. Peripheral pulses are intact. - Labs CBC & Chem 7: 07/05/23 03:22 07/05/23 03:22 Labs: Abnormal Lab Results - Last 24 Hours (Table) 07/04/23 07/04/23 07/05/23 Range/Units 16:54 16:54 03:22 RBC 4.07 L (4.30-5.90) m/uL MCV 107.4 H (80.0-100.0) fL MCH (25.0-35.0) pg RDW (11.5-15.5) % Plt Count 36 L (150-450) k/uL Neutrophils # 8.8 H (1.3-7.7) k/uL Lymphocytes # 0.7 L (1.0-4.8) k/uL Lymphocytes # (Manual) (1.0-4.8) k/uL Macrocytosis Marked A PT 19.6 H 19.0 H (10.0-12.5) sec INR 2.0 H 1.9 H (<1.2) Sodium (137-145) mmol/L Chloride (98-107) mmol/L BUN (9-20) mg/dL Creatinine (0.66-1.25) mg/dL Glucose (74-99) mg/dL 07/05/23 07/05/23 Range/Units 03:22 03:22 RBC 3.84 L (4.30-5.90) m/uL MCV 107.8 H (80.0-100.0) fL MCH 35.3 H (25.0-35.0) pg RDW 15.7 H (11.5-15.5) % Plt Count 28 L (150-450) k/uL Neutrophils # (1.3-7.7) k/uL Lymphocytes # (1.0-4.8) k/uL Lymphocytes # (Manual) 0.67 L (1.0-4.8) k/uL Macrocytosis Marked A PT (10.0-12.5) sec INR (<1.2) Sodium 147 H (137-145) mmol/L Chloride 115 H (98-107) mmol/L BUN 73 H (9-20) mg/dL Creatinine 2.59 H (0.66-1.25) mg/dL Glucose 105 H (74-99) mg/dL Assessment and Plan Assessment: Encephalopathy, likely hepatic in nature. The patient has been able to take his lactulose on a regular basis. Despite a drop in the lactulose level, the patie nt remains obtunded and lethargic. He is able to protect his airways at this point in time. CAT scan of the brain is not showing any acute abnormalities and the patient has no focal neurological deficits. Liver cirrhosis with stigmata of chronic liver failure Obesity with a BMI of 39 Chronic atrial fibrillation, not receiving any form of anticoagulants at this point in time Acute kidney injury probably related to intravascular volume depletion and dehydration. 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 Not affecting overall respiration Plan: The patient was seen and evaluated Chest x-ray, labs and medications reviewed Currently on BiPAP / and 30% FiO2 Continue diuretics Continue lactulose Overall prognosis remains poor We will continue to follow I have personally seen and examined the patient, performed the documentation and the assessment and plan as written. Number of minutes spent on the visit: 10.
[2023-07-05] MEDS: THIAMINE 100 MG TAB PO SCH (17:41)
[2023-07-05] MEDS: FOLIC ACID 1 MG TAB PO SCH (18:26)
[2023-07-05] MEDS: METOPROLOL TARTRATE 5 MG/5 ML VIAL IVP SCH (18:26)
--- NOTE | 2023-07-06 07:10 | PN ---
PROGRESS NOTE DATE OF SERVICE: 07/05/2023 SUBJECTIVE: This is a 77-year-old gentleman who was admitted with elevated troponin, also had CHF acute exacerbation. The patient is on BiPAP. The patient is significantly short of breath. Multiple consultants are following the patient closely including Cardiology, Nephrology, and Pulmonology thought to be due to hepatic in nature. The CT brain showed only nonspecific changes. Ammonia was found to be elevated at 52. PAST MEDICAL HISTORY: Reviewed. REVIEW OF SYSTEMS: Could not be taken. MEDICATIONS: Reviewed include cephalexin, rest of medications noted. PHYSICAL EXAMINATION: VITAL SIGNS: Pulse is 120, blood pressure 130/70, respirations 12. HEENT: Conjunctivae normal. NECK: No jugular venous distention. CARDIOVASCULAR: S1, S2. RESPIRATIONS: Diminished at the bases, few scattered rhonchi ABDOMEN: Soft, distended, obese. LEGS: No edema, no swelling. NERVOUS SYSTEM: No focal deficits. LABORATORY DATA: Sodium 147, creatinine 2.59. ASSESSMENT: 1. CHF acute exacerbation. 2. Acute hypoxic respiratory failure, on BiPAP. 3. Elevated troponin. 4. Atrial fibrillation with rapid ventricular rate. 5. Hyperammonemia and hepatic encephalopathy. 6. Liver cirrhosis, thrombocytopenia. 7. Acute renal injury. 8. Hypertension. 9. Multiple complex medical issues. RECOMMENDATIONS AND DISCUSSION: Recommended to continue current medications, continue symptomatic treatment. Otherwise, we will monitor fluid electrolyte balance closely. Nephrology is following the patient closely. The patient is on small dose of Lasix. Closely follow with multiple consultants. Prognosis extremely guarded because of multiple medical issues. Discussed with the family and assess and further recommendations to follow. MMODL / IJN: [id number] / MTDD
--- NOTE | 2023-07-06 09:41 | XR ---
EXAMINATION TYPE: XR chest 1V portable DATE OF EXAM: 07/06/2023 Comparison: 07/05/23 Clinical History: 77-year-old male with CHF Findings: Metallic clip projects at the left base. Heart borderline in size. Mild interstitial densities remain low with some improvement in aeration. Before meals right main opacity shows some improvement. Ongoi ng small left pleural effusion with retrocardiac opacity. Impression: Improving aeration but with residual mild pulmonary vascular congestion. Small effusions remain, left greater than right also with some improvement particularly on the right. Adjacent retrocardiac atele ctasis and/or consolidation is similar.
[2023-07-06 09:42] LABS: INR 1.9 (<1.2); Prothrombin Time 18.7 sec (10.0-12.5)
[2023-07-06 09:46] LABS: Potassium 4.2 mmol/L (3.5-5.1)
[2023-07-06 09:47] LABS: African American GFR (CKD) 24 (>60 ml/min/1.73 sqM); Anion Gap 3 mmol/L; Blood Urea Nitrogen 68 mg/dL (9-20); Calcium 8.7 mg/dL (8.4-10.2); Carbon Dioxide 29 mmol/L (22-30); Chloride 112 mmol/L (98-107); Glucose 100 mg/dL (74-99); Non-African American GFR(CKD) 21 (>60 ml/min/1.73 sqM); Sodium 144 mmol/L (137-145)
[2023-07-06 10:51] LABS: Basophils % (A) 1 %; Eosinophils # (A) 0.2 k/uL (0-0.7); Eosinophils % (A) 5 %; HCT 38.9 % (39.0-53.0); HGB 12.5 gm/dL (13.0-17.5); Hypochromasia Moderate; Lymphocytes # (A) 0.7 k/uL (1.0-4.8); Lymphocytes % (A) 17 %; MCH 35.2 pg (25.0-35.0); MCHC 32.3 g/dL (31.0-37.0); Mean Platelet Volume 11.3; Monocytes # (A) 0.4 k/uL (0-1.0); Monocytes % (A) 10 %; Neutrophils # (A) 2.6 k/uL (1.3-7.7); Neutrophils % (A) 65 %; RBC 3.57 m/uL (4.30-5.90); RDW 15.3 % (11.5-15.5)
[2023-07-06 10:53] LABS: Macrocytosis Marked; Platelet Count 27 k/uL (150-450)
[2023-07-06] MEDS: carvediloL 6.25 MG TAB PO SCH (12:17)
[2023-07-06] MEDS: MULTIVITAMINS, THERA 1 EACH TAB PO SCH (12:17)
--- NOTE | 2023-07-06 12:22 | P.PN ---
Subjective Patient is seen for follow-up for acute kidney injury. He was admitted to the hospital with mental status changes. Underlying history of chronic liver disease from fatty liver. Patient received lactulose rectally. Ammonia has decreased. Mentation has significantly improved today. Patient is off of BiPAP 24-hour urine output charted at 1.5 L. Serum creatinine increased to 2.8 today Lasix was decreased yesterday. Objective - Vital Signs Vital signs: Vital Signs Temp 97.1 F L 07/06/23 08:32 Pulse 102 H 07/06/23 12:08 Resp 18 07/06/23 12:12 BP 90/58 07/06/23 12:08 Pulse Ox 97 07/06/23 12:12 FiO2 30 07/06/23 08:32 Intake & Output 07/05/23 07/06/23 07/06/23 18:59 06:59 18:59 Intake Total 2180 Output Total 400 1150 Balance -400 1030 Weight 135 kg Intake: IV 20 Invasive Line 3 20 Oral 2160 Output: Urine 400 1150 Straight 500 Other: Voiding Method External Catheter External Catheter External Catheter # Bowel Movements 1 - Exam Patient is awake, alert oriented 3 No acute distress Off of BiPAP and maintained on 2 L nasal cannula Examination of the heart S1 and S2 Examination of the lungs decreased breath sounds at the bases Abdomen is soft distended obese, nontender Examination of lower extremity shows edema 1+ bilaterally - Labs CBC & Chem 7: 07/06/23 09:01 07/06/23 09:01 Labs: Abnormal Lab Results - Last 24 Hours (Table) 07/06/23 07/06/23 07/06/23 Range/Units 09:01 09:01 09:01 RBC 3.57 L (4.30-5.90) m/uL Hgb 12.5 L (13.0-17.5) gm/dL Hct 38.9 L (39.0-53.0) % MCV 109.0 H (80.0-100.0) fL MCH 35.2 H (25.0-35.0) pg Plt Count 27 L (150-450) k/uL Lymphocytes # 0.7 L (1.0-4.8) k/uL Macrocytosis Marked A PT 18.7 H (10.0-12.5) sec INR 1.9 H (<1.2) Chloride 112 H (98-107) mmol/L BUN 68 H (9-20) mg/dL Creatinine 2.84 H (0.66-1.25) mg/dL Glucose 100 H (74-99) mg/dL Assessment and Plan Assessment: 1. Acute kidney injury, ATN currently nonoliguric. Patient has been hypotensive. Ultrasound shows no obstruction in the right kidney. Left kidney could not be visualized due to bowel gas. UA shows moderate blood no protein. UA shows RBCs 30 with moderate blood. No protein noted. Possible hepatorenal syndrome if renal function continues to worsen. Maintained on midodrine. Diuretics have been decreased. 2. Encephalopathy mostly hepatic encephalopathy maintained on lactulose 3. Chronic A. fib with controlled ventricular response 4. Chronic liver disease with history of fatty liver 5. CHF, acute, diastolic dysfunction with ejection fraction 50-55% 6. Mild hypernatremia associated with free water deficit Plan: Agree with discontinuation of diuretics. Respiratory status has improved significantly. Continue with midodrine and hold for systolic blood pressure more than 1 10 mmHg Continue accurate I's and O's Continue to monitor bladder scans periodically Repeat labs in a.m.
--- NOTE | 2023-07-06 12:52 | P.PN ---
Subjective HISTORY OF PRESENT ILLNESS: This is a 77-year-old gentleman with a past medical history significant for atrial fibrillation as well as history of chronic liver disease who was brought to the emergency department because of weakness and frequent falling at home. The patient is extremely poor historian and the history was taken from the chart as well as from the nurse taking care of the patient. No family member available to provide any more details. Apparently the patient has been falling at home and there was significant change in mental status. No indication that he was experiencing any symptoms of chest pain or chest discomfort or shortness of breath or any feeling of heart racing or fluttering. He underwent further workup including BMP and that showed acute renal failure and his ammonia level also was elevated. Beside that he underwent CBC and that showed thrombocytopenia which has been chronic. The patient does have history of atrial fibrillation and he was not receiving any anticoagulation likely because of frequent falling and possible bleeding and also because of thrombocytopenia. The EKG showed atrial fibrillation with diffuse nonspecific ST and T wave abnormality rate and echocardiogram from 2022 showed a preserved LV systolic function with no significant valvular abnormalities. The patient is extremely confused with lethargy. The troponin is mildly elevated. The examination revealed irregular rhythm with clear breathing sounds bilaterally and bilateral lower extremities edema July 04, 2023 The patient was seen and evaluated this morning. He continues to have severe/significant change in mental status. Hemodynamically he is stable. He continues to be in atrial fibrillation with controlled heart rate with no oral AV luis maureen agents because he cannot take any oral medications. Also he ca nnot be on any anticoagulation because of severe thrombocytopenia. CT scan of the brain showed no acute abnormalities. He underwent an echo which revealed normal LV systolic function. On examination he does have severe change in mental status with severe bilateral lower extremities edema noted. He is on Lasix IV at this point. CBC and BMP are scheduled but still pending now. 07/05/2023 Patient examined this morning at the bedside. Patient remains lethargic and is unable to converse with provider at the time of examination. Apparently patient had an NG tube which he pulled out overnight. An A-team was also called overnight due to increasing respiratory difficulty. Patient is currently on BiPAP. 07/06/2023 Patient examined this morning at the bedside. Patient is awake and conversing t paula with provider which is an improvement compared to yesterday. He remains confused. He is currently oriented x 1. Blood pressure 90/58. Patient remains in atrial fibrillation with RVR. According to his nurse, he is able to take oral medications now. PHYSICAL EXAM: VITAL SIGNS: Reviewed. GENERAL: Well-developed in no acute distress. NECK: Supple. No JVD or thyromegaly LUNGS: Respirations even and unlabored. Lungs essentially clear to auscultation bilaterally. HEART: Regular rate and rhythm. S1 and S2 heard. EXTREMITIES: Normal range of motion. No clubbing or cyanosis. Peripheral p ulses intact. 1+ bilateral lower extremity edema ASSESSMENT: Altered mental status Hepatic encephalopathy Acute hypoxic respiratory failure, currently on BiPAP Persistent atrial fibrillation, not on anticoagulation due to severe thrombocytopenia Thrombocytopenia, platelet count 28 Chronic liver disease Acute renal failure Elevated ammonia levels Coagulopathy, INR 1.9, secondary to liver disease PLAN: Patient's mentation has improved. He is now able to take oral medications. Discontinue IV push metoprolol and begin carvedilol 6.25 mg twice a day Patient not anticoagulated due to severe thrombocytopenia Continue telemetry monitoring Recommend addition of Aldactone when patient's kidney function improves Further recommendations pending patient course Nurse practitioner note has been reviewed by physician. Signing provider agrees with the documented findings, assessment, and plan of care documented by PHARMACY CONSULTANT as a scribe. Objective - Vital Signs Vital signs: Vital Signs Temp 97.1 F L 07/06/23 08:32 Pulse 102 H 07/06/23 12:08 Resp 18 07/06/23 12:12 BP 90/58 07/06/23 12:08 Pulse Ox 97 07/06/23 12:12 FiO2 30 07/06/23 08:32 Intake & Output 07/05/23 07/06/23 07/06/23 18:59 06:59 18:59 Intake Total 2180 Output Total 400 1150 Balance -400 1030 Weight 135 kg Intake: IV 20 Invasive Line 3 20 Oral 2160 Output: Urine 400 1150 Straight 500 Other: Voiding Method External Catheter External Catheter External Catheter # Bowel Movements 1 - Labs CBC & Chem 7: 07/06/23 09:01 07/06/23 09:01 Labs: Abnormal Lab Results - Last 24 Hours (Table) 07/06/23 07/06/23 07/06/23 Range/Units 09:01 09:01 09:01 RBC 3.57 L (4.30-5.90) m/uL Hgb 12.5 L (13.0-17.5) gm/dL Hct 38.9 L (39.0-53.0) % MCV 109.0 H (80.0-100.0) fL MCH 35.2 H (25.0-35.0) pg Plt Count 27 L (150-450) k/uL Lymphocytes # 0.7 L (1.0-4.8) k/uL Macrocytosis Marked A PT 18.7 H (10.0-12.5) sec INR 1.9 H (<1.2) Chloride 112 H (98-107) mmol/L BUN 68 H (9-20) mg/dL Creatinine 2.84 H (0.66-1.25) mg/dL Glucose 100 H (74-99) mg/dL
--- NOTE | 2023-07-06 15:23 | P.PN ---
Subjective Progress Note Date: 07/06/23 I was asked to evaluate this patient for ICU transfer. The patient is 77 and the patient is known to have liver cirrhosis. It was noted that the patient's mentation has been progressively declining and the patient has not been able to take his oral lactulose. As such, the patient has been coming progressively more encephalopathic. 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 He has hypertension and chronic atrial fibrillation has comorbid conditions. During this current admission, the patient presented with generalized weakness and falling at home. He is a very poor historian. Family is at the bedside. Apparently his condition has been progressively gett ing worse over this past several months. No recent GI bleeding. He has had remote history of ascites that was drained. He is known to have chronic A-fib. He has not been receiving any form of anticoagulation due to concerns of bleeding as the patient has issues with chronic thrombocytopenia. During this current hospital admission, the patient also developed an acute kidney injury the creatinine currently is at the rise and is up to 2.68, troponin was 0.06 respectively x 2, UA was showing 1 WBC and few RBCs. The patient is afebrile. Pulse ox is 91 to 96% room air oxygen. Chest x-ray is showing a right-sided pleural effusion. Most recent blood pressure is 100/61. No reported aspirati on. Remains on Lasix IV and is also on midodrine. In terms of his hepatic encephalopathy, repeated ammonia levels showed some improvement on today's blood work and ammonia level is down to 52 as the patient has received serial doses of lactulose enema. Cardiology has been consulted and nephrology has also been consulted. Potassium supplements have been discontinued. Midodrine was added. Ultrasound of the kidneys showed no evidence of any hydronephrosis and the CAT scan of the brain showed no acute intracranial process and there is evidence of chronic small vessel ischemic changes. The patient is seen today more July 05, 2023 in follow-up on the selective care unit. He is currently resting in bed. He is on BiPAP 12/6 and 30% FiO2. He continues to receive IV diuretics. He continues to receive rectal lactulose. His ammonia level has improved from 146 down to 23. Chest x-ray reveals bibasilar infiltrates and/or atelectasis with a small left pleural effusion. White count 7.4. Hemoglobin 13.6. Platelets 28,000. Sodium 147. Potassium 4.6. Bicarb 25. BUN 73. Creatinine 2.59. INR 1.9. The patient is seen today July 06, 2023 in follow-up on the selective care unit. He is currently sitting up in a chair at the bedside. Awake and alert in no acute distress. He remains confused at times. EEG is pending. Chest x-ray shows improved aeration but with residual mild pulmonary vascular congestion. White count 4.0. Hemoglobin 12.5. Platelets 27,000. INR 1.9. Sodium 144. Potassium 4.2. Bicarb 29. BUN 68. Creatinine 2.84. Glucose 100. He remains on lactulose every 12 hours. Ammonia level down to 23. Objective - Vital Signs Vital signs: Vital Signs Temp 97.1 F L 07/06/23 08:32 Pulse 102 H 07/06/23 15:01 Resp 18 07/06/23 15:01 BP 90/58 07/06/23 12:08 Pulse Ox 97 07/06/23 12:12 FiO2 30 07/06/23 08:32 Intake & Output 07/05/23 07/06/23 07/06/23 18:59 06:59 18:59 Intake Total 2180 180 Output Total 400 1150 Balance -400 1030 180 Weight 135 kg Intake: IV 20 Invasive Line 3 20 Oral 2160 180 Output: Urine 400 1150 Straight 500 Other: Voiding Method External Catheter External Catheter External Catheter # Bowel Movements 1 - Exam GENERAL EXAM: Awake, alert, confused, 77-year-old male, on 2 L nasal cannula, comfortable in no apparent distress. HEAD: Normocephalic. EYES: Normal reaction of pupils, equal size. NOSE: Clear with pink turbinates. THROAT: No erythema or exudates. NECK: No masses, no JVD. CHEST: No chest wall deformity. LUNGS: Equal air entry with crackles in the bilateral bases. CVS: S1 and S2 normal with no audible murmur, irregular rhythm. ABDOMEN: Distended, normal bowel sounds, no guarding or rigidity. SPINE: No scoliosis or deformity SKIN: No rashes CENTRAL NERVOUS SYSTEM: No focal deficits, tone is normal in all 4 extremities. EXTREMITIES: There is 1-2+ peripheral edema. No clubbing, no cyanosis. Peripheral pulses are intact. - Labs CBC & Chem 7: 07/06/23 09:01 07/06/23 09:01 Labs: Abnormal Lab Results - Last 24 Hours (Table) 07/06/23 07/06/23 07/06/23 Range/Units 09:01 09: 09:01 RBC 3.57 L (4.30-5.90) m/uL Hgb 12.5 L (13.0-17.5) gm/dL Hct 38.9 L (39.0-53.0) % MCV 109.0 H (80.0-100.0) fL MCH 35.2 H (25.0-35.0) pg Plt Count 27 L (150-450) k/uL Lymphocytes # 0.7 L (1.0-4.8) k/uL Macrocytosis Marked A PT 18.7 H (10.0-12.5) sec INR 1.9 H (<1.2) Chloride 112 H (98-107) mmol/L BUN 68 H (9-20) mg/dL Creatinine 2.84 H (0.66-1.25) mg/dL Glucose 100 H (74-99) mg/dL Assessment and Plan Assessment: Encephalopathy, likely hepatic in nature. He is improving and more awake and alert. CAT scan of the brain is not showing any acute abnormalities and the patient has no focal neurological deficits. EEG pending Liver cirrhosis with stigmata of chronic liver failure Thrombocytopenia secondary to above Coagulopathy secondary to above Chronic atrial fibrillation, not receiving any form of anticoagulants at this point in time Acute kidney injury probably related to intravascular volume depletion and dehydration. 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 Not affecting overall respiration. Chest x-ray showing improvement Obesity with a BMI of 39 Plan: The patient was seen and evaluated Chest x-ray, labs and medications reviewed More awake and alert today Currently on 2 L nasal cannula Ammonia level improved to 23 Decreased lactulose to every 12 hours We will continue to follow I have personally seen and examined the patient, performed the documentation and the assessment and plan as written. Number of minutes spent on the visit: 10.
--- NOTE | 2023-07-06 15:31 | CDI ---
Documentation Clarification Form Date: 07/06/2023 03:12:09 PM From: Pam Emanuel RN, CCDS Email: [email or web address] Admit Date: 07/03/2023 05:52:00 AM Patient Name: Juan Phelps Visit Number: [id number] Discharge Date: ATTENTION: The Clinical Documentation Specialists (CDI) and [facility] Coding Staff appreciate your assistance in clarifying documentation. Please respond to the clarification below the line at the bottom and electronically sign. The CDI & [facility] Coding staff will review the response and follow-up if needed. Please note: Queries are made part of the Legal Health Record. If you have any questions, please contact the author of this message via ITS. Dr. Julian Jasso Elevated troponin, likely type 2 ischemia is documented in the H&P and 07/03 progress note. Additional clarification is requested. Patient History/Risk Factors: A fib, CHF, fatty liver with cirrhosis. Presents with confusion, lethargy and weakness. Admitted with hepatic encephalopathy and CHF exacerbation. Clinical Indicators: H&P and 07/03 progress note: "Elevated troponin; likely type II ischemia related to tachycardia and CHASE." 07/02 Cardiology: "Consider medical treatment for the mildly abnormal troponin." 07/02 Troponins: 0.068-0.069-0.068 07/02 EKG Results: A fib with RVR 07/02 Cr: 2.68 07/02 HR: 128 Treatment: Telemetry; monitor EKG, trend troponin; 500mL 0.9 NS IV bolus on 07/02; IV Lasix 60mg x1 on 07/02; IV Lasix 40mg Q12H 07/02-07/03; IV Lasix 40mg daily 07/04- 07/05; Lactulose 200gm Q6H rectal on 07/03-07/05 Please further clarify the diagnosis: [ #### ] Type 2 UT due to tachycardia and CHASE [ ] Myocardial ischemia [ ] Unable to determine [ ] Other Condition, please specify MTDD
[2023-07-06] MEDS: PANTOPRAZOLE 40 MG TABLET PO SCH (17:34)
[2023-07-06] MEDS ORDERED: LACTULOSE 200 GM/300 ML (FROM 1/2 GAL JUG) RECTAL SCH (21:00)
[2023-07-06] MEDS: LACTULOSE 20 GM/30 ML CUP PO SCH (21:07)
--- NOTE | 2023-07-06 22:04 | PN ---
PROGRESS NOTE DATE OF SERVICE: 07/06/2023 SUBJECTIVE: This is a 77-year-old gentleman who was admitted with CHF acute exacerbation, was on BiPAP. Currently, the patient is much more alert compared to yesterday. Chest x-ray still shows some congestion at this time. PAST MEDICAL HISTORY: Reviewed. REVIEW OF SYSTEMS: Could not be taken as the patient is mildly confused. CURRENT MEDICATIONS: Reviewed include cephalexin. PHYSICAL EXAMINATION: VITAL SIGNS: Pulse is 102, blood pressure 90/58, respirations 18. CHEST: Few scattered rhonchi and crackles. ABDOMEN: Soft, obese, nontender. NERVOUS SYSTEM: Diffusely weak. LABORATORY DATA: Reviewed, ammonia is 23, creatinine 2.84. ASSESSMENT: 1. CHF acute exacerbation. 2. Acute hypoxic respiratory failure, on BiPAP. 3. Elevated troponin. 4. Atrial fibrillation, rapid ventricular rate. 5. Hyperammonemia and hepatic encephalopathy. 6. Liver cirrhosis, thrombocytopenia. 7. Acute renal injury. 8. Hypertension. 9. Multiple complex medical issues. RECOMMENDATIONS: Recommended to continue current management, continue symptomatic treatment. I would recommend BiPAP at night, AP to 6A, otherwise continue to follow. We will repeat the creatinine, the creatinine has worsened. Avoid nephrotoxic medications. Supplement vitamins. Prognosis guarded. Further recommendations to follow. See orders for details. MMODL / IJN: [id number] /
[2023-07-07 09:18] LABS: Hypochromasia Slight; MCH 35.3 pg (25.0-35.0); Macrocytosis Marked; Mean Platelet Volume 9.5; RDW 15.1 % (11.5-15.5); WBC 3.2 k/uL (3.8-10.6)
[2023-07-07 09:37] LABS: African American GFR (CKD) 26 (>60 ml/min/1.73 sqM); Anion Gap 5 mmol/L; Blood Urea Nitrogen 68 mg/dL (9-20); Calcium 8.2 mg/dL (8.4-10.2); Carbon Dioxide 25 mmol/L (22-30); Chloride 111 mmol/L (98-107); Glucose 103 mg/dL (74-99); Non-African American GFR(CKD) 23 (>60 ml/min/1.73 sqM); Potassium 3.9 mmol/L (3.5-5.1); Sodium 141 mmol/L (137-145)
[2023-07-07 09:43] LABS: HGB 10.2 gm/dL (13.0-17.5)
[2023-07-07 11:25] LABS: Lymphocytes # (M) 0.61 k/uL (1.0-4.8); Monocytes # (M) 0.32 k/uL (0-1.0); Neutrophils # (M) 2.18 k/uL (1.3-7.7); Neutrophils % (M) 68 %; Nucleated Red Blood Cells 0 /100 WBC (0-0); Total Cells Counted 100
[2023-07-07 11:26] LABS: Platelet Count 24 k/uL (150-450)
--- NOTE | 2023-07-07 12:58 | P.PN ---
Subjective Patient is seen for follow-up for acute kidney injury. He was admitted to the hospital with mental status changes. Underlying history of chronic liver disease from fatty liver. Mentation had improved significantly after lactulose. However today patient's daughter states that he has not been talking much. Patient is back on BiPAP. He did nod to simple questions. Serum creatinine improved to 2.6 today Objective - Vital Signs Vital signs: Vital Signs Temp 98.4 F 07/07/23 12:00 Pulse 97 07/07/23 12:45 Resp 18 07/07/23 12:45 BP 99/57 07/07/23 12:00 Pulse Ox 98 07/07/23 12:00 FiO2 30 07/07/23 11:30 Intake & Output 07/06/23 07/07/23 07/07/23 18:59 06:59 18:59 Intake Total 298 Output Total 450 450 Balance -152 -450 Weight 134.5 kg Intake: Oral 298 Output: Urine 450 450 Other: Voiding Method External Catheter External Catheter External Catheter - Exam Patient is awake, Currently on BiPAP Examination of the heart S1 and S2 Examination of the lungs decreased breath sounds at the bases Abdomen is soft distended obese, nontender Examination of lower extremity shows edema 1+ bilaterally - Labs CBC & Chem 7: 07/07/23 08:15 07/07/23 08:15 Labs: Abnormal Lab Results - Last 24 Hours (Table) 07/07/23 07/07/23 07/07/23 Range/Units 08:15 08:15 11:50 WBC 3.2 L (3.8-10.6) k/uL RBC 2.90 L (4.30-5.90) m/uL Hgb 10.2 L (13.0-17.5) gm/dL Hct 31.0 L (39.0-53.0) % MCV 107.0 H (80.0-100.0) fL MCH 35.3 H (25.0-35.0) pg Plt Count 24 L (150-450) k/uL Lymphocytes # (Manual) 0.61 L (1.0-4.8) k/uL Macrocytosis Marked A Chloride 111 H (98-107) mmol/L BUN 68 H (9-20) mg/dL Creatinine 2.62 H (0.66-1.25) mg/dL Glucose 103 H (74-99) mg/dL Calcium 8.2 L (8.4-10.2) mg/dL Ammonia 91 H (<30) umol/L Assessment and Plan Assessment: 1. Acute kidney injury, ATN currently nonoliguric. Improving. Patient has been hypotensive. Ultrasound shows no obstruction in the right kidney. Left kidney could not be visualized due to bowel gas. UA shows moderate blood no protein. UA shows RBCs 30 with moderate blood. No protein noted. Possible hepatorenal syndrome if renal function continues to worsen. Maintained on midodrine. Diuretics have been held. 2. Encephalopathy mostly hepatic encephalopathy maintained on lactulose 3. Chronic A. fib with controlled ventricular response 4. Chronic liver disease with history of fatty liver 5. CHF, acute, diastolic dysfunction with ejection fraction 50-55% 6. Mild hypernatremia associated with free water deficit Plan: Monitor closely for need for diuretics. Continue with midodrine and hold for systolic blood pressure more than 1 10 mmHg Continue accurate I's and O's Repeat labs in a.m.
--- NOTE | 2023-07-07 13:02 | P.PN ---
Subjective HISTORY OF PRESENT ILLNESS: This is a 77-year-old gentleman with a past medical history significant for atrial fibrillation as well as history of chronic liver disease who was brought to the emergency department because of weakness and frequent falling at home. The patient is extremely poor historian and the history was taken from the chart as well as from the nurse taking care of the patient. No family member available to provide any more details. Apparently the patient has been falling at home and there was significant change in mental status. No indication that he was experiencing any symptoms of chest pain or chest discomfort or shortness of breath or any feeling of heart racing or fluttering. He underwent further workup including BMP and that showed acute renal failure and his ammonia level also was elevated. Beside that he underwent CBC and that showed thrombocytopenia which has been chronic. The patient does have history of atrial fibrillation and he was not receiving any anticoagulation likely because of frequent falling and possible bleeding and also because of thrombocytopenia. The EKG showed atrial fibrillation with diffuse nonspecific ST and T wave abnormality rate and echocardiogram from 2022 showed a preserved LV systolic function with no significant valvular abnormalities. The patient is extremely confused with lethargy. The troponin is mildly elevated. The examination revealed irregular rhythm with clear breathing sounds bilaterally and bilateral lower extremities edema July 04, 2023 The patient was seen and evaluated this morning. He continues to have severe/significant change in mental status. Hemodynamically he is stable. He continues to be in atrial fibrillation with controlled heart rate with no oral AV luis maureen agents because he cannot take any oral medications. Also he ca nnot be on any anticoagulation because of severe thrombocytopenia. CT scan of the brain showed no acute abnormalities. He underwent an echo which revealed normal LV systolic function. On examination he does have severe change in mental status with severe bilateral lower extremities edema noted. He is on Lasix IV at this point. CBC and BMP are scheduled but still pending now. 07/05/2023 Patient examined this morning at the bedside. Patient remains lethargic and is unable to converse with provider at the time of examination. Apparently patient had an NG tube which he pulled out overnight. An A-team was also called overnight due to increasing respiratory difficulty. Patient is currently on BiPAP. 07/06/2023 Patient examined this morning at the bedside. Patient is awake and conversing t paula with provider which is an improvement compared to yesterday. He remains confused. He is currently oriented x 1. Blood pressure 90/58. Patient remains in atrial fibrillation with RVR. According to his nurse, he is able to take oral medications now. 07/07/2023 Patient examined this morning at the bedside. Patient is lethargic today. He remains on BiPAP at the time of examination. Telemetry reveals atrial fibrillation with heart rate in the 120s. He is currently on Coreg. Blood pressure on the soft side with a recent reading of 99/57. PHYSICAL EXAM: VITAL SIGNS: Reviewed. GENERAL: Well-developed in no acute distress. NECK: Supple. No JVD or thyromegaly LUNGS: Respirations even and unlabored. Lungs essentially clear to auscultation bilaterally, scattered rhonchi. HEART: Tachycardic. Irregular rate and rhythm. S1 and S2 heard. EXTREMITIES: Normal range of motion. No clubbing or cyanosis. Peripheral pulses intact. 1+ bilateral lower extremity edema ASSESSMENT: Altered mental status Hepatic encephalopathy Acute hypoxic respiratory failure, currently on BiPAP Persistent atrial fibrillation, not on anticoagulation due to severe thrombocytopenia Thrombocytopenia, platelet count 24 Chronic liver disease Acute renal failure Elevated ammonia levels Coagulopathy, INR 1.9, secondary to liver disease PLAN: Discontinue Coreg. Begin metoprolol 50 mg twice a day Patient not anticoagulated due to severe thrombocytopenia Continue telemetry monitoring Recommend addition of Aldactone when patient's kidney function improves Further recommendations pending patient course Nurse practitioner note has been reviewed by physician. Signing provider agrees with the documented findings, assessment, and plan of care documented by MOBILE HOME INSTALLER as a scribe. Objective - Vital Signs Vital signs: Vital Signs Temp 98.4 F 07/07/23 12:00 Pulse 97 07/07/23 12:45 Resp 18 07/07/23 12:45 BP 99/57 07/07/23 12:00 Pulse Ox 98 07/07/23 12:00 FiO2 30 07/07/23 11:30 Intake & Output 07/06/23 07/07/23 07/07/23 18:59 06:59 18:59 Intake Total 298 Output Total 450 450 Balance -152 -450 Weight 134.5 kg Intake: Oral 298 Output: Urine 450 450 Other: Voiding Method External Catheter External Catheter External Catheter - Labs CBC & Chem 7: 07/07/23 08:15 07/07/23 08:15 Labs: Abnormal Lab Results - Last 24 Hours (Table) 0307/07/23 07/07/23 Range/Units 08:15 08:15 11:50 WBC 3.2 L (3.8-10.6) k/uL RBC 2.90 L (4.30-5.90) m/uL Hgb 10.2 L (13.0-17.5) gm/dL Hct 31.0 L (39.0-53.0) % MCV 107.0 H (80.0-100.0) fL MCH 35.3 H (25.0-35.0) pg Plt Count 24 L (150-450) k/uL Lymphocytes # (Manual) 0.61 L (1.0-4.8) k/uL Macrocytosis Marked A Chloride 111 H (98-107) mmol/L BUN 68 H (9-20) mg/dL Creatinine 2.62 H (0.66-1.25) mg/dL Glucose 103 H (74-99) mg/dL Calcium 8.2 L (8.4-10.2) mg/dL Ammonia 91 H (<30) umol/L
--- NOTE | 2023-07-07 15:37 | P.PN ---
Subjective Progress Note Date: 07/07/23 I was asked to evaluate this patient for ICU transfer. The patient is 77 and the patient is known to have liver cirrhosis. It was noted that the patient's mentation has been progressively declining and the patient has not been able to take his oral lactulose. As such, the patient has been coming progressively more encephalopathic. 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 He has hypertension and chronic atrial fibrillation has comorbid conditions. During this current admission, the patient presented with generalized weakness and falling at home. He is a very poor historian. Family is at the bedside. Apparently his condition has been progressively gett ing worse over this past several months. No recent GI bleeding. He has had remote history of ascites that was drained. He is known to have chronic A-fib. He has not been receiving any form of anticoagulation due to concerns of bleeding as the patient has issues with chronic thrombocytopenia. During this current hospital admission, the patient also developed an acute kidney injury the creatinine currently is at the rise and is up to 2.68, troponin was 0.06 respectively x 2, UA was showing 1 WBC and few RBCs. The patient is afebrile. Pulse ox is 91 to 96% room air oxygen. Chest x-ray is showing a right-sided pleural effusion. Most recent blood pressure is 100/61. No reported aspirati on. Remains on Lasix IV and is also on midodrine. In terms of his hepatic encephalopathy, repeated ammonia levels showed some improvement on today's blood work and ammonia level is down to 52 as the patient has received serial doses of lactulose enema. Cardiology has been consulted and nephrology has also been consulted. Potassium supplements have been discontinued. Midodrine was added. Ultrasound of the kidneys showed no evidence of any hydronephrosis and the CAT scan of the brain showed no acute intracranial process and there is evidence of chronic small vessel ischemic changes. The patient is seen today more July 05, 2023 in follow-up on the selective care unit. He is currently resting in bed. He is on BiPAP 12/6 and 30% FiO2. He continues to receive IV diuretics. He continues to receive rectal lactulose. His ammonia level has improved from 146 down to 23. Chest x-ray reveals bibasilar infiltrates and/or atelectasis with a small left pleural effusion. White count 7.4. Hemoglobin 13.6. Platelets 28,000. Sodium 147. Potassium 4.6. Bicarb 25. BUN 73. Creatinine 2.59. INR 1.9. The patient is seen today July 06, 2023 in follow-up on the selective care unit. He is currently sitting up in a chair at the bedside. Awake and alert in no acute distress. He remains confused at times. EEG is pending. Chest x-ray shows improved aeration but with residual mild pulmonary vascular congestion. White count 4.0. Hemoglobin 12.5. Platelets 27,000. INR 1.9. Sodium 144. Potassium 4.2. Bicarb 29. BUN 68. Creatinine 2.84. Glucose 100. He remains on lactulose every 12 hours. Ammonia level down to 23. The patient is seen today July 07, 2023 in follow-up on the selective care unit. He is currently resting in bed. Currently on BiPAP 12/6 and 30% FiO2. He did have some recurrent confusion. His ammonia level is back up to 91. White count 3.2. Hemoglobin 10.2. Platelets 24,000. Sodium 141. Potassium 3.9. Bicarb 25. BUN 68. Creatinine 2.62. He remains on lactulose. Objective - Vital Signs Vital signs: Vital Signs Temp 98.4 F 07/07/23 12:00 Pulse 97 07/07/23 12:45 Resp 18 07/07/23 12:45 BP 99/57 07/07/23 12:00 Pulse Ox 96 07/07/23 15:21 FiO2 30 07/07/23 11:30 Intake & Output 07/06/23 07/07/23 07/07/23 18:59 06:59 18:59 Intake Total 298 Output Total 450 450 Balance -152 -450 Weight 134.5 kg Intake: Oral 298 Output: Urine 450 450 Other: Voiding Method External Catheter External Catheter External Catheter - Exam GENERAL EXAM: Awake, confused, 77-year-old male, on BiPAP 12/6 and 30% FiO2, comfortable in no apparent distress. HEAD: Normocephalic. EYES: Normal reaction of pupils, equal size. NOSE: Clear with pink turbinates. THROAT: No erythema or exudates. NECK: No masses, no JVD. CHEST: No chest wall deformity. LUNGS: Equal air entry with crackles in the bilateral bases. CVS: S1 and S2 normal with no audible murmur, irregular rhythm. ABDOMEN: Distended, normal bowel sounds, no guarding or rigidity. SPINE: No scoliosis or deformity SKIN: No rashes CENTRAL NERVOUS SYSTEM: No focal deficits, tone is normal in all 4 extremities. EXTREMITIES: There is 1-2+ peripheral edema. No clubbing, no cyanosis. Peripheral pulses are intact. - Labs CBC & Chem 7: 07/07/23 08:15 07/07/23 08:15 Labs: Abnormal Lab Results - Last 24 Hours (Table) 07/07/23 07/07/23 07/07/23 Range/Units 08:15 08:15 11:50 WBC 3.2 L (3.8-10.6) k/uL RBC 2.90 L (4.30-5.90) m/uL Hgb 10.2 L (13.0-17.5) gm/dL Hct 31.0 L (39.0-53.0) % MCV 107.0 H (80.0-100.0) fL MCH 35.3 H (25.0-35.0) pg Plt Count 24 L (150-450) k/uL Lymphocytes # (Manual) 0.61 L (1.0-4.8) k/uL Macrocytosis Marked A Chloride 111 H (98-107) mmol/L BUN 68 H (9-20) mg/dL Creatinine 2.62 H (0.66-1.25) mg/dL Glucose 103 H (74-99) mg/dL Calcium 8.2 L (8.4-10.2) mg/dL Ammonia 91 H (<30) umol/L Assessment and Plan Assessment: Encephalopathy, likely hepatic in nature. CAT scan of the brain is not showing any acute abnormalities and the patient has no focal neurological deficits. Liver cirrhosis with stigmata of chronic liver failure Hyperammoniaemia secondary to above Thrombocytopenia secondary to above Coagulopathy secondary to above Chronic atrial fibrillation, not receiving any form of anticoagulants at this point in time Acute kidney injury probably related to intravascular volume depletion and dehydration. 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 Not affecting overall respiration. Chest x-ray showing improvement Obesity with a BMI of 39 Plan: The patient was seen and evaluated Labs and medications reviewed Ammonia level increased to 23 Lactulose increased to 200 mg twice daily Titrate down the FiO2 as tolerated Transition to nasal cannula as tolerated We will continue to follow I have personally seen and examined the patient, performed the documentation and the assessment and plan as written. Number of minutes spent on the visit: 10.
[2023-07-07] MEDS: LACTULOSE 200 GM/300 ML (FROM 1/2 GAL JUG) RECTAL SCH (20:28)
[2023-07-07] MEDS: METOPROLOL TARTRATE 50 MG TAB PO SCH (20:28)
[2023-07-07] MEDS: ONDANSETRON 4 MG/2 ML VIAL IVP PRN (20:40)
--- NOTE | 2023-07-08 04:41 | PN ---
PROGRESS NOTE DATE OF SERVICE: 07/07/2023 SUBJECTIVE: This is a 77-year-old gentleman, who was admitted with CHF acute exacerbation, also acute hypoxic respiratory failure. The patient is on BiPAP at this time. The patient also has hyperammonemia and today's ammonia was not available, but repeat was found to be 91. Creatinine is 2.62. The patient is more drowsy today. PAST MEDICAL HISTORY: Reviewed. REVIEW OF SYSTEMS: Could not be taken. CURRENT MEDICATIONS: Reviewed include magnesium oxide, the rest of the history and rest of the chart is also reviewed. PHYSICAL EXAMINATION: VITAL SIGNS: Pulse 97, blood pressure 99/57, respirations 18. CHEST: A few scattered rhonchi and crackles. ABDOMEN: Soft, obese. LEGS: No edema. No swelling. NERVOUS SYSTEM: Diffusely weak. LABORATORY DATA: WBC 3.2. Rest of the labs are noted. ASSESSMENT: 1. Congestive heart failure acute exacerbation. 2. Change in mental status and acute hepatic encephalopathy. 3. Acute hypoxic respiratory failure, on BiPAP, on and off. 4. Elevated troponin. 5. Atrial fibrillation with rapid ventricular rate. 6. Liver cirrhosis and thrombocytopenia. 7. Acute renal injury. 8. Hypertension. 9. Multiple complex medical issues. RECOMMENDATIONS: Recommend to continue current management and continue symptomatic treatment, otherwise I would recommend lactulose rectally for at least 2 to 3 bowel movements. Otherwise, repeat labs. We will continue to monitor. The patient also has some neutropenia. I would also check the patient for any sepsis. We will order pancultures and continue to monitor. UA previously showed some hematuria. Further recommendations to follow. Most recent chest x-ray done yesterday, which I reviewed personally showed some vascular congestion. We will continue to monitor. Further recommendations to follow. MMODL / IJN: [id number] /
[2023-07-08 06:09] LABS: Glucose,Whole Blood 90 mg/dL (70-110)
[2023-07-08 09:31] LABS: ALT 22 U/L (4-49); AST 49 U/L (17-59); African American GFR (CKD) 29 (>60 ml/min/1.73 sqM); Alkaline Phosphatase 93 U/L (38-126); Anion Gap 5 mmol/L; Blood Urea Nitrogen 66 mg/dL (9-20); Calcium 8.5 mg/dL (8.4-10.2); Carbon Dioxide 24 mmol/L (22-30); Chloride 111 mmol/L (98-107); Glucose 94 mg/dL (74-99); Non-African American GFR(CKD) 25 (>60 ml/min/1.73 sqM); Sodium 140 mmol/L (137-145); Total Bilirubin 4.8 mg/dL (0.2-1.3); Total Protein 5.5 g/dL (6.3-8.2)
[2023-07-08 09:39] LABS: Basophils % (A) 0 %; Eosinophils # (A) 0.2 k/uL (0-0.7); Eosinophils % (A) 5 %; HCT 38.1 % (39.0-53.0); HGB 12.7 gm/dL (13.0-17.5); Hypochromasia Slight; Lymphocytes # (A) 0.8 k/uL (1.0-4.8); Lymphocytes % (A) 23 %; MCH 35.3 pg (25.0-35.0); MCHC 33.3 g/dL (31.0-37.0); Macrocytosis Moderate; Mean Platelet Volume 11.2; Monocytes # (A) 0.4 k/uL (0-1.0); Monocytes % (A) 11 %; Neutrophils # (A) 2.1 k/uL (1.3-7.7); Neutrophils % (A) 57 %; Platelet Count 28 k/uL (150-450); Poikilocytosis Slight; RDW 15.7 % (11.5-15.5); WBC 3.7 k/uL (3.8-10.6)
[2023-07-08] MEDS ORDERED: METOPROLOL TARTRATE 5 MG/5 ML VIAL IVP PRN (09:56)
--- NOTE | 2023-07-08 10:11 | P.PN ---
Subjective Progress Note Date: 07/07/23 Patient was seen for a follow-up. Patient is laying in the bed. He continues to be slightly encephalopathic. Nurse was also present, who believes that patient earlier was "out of it". He is confused, disoriented. He did have some nausea earlier. Objective - Vital Signs Vital signs: Vital Signs Temp 98.4 F 07/07/23 16:00 Pulse 81 07/07/23 16:00 Resp 16 07/07/23 16:00 BP 100/77 07/07/23 16:00 Pulse Ox 95 07/07/23 16:00 FiO2 30 07/07/23 11:30 Intake & Output 07/07/23 07/07/23 07/08/23 06:59 18:59 06:59 Output Total 450 Balance -450 Weight 134.5 kg Output: Urine 450 Other: Voiding Method External Catheter External Catheter - Exam Patient is awake, but slightly slow mentation, prolonged latency time to answer question. He is encephalopathic. Patient has positive asterixis. Earlier he said the year was 2005 to the nurse. He does not know what building he is in. He believes the month is "Wednesday". Then he said it was May and the year is 1903. He knows that he is in [place], but does not know the name of the city. Speech and language functions are normal. The rest of the examination is unchanged. - Labs CBC & Chem 7: 07/08/23 08:35 07/08/23 08:35 Labs: Abnormal Lab Results - Last 24 Hours (Table) 07/07/23 07/07/23 07/07/23 Range/Units 08:15 08:15 11:50 WBC 3.2 L (3.8-10.6) k/uL RBC 2.90 L (4.30-5.90) m/uL Hgb 10.2 L (13.0-17.5) gm/dL Hct 31.0 L (39.0-53.0) % MCV 107.0 H (80.0-100.0) fL MCH 35.3 H (25.0-35.0) pg Plt Count 24 L (150-450) k/uL Lymphocytes # (Manual) 0.61 L (1.0-4.8) k/uL Macrocytosis Marked A Chloride 111 H (98-107) mmol/L BUN 68 H (9-20) mg/dL Creatinine 2.62 H (0.66-1.25) mg/dL Glucose 103 H (74-99) mg/dL Calcium 8.2 L (8.4-10.2) mg/dL Ammonia 91 H (<30) umol/L Assessment and Plan Assessment: * Altered mental status, probably due to hepatic encephalopathy on top of other causes of metabolic encephalopathy as mentioned below. * Chronic renal failure * Hepatic encephalopathy with ammonia 162. * Chronic liver disease, with probable cirrhosis * Thrombocytopenia due to above. * Atrial fibrillation, not on anticoagulation or antiplatelets because of thrombocytopenia. * Macrocytosis * Pleural effusion * Obesity Plan: * Patient most likely has hepatic encephalopathy on top of toxic metabolic encephalopathy from other factors as well. * Neurologically, no workup indicated. * Patient had carotid Doppler performed last admission on 01/08/2023, which revealed no hemodynamically significant stenosis in either ICA. Antegrade flow in both vertebral arteries. * Patient's previous B12 was 653, folate 7.0 and TSH normal. Patient on folate replacement. * Treatment of hepatic encephalopathy and other causes of metabolic encephal opathy as per IM and other specialties on board. Patient on lactulose. Patient's ammonia was normal 23 then went up to 91. * Neurologically no other workup indicated. Medical management as per IM.
[2023-07-08] MEDS: FUROSEMIDE 10 MG/ML 4 ML VIAL IV STA (10:38)
--- NOTE | 2023-07-08 11:09 | XR ---
EXAMINATION TYPE: XR chest 1V portable DATE OF EXAM: 07/08/2023 Comparison: 07/06/2023 Clinical History: 77-year-old male CHF Findings: Heart upper limits of normal in size. Surgical clips left upper quadrant. Dense retrocardiac opacity persists in small bilateral pleural effusions persist. Digitized upper lungs are clear. Impression: Ongoing small bilateral pleural effusions. Dense retrocardiac opacity persists as well.
--- NOTE | 2023-07-08 12:31 | P.PN ---
Subjective HISTORY OF PRESENT ILLNESS: This is a 77-year-old gentleman with a past medical history significant for atrial fibrillation as well as history of chronic liver disease who was brought to the emergency department because of weakness and frequent falling at home. The patient is extremely poor historian and the history was taken from the chart as well as from the nurse taking care of the patient. No family member available to provide any more details. Apparently the patient has been falling at home and there was significant change in mental status. No indication that he was experiencing any symptoms of chest pain or chest discomfort or shortness of breath or any feeling of heart racing or fluttering. He underwent further workup including BMP and that showed acute renal failure and his ammonia level also was elevated. Beside that he underwent CBC and that showed thrombocytopenia which has been chronic. The patient does have history of atrial fibrillation and he was not receiving any anticoagulation likely because of frequent falling and possible bleeding and also because of thrombocytopenia. The EKG showed atrial fibrillation with diffuse nonspecific ST and T wave abnormality rate and echocardiogram from 2022 showed a preserved LV systolic function with no significant valvular abnormalities. The patient is extremely confused with lethargy. The troponin is mildly elevated. The examination revealed irregular rhythm with clear breathing sounds bilaterally and bilateral lower extremities edema July 04, 2023 The patient was seen and evaluated this morning. He continues to have severe/significant change in mental status. Hemodynamically he is stable. He continues to be in atrial fibrillation with controlled heart rate with no oral AV luis maureen agents because he cannot take any oral medications. Also he ca nnot be on any anticoagulation because of severe thrombocytopenia. CT scan of the brain showed no acute abnormalities. He underwent an echo which revealed normal LV systolic function. On examination he does have severe change in mental status with severe bilateral lower extremities edema noted. He is on Lasix IV at this point. CBC and BMP are scheduled but still pending now. 07/05/2023 Patient examined this morning at the bedside. Patient remains lethargic and is unable to converse with provider at the time of examination. Apparently patient had an NG tube which he pulled out overnight. An A-team was also called overnight due to increasing respiratory difficulty. Patient is currently on BiPAP. 07/06/2023 Patient examined this morning at the bedside. Patient is awake and conversing t paula with provider which is an improvement compared to yesterday. He remains confused. He is currently oriented x 1. Blood pressure 90/58. Patient remains in atrial fibrillation with RVR. According to his nurse, he is able to take oral medications now. 07/07/2023 Patient examined this morning at the bedside. Patient is lethargic today. He remains on BiPAP at the time of examination. Telemetry reveals atrial fibrillation with heart rate in the 120s. He is currently on Coreg. Blood pressure on the soft side with a recent reading of 99/57. 07/08/2023 Patient examined this morning at bedside. Patient remains lethargic. He remains on BiPAP. Patient's ammonia today of 140 increased from 91 yesterday. Vital signs are stable. Telemetry reveals atrial fibrillation with heart rate between [id number]. PHYSICAL EXAM: VITAL SIGNS: Reviewed. GENERAL: Well-developed in no acute distress. NECK: Supple. No JVD or thyromegaly LUNGS: Respirations even and unlabored. Lungs essentially clear to auscultation bilaterally, scattered rhonchi. HEART: Tachycardic. Irregular rate and rhythm. S1 and S2 heard. EXTREMITIES: Normal range of motion. No clubbing or cyanosis. Peripheral pulses intact. 1+ bilateral lower extremity edema ASSESSMENT: Altered mental status Hepatic encephalopathy Acute hypoxic respiratory failure, currently on BiPAP Persistent atrial fibrillation, not on anticoagulation due to severe thrombocytopenia Thrombocytopenia, platelet count 24 Chronic liver disease Acute renal failure Elevated ammonia levels Coagulopathy, INR 1.9, secondary to liver disease PLAN: Continue current cardiac medications Give 1 dose of IV Lasix 40 mg now Patient not anticoagulated due to severe thrombocytopenia Continue telemetry monitoring Recommend addition of Aldactone when patient's kidney function improves Further recommendations pending patient course Nurse practitioner note has been reviewed by physician. Signing provider agrees with the documented findings, assessment, and plan of care documented by POULTRY BONER as a scribe. Objective - Vital Signs Vital signs: Vital Signs Temp 97.5 F L 07/08/23 07:38 Pulse 63 07/08/23 12:12 Resp 11 L 07/08/23 12:12 BP 102/69 07/08/23 12:12 Pulse Ox 92 L 07/08/23 12:12 FiO2 30 07/08/23 11:58 Intake & Output 07/07/23 07/08/23 07/08/23 18:59 06:59 18:59 Intake Total 10 Balance 10 Weight 133.5 kg Intake: IV 10 Invasive Line 3 10 Oral 0 Other: Voiding Method External Catheter External Catheter # Voids 1 # Bowel Movements 1 - Labs CBC & Chem 7: 07/08/23 08:35 07/08/23 08:35 Labs: Abnormal Lab Results - Last 24 Hours (Table) 07/07/23 07/08/23 07/08/23 Range/Units 11:50 08:35 08:35 WBC 3.7 L (3.8-10.6) k/uL RBC 3.60 L (4.30-5.90) m/uL Hgb 12.7 L (13.0-17.5) gm/dL Hct 38.1 L (39.0-53.0) % MCV 106.0 H (80.0-100.0) fL MCH 35.3 H (25.0-35.0) pg RDW 15.7 H (11.5-15.5) % Plt Count 28 L (150-450) k/uL Lymphocytes # 0.8 L (1.0-4.8) k/uL Chloride 111 H (98-107) mmol/L BUN 66 H (9-20) mg/dL Creatinine 2.39 H (0.66-1.25) mg/dL Total Bilirubin 4.8 H (0.2-1.3) mg/dL Ammonia 91 H (<30) umol/L Total Protein 5.5 L (6.3-8.2) g/dL Albumin 2.0 L (3.5-5.0) g/dL 07/08/23 Range/Units 08:35 WBC (3.8-10.6) k/uL RBC (4.30-5.90) m/uL Hgb (13.0-17.5) gm/dL Hct (39.0-53.0) % MCV (80.0-100.0) fL MCH (25.0-35.0) pg RDW (11.5-15.5) % Plt Count (150-450) k/uL Lymphocytes # (1.0-4.8) k/uL Chloride (98-107) mmol/L BUN (9-20) mg/dL Creatinine (0.66-1.25) mg/dL Total Bilirubin (0.2-1.3) mg/dL Ammonia 140 H (<30) umol/L Total Protein (6.3-8.2) g/dL Albumin (3.5-5.0) g/dL
--- NOTE | 2023-07-08 12:43 | P.PN ---
Subjective Patient is seen for follow-up for acute kidney injury. He was admitted to the hospital with mental status changes. Underlying history of chronic liver disease from fatty liver. Mentation had improved significantly after lactulose. Patient is back on BiPAP. He did nod to simple questions. Serum creatinine improved to 2.3 today Received IV Lasix this morning Objective - Vital Signs Vital signs: Vital Signs Temp 97.5 F L 07/08/23 07:38 Pulse 63 07/08/23 12:12 Resp 11 L 07/08/23 12:12 BP 102/69 07/08/23 12:12 Pulse Ox 92 L 07/08/23 12:12 FiO2 30 07/08/23 11:58 Intake & Output 07/07/23 07/08/23 07/08/23 18:59 06:59 18:59 Intake Total 10 Balance 10 Weight 133.5 kg Intake: IV 10 Invasive Line 3 10 Oral 0 Other: Voiding Method External Catheter External Catheter # Voids 1 # Bowel Movements 1 - Exam Patient is awake, Currently on BiPAP Examination of the heart S1 and S2 Examination of the lungs decreased breath sounds at the bases Abdomen is soft distended obese, nontender Examination of lower extremity shows edema 1+ bilaterally - Labs CBC & Chem 7: 07/08/23 08:35 07/08/23 08:35 Labs: Abnormal Lab Results - Last 24 Hours (Table) 07/07/23 07/08/23 07/08/23 Range/Units 11:50 08:35 08:35 WBC 3.7 L (3.8-10.6) k/uL RBC 3.60 L (4.30-5.90) m/uL Hgb 12.7 L (13.0-17.5) gm/dL Hct 38.1 L (39.0-53.0) % MCV 106.0 H (80.0-100.0) fL MCH 35.3 H (25.0-35.0) pg RDW 15.7 H (11.5-15.5) % Plt Count 28 L (150-450) k/uL Lymphocytes # 0.8 L (1.0-4.8) k/uL Chloride 111 H (98-107) mmol/L BUN 66 H (9-20) mg/dL Creatinine 2.39 H (0.66-1.25) mg/dL Total Bilirubin 4.8 H (0.2-1.3) mg/dL Ammonia 91 H (<30) umol/L Total Protein 5.5 L (6.3-8.2) g/dL Albumin 2.0 L (3.5-5.0) g/dL 07/08/23 Range/Units 08:35 WBC (3.8-10.6) k/uL RBC (4.30-5.90) m/uL Hgb (13.0-17.5) gm/dL Hct (39.0-53.0) % MCV (80.0-100.0) fL MCH (25.0-35.0) pg RDW (11.5-15.5) % Plt Count (150-450) k/uL Lymphocytes # (1.0-4.8) k/uL Chloride (98-107) mmol/L BUN (9-20) mg/dL Creatinine (0.66-1.25) mg/dL Total Bilirubin (0.2-1.3) mg/dL Ammonia 140 H (<30) umol/L Total Protein (6.3-8.2) g/dL Albumin (3.5-5.0) g/dL Assessment and Plan Assessment: 1. Acute kidney injury, ATN currently nonoliguric. Improving. Patient has been hypotensive. Ultrasound shows no obstruction in the right kidney. Left kidney could not be visualized due to bowel gas. UA shows moderate blood no protein. UA shows RBCs 30 with moderate blood. No protein noted. Possible hepatorenal syndrome if renal function continues to worsen. Maintained on midodrine. Diuretics have been held. 2. Encephalopathy mostly hepatic encephalopathy maintained on lactulose 3. Chronic A. fib with controlled ventricular response 4. Chronic liver disease with history of fatty liver 5. CHF, acute, diastolic dysfunction with ejection fraction 50-55% 6. Mild hypernatremia associated with free water deficit , improved Plan: Resume IV Lasix daily Continue with midodrine and hold for systolic blood pressure more than 1 10 mmHg Continue accurate I's and O's Repeat labs in a.m.
--- NOTE | 2023-07-08 12:52 | P.PN ---
Subjective 77-year-old male admitted without mental status and hepatic encephalopathy patient has highly elevated ammonia level today which is 144, will use rectal lactulose and titrate for at least 4-5 loose bowel movements. Patient is barely arousable and because of his altered mental status we cannot use any p.o. medications because of which I am not starting him on rifaximin.. Patient is on BiPAP pulmonary is following the patient. Patient has bilateral pleural effusions: Secondary to volume overload from cirrhosis for which patient is on IV Lasix at this time patient is also coagulopathic because of cirrhosis. Just ischemic 2 minutes will go right Review of systems: Unable to obtain due to his clinical condition PHYSICAL EXAMINATION: GENERAL: Patient is on BiPAP arousable but drowsy and sleepy HEENT: Pupils are round and equally reacting to light. EOMI. No scleral icterus. No conjunctival pallor. Normocephalic, atraumatic. No pharyngeal erythema. No thyromegaly. CARDIOVASCULAR: S1 and S2 present. No murmurs, rubs, or gallops. PULMONARY: Chest is clear to auscultation, no wheezing or crackles. ABDOMEN: Soft, nontender, nondistended, normoactive bowel sounds. No palpable organomegaly. MUSCULOSKELETAL: No joint swelling or deformity. EXTREMITIES: No cyanosis, clubbing, bilateral lower extremity edema NEUROLOGICAL: Encephalopathic unable to evaluate SKIN: No rashes. Assessment and plan -Hepatic encephalopathy rectal lactulose titrating for 3-4 loose bowel movements unfortunately we cannot use rifaximin as patient cannot take any p.o. medications because of his clinical condition -Acute respiratory failure on BiPAP secondary to bilateral pleural effusions which is again secondary to cirrhosis patient is on IV Lasix which will be continued -Volume overload secondary to cirrhosis -Thrombocytopenia and coagulopathy secondary to cirrhosis -Chronic atrial fibrillation presently not on any anticoagulation as patient is not anticoagulated secondary to cirrhosis acute renal failure patient is anemia secondary to hypervolemia which is again secondary to cirrhosis and IV Lasix as mentioned above DVT prophylaxis: Patient is at a heart anticoagulated because of cirrhosis, patient's INR today is 1.9 Objective - Vital Signs Vital signs: Vital Signs Temp 97.5 F L 07/08/23 07:38 Pulse 63 07/08/23 12:12 Resp 11 L 07/08/23 12:12 BP 102/69 07/08/23 12:12 Pulse Ox 92 L 03/07/24 12:12 FiO2 30 07/08/23 11:58 Intake & Output 07/07/23 07/08/23 07/08/23 18:59 06:59 18:59 Intake Total 10 Balance 10 Weight 133.5 kg Intake: IV 10 Invasive Line 3 10 Oral 0 Other: Voiding Method External Catheter External Catheter # Voids 1 # Bowel Movements 1 - Labs CBC & Chem 7: 07/08/23 08:35 07/08/23 08:35 Labs: Abnormal Lab Results - Last 24 Hours (Table) 07/08/23 07/08/23 07/08/23 Range/Units 08:35 08:35 08:35 WBC 3.7 L (3.8-10.6) k/uL RBC 3.60 L (4.30-5.90) m/uL Hgb 12.7 L (13.0-17.5) gm/dL Hct 38.1 L (39.0-53.0) % MCV 106.0 H (80.0-100.0) fL MCH 35.3 H (25.0-35.0) pg RDW 15.7 H (11.5-15.5) % Plt Count 28 L (150-450) k/uL Lymphocytes # 0.8 L (1.0-4.8) k/uL Chloride 111 H (98-107) mmol/L BUN 66 H (9-20) mg/dL Creatinine 2.39 H (0.66-1.25) mg/dL Total Bilirubin 4.8 H (0.2-1.3) mg/dL Ammonia 140 H (<30) umol/L Total Protein 5.5 L (6.3-8.2) g/dL Albumin 2.0 L (3.5-5.0) g/dL
[2023-07-08] MEDS: LACTULOSE 200 GM/300 ML (FROM 1/2 GAL JUG) RECTAL PRN (13:45)
[2023-07-08 14:00] VITALS: BMI 38.8
--- NOTE | 2023-07-08 15:44 | P.PN ---
Subjective Progress Note Date: 07/08/23 Principal diagnosis: Acute hepatic encephalopathy I was asked to evaluate this patient for ICU transfer. The patient is 77 and the patient is known to have liver cirrhosis. It was noted that the patient's mentation has been progressively declining and the patient has not been able to take his oral lactulose. As such, the patient has been coming progressively more encephalopathic. 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 He has hypertension and chronic atrial fibrillation has comorbid conditions. During this current admission, the patient presented with generalized weakness and falling at home. He is a very poor historian. Dane moffett is at the bedside. Apparently his condition has been progressively getting worse over this past several months. No recent GI bleeding. He has had remote history of ascites that was drained. He is known to have chronic A-fib. He has not been receiving any form of anticoagulation due to concerns of bleeding as the patient has issues with chronic thrombocytopenia. During this current hospital admission, the patient also developed an acute kidney injury the creatinine currently is at the rise and is up to 2.68, troponin was 0.06 respectively x 2, UA was showing 1 WBC and few RBCs. The patient is afebrile. Pulse ox is 91 to 96% room air oxygen. Chest x-ray is showing a right-sided pleural effusion. Most recent blood pressure is 100/61. No reported aspiration. Remains on Lasix IV and is also on midodrine. In terms of his hepatic encephalopathy, repeated ammonia levels showed some improvement on today's blood work and ammonia level is down to 52 as the patient has received serial doses of lactulose enema. Cardiology has been consulted and nephrology has also been consulted. Potassium supplements have been discontinued. Midodrine was added. Ultrasound of the kidneys showed no evidence of any hydronephrosis and the CAT scan of the brain showed no acute intracranial process and there is evidence of chronic small vessel ischemic changes. The patient is seen today more July 05, 2023 in follow-up on the selective care unit. He is currently resting in bed. He is on BiPAP 12/6 and 30% FiO2. He continues to receive IV diuretics. He continues to receive rectal lactulose. His ammonia level has improved from 146 down to 23. Chest x-ray reveals bibasilar infiltrates and/or atelectasis with a small left pleural effusion. White count 7.4. Hemoglobin 13.6. Platelets 28,000. Sodium 147. Potassium 4.6. Bicarb 25. BUN 73. Creatinine 2.59. INR 1.9. The patient is seen today July 06, 2023 in follow-up on the selective care unit. He is currently sitting up in a chair at the bedside. Awake and alert in no acute distress. He remains confused at times. EEG is pending. Chest x-ray shows improved aeration but with residual mild pulmonary vascular congestion. White count 4.0. Hemoglobin 12.5. Platelets 27,000. INR 1.9. Sodium 144. Potassium 4.2. Bicarb 29. BUN 68. Creatinine 2.84. Glucose 100. He remains on lactulose every 12 hours. Ammonia level down to 23. The patient is seen today July 07, 2023 in follow-up on the selective care unit. He is currently resting in bed. Currently on BiPAP 12/6 and 30% FiO2. He did have some recurrent confusion. His ammonia level is back up to 91. White count 3.2. Hemoglobin 10.2. Platelets 24,000. Sodium 141. Potassium 3.9. Bicarb 25. BUN 68. Creatinine 2.62. He remains on lactulose. Patient was reevaluated today at 07/08/2023, patient is developing worsening encephalopathy, he is back on BiPAP 12/6/30%, O2 saturation 92%. WBC count is 3.7 hemoglobin is 12.7, basic metabolic profile is normal BUN is 66 creatinine 2.39 ammonia level is 140 patient is back on lactulose relatively high-dose Objective - Vital Signs Vital signs: Vital Signs Temp 97.5 F L 07/08/23 07:38 Pulse 63 07/08/23 12:12 Resp 11 L 07/08/23 12:12 BP 102/69 07/08/23 12:12 Pulse Ox 92 L 07/08/23 12:12 FiO2 30 07/08/23 11:58 Intake & Output 07/07/23 07/08/23 07/08/23 18:59 06:59 18:59 Intake Total 20 Output Total 350 Balance -330 Weight 133.5 kg 133.5 kg Intake: IV 20 Invasive Line 3 20 Oral 0 Output: Urine 350 Other: Voiding Method External Catheter External Catheter External Catheter # Voids 1 # Bowel Movements 1 - Exam GENERAL EXAM: 77-year-old male, on BiPAP 12/6 and 30% FiO2, patient is o btunded, but arousable HEAD: Normocephalic. EYES: Normal reaction of pupils, equal size. NOSE: Clear with pink turbinates. THROAT: No erythema or exudates. NECK: No masses, no JVD. CHEST: No chest wall deformity. LUNGS: Minich breath sounds at the bases. CVS: S1 and S2 normal with no audible murmur, irregular rhythm. ABDOMEN: Morbidly obese, distended, normal bowel sounds, no guarding or rigidity. SKIN: No rashes CENTRAL NERVOUS SYSTEM: No focal deficits, tone is normal in all 4 extremities. EXTREMITIES: There is 1-2+ peripheral edema. No clubbing, no cyanosis. Peripheral pulses are intact. - Labs CBC & Chem 7: 07/08/23 08:35 07/08/23 08:35 Labs: Abnormal Lab Results - Last 24 Hours (Table) 07/08/23 07/08/23 07/08/23 Range/Units 08:35 08:35 08:35 WBC 3.7 L (3.8-10.6) k/uL RBC 3.60 L (4.30-5.90) m/uL Hgb 12.7 L (13.0-17.5) gm/dL Hct 38.1 L (39.0-53.0) % MCV 106.0 H (80.0-100.0) fL MCH 35.3 H (25.0-35.0) pg RDW 15.7 H (11.5-15.5) % Plt Count 28 L (150-450) k/uL Lymphocytes # 0.8 L (1.0-4.8) k/uL Chloride 111 H (98-107) mmol/L BUN 66 H (9-20) mg/dL Creatinine 2.39 H (0.66-1.25) mg/dL Total Bilirubin 4.8 H (0.2-1.3) mg/dL Ammonia 140 H (<30) umol/L Total Protein 5.5 L (6.3-8.2) g/dL Albumin 2.0 L (3.5-5.0) g/dL Assessment and Plan Assessment: Impression: Acute hepatic encephalopathy Liver cirrhosis Hyperammonemia Chronic thrombocytopenia secondary to liver disease Chronic atrial fibrillation Acute kidney injury with volume depletion and dehydration patient is a good set up for possible hepatorenal syndrome Right-sided pleural effusion/hepatic hydrothorax Morbid obesity BMI of 39 Recommendation: Continue lactulose Continue BiPAP Continue to titrate FiO2 accordingly Prognosis is extremely poor and guarded Updated daughter about his condition Patient is not to be intubated. Will continue to follow Comfort care measures should be considered considering the patient's overall condition however the daughter is not at that point to make that decision. Time with Patient: Less than 30
[2023-07-08 16:47] LABS: Glucose,Whole Blood 81 mg/dL (70-110)
[2023-07-09] MEDS: FUROSEMIDE 10 MG/ML 4 ML VIAL IV SCH (09:53)
[2023-07-09 10:44] LABS: HCT 28.6 % (39.0-53.0); Hypochromasia Moderate; MCH 35.2 pg (25.0-35.0); MCV 106.8 fL (80.0-100.0); Macrocytosis Moderate; Mean Platelet Volume 10.8; RBC 2.68 m/uL (4.30-5.90); RDW 15.3 % (11.5-15.5); WBC 2.8 k/uL (3.8-10.6)
[2023-07-09 10:59] LABS: ALT 22 U/L (4-49); AST 56 U/L (17-59); African American GFR (CKD) 30 (>60 ml/min/1.73 sqM); Alkaline Phosphatase 94 U/L (38-126); Anion Gap 4 mmol/L; Blood Urea Nitrogen 69 mg/dL (9-20); Calcium 8.6 mg/dL (8.4-10.2); Carbon Dioxide 24 mmol/L (22-30); Chloride 113 mmol/L (98-107); Glucose 88 mg/dL (74-99); Non-African American GFR(CKD) 26 (>60 ml/min/1.73 sqM); Potassium 4.4 mmol/L (3.5-5.1); Sodium 141 mmol/L (137-145); Total Bilirubin 5.2 mg/dL (0.2-1.3); Total Protein 5.7 g/dL (6.3-8.2)
[2023-07-09 11:13] LABS: HGB 9.4 gm/dL (13.0-17.5); Platelet Count 21 k/uL (150-450)
--- NOTE | 2023-07-09 11:36 | P.PN ---
Subjective HISTORY OF PRESENT ILLNESS: This is a 77-year-old gentleman with a past medical history significant for atrial fibrillation as well as history of chronic liver disease who was brought to the emergency department because of weakness and frequent falling at home. The patient is extremely poor historian and the history was taken from the chart as well as from the nurse taking care of the patient. No family member available to provide any more details. Apparently the patient has been falling at home and there was significant change in mental status. No indication that he was experiencing any symptoms of chest pain or chest discomfort or shortness of breath or any feeling of heart racing or fluttering. He underwent further workup including BMP and that showed acute renal failure and his ammonia level also was elevated. Beside that he underwent CBC and that showed thrombocytopenia which has been chronic. The patient does have history of atrial fibrillation and he was not receiving any anticoagulation likely because of frequent falling and possible bleeding and also because of thrombocytopenia. The EKG showed atrial fibrillation with diffuse nonspecific ST and T wave abnormality rate and echocardiogram from 2022 showed a preserved LV systolic function with no significant valvular abnormalities. The patient is extremely confused with lethargy. The troponin is mildly elevated. The examination revealed irregular rhythm with clear breathing sounds bilaterally and bilateral lower extremities edema July 04, 2023 The patient was seen and evaluated this morning. He continues to have severe/significant change in mental status. Hemodynamically he is stable. He continues to be in atrial fibrillation with controlled heart rate with no oral AV luis maureen agents because he cannot take any oral medications. Also he ca nnot be on any anticoagulation because of severe thrombocytopenia. CT scan of the brain showed no acute abnormalities. He underwent an echo which revealed normal LV systolic function. On examination he does have severe change in mental status with severe bilateral lower extremities edema noted. He is on Lasix IV at this point. CBC and BMP are scheduled but still pending now. 07/05/2023 Patient examined this morning at the bedside. Patient remains lethargic and is unable to converse with provider at the time of examination. Apparently patient had an NG tube which he pulled out overnight. An A-team was also called overnight due to increasing respiratory difficulty. Patient is currently on BiPAP. 07/06/2023 Patient examined this morning at the bedside. Patient is awake and conversing t paula with provider which is an improvement compared to yesterday. He remains confused. He is currently oriented x 1. Blood pressure 90/58. Patient remains in atrial fibrillation with RVR. According to his nurse, he is able to take oral medications now. 07/07/2023 Patient examined this morning at the bedside. Patient is lethargic today. He remains on BiPAP at the time of examination. Telemetry reveals atrial fibrillation with heart rate in the 120s. He is currently on Coreg. Blood pressure on the soft side with a recent reading of 99/57. 07/08/2023 Patient examined this morning at bedside. Patient remains lethargic. He remains on BiPAP. Patient's ammonia today of 140 increased from 91 yesterday. Vital signs are stable. Telemetry reveals atrial fibrillation with heart rate between [id number]. 07/09/2023 Patient examined this morning at the bedside. Patient remains lethargic. He continues to be on a BiPAP. Telemetry reveals atrial fibrillation with heart rate around 100. PHYSICAL EXAM: VITAL SIGNS: Reviewed. GENERAL: Well-developed in no acute distress. NECK: Supple. No JVD or thyromegaly LUNGS: Respirations even and unlabored. Lungs essentially clear to auscultation bilaterally, scattered rhonchi. HEART: Tachycardic. Irregular rate and rhythm. S1 and S2 heard. EXTREMITIES: Normal range of motion. No clubbing or cyanosis. Peripheral pulses intact. 1+ bilateral lower extremity edema ASSESSMENT: Altered mental status Hepatic encephalopathy Acute hypoxic respiratory failure, currently on BiPAP Persistent atrial fibrillation, not on anticoagulation due to severe thrombocytopenia Thrombocytopenia, platelet count 24 Chronic liver disease Acute renal failure Elevated ammonia levels Coagulopathy, INR 1.9, secondary to liver disease PLAN: Continue current cardiac medications Continue metoprolol. PO if patient able to take medications or IV push if patient is too lethargic. Patient not anticoagulated due to severe thrombocytopenia Continue telemetry monitoring Recommend addition of Aldactone when patient's kidney function improves We will sign off. Please reconsult if needed. Nurse practitioner note has been reviewed by physician. Signing provider agrees with the documented findings, assessment, and plan of care documented by [employer] as a scribe. Objective - Vital Signs Vital signs: Vital Signs Temp 97.0 F L 07/09/23 09:31 Pulse 86 07/09/23 09:31 Resp 16 07/09/23 09:31 BP 102/69 07/09/23 09:31 Pulse Ox 95 07/09/23 09:31 FiO2 30 03/08/24 08:19 Intake & Output 07/08/23 07/09/23 07/09/23 18:59 06:59 18:59 Intake Total 20 20 10 Output Total 350 650 300 Balance -330 -630 -290 Weight 133.5 kg 132.5 kg Intake: IV 20 20 10 Invasive Line 3 20 20 10 Oral 0 0 Output: Urine 350 650 300 Other: Voiding Method External Catheter External Catheter External Catheter # Voids 1 # Bowel Movements 1 0 - Labs CBC & Chem 7: 07/09/23 08:32 07/09/23 08:32 Labs: Abnormal Lab Results - Last 24 Hours (Table) 07/08/23 07/09/23 07/09/23 Range/Units 16:23 08:32 08:32 WBC 2.8 L (3.8-10.6) k/uL RBC 2.68 L (4.30-5.90) m/uL Hgb 9.4 L D (13.0-17.5) gm/dL Hct 28.6 L (39.0-53.0) % MCV 106.8 H (80.0-100.0) fL MCH 35.2 H (25.0-35.0) pg Chloride (98-107) mmol/L BUN (9-20) mg/dL Creatinine (0.66-1.25) mg/dL Total Bilirubin (0.2-1.3) mg/dL Ammonia 70 H 71 H (<30) umol/L Total Protein (6.3-8.2) g/dL Albumin (3.5-5.0) g/dL 07/09/23 Range/Units 08:32 WBC (3.8-10.6) k/uL RBC (4.30-5.90) m/uL Hgb (13.0-17.5) gm/dL Hct (39.0-53.0) % MCV (80.0-100.0) fL MCH (25.0-35.0) pg Chloride 113 H (98-107) mmol/L BUN 69 H (9-20) mg/dL Creatinine 2.36 H (0.66-1.25) mg/dL Total Bilirubin 5.2 H (0.2-1.3) mg/dL Ammonia (<30) umol/L Total Protein 5.7 L (6.3-8.2) g/dL Albumin 2.0 L (3.5-5.0) g/dL Microbiology - Last 24 Hours (Table) 07/07/23 14:40 Blood Culture - Preliminary Blood
--- NOTE | 2023-07-09 13:36 | P.PN ---
Subjective Progress Note Date: 07/09/23 Principal diagnosis: Acute hepatic encephalopathy I was asked to evaluate this patient for ICU transfer. The patient is 77 and the patient is known to have liver cirrhosis. It was noted that the patient's mentation has been progressively declining and the patient has not been able to take his oral lactulose. As such, the patient has been coming progressively more encephalopathic. 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 He has hypertension and chronic atrial fibrillation has comorbid conditions. During this current admission, the patient presented with generalized weakness and falling at home. He is a very poor historian. Dane moffett is at the bedside. Apparently his condition has been progressively getting worse over this past several months. No recent GI bleeding. He has had remote history of ascites that was drained. He is known to have chronic A-fib. He has not been receiving any form of anticoagulation due to concerns of bleeding as the patient has issues with chronic thrombocytopenia. During this current hospital admission, the patient also developed an acute kidney injury the creatinine currently is at the rise and is up to 2.68, troponin was 0.06 respectively x 2, UA was showing 1 WBC and few RBCs. The patient is afebrile. Pulse ox is 91 to 96% room air oxygen. Chest x-ray is showing a right-sided pleural effusion. Most recent blood pressure is 100/61. No reported aspiration. Remains on Lasix IV and is also on midodrine. In terms of his hepatic encephalopathy, repeated ammonia levels showed some improvement on today's blood work and ammonia level is down to 52 as the patient has received serial doses of lactulose enema. Cardiology has been consulted and nephrology has also been consulted. Potassium supplements have been discontinued. Midodrine was added. Ultrasound of the kidneys showed no evidence of any hydronephrosis and the CAT scan of the brain showed no acute intracranial process and there is evidence of chronic small vessel ischemic changes. The patient is seen today more July 05, 2023 in follow-up on the selective care unit. He is currently resting in bed. He is on BiPAP 12/6 and 30% FiO2. He continues to receive IV diuretics. He continues to receive rectal lactulose. His ammonia level has improved from 146 down to 23. Chest x-ray reveals bibasilar infiltrates and/or atelectasis with a small left pleural effusion. White count 7.4. Hemoglobin 13.6. Platelets 28,000. Sodium 147. Potassium 4.6. Bicarb 25. BUN 73. Creatinine 2.59. INR 1.9. The patient is seen today July 06, 2023 in follow-up on the selective care unit. He is currently sitting up in a chair at the bedside. Awake and alert in no acute distress. He remains confused at times. EEG is pending. Chest x-ray shows improved aeration but with residual mild pulmonary vascular congestion. White count 4.0. Hemoglobin 12.5. Platelets 27,000. INR 1.9. Sodium 144. Potassium 4.2. Bicarb 29. BUN 68. Creatinine 2.84. Glucose 100. He remains on lactulose every 12 hours. Ammonia level down to 23. The patient is seen today July 07, 2023 in follow-up on the selective care unit. He is currently resting in bed. Currently on BiPAP 12/6 and 30% FiO2. He did have some recurrent confusion. His ammonia level is back up to 91. White count 3.2. Hemoglobin 10.2. Platelets 24,000. Sodium 141. Potassium 3.9. Bicarb 25. BUN 68. Creatinine 2.62. He remains on lactulose. Patient was reevaluated today at 07/08/2023, patient is developing worsening encephalopathy, he is back on BiPAP 12/6/30%, O2 saturation 92%. WBC count is 3.7 hemoglobin is 12.7, basic metabolic profile is normal BUN is 66 creatinine 2.39 ammonia level is 140 patient is back on lactulose relatively high-dose Patient was reevaluated today on 07/09/2023, patient is awake again, sitting in bed with a nasal cannula in place, not in distress, slightly confused, ammonia level today is down to 70 from 140 yesterday. Remains on lactulose. Labs today were reviewed WBC count is 2.8 hemoglobin is 9.4 basic metabolic profile is normal BUN is 69 creatinine 2.36 Objective - Vital Signs Vital signs: Vital Signs Temp 97.0 F L 07/09/23 09:31 Pulse 87 07/09/23 12:10 Resp 16 07/09/23 12:10 BP 102/64 07/09/23 12:10 Pulse Ox 97 07/09/23 12:10 FiO2 30 07/09/23 08:19 Intake & Output 0307/09/23 07/09/23 18:59 06:59 18:59 Intake Total 20 20 10 Output Total 350 650 300 Balance -330 -630 -290 Weight 133.5 kg 132.5 kg Intake: IV 20 20 10 Invasive Line 3 20 20 10 Oral 0 0 Output: Urine 350 650 300 Other: Voiding Method External Catheter External Catheter External Catheter # Voids 1 # Bowel Movements 1 0 - Exam GENERAL EXAM: 77-year-old male, on 2 L nasal cannula with O2 sats of 97% HEAD: Normocephalic. EYES: Normal reaction of pupils, equal size. NOSE: Clear with pink turbinates. THROAT: No erythema or exudates. NECK: No masses, no JVD. CHEST: No chest wall deformity. LUNGS: Diminished breath sounds at the bases no rhonchi no wheezes CVS: S1 and S2 normal with no audible murmur, irregular rhythm. ABDOMEN: Morbidly obese, distended, normal bowel sounds, no guarding or rigidity. SKIN: No rashes CENTRAL NERVOUS SYSTEM: Patient is arousable, follows simple instructions but seems to be slightly confused and encephalopathic EXTREMITIES: There is 1-2+ peripheral edema. No clubbing, no cyanosis. Peripheral pulses are intact. - Labs CBC & Chem 7: 07/09/23 08:32 07/09/23 08:32 Labs: Abnormal Lab Results - Last 24 Hours (Table) 07/08/23 07/09/23 07/09/23 Range/Units 16:23 08:32 08:32 WBC 2.8 L (3.8-10.6) k/uL RBC 2.68 L (4.30-5.90) m/uL Hgb 9.4 L D (13.0-17.5) gm/dL Hct 28.6 L (39.0-53.0) % MCV 106.8 H (80.0-100.0) fL MCH 35.2 H (25.0-35.0) pg Chloride (98-107) mmol/L BUN (9-20) mg/dL Creatinine (0.66-1.25) mg/dL Total Bilirubin (0.2-1.3) mg/dL Ammonia 70 H 71 H (<30) umol/L Total Protein (6.3-8.2) g/dL Albumin (3.5-5.0) g/dL 07/09/23 Range/Units 08:32 WBC (3.8-10.6) k/uL RBC (4.30-5.90) m/uL Hgb (13.0-17.5) gm/dL Hct (39.0-53.0) % MCV (80.0-100.0) fL MCH (25.0-35.0) pg Chloride 113 H (98-107) mmol/L BUN 69 H (9-20) mg/dL Creatinine 2.36 H (0.66-1.25) mg/dL Total Bilirubin 5.2 H (0.2-1.3) mg/dL Ammonia (<30) umol/L Total Protein 5.7 L (6.3-8.2) g/dL Albumin 2.0 L (3.5-5.0) g/dL Microbiology - Last 24 Hours (Table) 07/07/23 14:40 Blood Culture - Preliminary Blood Assessment and Plan Assessment: Impression: Acute hepatic encephalopathy Liver cirrhosis Hyperammonemia 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 Will continue to follow Comfort care measures should be considered considering the patient's overall condition however the daughter is not at that point to make that decision. Time with Patient: Less than 30
[2023-07-09 13:53] LABS: Eosinophils # (M) 0.14 k/uL (0-0.7); Lymphocytes # (M) 0.62 k/uL (1.0-4.8); Monocytes # (M) 0.31 k/uL (0-1.0); Neutrophils # (M) 1.76 k/uL (1.3-7.7); Neutrophils % (M) 63 %; Nucleated Red Blood Cells 0 /100 WBC (0-0); Total Cells Counted 200
--- NOTE | 2023-07-09 15:31 | P.PN ---
Subjective Patient is seen for follow-up for acute kidney injury. He was admitted to the hospital with mental status changes. Underlying history of chronic liver disease from fatty liver. Mentation had improved significantly after lactulose. Patient is awake and off of BiPAP He did nod to simple questions. Serum creatinine improved to 2.3 Maintained on IV Lasix for volume overload. Objective - Vital Signs Vital signs: Vital Signs Temp 97.0 F L 07/09/23 09:31 Pulse 87 07/09/23 12:10 Resp 16 07/09/23 12:10 BP 102/64 07/09/23 12:10 Pulse Ox 97 07/09/23 12:10 FiO2 30 07/09/23 08:19 Intake & Output 07/08/23 07/09/23 07/09/23 18:59 06:59 18:59 Intake Total 20 20 10 Output Total 350 650 300 Balance -330 -630 -290 Weight 133.5 kg 132.5 kg Intake: IV 20 20 10 Invasive Line 3 20 20 10 Oral 0 0 Output: Urine 350 650 300 Other: Voiding Method External Catheter External Catheter External Catheter # Voids 1 # Bowel Movements 1 0 - Exam Patient is awake, Answers simple questions Examination of the heart S1 and S2 Examination of the lungs decreased breath sounds at the bases Abdomen is soft distended obese, nontender Examination of lower extremity shows edema 1+ bilaterally - Labs CBC & Chem 7: 07/09/23 08:32 07/09/23 08:32 Labs: Abnormal Lab Results - Last 24 Hours (Table) 07/08/23 07/09/23 07/09/23 Range/Units 16:23 08:32 08:32 WBC 2.8 L (3.8-10.6) k/uL RBC 2.68 L (4.30-5.90) m/uL Hgb 9.4 L D (13.0-17.5) gm/dL Hct 28.6 L (39.0-53.0) % MCV 106.8 H (80.0-100.0) fL MCH 35.2 H (25.0-35.0) pg Plt Count 21 L (150-450) k/uL Lymphocytes # (Manual) 0.62 L (1.0-4.8) k/uL Chloride (98-107) mmol/L BUN (9-20) mg/dL Creatinine (0.66-1.25) mg/dL Total Bilirubin (0.2-1.3) mg/dL Ammonia 70 H 71 H (<30) umol/L Total Protein (6.3-8.2) g/dL Albumin (3.5-5.0) g/dL 07/09/23 Range/Units 08:32 WBC (3.8-10.6) k/uL RBC (4.30-5.90) m/uL Hgb (13.0-17.5) gm/dL Hct (39.0-53.0) % MCV (80.0-100.0) fL MCH (25.0-35.0) pg Plt Count (150-450) k/uL Lymphocytes # (Manual) (1.0-4.8) k/uL Chloride 113 H (98-107) mmol/L BUN 69 H (9-20) mg/dL Creatinine 2.36 H (0.66-1.25) mg/dL Total Bilirubin 5.2 H (0.2-1.3) mg/dL Ammonia (<30) umol/L Total Protein 5.7 L (6.3-8.2) g/dL Albumin 2.0 L (3.5-5.0) g/dL Microbiology - Last 24 Hours (Table) 07/07/23 14:40 Blood Culture - Preliminary Blood Assessment and Plan Assessment: 1. Acute kidney injury, ATN currently nonoliguric. Improving. Patient has been hypotensive. Ultrasound shows no obstruction in the right kidney. Left kidney could not be visualized due to bowel gas. UA shows moderate blood no protein. UA shows RBCs 30 with moderate blood. No protein noted. Doubt hepatorenal syndrome. Renal function has improved. Patient tolerating gentle diuresis. 2. Encephalopathy mostly hepatic encephalopathy maintained on lactulose 3. Chronic A. fib with controlled ventricular response 4. Chronic liver disease with history of fatty liver 5. CHF, acute, diastolic dysfunction with ejection fraction 50-55% 6. Mild hypernatremia associated with free water deficit , improved Plan: Continue IV Lasix daily. We will continue to monitor volume status on a daily basis. Continue with midodrine and hold for systolic blood pressure more than 110 mmHg Continue accurate I's and O's Repeat labs in a.m.
--- NOTE | 2023-07-09 21:47 | P.PN ---
Subjective Progress Note Date: 07/09/23 77-year-old male admitted without mental status and hepatic encephalopathy patient has highly elevated ammonia level today which is 144, will use rectal lactulose and titrate for at least 4-5 loose bowel movements. Patient is barely arousable and because of his altered mental status we cannot use any p.o. medications because of which I am not starting him on rifaximin.. Patient is on BiPAP pulmonary is following the patient. Patient has bilateral pleural effusions: Secondary to volume overload from cirrhosis for which patient is on IV Lasix at this time patient is also coagulopathic because of cirrhosis. 07/09/2023 Patient evaluated today. More awake and off BiPAP, has been weaned to 3L of ox ygen. Ammonia level down to 71. Was able to be given oral lactulose today and will be continued with goal of 2 to 3 loose bowel movements a day. Urine culture showing gram negative bacilli. WBC 2.8, hgb 9.4, platelet count 21, BUN 69, creatinine 2.36. Hemodynamically stable. Review of Systems Constitutional: Denied any fatigue denied any fever. Cardio vascular: denied any chest pain, palpitations Gastrointestinal: denied any nausea, vomiting, diarrhea Pulmonary: Denied any shortness of breath cough Neurologic denied any new focal deficits All inpatient medications were reviewed and appropriate changes in these medications as dictated in the interval history and assessment and plan. PHYSICAL EXAMINATION: GENERAL: Patient is on BiPAP arousable but drowsy and sleepy HEENT: Pupils are round and equally reacting to light. EOMI. No scleral icterus. No conjunctival pallor. Normocephalic, atraumatic. No pharyngeal erythema. No thyromegaly. CARDIOVASCULAR: S1 and S2 present. No murmurs, rubs, or gallops. PULMONARY: Chest is clear to auscultation, no wheezing or crackles. ABDOMEN: Soft, nontender, nondistended, normoactive bowel sounds. No palpable organomegaly. MUSCULOSKELETAL: No joint swelling or deformity. EXTREMITIES: No cyanosis, clubbing, bilateral lower extremity edema NEUROLOGICAL: Encephalopathic unable to evaluate SKIN: No rashes. Assessment and plan -Hepatic encephalopathy patient more awake alert today ammonia down to 71 continue with oral lactulose titrate for 3 BMs per day and repeat ammonia level int he AM. -Acute respiratory failure on BiPAP secondary to bilateral pleural effusions which is again secondary to cirrhosis patient is on IV Lasix which will be continued; has been waned to 2L of oxygen. -Volume overload secondary to cirrhosis -Thrombocytopenia and coagulopathy secondary to cirrhosis -Chronic atrial fibrillation presently not on any anticoagulation as patient is not anticoagulated secondary to cirrhosis acute renal failure patient is anemia secondary to hypervolemia which is again secondary to cirrhosis and IV Lasix as mentioned above DVT prophylaxis: Patient is at a heart anticoagulated because of cirrhosis, patient's INR today is 1.9 The impression and plan of care has been dictated by Surekha Looney, Nurse Practitioner as directed. Dr. Terry MD I have performed a history and physical examination and medical decision making of this patient, discussed the same with the dictator, and agree with the dictators assessment and plan as written, documented as a scribe. Based on total visit time, I have performed more than 50% of this visit. Objective - Vital Signs Vital signs: Vital Signs Temp 97.0 F L 07/09/23 09:31 Pulse 87 07/09/23 12:10 Resp 16 07/09/23 12:10 BP 102/64 07/09/23 12:10 Pulse Ox 97 07/09/23 12:10 FiO2 30 07/09/23 08:19 Intake & Output 07/08/23 07/09/23 07/09/23 18:59 06:59 18:59 Intake Total 20 20 10 Output Total 350 650 300 Balance -330 -630 -290 Weight 133.5 kg 132.5 kg Intake: IV 20 20 10 Invasive Line 3 20 20 10 Oral 0 0 Output: Urine 350 650 300 Other: Voiding Method External Catheter External Catheter External Catheter # Voids 1 # Bowel Movements 1 0 - Labs CBC & Chem 7: 07/09/23 08:32 07/09/23 08:32 Labs: Abnormal Lab Results - Last 24 Hours (Table) 07/08/23 07/09/23 07/09/23 Range/Units 16:23 08:32 08:32 WBC 2.8 L (3.8-10.6) k/uL RBC 2.68 L (4.30-5.90) m/uL Hgb 9.4 L D (13.0-17.5) gm/dL Hct 28.6 L (39.0-53.0) % MCV 106.8 H (80.0-100.0) fL MCH 35.2 H (25.0-35.0) pg Plt Count 21 L (150-450) k/uL Lymphocytes # (Manual) 0.62 L (1.0-4.8) k/uL Chloride (98-107) mmol/L BUN (9-20) mg/dL Creatinine (0.66-1.25) mg/dL Total Bilirubin (0.2-1.3) mg/dL Ammonia 70 H 71 H (<30) umol/L Total Protein (6.3-8.2) g/dL Albumin (3.5-5.0) g/dL 07/09/23 Range/Units 08:32 WBC (3.8-10.6) k/uL RBC (4.30-5.90) m/uL Hgb (13.0-17.5) gm/dL Hct (39.0-53.0) % MCV (80.0-100.0) fL MCH (25.0-35.0) pg Plt Count (150-450) k/uL Lymphocytes # (Manual) (1.0-4.8) k/uL Chloride 113 H (98-107) mmol/L BUN 69 H (9-20) mg/dL Creatinine 2.36 H (0.66-1.25) mg/dL Total Bilirubin 5.2 H (0.2-1.3) mg/dL Ammonia (<30) umol/L Total Protein 5.7 L (6.3-8.2) g/dL Albumin 2.0 L (3.5-5.0) g/dL Microbiology - Last 24 Hours (Table) 07/07/23 14:40 Blood Culture - Preliminary Blood Assessment and Plan Time with Patient: Less than 30
[2023-07-10 09:07] LABS: Basophils % (A) 0 %; Eosinophils # (A) 0.2 k/uL (0-0.7); Eosinophils % (A) 5 %; HCT 38.5 % (39.0-53.0); Hypochromasia Slight; Lymphocytes % (A) 21 %; MCHC 33.3 g/dL (31.0-37.0); MCV 104.9 fL (80.0-100.0); Macrocytosis Moderate; Monocytes # (A) 0.6 k/uL (0-1.0); Monocytes % (A) 14 %; Neutrophils # (A) 2.6 k/uL (1.3-7.7); Neutrophils % (A) 56 %; Poikilocytosis Slight; RBC 3.67 m/uL (4.30-5.90); RDW 15.9 % (11.5-15.5); WBC 4.6 k/uL (3.8-10.6)
[2023-07-10 09:16] LABS: HGB 12.8 gm/dL (13.0-17.5); Platelet Count 24 k/uL (150-450)
[2023-07-10 09:35] LABS: AST 75 U/L (17-59); African American GFR (CKD) 31 (>60 ml/min/1.73 sqM); Anion Gap 2 mmol/L; Blood Urea Nitrogen 73 mg/dL (9-20); Calcium 8.6 mg/dL (8.4-10.2); Carbon Dioxide 25 mmol/L (22-30); Chloride 112 mmol/L (98-107); Glucose 108 mg/dL (74-99); Non-African American GFR(CKD) 27 (>60 ml/min/1.73 sqM); Sodium 139 mmol/L (137-145); Total Bilirubin 3.9 mg/dL (0.2-1.3)
[2023-07-10 09:45] LABS: Albumin 2.1 g/dL (3.5-5.0); Alkaline Phosphatase 86 U/L (38-126); Potassium 4.9 mmol/L (3.5-5.1); Total Protein 5.7 g/dL (6.3-8.2)
[2023-07-10 09:46] LABS: ALT 24 U/L (4-49)
--- NOTE | 2023-07-10 10:28 | P.PN ---
Subjective Patient is seen in follow-up for acute kidney injury. Renal function stable. On IV Lasix. Nonoliguric. On BiPAP. Poor historian. Vital signs are stable. Blood pressure on the lower side. General: Resting in bed. HEENT: Head exam is unremarkable. On BiPAP. LUNGS: Scattered rhonchi. HEART: Rate and Rhythm are regular. ABDOMEN: No distention. EXTREMITITES: 1+ edema. Objective - Vital Signs Vital signs: Vital Signs Temp 97.7 F 07/10/23 04:00 Pulse 65 07/10/23 04:00 Resp 12 07/10/23 04:00 BP 90/63 07/10/23 04:00 Pulse Ox 100 07/10/23 04:00 FiO2 30 07/10/23 08:29 Intake & Output 07/09/23 07/10/23 07/10/23 18:59 06:59 18:59 Intake Total 378 Output Total 650 500 Balance -272 -500 Weight 134 kg Intake: IV 20 Invasive Line 3 20 Oral 358 Output: Urine 650 500 Other: Voiding Method External Catheter External Catheter # Bowel Movements 1 1 - Labs CBC & Chem 7: 07/10/23 08:46 07/10/23 08:46 Labs: Abnormal Lab Results - Last 24 Hours (Table) 07/09/23 07/09/23 07/10/23 Range/Units 08:32 08:32 08:46 WBC 2.8 L (3.8-10.6) k/uL RBC 2.68 L 3.67 L (4.30-5.90) m/uL Hgb 9.4 L D 12.8 L D (13.0-17.5) gm/dL Hct 28.6 L 38.5 L (39.0-53.0) % MCV 106.8 H 104.9 H (80.0-100.0) fL MCH 35.2 H (25.0-35.0) pg RDW 15.9 H (11.5-15.5) % Plt Count 21 L 24 L (150-450) k/uL Lymphocytes # (Manual) 0.62 L (1.0-4.8) k/uL Chloride 113 H (98-107) mmol/L BUN 69 H (9-20) mg/dL Creatinine 2.36 H (0.66-1.25) mg/dL Glucose (74-99) mg/dL Total Bilirubin 5.2 H (0.2-1.3) mg/dL AST (17-59) U/L Ammonia (<30) umol/L Total Protein 5.7 L (6.3-8.2) g/dL Albumin 2.0 L (3.5-5.0) g/dL 07/10/23 07/10/23 Range/Units 08:46 08:46 WBC (3.8-10.6) k/uL RBC (4.30-5.90) m/uL Hgb (13.0-17.5) gm/dL Hct (39.0-53.0) % MCV (80.0-100.0) fL MCH (25.0-35.0) pg RDW (11.5-15.5) % Plt Count (150-450) k/uL Lymphocytes # (Manual) (1.0-4.8) k/uL Chloride 112 H (98-107) mmol/L BUN 73 H (9-20) mg/dL Creatinine 2.29 H (0.66-1.25) mg/dL Glucose 108 H (74-99) mg/dL Total Bilirubin 3.9 H (0.2-1.3) mg/dL AST 75 H (17-59) U/L Ammonia 110 H (<30) umol/L Total Protein 5.7 L (6.3-8.2) g/dL Albumin 2.1 L (3.5-5.0) g/dL Microbiology - Last 24 Hours (Table) 07/07/23 14:40 Blood Culture - Preliminary Blood 07/08/23 14:00 Urine Culture - Preliminary Urine,Clean Catch Gram Neg Bacilli Assessment and Plan Plan: Assessment: 1. Acute kidney injury secondary to ATN secondary to hypotension. Also concern for underlying cardiorenal and hepatic renal syndrome. Renal function stable. Creatinine 2.29 today. No proteinuria on UA. No hydronephrosis noted on kidney ultrasound. Left kidney poorly visualized. 2. Acute on chronic diastolic CHF. 3. Volume overload. Improving with diuresis. 4. Acute hypoxic respiratory failure. On BiPAP. 5. Liver cirrhosis. 6. Hepatic encephalopathy. 7. UTI with urine culture positive for gram-negative bacilli on antibiotics. Plan: Maintain IV Lasix. Increase dose of midodrine. Strict I's and O's. Continue to monitor renal function and urine output. Avoid nephrotoxins. Prognosis guarded. Wean FiO2.
--- NOTE | 2023-07-10 14:08 | P.PN ---
Subjective Progress Note Date: 07/10/23 Principal diagnosis: Acute hepatic encephalopathy I was asked to evaluate this patient for ICU transfer. The patient is 77 and the patient is known to have liver cirrhosis. It was noted that the patient's mentation has been progressively declining and the patient has not been able to take his oral lactulose. As such, the patient has been coming progressively more encephalopathic. 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 He has hypertension and chronic atrial fibrillation has comorbid conditions. During this current admission, the patient presented with generalized weakness and falling at home. He is a very poor historian. Dane moffett is at the bedside. Apparently his condition has been progressively getting worse over this past several months. No recent GI bleeding. He has had remote history of ascites that was drained. He is known to have chronic A-fib. He has not been receiving any form of anticoagulation due to concerns of bleeding as the patient has issues with chronic thrombocytopenia. During this current hospital admission, the patient also developed an acute kidney injury the creatinine currently is at the rise and is up to 2.68, troponin was 0.06 respectively x 2, UA was showing 1 WBC and few RBCs. The patient is afebrile. Pulse ox is 91 to 96% room air oxygen. Chest x-ray is showing a right-sided pleural effusion. Most recent blood pressure is 100/61. No reported aspiration. Remains on Lasix IV and is also on midodrine. In terms of his hepatic encephalopathy, repeated ammonia levels showed some improvement on today's blood work and ammonia level is down to 52 as the patient has received serial doses of lactulose enema. Cardiology has been consulted and nephrology has also been consulted. Potassium supplements have been discontinued. Midodrine was added. Ultrasound of the kidneys showed no evidence of any hydronephrosis and the CAT scan of the brain showed no acute intracranial process and there is evidence of chronic small vessel ischemic changes. The patient is seen today more July 05, 2023 in follow-up on the selective care unit. He is currently resting in bed. He is on BiPAP 12/6 and 30% FiO2. He continues to receive IV diuretics. He continues to receive rectal lactulose. His ammonia level has improved from 146 down to 23. Chest x-ray reveals bibasilar infiltrates and/or atelectasis with a small left pleural effusion. White count 7.4. Hemoglobin 13.6. Platelets 28,000. Sodium 147. Potassium 4.6. Bicarb 25. BUN 73. Creatinine 2.59. INR 1.9. The patient is seen today July 06, 2023 in follow-up on the selective care unit. He is currently sitting up in a chair at the bedside. Awake and alert in no acute distress. He remains confused at times. EEG is pending. Chest x-ray shows improved aeration but with residual mild pulmonary vascular congestion. White count 4.0. Hemoglobin 12.5. Platelets 27,000. INR 1.9. Sodium 144. Potassium 4.2. Bicarb 29. BUN 68. Creatinine 2.84. Glucose 100. He remains on lactulose every 12 hours. Ammonia level down to 23. The patient is seen today July 07, 2023 in follow-up on the selective care unit. He is currently resting in bed. Currently on BiPAP 12/6 and 30% FiO2. He did have some recurrent confusion. His ammonia level is back up to 91. White count 3.2. Hemoglobin 10.2. Platelets 24,000. Sodium 141. Potassium 3.9. Bicarb 25. BUN 68. Creatinine 2.62. He remains on lactulose. Patient was reevaluated today at 07/08/2023, patient is developing worsening encephalopathy, he is back on BiPAP 12/6/30%, O2 saturation 92%. WBC count is 3.7 hemoglobin is 12.7, basic metabolic profile is normal BUN is 66 creatinine 2.39 ammonia level is 140 patient is back on lactulose relatively high-dose Patient was reevaluated today on 07/09/2023, patient is awake again, sitting in bed with a nasal cannula in place, not in distress, slightly confused, ammonia level today is down to 70 from 140 yesterday. Remains on lactulose. Labs today were reviewed WBC count is 2.8 hemoglobin is 9.4 basic metabolic profile is normal BUN is 69 creatinine 2.36 Reevaluate today on 07/10/2023, patient is basically about the same, now he is back on BiPAP, and it is expected since his ammonia level today is back up to110 and spite of patient is receiving lactulose, and is having episodes of diarrhea. Considering the overall picture and considering the condition is terminal, I believe the patient should be considered for comfort care measures. In the meantime continue BiPAP, and titrate accordingly Objective - Vital Signs Vital signs: Vital Signs Temp 97.9 F 07/10/23 12:00 Pulse 107 H 07/10/23 12:00 Resp 14 07/10/23 12:00 BP 80/62 07/10/23 12:00 Pulse Ox 100 07/10/23 12:00 FiO2 30 07/10/23 11:36 Intake & Output 07/09/23 07/10/23 07/10/23 18:59 06:59 18:59 Intake Total 378 Output Total 650 500 Balance -272 -500 Weight 134 kg Intake: IV 20 Invasive Line 3 20 Oral 358 Output: Urine 650 500 Other: Voiding Method External Catheter External Catheter External Catheter # Bowel Movements 1 1 - Exam GENERAL EXAM: 77-year-old male, on BiPAP again at 04/07/30% HEAD: Normocephalic. EYES: Normal reaction of pupils, equal size. NOSE: Clear with pink turbinates. THROAT: No erythema or exudates. NECK: No masses, no JVD. CHEST: No chest wall deformity. LUNGS: Diminished breath sounds at the bases no rhonchi no wheezes CVS: S1 and S2 normal with no audible murmur, irregular rhythm. ABDOMEN: Morbidly obese, distended, normal bowel sounds, no guarding or rigidity. SKIN: No rashes CENTRAL NERVOUS SYSTEM: Patient is encephalopathic, difficult to arouse. BiPAP EXTREMITIES: There is 1-2+ peripheral edema. No clubbing, no cyanosis. Peripheral pulses are intact. - Labs CBC & Chem 7: 07/10/23 08:46 07/10/23 08:46 Labs: Abnormal Lab Results - Last 24 Hours (Table) 07/10/23 07/10/23 07/10/23 Range/Units 08:46 08:46 08:46 RBC 3.67 L (4.30-5.90) m/uL Hgb 12.8 L D (13.0-17.5) gm/dL Hct 38.5 L (39.0-53.0) % MCV 104.9 H (80.0-100.0) fL RDW 15.9 H (11.5-15.5) % Plt Count 24 L (150-450) k/uL Chloride 112 H (98-107) mmol/L BUN 73 H (9-20) mg/dL Creatinine 2.29 H (0.66-1.25) mg/dL Glucose 108 H (74-99) mg/dL Total Bilirubin 3.9 H (0.2-1.3) mg/dL AST 75 H (17-59) U/L Ammonia 110 H (<30) umol/L Total Protein 5.7 L (6.3-8.2) g/dL Albumin 2.1 L (3.5-5.0) g/dL Microbiology - Last 24 Hours (Table) 07/07/23 14:40 Blood Culture - Preliminary Blood 07/08/23 14:00 Urine Culture - Preliminary Urine,Clean Catch Gram Neg Bacilli Assessment and Plan Assessment: Impression: Acute hepatic encephalopathy Liver cirrhosis Hyperammonemia 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
--- NOTE | 2023-07-10 15:00 | P.PN ---
Subjective Progress Note Date: 07/10/23 77-year-old male admitted without mental status and hepatic encephalopathy patient has highly elevated ammonia level today which is 144, will use rectal lactulose and titrate for at least 4-5 loose bowel movements. Patient is barely arousable and because of his altered mental status we cannot use any p.o. medications because of which I am not starting him on rifaximin.. Patient is on BiPAP pulmonary is following the patient. Patient has bilateral pleural effusions: Secondary to volume overload from cirrhosis for which patient is on IV Lasix at this time patient is also coagulopathic because of cirrhosis. 07/09/2023 Patient evaluated today. More awake and off BiPAP, has been weaned to 3L of ox ygen. Ammonia level down to 71. Was able to be given oral lactulose today and will be continued with goal of 2 to 3 loose bowel movements a day. Urine culture showing gram negative bacilli. WBC 2.8, hgb 9.4, platelet count 21, BUN 69, creatinine 2.36. Hemodynamically stable. 07/10/2023 Patient is seen in follow-up today on the medical floor. He has lethargic and mostly unresponsive has been put back on the BiPAP. Ammonia level is increased up to 110. He is again not tolerating any oral intake and the nursing staff will be giving him rectal lactulose today. His AST is 75. Vitamin B12 is added at 1714, folate is 7.10. His BUN is 73, creatinine 2.29. His overall prognosis remains poor discussed with family and they like to pursue hospice care measures they will be meeting with hospice today they would like to bring patient home discussed that this may not be possible and he may be a candidate for inpatient hospice. Review of Systems Unable to complete patient is lethargic and resting in bed on BiPAP. PHYSICAL EXAMINATION: GENERAL: Patient is on BiPAP arousable but drowsy and sleepy HEENT: Pupils are round and equally reacting to light. EOMI. No scleral icterus. No conjunctival pallor. Normocephalic, atraumatic. No pharyngeal erythema. No thyromegaly. CARDIOVASCULAR: S1 and S2 present. No murmurs, rubs, or gallops. PULMONARY: Chest is clear to auscultation, no wheezing or crackles. ABDOMEN: Soft, nontender, nondistended, normoactive bowel sounds. No palpable organomegaly. MUSCULOSKELETAL: No joint swelling or deformity. EXTREMITIES: No cyanosis, clubbing, bilateral lower extremity edema, Right greater than left upper extremity edema. NEUROLOGICAL: Encephalopathic unable to evaluate SKIN: No rashes. Assessment and plan -Hepatic encephalopathy, ammonia now elevated in the 100s. Patient unable to take oral lactulose and will need to given rectal lactulose today. Titrate for 3-4 BMs per day and repeat ammonia level in the AM. -Acute respiratory failure on BiPAP secondary to bilateral pleural effusions which is again secondary to cirrhosis patient is on IV Lasix which will be continued; on BiPAP oxygen support. -Volume overload secondary to cirrhosis -Thrombocytopenia and coagulopathy secondary to cirrhosis -Chronic atrial fibrillation presently not on any anticoagulation as patient is not anticoagulated secondary to cirrhosis acute renal failure patient is anemia secondary to hypervolemia which is again secondary to cirrhosis and IV Lasix as mentioned above DVT prophylaxis: Patient is at a heart anticoagulated because of cirrhosis Discussed plan of care with patients family and also with patients primary provider, Dr. Chu all agreeing for hospice and comfort measures. Hospice will be contacted to come and meet with at bedside today. The impression and plan of care has been dictated by Surekha Looney Nurse Practitioner as directed. Dr. Terry MD I have performed a history and physical examination and medical decision making of this patient, discussed the same with the dictator, and agree with the dictators assessment and plan as written, documented as a scribe. Based on total visit time, I have performed more than 50% of this visit. Objective - Vital Signs Vital signs: Vital Signs Temp 97.9 F 07/10/23 12:00 Pulse 107 H 07/10/23 12:00 Resp 14 07/10/23 12:00 BP 80/62 07/10/23 12:00 Pulse Ox 100 07/10/23 12:00 FiO2 30 07/10/23 11:36 Intake & Output 07/09/23 07/10/23 07/10/23 18:59 06:59 18:59 Intake Total 378 Output Total 650 500 Balance -272 -500 Weight 134 kg Intake: IV 20 Invasive Line 3 20 Oral 358 Output: Urine 650 500 Other: Voiding Method External Catheter External Catheter External Catheter # Bowel Movements 1 1 - Labs CBC & Chem 7: 07/10/23 08:46 07/10/23 08:46 Labs: Abnormal Lab Results - Last 24 Hours (Table) 07/10/23 07/10/23 07/10/23 Range/Units 08:46 08:46 08:46 RBC 3.67 L (4.30-5.90) m/uL Hgb 12.8 L D (13.0-17.5) gm/dL Hct 38.5 L (39.0-53.0) % MCV 104.9 H (80.0-100.0) fL RDW 15.9 H (11.5-15.5) % Plt Count 24 L (150-450) k/uL Chloride 112 H (98-107) mmol/L BUN 73 H (9-20) mg/dL Creatinine 2.29 H (0.66-1.25) mg/dL Glucose 108 H (74-99) mg/dL Total Bilirubin 3.9 H (0.2-1.3) mg/dL AST 75 H (17-59) U/L Ammonia 110 H (<30) umol/L Total Protein 5.7 L (6.3-8.2) g/dL Albumin 2.1 L (3.5-5.0) g/dL Vitamin B12 1714.0 H (200.0-944.0) pg/mL Microbiology - Last 24 Hours (Table) 07/07/23 14:40 Blood Culture - Preliminary Blood 07/08/23 14:00 Urine Culture - Preliminary Urine,Clean Catch Gram Neg Bacilli Assessment and Plan Time with Patient: Greater than 30
[2023-07-10] MEDS: MIDODRINE 5 MG TAB PO SCH (16:08)
[2023-07-11 10:18] LABS: African American GFR (CKD) 36 (>60 ml/min/1.73 sqM); Anion Gap 3 mmol/L; Blood Urea Nitrogen 68 mg/dL (9-20); Calcium 8.3 mg/dL (8.4-10.2); Carbon Dioxide 25 mmol/L (22-30); Chloride 110 mmol/L (98-107); Glucose 108 mg/dL (74-99); Magnesium 2.2 mg/dL (1.6-2.3); Non-African American GFR(CKD) 31 (>60 ml/min/1.73 sqM); Potassium 4.1 mmol/L (3.5-5.1); Sodium 138 mmol/L (137-145)
--- NOTE | 2023-07-11 10:41 | P.PN ---
Subjective Patient is seen in follow-up for acute kidney injury. Renal function better. On IV Lasix. Nonoliguric. Poor historian. Vital signs are stable. General: Resting in bed. HEENT: Head exam is unremarkable. On nasal cannula. LUNGS: Scattered rhonchi. HEART: Rate and Rhythm are regular. ABDOMEN: No distention. EXTREMITITES: 1+ edema. Objective - Vital Signs Vital signs: Vital Signs Temp 98.2 F 07/11/23 04:00 Pulse 83 07/11/23 04:00 Resp 15 07/11/23 04:00 BP 115/81 07/11/23 04:00 Pulse Ox 100 07/11/23 04:00 FiO2 30 07/10/23 11:36 Intake & Output 07/10/23 07/11/23 07/11/23 17:59 06:59 18:59 Intake Total Output Total Balance Weight Intake: Oral Output: Urine Other: Voiding Method # Voids # Bowel Movements - Labs CBC & Chem 7: 07/10/23 08:46 07/11/23 09:39 Labs: Abnormal Lab Results - Last 24 Hours (Table) 07/10/23 07/11/23 07/11/23 Range/Units 08:46 09:39 09:39 Chloride 112 H 110 H (98-107) mmol/L BUN 73 H 68 H (9-20) mg/dL Creatinine 2.29 H 2.01 H (0.66-1.25) mg/dL Glucose 108 H 108 H (74-99) mg/dL Calcium 8.3 L (8.4-10.2) mg/dL Total Bilirubin 3.9 H (0.2-1.3) mg/dL AST 75 H (17-59) U/L Ammonia 81 H (<30) umol/L Total Protein 5.7 L (6.3-8.2) g/dL Albumin 2.1 L (3.5-5.0) g/dL Vitamin B12 1714.0 H (200.0-944.0) pg/mL Microbiology - Last 24 Hours (Table) 07/08/23 14:00 Urine Culture - Final Urine,Clean Catch Escherichia coli 07/07/23 14:40 Blood Culture - Preliminary Blood Assessment and Plan Plan: Assessment: 1. Acute kidney injury secondary to ATN secondary to hypotension. Also concern for underlying cardiorenal and hepatic renal syndrome. Renal function stable. Creatinine 2.01 today. No proteinuria on UA. No hydronephrosis noted on kidney ultrasound. Left kidney poorly visualized. 2. Acute on chronic diastolic CHF. 3. Volume overload. Improving with diuresis. 4. Acute hypoxic respiratory failure. On BiPAP. 5. Liver cirrhosis. 6. Hepatic encephalopathy. 7. UTI with urine culture positive for E. coli on antibiotics. Plan: Maintain IV Lasix. Maintain midodrine. Hold for systolic blood pressure greater than 115. Strict I's and O's. Continue to monitor renal function and urine output. Avoid nephrotoxins. Prognosis guarded.
--- NOTE | 2023-07-11 13:39 | P.PN ---
Subjective Progress Note Date: 07/11/23 I was asked to evaluate this patient for ICU transfer. The patient is 77 and the patient is known to have liver cirrhosis. It was noted that the patient's mentation has been progressively declining and the patient has not been able to take his oral lactulose. As such, the patient has been coming progressively more encephalopathic. 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 He has hypertension and chronic atrial fibrillation has comorbid conditions. During this current admission, the patient presented with generalized weakness and falling at home. He is a very poor historian. Family is at the bedside. Apparently his condition has been progressively gett ing worse over this past several months. No recent GI bleeding. He has had remote history of ascites that was drained. He is known to have chronic A-fib. He has not been receiving any form of anticoagulation due to concerns of bleeding as the patient has issues with chronic thrombocytopenia. During this current hospital admission, the patient also developed an acute kidney injury the creatinine currently is at the rise and is up to 2.68, troponin was 0.06 respectively x 2, UA was showing 1 WBC and few RBCs. The patient is afebrile. Pulse ox is 91 to 96% room air oxygen. Chest x-ray is showing a right-sided pleural effusion. Most recent blood pressure is 100/61. No reported aspirati on. Remains on Lasix IV and is also on midodrine. In terms of his hepatic encephalopathy, repeated ammonia levels showed some improvement on today's blood work and ammonia level is down to 52 as the patient has received serial doses of lactulose enema. Cardiology has been consulted and nephrology has also been consulted. Potassium supplements have been discontinued. Midodrine was added. Ultrasound of the kidneys showed no evidence of any hydronephrosis and the CAT scan of the brain showed no acute intracranial process and there is evidence of chronic small vessel ischemic changes. The patient is seen today more July 05, 2023 in follow-up on the selective care unit. He is currently resting in bed. He is on BiPAP 12/6 and 30% FiO2. He continues to receive IV diuretics. He continues to receive rectal lactulose. His ammonia level has improved from 146 down to 23. Chest x-ray reveals bibasilar infiltrates and/or atelectasis with a small left pleural effusion. White count 7.4. Hemoglobin 13.6. Platelets 28,000. Sodium 147. Potassium 4.6. Bicarb 25. BUN 73. Creatinine 2.59. INR 1.9. The patient is seen today July 06, 2023 in follow-up on the selective care unit. He is currently sitting up in a chair at the bedside. Awake and alert in no acute distress. He remains confused at times. EEG is pending. Chest x-ray shows improved aeration but with residual mild pulmonary vascular congestion. White count 4.0. Hemoglobin 12.5. Platelets 27,000. INR 1.9. Sodium 144. Potassium 4.2. Bicarb 29. BUN 68. Creatinine 2.84. Glucose 100. He remains on lactulose every 12 hours. Ammonia level down to 23. The patient is seen today July 07, 2023 in follow-up on the selective care unit. He is currently resting in bed. Currently on BiPAP 12/6 and 30% FiO2. He did have some recurrent confusion. His ammonia level is back up to 91. White count 3.2. Hemoglobin 10.2. Platelets 24,000. Sodium 141. Potassium 3.9. Bicarb 25. BUN 68. Creatinine 2.62. He remains on lactulose. Patient was reevaluated today at 07/08/2023, patient is developing worsening encephalopathy, he is back on BiPAP 12/6/30%, O2 saturation 92%. WBC count is 3.7 hemoglobin is 12.7, basic metabolic profile is normal BUN is 66 creatinine 2.39 ammonia level is 140 patient is back on lactulose relatively high-dose Patient was reevaluated today on 07/09/2023, patient is awake again, sitting in bed with a nasal cannula in place, not in distress, slightly confused, ammonia level today is down to 70 from 140 yesterday. Remains on lactulose. Labs today were reviewed WBC count is 2.8 hemoglobin is 9.4 basic metabolic profile is normal BUN is 69 creatinine 2.36 Reevaluate today on 07/10/2023, patient is basically about the same, now he is back on BiPAP, and it is expected since his ammonia level today is back up to110 and spite of patient is receiving lactulose, and is having episodes of diarrhea. Considering the overall picture and considering the condition is terminal, I believe the patient should be considered for comfort care measures. In the meantime continue BiPAP, and titrate accordingly The patient is seen today July 11, 2023 in follow-up on the selective care unit. He remains on BiPAP 12 over 6 and 30% FiO2. His mentation continues to wax and wane. His ammonia level is down to 81 today. Sodium 138. Potassium 4.1. Bicarb 25. BUN 68. Creatinine 2.01. Glucose 108. He remains on lactulose. Continued on ceftriaxone. Remains on IV Lasix. Currently in a -1.5 L balance. Objective - Vital Signs Vital signs: Vital Signs Temp 97.2 F L 07/11/23 08:00 Pulse 68 07/11/23 08:00 Resp 16 07/11/23 08:00 BP 107/68 07/11/23 08:00 Pulse Ox 97 07/11/23 08:00 FiO2 30 07/10/23 11:36 Intake & Output 07/10/23 07/11/23 07/11/23 17:59 06:59 18:59 Intake Total Output Total 900 Balance -900 Weight Intake: Oral Output: Urine 900 Other: Voiding Method External Catheter # Voids # Bowel Movements - Exam GENERAL EXAM: Arousable, confused, 77-year-old male, on BiPAP 12/6 and 30% FiO2, in no acute distress. HEAD: Normocephalic. EYES: Normal reaction of pupils, equal size. NOSE: Clear with pink turbinates. THROAT: No erythema or exudates. NECK: No masses, no JVD. CHEST: No chest wall deformity. LUNGS: Equal air entry with crackles in the bilateral bases. CVS: S1 and S2 normal with no audible murmur, irregular rhythm. ABDOMEN: Distended, normal bowel sounds, no guarding or rigidity. SPINE: No scoliosis or deformity SKIN: No rashes CENTRAL NERVOUS SYSTEM: No focal deficits, tone is normal in all 4 extremities. EXTREMITIES: There is 1-2+ peripheral edema. No clubbing, no cyanosis. Peripheral pulses are intact. - Labs CBC & Chem 7: 07/10/23 08:46 07/11/23 09:39 Labs: Abnormal Lab Results - Last 24 Hours (Table) 07/10/23 07/11/23 07/11/23 Range/Units 08:46 09:39 09:39 Chloride 110 H (98-107) mmol/L BUN 68 H (9-20) mg/dL Creatinine 2.01 H (0.66-1.25) mg/dL Glucose 108 H (74-99) mg/dL Calcium 8.3 L (8.4-10.2) mg/dL Ammonia 81 H (<30) umol/L Vitamin B12 1714.0 H (200.0-944.0) pg/mL Microbiology - Last 24 Hours (Table) 07/08/23 14:00 Urine Culture - Final Urine,Clean Catch Escherichia coli 07/07/23 14:40 Blood Culture - Preliminary Blood Assessment and Plan Assessment: Encephalopathy, likely hepatic in nature. CAT scan of the brain is not showing any acute abnormalities and the patient has no focal neurological deficits Liver cirrhosis with stigmata of chronic liver failure Hyperammoniaemia secondary to above Thrombocytopenia secondary to above Coagulopathy secondary to above Chronic atrial fibrillation, not receiving any form of anticoagulants at this point in time Acute kidney injury probably related to intravascular volume depletion and dehydration. 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 Not affecting overall respiration. Chest x-ray showing improvement Obesity with a BMI of 39 Plan: The patient was seen and evaluated Labs and medications reviewed Currently on BiPAP Ammonia level 81 Remains on lactulose Overall prognosis is quite poor Family is considering hospice/comfort care I have personally seen and examined the patient, performed the documentation and the assessment and plan as written. Number of minutes spent on the visit: 10.
--- NOTE | 2023-07-11 18:51 | P.PN ---
Subjective Progress Note Date: 07/11/23 77-year-old male admitted without mental status and hepatic encephalopathy patient has highly elevated ammonia level today which is 144, will use rectal lactulose and titrate for at least 4-5 loose bowel movements. Patient is barely arousable and because of his altered mental status we cannot use any p.o. medications because of which I am not starting him on rifaximin.. Patient is on BiPAP pulmonary is following the patient. Patient has bilateral pleural effusions: Secondary to volume overload from cirrhosis for which patient is on IV Lasix at this time patient is also coagulopathic because of cirrhosis. 07/09/2023 Patient evaluated today. More awake and off BiPAP, has been weaned to 3L of ox ygen. Ammonia level down to 71. Was able to be given oral lactulose today and will be continued with goal of 2 to 3 loose bowel movements a day. Urine culture showing gram negative bacilli. WBC 2.8, hgb 9.4, platelet count 21, BUN 69, creatinine 2.36. Hemodynamically stable. 07/10/2023 Patient is seen in follow-up today on the medical floor. He has lethargic and mostly unresponsive has been put back on the BiPAP. Ammonia level is increased up to 110. He is again not tolerating any oral intake and the nursing staff will be giving him rectal lactulose today. His AST is 75. Vitamin B12 is added at 1714, folate is 7.10. His BUN is 73, creatinine 2.29. His overall prognosis remains poor discussed with family and they like to pursue hospice care measures they will be meeting with hospice today they would like to bring patient home discussed that this may not be possible and he may be a candidate for inpatient hospice. 07/11/2023 Patient is evaluated today on the medical floor. He continues to transition between the BiPAP and nasal cannula. He is more awake alert today. Ammonia level has decreased to 81. After discussion with patient and family and hospice the plan will be for discharge home with hospice on Wednesday. Patient to continue on rectal or oral lactulose which ever he is tolerating with a goal of 3-4 loose bowel movements per day. Review of Systems Unable to complete patient is lethargic and resting in bed on BiPAP. PHYSICAL EXAMINATION: GENERAL: Patient is on BiPAP arousable but drowsy and sleepy HEENT: Pupils are round and equally reacting to light. EOMI. No scleral icterus. No conjunctival pallor. Normocephalic, atraumatic. No pharyngeal erythema. No thyromegaly. CARDIOVASCULAR: S1 and S2 present. No murmurs, rubs, or gallops. PULMONARY: Chest is clear to auscultation, no wheezing or crackles. ABDOMEN: Soft, nontender, nondistended, normoactive bowel sounds. No palpable organomegaly. MUSCULOSKELETAL: No joint swelling or deformity. EXTREMITIES: No cyanosis, clubbing, bilateral lower extremity edema, Right greater than left upper extremity edema. NEUROLOGICAL: Encephalopathic unable to evaluate SKIN: No rashes. Assessment and plan -Hepatic encephalopathy secondary to hyperammonemia Patient has been more awake alert and can take oral lactulose if tolerating otherwise he will need to be given rectal lactulose with the goal of 3 to 4 loose BMs per day. -Acute kidney injury d/t ATN from hypotension. -Urinary tract infection with urine culture showing E.Coli; this could be asymptomatic bacteriurea patient not having urinary symptoms and white count has not been high. He will be continued on IV ceftriaxone while inpatient. -Acute respiratory failure on BiPAP secondary to bilateral pleural effusions which is again secondary to cirrhosis patient is on IV Lasix which will be continued; on BiPAP oxygen support. -Volume overload secondary to cirrhosis -Thrombocytopenia and coagulopathy secondary to cirrhosis -Chronic atrial fibrillation presently not on any anticoagulation as patient is not anticoagulated secondary to cirrhosis acute renal failure patient is anemia secondary to hypervolemia which is again secondary to cirrhosis and IV Lasix as mentioned above -Hx of Gout -Osteoarthritis DVT prophylaxis: Patient is at a heart anticoagulated because of cirrhosis Discussed plan of care with patients family and also with patients primary provider, Dr. Chu all agreeing for hospice and comfort measures. Plan is for p jojo to return home with hospice on Wednesday07/12/2023. The impression and plan of care has been dictated by Surekha Looney, Nurse Practitioner as directed. Dr. Terry MD I have performed a history and physical examination and medical decision making of this patient, discussed the same with the dictator, and agree with the dictators assessment and plan as written, documented as a scribe. Based on total visit time, I have performed more than 50% of this visit. Objective - Vital Signs Vital signs: Vital Signs Temp 98.2 F 07/11/23 04:00 Pulse 83 07/11/23 04:00 Resp 15 07/11/23 04:00 BP 115/81 07/11/23 04:00 Pulse Ox 100 07/11/23 04:00 FiO2 30 07/10/23 11:36 Intake & Output 07/10/23 07/11/23 07/11/23 17:59 06:59 18:59 Intake Total Output Total Balance Weight Intake: Oral Output: Urine Other: Voiding Method # Voids # Bowel Movements - Labs CBC & Chem 7: 07/10/23 08:46 07/11/23 09:39 Labs: Abnormal Lab Results - Last 24 Hours (Table) 07/10/23 07/10/23 07/10/23 Range/Units 08:46 08:46 08:46 RBC 3.67 L (4.30-5.90) m/uL Hgb 12.8 L D (13.0-17.5) gm/dL Hct 38.5 L (39.0-53.0) % MCV 104.9 H (80.0-100.0) fL RDW 15.9 H (11.5-15.5) % Plt Count 24 L (150-450) k/uL Chloride 112 H (98-107) mmol/L BUN 73 H (9-20) mg/dL Creatinine 2.29 H (0.66-1.25) mg/dL Glucose 108 H (74-99) mg/dL Total Bilirubin 3.9 H (0.2-1.3) mg/dL AST 75 H (17-59) U/L Ammonia 110 H (<30) umol/L Total Protein 5.7 L (6.3-8.2) g/dL Albumin 2.1 L (3.5-5.0) g/dL Vitamin B12 1714.0 H (200.0-944.0) pg/mL Microbiology - Last 24 Hours (Table) 07/08/23 14:00 Urine Culture - Final Urine,Clean Catch Escherichia coli 07/07/23 14:40 Blood Culture - Preliminary Blood Assessment and Plan Time with Patient: Less than 30
[2023-07-12 08:19] LABS: African American GFR (CKD) 45 (>60 ml/min/1.73 sqM); Anion Gap 5 mmol/L; Blood Urea Nitrogen 56 mg/dL (9-20); Calcium 8.3 mg/dL (8.4-10.2); Carbon Dioxide 24 mmol/L (22-30); Chloride 111 mmol/L (98-107); Glucose 100 mg/dL (74-99); Non-African American GFR(CKD) 39 (>60 ml/min/1.73 sqM); Sodium 140 mmol/L (137-145)
[2023-07-12 11:11] VITALS: PULSE 72; RESP 20
--- NOTE | 2023-07-12 11:58 | P.PN ---
Subjective Patient is seen in follow-up for acute kidney injury. Renal function improving. On IV Lasix. Nonoliguric. Poor historian. Currently on room air. Vital signs are stable. General: Resting in bed. HEENT: Head exam is unremarkable. LUNGS: Scattered rhonchi. HEART: Rate and Rhythm are regular. ABDOMEN: No distention. EXTREMITITES: 1+ edema. Objective - Vital Signs Vital signs: Vital Signs Temp 97.9 F 07/12/23 11:47 Pulse 72 07/12/23 11:47 Resp 20 07/12/23 11:47 BP 103/75 07/12/23 11:47 Pulse Ox 94 L 07/12/23 11:47 FiO2 30 07/10/23 11:36 Intake & Output 07/11/23 07/12/23 07/12/23 18:59 06:59 18:59 Intake Total 236 10 Output Total 900 1050 Balance -664 -1040 Weight 134 kg Intake: IV 10 Invasive Line 3 10 Oral 236 Output: Urine 900 1050 Other: Voiding Method External Catheter External Catheter External Catheter - Labs CBC & Chem 7: 07/10/23 08:46 07/12/23 07:43 Labs: Abnormal Lab Results - Last 24 Hours (Table) 07/12/23 07/12/23 Range/Units 07:43 07:43 Chloride 111 H (98-107) mmol/L BUN 56 H (9-20) mg/dL Creatinine 1.68 H (0.66-1.25) mg/dL Glucose 100 H (74-99) mg/dL Calcium 8.3 L (8.4-10.2) mg/dL Ammonia 77 H (<30) umol/L Assessment and Plan Plan: Assessment: 1. Acute kidney injury secondary to ATN secondary to hypotension. Also concern for underlying cardiorenal and hepatic renal syndrome. Renal function improving. Creatinine 1.68 today. No proteinuria on UA. No hydronephrosis noted on kidney ultrasound. Left kidney poorly visualized. 2. Acute on chronic diastolic CHF. 3. Volume overload. Improving with diuresis. 4. Acute hypoxic respiratory failure. On BiPAP. 5. Liver cirrhosis. 6. Hepatic encephalopathy. 7. UTI with urine culture positive for E. coli on antibiotics. Plan: Maintain IV Lasix. Maintain midodrine. Hold for systolic blood pressure greater than 115. Strict I's and O's. Continue to monitor renal function and urine output. Avoid nephrotoxins.
[2023-07-12 12:20] VITALS: BP 103/75; TEMP 97.9
--- NOTE | 2023-07-13 00:12 | PN ---
PROGRESS NOTE DATE OF SERVICE: 07/12/2023 SUBJECTIVE: This is a 77-year-old male, who is seen today in room 375. The patient was on room air. He was not receiving any IV fluids. The patient was doing poorly, and hospice was a consideration. The patient's respirations today are very shallow. The patient is a do not resuscitate patient. The patient was continuing on Lasix. Labs today include a sodium 140, potassium 4, chloride is 111, CO2 of 24, BUN 56, creatinine 1.68. Glucose was 100. Ammonia level was 77 down from 81. Calcium was 8.3. PHYSICAL EXAMINATION: VITAL SIGNS: Current vital signs include temperature 97.9, heart rate 72, respiratory rate 20, blood pressure 103/75. Mean 84. Room air saturation 94%. He appeared in no acute distress. He was unresponsive. HEENT: Examination is grossly unremarkable. NECK: Supple, full range of motion. No adenopathy. Neck veins are flat. CARDIOVASCULAR: Reveals irregular rhythm and rate. Heart rate 88 beats per minute. LUNGS: Reveal some basilar crackles. ABDOMEN: Soft. No bowel sounds. EXTREMITIES: Intact. No cyanosis or clubbing. There is trace edema. SKIN: Without rash. NEUROLOGIC: Showed no focal deficits. LABORATORY DATA: Already mentioned. ASSESSMENT: 1. Hepatic encephalopathy. 2. Liver cirrhosis, with stigmata of chronic liver failure. 3. Hyperammonemia, secondary to chronic liver disease. 4. Thrombocytopenia, secondary to chronic liver disease. 5. Coagulopathy of chronic liver disease. 6. Chronic atrial fibrillation. 7. Acute kidney injury. 8. Right-sided pleural effusion, likely secondary to liver cirrhosis, and hepatic hydrothorax. 9. Obesity, with a BMI of 39. PLAN: The patient is seen today in room 375. The patient is doing poorly. Hospice is a consideration. Labs, x-rays, medications are reviewed. Saturations are in the mid 90s on room air. We will continue to follow unless the patient becomes a hospice patient. No additional recommendations at this time. Labs, x-rays, and medications are reviewed. MMODL / IJN: [id number] /
--- NOTE | 2023-07-14 21:41 | P.DS ---
Providers Date of admission: 07/03/23 05:52 Attending physician: Julian Jasso MD Consults: 07/03/23 15:09 Consult Physician Routine Consulting Provider: Wen Dejesus Consult Reason/Comments: CHASE/CHF exacerbation Do you want consulting provider notified?: Yes 07/04/23 12:41 Consult Physician Routine Consulting Provider: Fredy Neville Consult Reason/Comments: Altered mental status Do you want consulting provider notified?: Yes 07/04/23 14:53 Consult Physician Urgent Consulting Provider: Amado Bethea Consult Reason/Comments: AMS Do you want consulting provider notified?: Yes Primary care physician: Mariana Chu Hospital Course: Final Diagnosis -Hepatic encephalopathy secondary to hyperammonemia -Acute kidney injury d/t ATN from hypotension. -Urinary tract infection with urine culture showing E.Coli; this could be asymptomatic bacteriurea -Acute respiratory failure on BiPAP secondary to bilateral pleural effusions which is again secondary to cirrhosis patient is on IV Lasix -Volume overload secondary to cirrhosis -Thrombocytopenia and coagulopathy secondary to cirrhosis -Chronic atrial fibrillation presently not on any anticoagulation as patient is not anticoagulated secondary to cirrhosis -Hx of Gout -Osteoarthritis Discharge Disposition Patient will be discharged home with hospice care. Recommend to continue on lactulose with a goal of 3-4 loose bowel movements per day patient is given labs and a repeat prescription. Continue on nasal cannula oxygen support. Hospital Course This is a pleasant 77-year-old male with medical history of liver cirrhosis, fatty liver, atrial fibrillation, gout and osteoarthritis. Patient comes in to the hospital with altered mental status, had a fall at home. Patient is maintained on lactulose and lasix outaptient. There is concern for volume overload and hepatic encephalopathy patient has highly elevated ammonia level on admission. He is denying any chest pain, denying shortness of breath, no nausea, no abdominal pain. Patient had a brain CT done showing no acute intracranial hemorrhage. Mild to moderate diffuse age-related cerebral atrophy and moderate chronic small vessel ischemic change redemonstrated. No significant change from prior. Patient was admitted to the hospital under medicine with consults placed to cardiology nephrology and pulmonary services. Had an echocardiogram done that reveals normal LV systolic function with poorly visualized intracardiac valves this is a technically difficult study for interpretation. Blood work on admission reveals a white blood cell count of 4.4, hemoglobin of 13.9, MCV of 106.7, INR 1.9, BUN of 66, creatinine of 2.68 lactic acid of 2.1, bilirubin level 4.5, ammonia level was 162 on admission and a troponin elevation of 0.068 proBNP of 4270. His viral panel was negative for influenza RSV and COVID. Urinalysis was not suggestive of infection. Patient was diuresed with IV Lasix and was started on rectal lactulose and was titrated with a goal of 4-5 loose bowel movements per day. Patient was significantly lethargic and difficult to arouse requiring BiPAP oxygen support. Patient has bilateral pleural effusions: this is due to the volume overload which is secondary to his cirrhosis. His mentation was waxing and waning. Neurology was consulted felt that his altered mentation was due to hepatic encephalopathy and a component of metabolic encephalopathy. There was no further neurological workup recommended. Patient recently had a carotid Doppler performed in January 2023 there was no significant stenosis noted. Although patient's urinalysis was not suggestive of infection his urine culture did come back positive for E. coli and he was treated inpatient with 3 days of IV ceftriaxone and discharged on a short course of oral Ceftin. Due to his clinical status and not having much improvement despite diuresis and treatment with lactulose patient and his family have decided that he will return home on hospice services. This was also discussed with his primary care provider Dr. Chu. Please see medication reconciliation for a list of current medications. Thank you for allowing us to participate in the care of this patient. The impression and plan of care has been dictated by Surekha Looney, Nurse Practitioner as directed. Dr. Terry MD I have performed a history and physical examination and medical decision making of this patient, discussed the same with the dictator, and agree with the dictators assessment and plan as written, documented as a scribe. Based on total visit time, I have performed more than 50% of this visit. Patient Condition at Discharge: Poor Plan - Discharge Summary Discharge Rx Participant: Yes New Discharge Prescriptions: New Cefuroxime [Ceftin] 250 mg PO BID 3 Days #6 tab Famotidine [Pepcid] 20 mg PO DAILY #30 tablet Midodrine [ProAmatine] 10 mg PO AC-TID #90 tab Lactulose [Cephulac] 30 gm PO TID #500 ml Folic Acid 1 mg PO DAILY@1200 #30 tab Metoprolol Tartrate [Lopressor] 50 mg PO BID #60 tab Multivitamins, Thera [Multivitamin (formulary)] 1 each PO DAILY@1200 #30 tab Thiamine [Vitamin B-1] 100 mg PO BID-W/MEALS #30 tab Continue Furosemide [Lasix] 40 mg PO BID@0900,1600 #60 tab Discontinued Metoprolol Tartrate 25 mg PO BID Potassium Chloride ER [K-Dur 20] 20 meq PO DAILY Lactulose [Cephulac] 20 gm PO DAILY Discharge Medication List Furosemide [Lasix] 40 mg PO BID@0900,1600 #60 tab 06/08/23 [Rx] Cefuroxime [Ceftin] 250 mg PO BID 3 Days #6 tab 07/12/23 [Rx] Famotidine [Pepcid] 20 mg PO DAILY #30 tablet 07/12/23 [Rx] Folic Acid 1 mg PO DAILY@1200 #30 tab 07/12/23 [Rx] Lactulose [Cephulac] 30 gm PO TID #500 ml 07/12/23 [Rx] Metoprolol Tartrate [Lopressor] 50 mg PO BID #60 tab 07/12/23 [Rx] Midodrine [ProAmatine] 10 mg PO AC-TID #90 tab 07/12/23 [Rx] Multivitamins, Thera [Multivitamin (formulary)] 1 each PO DAILY@1200 #30 tab 07/12/23 [Rx] Thiamine [Vitamin B-1] 100 mg PO BID-W/MEALS #30 tab 07/12/23 [Rx] Follow up Appointment(s)/Referral(s): Mariana Chu MD [Primary Care Provider] - 1-2 days Ambulatory/Diagnostic Orders: Comprehensive Metabolic Panel [LAB.AMB] Time Frame: 3 Days, Location: None Selected Ambulatory Miscellaneous Order [MISC.AMB] Time Frame: 3 Days, Location: None Selected Discharge Disposition: HOME WITH HOSPICE
== END 2023-07-12 13:20 | disposition still patient (30) | DRG 441 ==
LOC: EC 02:59 → 3SCARD 05:52
PROVIDERS: ADMIT Internal Medicine; ATTEND Internal Medicine
PROC: 5A09557 Assistance with Respiratory Ventilation, Greater than 96 Consecutive Hours, Continuous Positive Airway Pressure (ICD-10-PCS; principal; 2023-07-05)
DX: K76.82 Hepatic encephalopathy (principal); G93.41 Metabolic encephalopathy; N17.0 Acute kidney failure with tubular necrosis; J96.01 Acute respiratory failure with hypoxia; I21.A1 Myocardial infarction type 2; I50.33 Acute on chronic diastolic (congestive) heart failure; K76.7 Hepatorenal syndrome; K56.7 Ileus, unspecified; I13.0 Hypertensive heart and chronic kidney disease with heart failure and stage 1 through stage 4 chronic kidney disease, or unspecified chronic kidney disease; E87.0 Hyperosmolality and hypernatremia; N39.0 Urinary tract infection, site not specified; D68.4 Acquired coagulation factor deficiency; I48.19 Other persistent atrial fibrillation; I25.9 Chronic ischemic heart disease, unspecified; B96.20 Unspecified Escherichia coli [E. coli] as the cause of diseases classified elsewhere; I08.1 Rheumatic disorders of both mitral and tricuspid valves; K74.60 Unspecified cirrhosis of liver; D69.59 Other secondary thrombocytopenia; E66.9 Obesity, unspecified; Z68.39 Body mass index [BMI] 39.0-39.9, adult; T50.1X5A Adverse effect of loop [high-ceiling] diuretics, initial encounter; D64.9 Anemia, unspecified; M10.9 Gout, unspecified; M19.90 Unspecified osteoarthritis, unspecified site; E87.70 Fluid overload, unspecified; Z79.01 Long term (current) use of anticoagulants; X58.XXXA Exposure to other specified factors, initial encounter; D75.89 Other specified diseases of blood and blood-forming organs; R29.6 Repeated falls; N18.9 Chronic kidney disease, unspecified; K76.0 Fatty (change of) liver, not elsewhere classified; E11.22 Type 2 diabetes mellitus with diabetic chronic kidney disease; E66.01 Morbid (severe) obesity due to excess calories; E86.0 Dehydration; Z96.651 Presence of right artificial knee joint; Z87.19 Personal history of other diseases of the digestive system; Z79.899 Other long term (current) drug therapy; Y92.009 Unspecified place in unspecified non-institutional (private) residence as the place of occurrence of the external cause; W19.XXXA Unspecified fall, initial encounter
CPT/HCPCS: 36415; 36600; 70450; 71045; 76770; 80048; 80053; 80320; 81001; 82140; 82607; 82746; 83605; 83735; 83880; 84484; 85025; 85610; 85730; 87040; 87077; 87086; 87186; 87636; 93005; 93306; 94660; 94760; 96374; 99285